=== PATIENT | male | born 1985 | race Hispanic/Latino ===

== ENCOUNTER 2020-03-22 16:56 | Emergency (ER) | payer SELFPAY ==
--- OUTSIDE RECORDS SUMMARY | 2020-03-22 17:00 | XMS REPORT | Summary of Care ---
:1985 Author Organization [facility] - Health Address [address] [place] [address] Care Team Providers Name Role Phone Pcp, Does Not Have A Primary Care Provider Encounter Details Date Type Department Care Team Description 02/02/2020 Orders Only [facility] Doctor Unassigned, No [address] [facility] [place] [address] [address] [place] [address] Allergies Active Allergy Reactions Severity Noted Date Comments Aspirin Hives 10/09/2015 documented as of this encounter (statuses as of 02/02/2020) Medications Medication Sig Dispensed Refills Start Date End Date Status desvenlafaxine succinate Take 50 mg by 0 Active (PRISTIQ) 50 mg 24 hr mouth daily. tablet sulfamethoxazole-trimeth Take 1 Tab by 20 Tab 0 10/09/2015 Active oprim (BACTRIM DS) mouth every 12 800-160 mg per tablet (twelve) hours. phenazopyridine Take 1 Tab by 9 Tab 0 10/09/2015 Active (PYRIDIUM) 200 mg tablet mouth 3 (three) times daily. tamsulosin (FLOMAX) 0.4 Take 1 Cap by 14 Cap 0 10/09/2015 Active mg 24 hr capsule mouth at bedtime. traMADOL (ULTRAM) 50 mg Take 1 Tab by 20 Tab 0 12/16/2015 Active tablet mouth every 6 (six) hours as needed for Pain (scale 4-6). acetaminophen-codeine Take 1 tablet by 10 tablet 0 05/05/2019 Active (TYLENOL-CODEINE #3) mouth every 4 300-30 mg (four) hours as tabletIndications: Flank needed (pain). pain ondansetron (ZOFRAN) 4 Take 1 tablet by 10 tablet 0 05/05/2019 Active mg tabletIndications: mouth every 8 Flank pain (eight) hours as needed (nausea). FLUoxetine (PROZAC) 40 Take 40 mg by 0 Active mg capsule mouth daily. famotidine 20 mg Take 1 tablet by 20 tablet 0 01/17/2020 Active tabletIndications: mouth 2 (two) Vomiting, intractability times daily. of vomiting not specified, presence of nausea not specified, unspecified vomiting type, Marijuana use ondansetron 4 mg Take 1 tablet by 20 tablet 0 01/17/2020 Active disintegrating mouth every 4 tabletIndications: (four) hours as Vomiting, intractability needed for of vomiting not Nausea and specified, presence of Vomiting (N/V). nausea not specified, unspecified vomiting type, Marijuana use documented as of this encounter (statuses as of 02/02/2020) Active Problems No known active problemsdocumented as of this encounter (statuses as of 02/02/2020) Social History Tobacco Use Types Packs/Day Years Used Date Never Assessed Sex Assigned at Date Recorded Not on file Job Start Date Occupation Industry Not on file Not on file Not on file Travel History Travel Start Travel End No recent travel history available. COVID-19 Exposure Response Date Recorded In the last month, have you been in contact with No / Unsure 01/17/2020 10:17 AM CDT someone who was confirmed or suspected to have Coronavirus / COVID-19? documented as of this encounter Last Filed Vital Signs Not on filedocumented in this encounter Plan of Treatment Health Maintenance Due Date Last Done Comments VARICELLA VACCINES (1 of 2 - 1988 2-dose childhood series) DTaP,Tdap,and Td Vaccines (1 - 1998 Tdap) INFLUENZA VACCINE (#1) 2019 PNEUMOCOCCAL 0-64 YEARS COMBINED Aged Out No longer eligible based on SERIES patient's age to complete this topic documented as of this encounter Procedures Procedure Name Priority Date/Time Associated Diagnosis Comme nts NOTICE OF PRIVACY Routine 02/02/2020 7:33 AM CDT PRACTICES CONSENT/REFUSAL FOR Routine 02/02/2020 7:33 AM CDT DIAGNOSIS AND TREATMENT documented in this encounter Results Not on filedocumented in this encounter
--- OUTSIDE RECORDS SUMMARY | 2020-03-22 17:00 | XMS REPORT | Continuity of Care Document ---
:1985 Author Organization [facility] t Address [address] [place] [address] Care Team Providers Name Role Phone Frank GARRIDO E Attending Clinician Lai Attending Clinician Eusebio ARANGO S Attending Clinician Doctor Unassigned, Name Attending Clinician Unavailable Terri Ty DO Attending Clinician Yogesh ARANGO Attending Clinician Avril DO Attending Clinician Kyung DO Attending Clinician Payers Payer Name Policy Type Policy Number Effective Date Expiration Date S ource Problems This patient has no known problems. Allergies, Adverse Reactions, Alerts Allergy Allergy Status Severity Reaction(s) Onset Inactive Treating Comm ents Source Name Type Date Date Clinician NSAIDS DA Active SV [facility] (Non-Chris 6 Clear roidal 00:00: Alicea Anti-Inf 00 [facility] aspirin DA Active SV 2019-0 [facility] 5-13 Clear 00:00: Alicea 00 [facility] No Known DA Active U 2018-1 [facility] Allergie 2-12 Clear s 00:00: Alicea 00 [facility] No Known DA Active U 2018-1 [facility] Allergie 1-15 Clear s 00:00: [place]a 00 [facility] aspirin DA Active U 2018-0 [facility] 4-13 Clear 00:00: [place] 00 [facility] Medications This patient has no known medications. Procedures This patient has no known procedures. Encounters Start End Encounter Admission Attending Care Care Encounter Source Date/Time Date/Time Type Type Clinicians Facility Department ID 2020-03-14 2020-03-14 Patient Kim Marie 1.2.840.114 [id number] 00:00:00 00:00:00 Outreach E Jaeger [id number] [place] 4.2.7.2.686 [id number] 2020-03-12 2020-03-12 Patient Kim Marie 1.2.840.114 [id number] 00:00:00 00:00:00 Outreach E Jaeger 350.1.13.10 [place] 4.2.7.2.686 [id number] 2020-03-12 2020-03-12 Transition Radha Hoytsolomon 1.2.840.114 [id number] 00:00:00 00:00:00 of Care Gaye Lauy 350.1.13.10 [place] 4.2.7.2.686 [id number] 2020-03-07 2020-03-07 Emergency [facility] [id number] 01:22:58 03:40:00 Abel Stearns 350.1.13.10 [place] 4.2.7.2.686 [place] [id number] [id number] 2020-02-27 2020-02-28 Emergency [facility] [id number] 22:09:31 01:36:00 Abel Stearns 350.1.13.10 [place] 4.2.7.2.686 [place] [id number] 2020-02-27 2020-02-27 Orders Doctor ALIX 1.2.840.114 [id number] 00:00:00 00:00:00 Only UnassignedRAKEL 350.1.13.10 [place] [address].2.7.2.686 [id number] [id number] 2020-02-02 2020-02-02 Emergency Karson, [facility] 1.2.840.114 [id number] 07:36:37 09:47:00 Yessicara Terri Stearns 350.1.13.10 [place] 4.2.7.2.686 [place] [id number] 2020-02-02 2020-02-02 Orders Doctor ALIX 1.2.840.114 [id number] 00:00:00 00:00:00 Only UnassignedRAKEL 350.1.13.10 [place] [address] [id number] [id number] 2020-01-17 2020-01-17 [facility] [id number] 10:12:01 11:51:00 Suleman Jinny 350.1.13.10 [place] 4.2.7.2.686 [place] [id number] 084 2019-05-26 2019-05-26 Emergency Tg Mackenzie [facility] 1.2.840.114 [id number] 21:20:14 23:22:00 Health 350.1.13.10 Clear 4.2.7.2.686 [place] [id number] Hospital 014 (CLC) 2019-05-05 2019-05-05 Emergency Kyung [facility] 1.2.840.114 [id number] 10:41:41 12:07:00 Co Health 350.1.13.10 Clear 4.2.7.2.686 [place] [id number] Hospital 014 (CLC) Results Test Description Test Time Test Comments Results Result Comments Source COMPREHENSIVE METABOLIC PANEL 2019-05-24 07:12:00 Test Item Value Reference Range Interpretation Comme nts SODIUM (test code = NA) 142 mEq/L 134-147 N POTASSIUM (test code = K) 3.9 mEq/L 3.4-5.0 N CHLORIDE (test code = CL) 105 mEq/L 100-108 N CARBON DIOXIDE (test code = CO2) 30 mEq/L 21-33 N ANION GAP (test code = GAP) 11 0-20 N GLUCOSE (test code = GLU) 112 mg/dL 70-110 H BLOOD UREA NITROGEN (test code = 14 mg/dL 7-18 N BUN) GLOMERULAR FILTRATION RATE (test 98.4 105-110 L Units of measure = code = GFR) ml/min/1.73 m2 CREATININE (test code = CREAT) 0.9 mg/dL 0.6-1.3 N TOTAL PROTEIN (test code = PROT) 7.6 g/dL 6.4-8.2 N ALBUMIN (test code = ALB) 4.50 g/dL 3.4-5.0 N CALCIUM (test code = CA) 9.5 mg/dL 8.0-10.5 N BILIRUBIN TOTAL (test code = BILT) 0.60 mg/dL 0.0-1.0 N SGOT/AST (test code = AST) 14 IUnit/L 15-37 L SGPT/ALT (test code = ALT) 14 IUnit/L 15-65 L ALKALINE PHOSPHATASE TOTAL (test 92 IUnit/L 20-125 N code = ALKP) [id number] 07:12:00 Test Item Value Reference Range Interpretation Comments LIPASE (test code = LIP) 74 IUnit/L 73-393 N COMPREHENSIVE METABOLIC [id number] 07:07:00 Test Item Value Reference Range Interpretation Comments SODIUM (test code = NA) 142 mEq/L 134-147 N POTASSIUM (test code = K) 3.9 mEq/L 3.4-5.0 N CHLORIDE (test code = CL) 105 mEq/L 100-108 N CARBON DIOXIDE (test code = CO2) 30 mEq/L 21-33 N ANION GAP (test code = GAP) 11 0-20 N GLUCOSE (test code = GLU) 112 mg/dL 70-110 H BLOOD UREA NITROGEN (test code = 14 mg/dL 7-18 N BUN) GLOMERULAR FILTRATION RATE (test 105-110 code = GFR) CREATININE (test code = CREAT) mg/dL 0.6-1.3 TOTAL PROTEIN (test code = PROT) g/dL 6.4-8.2 ALBUMIN (test code = ALB) g/dL 3.4-5.0 CALCIUM (test code = CA) 9.5 mg/dL 8.0-10.5 N BILIRUBIN TOTAL (test code = BILT) mg/dL 0.0-1.0 SGOT/AST (test code = AST) IUnit/L 15-37 SGPT/ALT (test code = ALT) IUnit/L 15-65 ALKALINE PHOSPHATASE TOTAL (test IUnit/L 20-125 code = ALKP) [id number] 07:07:00 Test Item Value Reference Range Interpretation Comments LIPASE (test code = LIP) 74 IUnit/L 73-393 N URINALYSIS [id number] 07:03:00 Test Item Value Reference Range Interpretation Comments UA COLOR (test code = COLU) YELLOW YEL/STRAW UA APPEARANCE (test code = CLEAR CLEAR APPU) UA GLUCOSE DIPSTICK (test code NEGATIVE NEGATIVE = DGLUU) UA BILIRUBIN DIPSTICK (test NEGATIVE NEGATIVE code = BILU) UA KETONE DIPSTICK (test code TRACE NEGATIVE A = KETU) UA SPECIFIC GRAVITY (test code 1.029 1.005-1.030 N = SGU) UA BLOOD DIPSTICK (test code = NEGATIVE NEGATIVE MOE) UA PH DIPSTICK (test code = 6.0 5.0-7.0 N JANNETH) UA PROTEIN DIPSTICK (test code 1+ NEGATIVE A = PROU) UA UROBILINIOGEN DIPSTICK 0.2 mg/dL 0.2-1.0 (test code = URO) UA NITRITE DIPSTICK (test code NEGATIVE NEGATIVE = UMBERTO) UA LEUKOCYTE ESTERASE DIPSTICK NEGATIVE NEGATIVE (test code = LEUU) UA RBC (test code = RBCU) 0-3 RBC/HPF 0-3 UA WBC NO REFLEX (test code = 0-3 WBC/HPF 0-3 WBCUCL) UA BACTERIA (test code = BACU) NONE SEEN /HPF NONE SEEN UA SQUAMOUS CELLS (test code = 0-5 /HPF NONE SEEN SQU) UA MUCUS (test code = MUCU) 4+ /LPF NONE SEEN A COMMENTS: Clean CatchCBC W/AUTO [id number] 06:59:00 Test Item Value Reference Range Interpretation Comments WHITE BLOOD CELL (test code = 13.17 x10 3/uL 4.5-11.0 H WBC) RED BLOOD CELL (test code = 5.18 x10 6/uL 4.00-5.60 N RBC) HEMOGLOBIN (test code = HGB) 15.2 g/dL 12.5-16.9 N HEMATOCRIT (test code = HCT) 46.1 % 37.5-50.7 N MEAN CELL VOLUME (test code = 89.0 fL 81.0-99.0 N MCV) MEAN CELL HGB (test code = 29.3 pg 27.0-33.0 N MCH) MEAN CELL HGB CONCETRATION 33.0 g/dL 33.0-37.0 N (test code = MCHC) RED CELL DISTRIBUTION WIDTH CV 12.4 % 11.5-14.5 N (test code = RDW) RED CELL DISTRIBUTION WIDTH SD 41.1 fL 37.0-54.0 N (test code = RDW-SD) PLATELET COUNT (test code = 370 x10 3/uL 150-400 N PLT) MEAN PLATELET VOLUME (test 8.6 fL 7.0-9.0 N code = MPV) NEUTROPHIL % (test code = NT%) 81.7 % 56.0-77.0 H IMMATURE GRANULOCYTE % (test 0.5 % 0.0-2.0 N code = IG%) LYMPHOCYTE % (test code = LY%) 10.6 % 14.0-32.0 L MONOCYTE % (test code = MO%) 6.5 % 4.8-9.0 N EOSINOPHIL % (test code = EO%) 0.2 % 0.3-3.7 L BASOPHIL % (test code = BA%) 0.5 % 0.0-2.0 N NUCLEATED RBC % (test code = 0.0 % 0-0 N NRBC%) NEUTROPHIL # (test code = NT#) 10.76 x10 3/uL 2.0-7.6 H IMMATURE GRANULOCYTE # (test 0.07 x10 3/uL 0.00-0.03 H code = IG#) LYMPHOCYTE # (test code = LY#) 1.40 x10 3/uL 1.0-3.8 N MONOCYTE # (test code = MO#) 0.85 x10 3/uL 0.1-0.8 H EOSINOPHIL # (test code = EO#) 0.03 x10 3/uL 0.0-0.2 N BASOPHIL # (test code = BA#) 0.06 x10 3/uL 0.0-0.2 N NUCLEATED RBC # (test code = 0.00 x10 3/uL 0.0-0.1 N NRBC#) MANUAL DIFF REQUIRED (test NO code = MDIFF) BASIC METABOLIC [id number] 20:42:00 Test Item Value Reference Range Interpretation Comments SODIUM (test code = NA) 140 mEq/L 134-147 N POTASSIUM (test code = 3.9 mEq/L 3.4-5.0 N K) CHLORIDE (test code = 107 mEq/L 100-108 N CL) CARBON DIOXIDE (test 28 mEq/L 21-33 N code = CO2) ANION GAP (test code = 9 0-20 N GAP) GLUCOSE (test code = 104 mg/dL 70-110 N GLU) BLOOD UREA NITROGEN 8 mg/dL 7-18 N (test code = BUN) GLOMERULAR FILTRATION 98.4 105-110 L Units of measure = RATE (test code = GFR) ml/mi n/1.73 m2 CREATININE (test code = 0.9 mg/dL 0.6-1.3 N CREAT) CALCIUM (test code = 8.9 mg/dL 8.0-10.5 N CA) CBC W/AUTO [id number] 20:27:00 Test Item Value Reference Range Interpretation Comments WHITE BLOOD CELL (test code = 9.61 x10 3/uL 4.5-11.0 N WBC) RED BLOOD CELL (test code = 4.53 x10 6/uL 4.00-5.60 N RBC) HEMOGLOBIN (test code = HGB) 13.3 g/dL 12.5-16.9 N HEMATOCRIT (test code = HCT) 40.8 % 37.5-50.7 N MEAN CELL VOLUME (test code = 90.1 fL 81.0-99.0 N MCV) MEAN CELL HGB (test code = MCH) 29.4 pg 27.0-33.0 N MEAN CELL HGB CONCETRATION 32.6 g/dL 33.0-37.0 L (test code = MCHC) RED CELL DISTRIBUTION WIDTH CV 12.8 % 11.5-14.5 N (test code = RDW) RED CELL DISTRIBUTION WIDTH SD 42.5 fL 37.0-54.0 N (test code = RDW-SD) PLATELET COUNT (test code = 323 x10 3/uL 150-400 N PLT) MEAN PLATELET VOLUME (test code 8.7 fL 7.0-9.0 N = MPV) NEUTROPHIL % (test code = NT%) 55.6 % 56.0-77.0 L IMMATURE GRANULOCYTE % (test 0.4 % 0.0-2.0 N code = IG%) LYMPHOCYTE % (test code = LY%) 31.8 % 14.0-32.0 N MONOCYTE % (test code = MO%) 10.9 % 4.8-9.0 H EOSINOPHIL % (test code = EO%) 0.7 % 0.3-3.7 N BASOPHIL % (test code = BA%) 0.6 % 0.0-2.0 N NUCLEATED RBC % (test code = 0.0 % 0-0 N NRBC%) NEUTROPHIL # (test code = NT#) 5.33 x10 3/uL 2.0-7.6 N IMMATURE GRANULOCYTE # (test 0.04 x10 3/uL 0.00-0.03 H code = IG#) LYMPHOCYTE # (test code = LY#) 3.06 x10 3/uL 1.0-3.8 N MONOCYTE # (test code = MO#) 1.05 x10 3/uL 0.1-0.8 H EOSINOPHIL # (test code = EO#) 0.07 x10 3/uL 0.0-0.2 N BASOPHIL # (test code = BA#) 0.06 x10 3/uL 0.0-0.2 N NUCLEATED RBC # (test code = 0.00 x10 3/uL 0.0-0.1 N NRBC#) MANUAL DIFF REQUIRED (test code NO = MDIFF) - CT ABD PELVIS W/O [id number] 20:22:00 Name: RO BROTHERS JR [facility] : 1985 Age/S: 33 / M [address] [place] [address] Unit #: [id number] Loc: [place] [id number] Phys: Omer Lepe Acct: [id number] Dis Date: Status: REG ER PHONE #: [phone] Exam Date: 03/21/20191999 FAX #: [phone] Reason: R flank pain EXAMS: CPTCODE: [id number] CT ABD PELVIS W/O CONT [id number] PROCEDURE: CT ABDOMEN AND PELVIS WITHOUT CONTRAST (RENAL STONE CT) INDICATION: 33 years Male, right flank pain. COMPARISON: Abdominal CT of 02/03/2019 TECHNIQUE: Helical noncontrast imaging performed diaphragm through the pubic symphysis. Axial, sagittal and coronal reconstructions are available. IV contrast: None. Oral contrast: None. Rectal contrast: None. DOSE: CT imaging performed at this location utilizes radiation dose optimization technique which includes one or more of the followin) Automated exposure control; 2) Adjustment of the mA and/or kV according to patient's size; 3) Use of iterativereconstruction techniques. DLP (mGy- cm): 468 FINDINGS: This examination is limited for the evaluation of solid organs and vascular structures due to lack of intravenous contra st, which is standard for urinary calculus assessment CT. LOWER CHEST: Limited visualization. No abnormalities. No pericardial effusion. SOLID ORGANS: Liver, spleen, and pancreas are within normal limits. Bilateral adrenal glands are normal. Punctate bilateral intrarenal stones. No hydronephrosis or perirenal edema. No intraureteral stones. No gallstones. No biliary ductal dilatation. BOWEL: No bowel dilatation or bowel wall thickening. Sigmoid colon is unremarkable. Perirectal fat planes are within normal limits. Normal appearing appendix identified within right lower quadrant. PERITONEUM: No free intraperitoneal air or fluid. No stranding of the central mesentery. No peritoneal adenopathy by size criteria. RETROPERITONEUM: Abdominal aorta is normal caliber. No retroperitoneal adenopathy by size criteria. PELVIS: No pelvic mass. No pelvic free fluid.Urinary bladder is unremarkable. No pelvic adenopathy by size criteria. MUSCULOSKELETAL: No acute osseous abnormalities or destructive bony PAGE 1 Signed Report (CONTINUED) Name: ZEVRO ALIX SAUCEDA [facility] : 1985 Age/S: 33 / M [address] [place] [address] Blvd Unit #: [id number] Loc: [place] [address] Phys: Omer Lepe DO Acct: [id number] Dis Date: Status: REG ER PHONE #: [phone] Exam Date: 03/21/20191999 FAX#: [phone] Reason: R flank pain EXAMS: CPT CODE: [id number] CT ABD PELVIS W/O [id number] <Continued> lesions. Vertebral body height are maintained. OTHER: None. IMPRESSION: 1. Stable minimal bilateral nonobstructing nephrolithiasis. Otherwise, negative SL: JH-H at 2021 Reported and signed by: Alix Armas M.D. CC: Omer Lepe DO Technologist:Hafsa Mike, RT(R)(CT) CTDI: DLP: Trnscb Date/Time: 03/21/2019 (2021) [id number] Orig Print D/T: S: 03/21/2019 (2024) PAGE 2 Signed Report URINALYSIS [id number] 19:52:00 Test Item Value Reference Range Interpretation Comments UA COLOR (test code = COLU) STRAW YEL/STRAW UA APPEARANCE (test code = CLEAR CLEAR APPU) UA GLUCOSE DIPSTICK (test code NEGATIVE NEGATIVE = DGLUU) UA BILIRUBIN DIPSTICK (test NEGATIVE NEGATIVE code = BILU) UA KETONE DIPSTICK (test code = NEGATIVE NEGATIVE KETU) UA SPECIFIC GRAVITY (test code 1.004 1.005-1.030 L = SGU) UA BLOOD DIPSTICK (test code = 2+ NEGATIVE A MOE) UA PH DIPSTICK (test code = 8.0 5.0-7.0 H JANNETH) UA PROTEIN DIPSTICK (test code NEGATIVE NEGATIVE = PROU) UA UROBILINIOGEN DIPSTICK (test 0.2 mg/dL 0.2-1.0 code = URO) UA NITRITE DIPSTICK (test code NEGATIVE NEGATIVE = UMBERTO) UA LEUKOCYTE ESTERASE DIPSTICK NEGATIVE NEGATIVE (test code = LEUU) UA WBC (test code = WBCU) 0-3 WBC/HPF 0-3 UA RBC (test code = RBCU) 21-50 RBC/HPF 0-3 UA BACTERIA (test code = BACU) TRACE /HPF NONE SEEN UA SQUAMOUS CELLS (test code = 0-5 /HPF NONE SEEN SQU) UA MUCUS (test code = MUCU) TRACE /LPF NONE SEEN URINALYSIS [id number] 09:08:00 Test Item Value Reference Range Interpretation Comments UA COLOR (test code = COLU) YELLOW YEL/STRAW UA APPEARANCE (test code = CLOUDY CLEAR A APPU) UA GLUCOSE DIPSTICK (test code NEGATIVE NEGATIVE = DGLUU) UA BILIRUBIN DIPSTICK (test NEGATIVE NEGATIVE code = BILU) UA KETONE DIPSTICK (test code 1+ NEGATIVE A = KETU) UA SPECIFIC GRAVITY (test code 1.025 1.005-1.030 N = SGU) UA BLOOD DIPSTICK (test code = NEGATIVE NEGATIVE MOE) UA PH DIPSTICK (test code = 7.0 5.0-7.0 N JANNETH) UA PROTEIN DIPSTICK (test code 1+ NEGATIVE A = PROU) UA UROBILINIOGEN DIPSTICK 0.2 mg/dL 0.2-1.0 (test code = URO) UA NITRITE DIPSTICK (test code NEGATIVE NEGATIVE = UMBERTO) UA LEUKOCYTE ESTERASE DIPSTICK NEGATIVE NEGATIVE (test code = LEUU) UA WBC (test code = WBCU) 0-3 WBC/HPF 0-3 UA RBC (test code = RBCU) 0-3 RBC/HPF 0-3 UA BACTERIA (test code = BACU) TRACE /HPF NONE SEEN UA SQUAMOUS CELLS (test code = NONE SEEN /HPF NONE SEEN SQU) UA MUCUS (test code = MUCU) 1+ /LPF NONE SEEN CBC W/AUTO [id number] 09:02:00 Test Item Value Reference Range Interpretation Comments WHITE BLOOD CELL (test code = 7.38 x10 3/uL 4.5-11.0 WBC) RED BLOOD CELL (test code = 5.41 x10 6/uL 4.00-5.60 N RBC) HEMOGLOBIN (test code = HGB) 16.0 g/dL 12.5-16.9 N HEMATOCRIT (test code = HCT) 48.3 % 37.5-50.7 N MEAN CELL VOLUME (test code = 89.3 fL 81.0-99.0 N MCV) MEAN CELL HGB (test code = MCH) 29.6 pg 27.0-33.0 N MEAN CELL HGB CONCETRATION 33.1 g/dL 33.0-37.0 N (test code = MCHC) RED CELL DISTRIBUTION WIDTH CV 13.1 % 11.5-14.5 N (test code = RDW) RED CELL DISTRIBUTION WIDTH SD 42.9 fL 37.0-54.0 N (test code = RDW-SD) PLATELET COUNT (test code = 367 x10 3/uL 150-400 N PLT) MEAN PLATELET VOLUME (test code 8.4 fL 7.0-9.0 N = MPV) NEUTROPHIL % (test code = NT%) 70.2 % 56.0-77.0 N IMMATURE GRANULOCYTE % (test 0.3 % 0.0-2.0 N code = IG%) LYMPHOCYTE % (test code = LY%) 21.0 % 14.0-32.0 N MONOCYTE % (test code = MO%) 7.6 % 4.8-9.0 N EOSINOPHIL % (test code = EO%) 0.1 % 0.3-3.7 L BASOPHIL % (test code = BA%) 0.8 % 0.0-2.0 N NUCLEATED RBC % (test code = 0.0 % 0-0 N NRBC%) NEUTROPHIL # (test code = NT#) 5.18 x10 3/uL 2.0-7.6 N IMMATURE GRANULOCYTE # (test 0.02 x10 3/uL 0.00-0.03 N code = IG#) LYMPHOCYTE # (test code = LY#) 1.55 x10 3/uL 1.0-3.8 N MONOCYTE # (test code = MO#) 0.56 x10 3/uL 0.1-0.8 N EOSINOPHIL # (test code = EO#) 0.01 x10 3/uL 0.0-0.2 N BASOPHIL # (test code = BA#) 0.06 x10 3/uL 0.0-0.2 N NUCLEATED RBC # (test code = 0.00 x10 3/uL 0.0-0.1 N NRBC#) MANUAL DIFF REQUIRED (test code NO = MDIFF) COMPREHENSIVE METABOLIC [id number] 08:41:00 Test Item Value Reference Range Interpretation Comments SODIUM (test code = NA) 140 mEq/L 134-147 N POTASSIUM (test code = 4.4 mEq/L 3.4-5.0 N K) CHLORIDE (test code = 107 mEq/L 100-108 N CL) CARBON DIOXIDE (test 27 mEq/L 21-33 N code = CO2) ANION GAP (test code = 10 0-20 N GAP) GLUCOSE (test code = 99 mg/dL 70-110 N GLU) BLOOD UREA NITROGEN 12 mg/dL 7-18 N (test code = BUN) GLOMERULAR FILTRATION 78.1 105-110 L Units of measure = RATE (test code = GFR) ml/mi n/1.73 m2 CREATININE (test code = 1.1 mg/dL 0.6-1.3 N CREAT) TOTAL PROTEIN (test 7.9 g/dL 6.4-8.2 N code = PROT) ALBUMIN (test code = 4.30 g/dL 3.4-5.0 N ALB) CALCIUM (test code = 8.9 mg/dL 8.0-10.5 N CA) BILIRUBIN TOTAL (test 0.40 mg/dL 0.0-1.0 N code = BILT) SGOT/AST (test code = 15 IUnit/L 15-37 N AST) SGPT/ALT (test code = 18 IUnit/L 15-65 N ALT) ALKALINE PHOSPHATASE 88 IUnit/L 20-125 N TOTAL (test code = ALKP) [id number] 08:41:00 Test Item Value Reference Range Interpretation Comments LIPASE (test code = LIP) 76 IUnit/L 73-393 N COMPREHENSIVE METABOLIC [id number] 08:39:00 Test Item Value Reference Range Interpretation Comments SODIUM (test code = NA) 140 mEq/L 134-147 N POTASSIUM (test code = 4.4 mEq/L 3.4-5.0 N K) CHLORIDE (test code = 107 mEq/L 100-108 N CL) CARBON DIOXIDE (test 27 mEq/L 21-33 N code = CO2) ANION GAP (test code = 10 0-20 N GAP) GLUCOSE (test code = 99 mg/dL 70-110 N GLU) BLOOD UREA NITROGEN 12 mg/dL 7-18 N (test code = BUN) GLOMERULAR FILTRATION 78.1 105-110 L Units of measure = RATE (test code = GFR) ml/mi n/1.73 m2 CREATININE (test code = 1.1 mg/dL 0.6-1.3 N CREAT) TOTAL PROTEIN (test g/dL 6.4-8.2 code = PROT) ALBUMIN (test code = 4.30 g/dL 3.4-5.0 N ALB) CALCIUM (test code = 8.9 mg/dL 8.0-10.5 N CA) BILIRUBIN TOTAL (test mg/dL 0.0-1.0 code = BILT) SGOT/AST (test code = 15 IUnit/L 15-37 N AST) SGPT/ALT (test code = 18 IUnit/L 15-65 N ALT) ALKALINE PHOSPHATASE IUnit/L 20-125 TOTAL (test code = ALKP) [id number] 08:39:00 Test Item Value Reference Range Interpretation Comments LIPASE (test code = LIP) 76 IUnit/L 73-393 N - XR CHEST 1 [id number] 16:27:00 FAX: Racheal Silverio NP [phone] [place]: St: REG Name: RO BROTHERS [facility] : 1985 Age/S: 33/M [address] [place] [address] Unit#: [id number] Loc: [place] [address] Phys: Racheal Silverio NP Acct: [id number] Dis Date: Status: REG ER PHONE #: [phone] Exam Date: 02/03/2019 1617 FAX #: [phone] Reason: Abdominal Pain EXAMS: CPT CODE: [id number] XR CHEST 1 V 53805 SINGLE VIEW RADIOGRAPH CHEST INDICATION: Abdominal Pain. Vomiting for 2 days TECHNIQUE: A single view frontal radiograph of the chestwas obtained. COMPARISONS: Chest x-ray 09/06/2018 FINDINGS: There is no acute osseous fracture or dislocation. There is no subdiaphragmatic freegas. The cardiomediastinal size and contour are normal. There is no pneumothorax, pleural effusion or organized pneumonia. There is a 3 mm calcified left suprahilar gr anuloma suggesting prior granulomatous inflammatory disease. IMPRESSION: 1. No acute cardiopulmonary process. at 0251 Reported and signed by: Sascha Fuentes D.O. CC: Racheal Silverio NP Tech nologist: Rosalia Bruno, RT(R); RT Patrice(R) Trnscrd Date/Time/By: 02/03/2019 (1627) : By: [email or web address] Orig Print D/T: S: 02/03/2019 (9806) PAGE 1 Signed Report- CT ABD PELVIS W/O [id number] 16:04:00 Name: RO BROTHERS JR [facility] [place] : 1985 Age/S: 33 / M [address] [place] [address] Unit #: [id number] Loc: [place] [id number] Phys: Jean ClaudeRacheal NP Acct: [id number] Dis Date: Status: REG ER PHONE #: [phone] Exam Date: 02/03/2019 1537 FAX #: [phone] Reason: L upperabd pain rad to L flank EXAMS: CPTCODE: [id number] CT ABD PELVIS W/O CONT 54241 PROCEDURE: CT ABDOMEN AND PELVIS WITHOUT CONTRAST (RENAL STONE CT) 02/03/2019 INDICATION: Left upper abdominal/flank pain. COMPARISON: Abdomen CT 08/10/2018 ADMINISTERED CONTRAST: None. DLP: 217.2 mGy-cm TECHNIQUE: Noncontrasted helical imaging was performed from the kidneys through the symphysis as a renal stone protocol. Axial and coronal reformations are available. FINDINGS: This examination is limited for the evaluation of solid organs and vascular structures due to lack of intravenous contrast, which isstandard for urinary calculus assessment CT. KIDNEYS/BLADDER: A minimal 2 mm nonobstructing stone is seen in the right renal lower pole with a punctate nonobstructing calculus in the left renal interpolar region. No ureteral calculi, hydronephrosis or hydroureter. Thebladder is partially distended with urine with no filling defects or diverticula. LOWER CHEST: The lung bases are clear. SOLID ORGANS: Accounting for the lack of IV contrast, no gross focal abnormalities are seen in the liver, gallbladder, spleen, pancreas or adrenal glands BOWEL: Limited assessment without oral contrast. No pneumatosis. Normal caliber appendix without thickening or inflammation. PERITONEUM: No free intraperitoneal fluid or air. RETROPERITONEUM: No adenopathy. The aorta is unremarkable. PELVIS: No pelvic adenopathy, mass or free fluid. No inguinal hernia or adenopathy. MUSCULOSKELETAL: The skeleton is intact. IMPRESSION:1. No acute CT explanation for the patient's symptoms. PAGE 1 Signed Report (CONTINUED) Name: RO BROTHERS JR [facility] : 1985 Age/S: 33 / M [address] [place] [address] Unit #: [id number] Loc: JOSE ED[place]ARD[place] [address] Phys: Racheal Silverio NP Acct: [id number] Dis Date: Status: REG ER PHONE #: [phone] Exam Date: 02/03/2019 1537 FAX #: [phone] Reason: L upper abd pain rad to L flank EXAMS: CPT CODE: [id number] CT ABD PELVIS W/O CONT 04198 <Continued> 2. Minimal bilateral nonobstructive nephrolithiasis. ____ CT imaging performed at this location utilizes radiation dose optimization techniques which include one or more of the following: - Automated exposure control -Adjustment of the mA and/or kV according to patient size -Use of iterative reconstruction technique SL: ER-H at 1604 Reported and signed by: Boom Jha M.D. CC: Racheal Silverio NP Technologist:Kimberli Boateng, RT(R)(CT) CTDI: DLP: Trnscb Date/Time: 02/03/2019 (1604) [email or web address] Orig Print D/T: S: 02/03/2019 (1607) PAGE 2 Signed Report URINALYSIS [id number] 15:53:00 Test Item Value Reference Range Interpretation Comments UA COLOR (test code = COLU) COLORLESS YEL/STRAW UA APPEARANCE (test code = CLEAR CLEAR APPU) UA GLUCOSE DIPSTICK (test code NEGATIVE NEGATIVE = DGLUU) UA BILIRUBIN DIPSTICK (test NEGATIVE NEGATIVE code = BILU) UA KETONE DIPSTICK (test code NEGATIVE NEGATIVE = KETU) UA SPECIFIC GRAVITY (test code 1.001 1.005-1.030 L = SGU) UA BLOOD DIPSTICK (test code = NEGATIVE NEGATIVE MOE) UA PH DIPSTICK (test code = 7.0 5.0-7.0 N JANNETH) UA PROTEIN DIPSTICK (test code NEGATIVE NEGATIVE = PROU) UA UROBILINIOGEN DIPSTICK 0.2 mg/dL 0.2-1.0 (test code = URO) UA NITRITE DIPSTICK (test code NEGATIVE NEGATIVE = UMBERTO) UA LEUKOCYTE ESTERASE DIPSTICK NEGATIVE NEGATIVE (test code = LEUU) UA WBC (test code = WBCU) 0-3 WBC/HPF 0-3 UA RBC (test code = RBCU) 0-3 RBC/HPF 0-3 UA BACTERIA (test code = BACU) NONE SEEN /HPF NONE SEEN UA SQUAMOUS CELLS (test code = NONE SEEN /HPF NONE SEEN SQU) COMMENTS: Clean CatchHEPATIC FUNCTION [id number] 15:32:00 Test Item Value Reference Range Interpretation Comments TOTAL PROTEIN (test code = PROT) 8.6 g/dL 6.4-8.2 H ALBUMIN (test code = ALB) 4.70 g/dL 3.4-5.0 N BILIRUBIN TOTAL (test code = 0.40 mg/dL 0.0-1.0 N BILT) BILIRUBIN DIRECT (test code = < 0.10 MG/DL 0.0-0.30 N BILD) BILIRUBIN INDIRECT (test code = 0.30 MG/DL BILIND) SGOT/AST (test code = AST) 18 IUnit/L 15-37 N SGPT/ALT (test code = ALT) 17 IUnit/L 15-65 N ALKALINE PHOSPHATASE TOTAL (test 100 IUnit/L 20-125 N code = ALKP) [id number] 15:32:00 Test Item Value Reference Range Interpretation Comments LIPASE (test code = LIP) 98 IUnit/L 73-393 N CHEMISTRY 8 [id number] 15:25:00 Test Item Value Reference Range Interpretation Comments ISTAT-SODIUM (test code = NAP) MMOL/L 134-147 ISTAT-POTASSIUM (test code = KP) MMOL/L 3.4-5.0 ISTAT-CHLORIDE (test code = CLP) MMOL/L 100-108 ISTAT CARBON DIOXIDE (test code = mmol/L 21-33 N ISTAT-CO2) ISTAT CALCIUM IONIZED (test code = MG/DL 1.12-1.32 ISTAT-AMISH) ISTAT-GLUCOSE (test code = GLUP) MG/DL 70-110 N ISTAT-BUN (test code = BUNP) MG/DL 7-18 N BEDSIDE CREATININE (test code = MG/DL 0.6-1.3 N CREATBED) GLOMERULAR FILTRATION RATE POC 105 ML/MIN (test code = GFRBED) CHEMISTRY 8 [id number] 15:25:00 Test Item Value Reference Range Interpretation Comments ISTAT-SODIUM (test 138 MMOL/L 134-147 N code = NAP) ISTAT-POTASSIUM (test 4.1 MMOL/L 3.4-5.0 N code = KP) ISTAT-CHLORIDE (test 102 MMOL/L 100-108 N Perform ed by code = CLP) certified opera tor at [facility] ISTAT CARBON DIOXIDE 25.0 mmol/L 21-33 N (test code = ISTAT-CO2) ISTAT CALCIUM IONIZED 1.11 MG/DL 1.12-1.32 L (test code = ISTAT-AMISH) ISTAT-GLUCOSE (test 104 MG/DL 70-110 N code = GLUP) ISTAT-BUN (test code = 12 MG/DL 7-18 N BUNP) BEDSIDE CREATININE 0.9 MG/DL 0.6-1.3 N (test code = CREATBED) GLOMERULAR FILTRATION 105 ML/MIN RATE POC (test code = GFRBED) CBC W/AUTO [id number] 15:18:00 Test Item Value Reference Range Interpretation Comments WHITE BLOOD CELL (test code = 13.32 x10 3/uL 4.5-11.0 H WBC) RED BLOOD CELL (test code = 5.58 x10 6/uL 4.00-5.60 N RBC) HEMOGLOBIN (test code = HGB) 16.5 g/dL 12.5-16.9 N HEMATOCRIT (test code = HCT) 49.9 % 37.5-50.7 N MEAN CELL VOLUME (test code = 89.4 fL 81.0-99.0 N MCV) MEAN CELL HGB (test code = 29.6 pg 27.0-33.0 N MCH) MEAN CELL HGB CONCETRATION 33.1 g/dL 33.0-37.0 N (test code = MCHC) RED CELL DISTRIBUTION WIDTH CV 13.0 % 11.5-14.5 N (test code = RDW) RED CELL DISTRIBUTION WIDTH SD 42.5 fL 37.0-54.0 N (test code = RDW-SD) PLATELET COUNT (test code = 419 x10 3/uL 150-400 H PLT) MEAN PLATELET VOLUME (test 8.5 fL 7.0-9.0 N code = MPV) NEUTROPHIL % (test code = NT%) 74.5 % 56.0-77.0 N IMMATURE GRANULOCYTE % (test 0.3 % 0.0-2.0 N code = IG%) LYMPHOCYTE % (test code = LY%) 17.0 % 14.0-32.0 N MONOCYTE % (test code = MO%) 7.7 % 4.8-9.0 N EOSINOPHIL % (test code = EO%) 0.1 % 0.3-3.7 L BASOPHIL % (test code = BA%) 0.4 % 0.0-2.0 N NUCLEATED RBC % (test code = 0.0 % 0-0 N NRBC%) NEUTROPHIL # (test code = NT#) 9.94 x10 3/uL 2.0-7.6 H IMMATURE GRANULOCYTE # (test 0.04 x10 3/uL 0.00-0.03 H code = IG#) LYMPHOCYTE # (test code = LY#) 2.26 x10 3/uL 1.0-3.8 N MONOCYTE # (test code = MO#) 1.02 x10 3/uL 0.1-0.8 H EOSINOPHIL # (test code = EO#) 0.01 x10 3/uL 0.0-0.2 N BASOPHIL # (test code = BA#) 0.05 x10 3/uL 0.0-0.2 N NUCLEATED RBC # (test code = 0.00 x10 3/uL 0.0-0.1 N NRBC#) MANUAL DIFF REQUIRED (test NO code = MDIFF)
--- OUTSIDE RECORDS SUMMARY | 2020-03-22 17:00 | XMS REPORT | Summary of Care ---
:1985 Author Organization [facility] Address [address] [place] [address] Care Team Providers Name Role Phone Pcp, Does Not Have A Primary Care Provider Reason for Visit Reason Comments Vomiting Auth/Cert Status Reason Specialty Diagnoses / Referred By Referred To Procedures Contact Contact Emergency Medicine Diagnoses VOMITING [facility] [address] [place] [address] [place] [address] Fax: Encounter Details Date Type Department Care Team Description 01/17/2020 Emergency [facility]Emergency Suleman Judge MD Vomiting, intractability of vomiting not specified, presence of nausea not specified, unspecified vomiting type (Primary Dx); Department [address] [place] [address] Marijuana use [address] [place] [address] [address] [place] [address] [place] [address] [phone] Allergies Active Allergy Reactions Severity Noted Date Comments Aspirin Hives 10/09/2015 documented as of this encounter (statuses as of 01/17/2020) Medications Medication Sig Dispensed Refills Start Date [...] as of this encounter (statuses as of 01/17/2020) Active Problems No known active problemsdocumented as of this encounter (statuses as of 01/17/2020) Social History Tobacco Use Types Packs/Day Years [...] of this encounter Last Filed Vital Signs Vital Sign Reading Time Taken Comments Blood Pressure 134/88 01/17/2020 10:14 AM CDT Pulse 58 01/17/2020 10:14 AM CDT Temperature 36.3 C (97.4 F) 01/17/2020 10:14 AM CDT Respiratory Rate 14 01/17/2020 10:14 AM CDT Oxygen Saturation 99% 01/17/2020 10:14 AM CDT Inhaled Oxygen Concentration - - Weight 79.4 kg (175 lb) 01/17/2020 10:14 AM CDT Height 175.3 cm (5' 9") 01/17/2020 10:14 AM CDT Body Mass Index 25.84 01/17/2020 10:14 AM CDT documented in this encounter Discharge Instructions InstructionsNeSuleman garcia MD - 01/17/2020 RETURN FOR ANY QUESTIONS OR CONCERNS Today you were seen by Suleman Judge Jr., MD You were seen today for Chief Complaint Patient presents with Vomiting Your ER diagnosis was ICD-10-CM ICD-9-CM 1. Vomiting, intractability of vomiting not specified, presence of nausea not specified, unspecifiedvomiting type R11.10 787.03 NO LIFE-THREATENING FINDINGS ON TODAY'S EXAM. YOUR PRESCRIPTIONS : Check out [employer] for medication discounts Medication List ASK your doctor about these medications acetaminophen-codeine 300-30 mg tablet Commonly known as: TYLENOL-CODEINE #3 Take 1 tablet by mouth every 4 (four) hours as needed (pain). desvenlafaxine succinate 50 mg 24 hr tablet Commonly known as: PRISTIQ ondansetron 4 mg tablet Commonly known as: ZOFRAN Take 1 tablet by mouth every 8 (eight) hours as needed (nausea). phenazopyridine 200 mg tablet Commonly known as: PYRIDIUM Take 1 Tab by mouth 3 (three) times daily. PROzac 40 mg capsule Generic drug: FLUoxetine sulfamethoxazole-trimethoprim 800-160 mg per tablet Commonly known as: BACTRIM DS Take 1 Tab by mouth every 12 (twelve) hours. tamsulosin 0.4 mg 24 hr capsule Commonly known as: FLOMAX Take 1 Cap by mouth at bedtime. traMADol 50 mg tablet Commonly known as: ULTRAM Take 1 Tab by mouth every 6 (six) hours as needed for Pain (scale 4-6). ER precautions and follow up : 1. Return to ER if your symptoms should worsen or fail to improve within 72 hours. 2. The care provided in the emergency room was for acute problems only. 3. You should follow up with your primary care provider within 72 hours. 4. Fill and take all your medications as prescribed. 5. Make sure you are staying adequately hydrated. Busque attencion immediatamente si usted tiene los sitomas sigue, vuelve peor o si hay sitomas nuevas o para cualquiera preoccupacion incluyendo dolor del pecho, falta aire, se siente debile, mas fievre, mas dolor, nausea, vomitando, sangrando que no es normal, confusion, baja or pierdas conciencia. MAY FOLLOW-UP WITH A PROVIDER OF YOUR CHOICE, SUCH : 1. A PHYSICIAN OF YOUR CHOICE 2. [facility], . LOCATIONS IN [facility] 3. [facility], [address] [place] [address]; [phone] OR, IF YOU WISH TO FOLLOW-UP WITHIN THE [facility], MAY TRY THESE OPTIONS (CLINIC APPOINTMENTS AVAILABLE ON [id number] BASIS): 1. SCHEDULE AN APPOINTMENT ONLINE AT WWW[facility] 2. OR CALL THE [facility] AT OR 3. OR CALL YOUR [facility] PHYSICIAN'S OFFICE DIRECTLY IF YOU ARE ALREADY AN ESTABLISHED [facility] PATIENT. [facility] RETURN TO WORK / SCHOOL EXCUSE Adan Jennings Pablo Andujar WAS SEEN IN THE ER AND DISCHARGED 01/17/2020 TODAY, 11:18 AM & May return to Work / School / Incarceration on X with activity as tolerated indicated below. ___The following limitations apply until pt is seen by Physician and cleared to return to normal activity. _X_ Off for two days and return to activity as tolerated at work or school ___ No Sports ___ No work ___ Do not return until fever free for 24 hours. ___ No school SULEMAN JUDGE Jr., MD [facility] EMERGENCY DEPRTMENT [address] [place] [address] [place] [address] ### The patient may have been given Narcotic pain medications during their stay in the ED that may show up on a Drug Screen. The hospital discharge paper work will identify these medications. AttachmentsThe following attachments cannot be sent through Care Everywhere. Vomiting (Adult) (Belgian)Marijuana Abuse (Belgian)documented in this encounter Plan of Treatment Health [...] Name Priority Date/Time Associated Diagnosis Comme nts CBC WITH STAT 01/17/2020 10:25 Vomiting, Results for this DIFFERENTIAL AM CDT intractability of procedure are in vomiting not the results specified, presence of secti on. nausea not specified, unspecified vomiting type ADC / LCC - DRUG STAT 01/17/2020 10:25 Vomiting, Results for this SCREEN TRIAGE AM CDT intractability of procedure are in vomiting not the results specified, presence of secti on. nausea not specified, unspecified vomiting type URINALYSIS STAT 01/17/2020 10:25 Vomiting, Results for this AM CDT intractability of procedure are in vomiting not the results specified, presence of secti on. nausea not specified, unspecified vomiting type CBC WITH Routine 01/17/2020 10:25 Vomiting, Results for this DIFFERENTIAL AM CDT intractability of procedure are in vomiting not the results specified, presence of secti on. nausea not specified, unspecified vomiting type BASIC METABOLIC STAT 01/17/2020 10:25 Vomiting, Results for this PANEL (NA, K, CL, AM CDT intractability of proce dure are in CO2, GLUCOSE, BUN, vomiting not the resul ts CREATININE, CA) specified, presence of se ction. nausea not specified, unspecified vomiting type HEPATIC FUNCTION STAT 01/17/2020 10:25 Vomiting, Results for this PANEL ([id number]) AM CDT intractability of procedure are in (ALB,T.PRO,BILI vomiting not the results T,BU/BC,ALT,AST,ALK specified, presence o f section. PHOS) nausea not specified, unspecified vomiting type LIPASE STAT 01/17/2020 10:25 Vomiting, Results for this AM CDT intractability of procedure are in vomiting not the results specified, presence of secti on. nausea not specified, unspecified vomiting type documented in this encounter Results CBC WITH DIFFERENTIAL (01/17/2020 10:25 AM CDT) Pathologist Sig nature WBC 10.77 (H) 4.20 - 10.70 [facility] 10*3/L [facility] RBC 5.05 4.26 - 5.52 [facility] 10*6/L [facility] HGB 14.8 12.2 - 16.4 [facility] g/dL [facility] HCT 45.1 38.4 - 49.3 % [facility] MCV 89.3 81.7 - 95.6 fL [facility] MCH 29.3 26.1 - 32.7 pg [facility] MCHC 32.8 31.2 - 35.0 [facility] g/dL [facility] RDW-SD 43.6 38.5 - 51.6 fL [facility] RDW-CV 13.3 12.1 - 15.4 % [facility] [address] (H) 150 - 328 [facility] 10*3/L [facility] MPV 8.7 (L) 9.8 - 13.0 fL [facility] NRBC/100 WBC 0.0 0.0 - 10.0 /100 [facility] WBCs [facility] NRBC x10^3 <0.01 10*3/L [facility] GRAN MAT (NEUT) % 77.5 % [facility] IMM GRAN % 0.40 % [facility] LYMPH % 13.3 % [facility] MONO % 7.7 % [facility] EOS % 0.7 % [facility] BASO % 0.4 % [facility] GRAN MAT x10^3(ANC) 8.35 (H) 1.99 - 6.95 [facility] 10*3/uL [facility] IMM GRAN x10^3 0.04 0.00 - 0.06 [facility] 10*3/uL [facility] LYMPH x10^3 1.43 1.09 - 3.23 [facility] 10*3/uL [facility] MONO x10^3 0.83 0.36 - 1.02 [facility] 10*3/uL [facility] EOS x10^3 0.08 0.06 - 0.53 [facility] 10*3/uL [facility] BASO x10^3 0.04 0.01 - 0.09 [facility] 10*3/uL [facility] Specimen Blood - VENOUS Performing Organization Address [facility] Phone Number [facility] CLIA: [id number], [address], [place] [address] ADC / LCC - DRUG SCREEN TRIAGE (01/17/2020 10:25 AM CDT) BENZO U Negative Negative [facility] IHSAN U Negative Negative [facility] AMPHET Negative Negative [facility] THC Presumptive Positive Negative [facility]irm[facility] LAB[facility]ORY Presumptive Positive THC result requires physician order. METHADONE Negative Negative [facility] Meth U Negative Negative [facility] OPIATES Presumptive Positive Negative [facility] Cocaine Metabolite Negative Negative [facility] PROPOXY Negative Negative [facility] Tric U Negative Negative [facility] PCP Negative Negative [facility] OXYCOD Negative Negative [facility] Specimen Urine - URINE, CLEAN CATCH Narrative Performed At Urine Drug Cutoff Ranges [facility] Benzodiazepines: 150 ng/mL Barbiturates: 200 ng/mL Amphetamine: 500 ng/mL Cannabinoids: 50 ng/mL Methadone: 200 ng/mL Methamphetamine: 500 ng/mL Opiates: 100 ng/mL or 2000 ng/mL Cocaine: 150 ng/mL Propoxyphene: 300 ng/mL Tricyclics: 300 ng/mL Oxycodone: 100 ng/mL PCP: 25 ng/mL The results are to be used only for medical (i.e., treatment) purposes. Unconfirmed screening results must not be used for non-medical purposes (e.g., employment testing, legal testing). Performing Organization Address [facility] Phone Number [facility] CLIA: [id number], [address], [place] [address] Lipase Serum (01/17/2020 10:25 AM CDT) Pathologist Sig nature LIPASE 46 0 - 220 U/L [facility] Specimen Blood - VENOUS Performing Organization Address [facility] Phone Number [facility] CLIA: [id number], [address], [place] [address] Hepatic Function Panel (ALB, T.PRO, BILI T, BU/BC, ALT, AST, ALK PHOS) (01/17/2020 10:25 AM CDT) Pathologist [facility] TOTAL BILI 0.4 0.1 - 1.1 mg/dL [facility] BILI UNCON 0.5 0.1 - 1.1 mg/dL [facility] BILI CONJ 0.0 0.0 - 0.3 mg/dL [facility] T PROTEIN 7.4 6.3 - 8.2 g/dL [facility] ALBUMIN 4.6 3.5 - 5.0 g/dL [facility] ALK PHOS 88 34 - 122 U/L [facility] ALTv 11 5 - 50 U/L [facility] AST(SGOT) 23 13 - 40 U/L [facility] Specimen Blood - VENOUS Performing Organization Address City/State/Zipcode Phone Number [facility] CLIA: [id number], [address], [place] [address] Basic Metabolic Panel (NA, K, CL, CO2, GLUCOSE, BUN, CREATININE, CA) (01/17/2020 10:25 AM CDT) [facility] NA 142 135 - 145 [facility] mmol/L [facility] K 4.4 3.5 - 5.0 [facility] mmol/L [facility] CL 107 98 - 108 mmol/L [facility] CO2 TOTAL 32 (H) 23 - 31 mmol/L [facility] AGAP 3 2 - 16 [facility] BUN 13 7 - 23 mg/dL [facility] GLUCOSE 104 70 - 110 mg/dL [facility] CREATININE 0.67 0.60 - 1.25 [facility] mg/dL [facility] CALCIUM 9.6 8.6 - 10.6 [facility] mg/dL [facility] eGFR Calculation 137.5 mL/min/1.73m2 [facility] (Non-) [facility] LABORATOR Y eGFR Calculation 166.6 mL/min/1.73m2 [facility] LABORATORY Specimen Blood - VENOUS Narrative Performed At Association of Glomerular Filtration Rate (GFR) [facility] and Staging of Kidney Disease* + + +- + | GFR (mL/min/1.73 m2) | With Kidney Damage | Without Kidney Damage + + +- + | >90 | Stage one | Normal + + +- + | 60-89 | Stage two | Decreased GFR + + +- + | 30-59 | Stage three | Stage three + + +- + | 15-29 | Stage four | Stage four + + +- + | <15 (or dialysis) | Stage five | Stage five + + +- + *Each stage assumes the associated GFR level has been in effect for at least three months. Stages 1 to 5, with or without kidney disease, indicate chronic kidney disease. Notes: Determination of stages one and two (with eGFR >59mL/min/1.73 m2) requires estimation of kidney damage for at least three months as defined by structural or functional abnormalities of the kidney, manifested by either: Pathological abnormalities or Markers of kidney damage (including abnormalities in the composition of the blood or urine or abnormalities in imaging tests). Performing Organization Address City/[facility] Phone Number [facility] CLIA: [id number], [address], [place] [address] Urinalysis (01/17/2020 10:25 AM CDT) Pathologist Sig nature APPEARANCE Clear Clear [facility] COLOR Yellow Yellow [facility] PH 7.0 4.8 - 8.0 [facility] SP GRAVITY 1.021 1.003 - 1.030 [facility] GLU U QUAL Normal Normal [facility] BLOOD Negative Negative [facility] KETONES Negative Negative [facility] PROTEIN Negative Negative [facility] UROBILIN Normal Normal [facility] BILIRUBIN Negative Negative [facility] NITRITE Negative Negative [facility] LEUK ZHEN Negative Negative [facility] RBC/HPF 1 0 - 3 HPF [facility] WBC/HPF <1 0 - 5 HPF [facility] BACTERIA Negative Negative [facility] MUCOUS Slight (A) Negative LPF [facility] Specimen Urine - URINE, CLEAN CATCH Performing Organization Address City/[facility]/Zipcode Phone Number [facility] CLIA: [id number], [address], [place] [address] documented in this encounter Visit Diagnoses Diagnosis Vomiting, intractability of vomiting not specified, presence of nausea not specified, unspecified vomiting type - Primary Marijuana use Cannabis abuse, unspecified documented in this encounter Administered Medications Medication Order MAR Action Action Date Dose Rate Site NaCl 0.9% (NS) bolus New Bag 01/17/2020 10:27 AM CDT 1,000 mL 99 9 mL/hr infusion 1,000 mL at 999 mL/hr, 1,000 mL, IV Infusion, ONCE, 1 dose, Diana 01/17/20 at 1115, STAT ondansetron (ZOFRAN (PF)) injection 4 mg Given 01/17/2020 10:26 AM CDT 4 mg 4 mg, Slow IV Push, ONCE, 1 dose, Diana 01/17/20 at 1115, MIAN documented in this encounter
--- OUTSIDE RECORDS SUMMARY | 2020-03-22 17:01 | XMS REPORT | Summary of Care ---
:1985 Author Organization [facility] - Health Address [address] [place] [address] Care Team Providers Name Role Phone Pcp, Does Not Have A Primary Care Provider Encounter Details Date Type Department Care Team Description 02/27/2020 Orders Only [facility] Doctor Unassigned, No [address] [facility] [place] [address] [address] [place] [address] Allergies No Known Allergiesdocumented as of this encounter (statuses as of 02/27/2020) Medications Medication Sig Dispensed Refills Start Date [...] as of this encounter (statuses as of 02/27/2020) Active Problems No known active problemsdocumented as of this encounter (statuses as of 02/27/2020) Social History Tobacco Use Types Packs/Day Years Used Date Never Assessed Sex Assigned at Date Recorded Not on file Job Start Date Occupation Industry Not on file Not on file Not on file Travel History Travel Start Travel End No recent travel history available. COVID-19 Exposure Response Date Recorded In the last month, have you been in contact with No / Unsure 02/02/2020 7:34 AM CDT someone who was confirmed or suspected to have Coronavirus / COVID-19? documented as of this encounter Last Filed Vital Signs Not on filedocumented in this encounter Plan of Treatment Health Maintenance Due Date Last Done Comments VARICELLA VACCINES ( of - 1988 2-dose childhood series) DTaP,Tdap,and Td Vaccines ( - 1998 Tdap) INFLUENZA VACCINE (Season Ended) 2020 PNEUMOCOCCAL 0-64 YEARS COMBINED Aged Out No longer eligible based on SERIES patient's age to complete this topic documented as of this encounter Procedures Procedure Name Priority Date/Time Associated Diagnosis Comme nts CONSENT/REFUSAL FOR Routine 02/27/2020 9:56 PM CDT DIAGNOSIS AND TREATMENT documented in this encounter Results Not on filedocumented in this encounter
--- OUTSIDE RECORDS SUMMARY | 2020-03-22 17:01 | XMS REPORT | Summary of Care ---
:1985 Author Organization [facility] Address [address] [place] [id number] Care Team Providers Name Role Phone Pcp, Does Not Have A Primary Care Provider Reason for Referral MRI/CAT Scan (STAT) Status Reason Specialty Diagnoses / Referred By Referred To Procedures Contact Contact New Request Diagnostic Diagnoses Flank pain Yessica Jennings Radiology Procedures CT Abdomen/Pelvis W/O Contrast J, DO [address] [place] [id number] Reason for Visit Reason Comments Flank Pain bilateral Auth/Cert Status Reason Specialty Diagnoses / Referred By Referred To Procedures Contact Contact Emergency Medicine [facility] Em ergency Dept [address] [place] [address] [place] [address] Fax: Encounter Details Date Type Department Care Team Description 02/02/2020 Emergency ADC-Emergency Yessica Jennings, Flank p ain (Primary Department DO Dx) [address] [place], [place] [id number] Allergies No Known Allergiesdocumented as of this [...] Sign Reading Time Taken Comments Blood Pressure 111/96 02/02/2020 9:00 AM CDT Pulse 60 02/02/2020 9:00 AM CDT Temperature 36.1 C (97 F) 02/02/2020 7:39 AM CDT Respiratory Rate 18 02/02/2020 9:00 AM CDT Oxygen Saturation 99% 02/02/2020 9:00 AM CDT Inhaled Oxygen Concentration - - Weight 81.6 kg (180 lb) 02/02/2020 7:39 AM CDT Height - - Body Mass Index 26.58 01/17/2020 10:14 AM CDT documented in this encounter Discharge Instructions Yessica Mcclain DO - 02/02/2020DIAGNOSIS 1. Flank pain NO LIFE-THREATENING FINDINGS ON TODAY'S EXAM. PROCEDURES IN THE ER TODAY: Blood work Urine test CT abdomen/pelvis MEDICATIONS ADMINISTERED IN THE ER TODAY: Toradol Zofran IV fluids YOUR PRESCRIPTIONS AND [id number] MEDICATION RECOMMENDATIONS: None SPECIAL CARE INSTRUCTIONS: None FOLLOW-UP RECOMMENDATIONS: RECOMMEND FOLLOW-UP WITH A PRIMARY CARE PROVIDER OR SPECIALIST IN 2-5 DAYS, ESPECIALLY IF NO IMPROVEMENT IN SYMPTOMS. TO FOLLOW-UP WITHIN THE [facility], TRY THESE OPTIONS (CLINIC APPOINTMENTS AVAILABLE ON [id number] BASIS): 1. SCHEDULE AN APPOINTMENT ONLINE AT WWW[facility] 2. OR CALL THE [facility] AT OR 3. OR CALL YOUR [facility] PHYSICIAN'S OFFICE DIRECTLY IF YOU ARE ALREADY AN ESTABLISHED [facility] PATIENT. OR, YOU MAY FOLLOW-UP WITH A PROVIDER OF YOUR CHOICE, SUCH : 1. A PHYSICIAN OF YOUR CHOICE 2. [facility], . LOCATIONS IN [facility] 3. [facility], [address] [place] [address]; [phone] RETURN TO ER FOR WORSENING OF SYMPTOMS. AttachmentsThe following attachments cannot be sent through Care Everywhere. Flank Pain, Uncertain Cause (Urdu)documented in this encounter Plan of Treatment Health Maintenance Due Date Last Done Comments VARICELLA VACCINES ( of - 1988 2-dose childhood series) DTaP,Tdap,and Td Vaccines ( - 1998 Tdap) INFLUENZA VACCINE (Season Ended) 2020 PNEUMOCOCCAL 0-64 YEARS COMBINED Aged Out No longer eligible based on SERIES patient's age to complete this topic documented as of this encounter Procedures Procedure Name Priority Date/Time Associated Comments Diagnosis URINALYSIS STAT 02/02/2020 8:31 Flank pain Results for this AM CDT procedure are i n the results section. CT ABDOMEN PELVIS WO STAT 02/02/2020 8:25 Flank pain Res ults for this CONTRAST AM CDT procedure are i n the results section. CBC WITH DIFFERENTIAL STAT 02/02/2020 8:03 Flank pain Re sults for this AM CDT procedure are i n the results section. CBC WITH DIFFERENTIAL Routine 02/02/2020 8:03 Flank pain Re sults for this AM CDT procedure are i n the results section. BASIC METABOLIC PANEL STAT 02/02/2020 8:03 Flank pain Re sults for this (NA, K, CL, CO2, AM CDT procedure a re in GLUCOSE, BUN, the results CREATININE, CA) section. documented in this encounter Results Urinalysis (02/02/2020 8:31 AM CDT) Pathologist Sig nature APPEARANCE Clear Clear [facility] COLOR Yellow Yellow [facility] PH 6.0 4.8 - 8.0 [facility] SP GRAVITY 1.019 1.003 - 1.030 [facility] GLU U QUAL Normal Normal [facility] BLOOD 2+ (A) Negative [facility] KETONES Negative Negative [facility] PROTEIN Negative Negative [facility] UROBILIN Normal Normal [facility] BILIRUBIN Negative Negative [facility] NITRITE Negative Negative [facility] LEUK ZHEN Negative Negative [facility] RBC/HPF 38 (H) 0 - 3 HPF [facility] WBC/HPF 1 0 - 5 HPF [facility] BACTERIA Negative Negative [facility] MUCOUS Slight (A) Negative LPF [facility] HYAL CAST 4 (H) <=2 LPF [facility] Specimen Urine - URINE, CLEAN CATCH Performing Organization Address City/State/Zipcode Phone Number [facility] CLIA: [id number], [address] [place], [place] [address] Abdomen/Pelvis W/O Contrast (02/02/2020 8:25 AM CDT) Specimen Impressions Performed At PACS/VR/DOSE Punctate bilateral nonobstructing nephro lithiasis seen again. No hydronephrosis bilaterally. Preliminary Report Dictated by Resident: Tahira Hodge I, Shahbaz Chi MD., have reviewed this study and agree with the above report. Narrative Performed At CT ABDOMEN PELVIS WO CONTRAST PACS/VR/DOSE HISTORY: 34 years-old; Male; Flank pain, recurrent sto ne disease suspected COMPARISON: 05/05/2019 TECHNIQUE AND FINDINGS: Contiguous axial imaging from the level of the lung bases through the pubic symphysis was pe rformed without the intravenous administration of contrast. Coronal and sagittal reconstructions were obtained. Auto mA and/or iterative rec onstruction were used to reduce radiation dose. FINDINGS: LOWER THORAX: The lung bases are clear. No cardiomegaly. LIVER: No focal hepatic lesions. Normal contour. GALLBLADDER AND BILIARY TREE: No intra o r extrahepatic biliary ductal dilation. No gallbladder wall thickening . SPLEEN: A splenule measures 1.3 cm anter omedially. PANCREAS: No ductal dilation or masses. ADRENAL GLANDS: No adrenal mass. KIDNEYS: Bilateral punctate nonobstructi ng nephrolithiasis are noted measuring 1-2 mm. There is no hydronephrosis or mass c ontour in the renal cortices. PERITONEUM AND RETROPERITONEUM: No free air or fluid collection. LYMPH NODES: Multiple nonspecific mildly prominent mes enteric lymph nodes are seen. GI TRACT: No dilation or bowel wall thickening. Append ix is normal (4:115). PELVIS/BLADDER: Bladder is decompressed with no significant wall thickening. The prostate is normal in si ze. VESSELS: Unremarkable. BONES AND SOFT TISSUES: No suspicious ly tic or sclerotic bony lesions. Procedure Note [facility], Radiant Results Inft User - 2019 9:[address] ABDOMEN PELVIS WO CONTRAST HISTORY: 34 years-old; Male; Flank pain, recurrent stone disease suspected COMPARISON: 05/05/2019 TECHNIQUE AND FINDINGS: Contiguous axial imaging from the level of the lung bases through the pubic symphysis was pe rformed without the intravenous administration of contrast. Coronal and sagittal reconstructions were obtained. Auto mA and/or iterative mario nstruction were used to reduce radiation dose. FINDINGS: LOWER THORAX: The lung bases are clear. No cardiomegaly. LIVER: No focal hepatic lesions. Normal contour. GALLBLADDER AND BILIARY TREE: No intra o r extrahepatic biliary ductal dilation. No gallbladder wall thickening . SPLEEN: A splenule measures 1.3 cm anter omedially. PANCREAS: No ductal dilation or masses. ADRENAL GLANDS: No adrenal mass. KIDNEYS: Bilateral punctate nonobstructi ng nephrolithiasis are noted measuring 1-2 mm. There is no hydronephr osis or mass contour in the renal cortices. PERITONEUM AND RETROPERITONEUM: No free air or fluid collection. LYMPH NODES: Multiple nonspecific mildly prominent mesenteric lymph nodes are seen. GI TRACT: No dilation or bowel wall thic kening. Appendix is normal (4:115). PELVIS/BLADDER: Bladder is decompressed with no significant wall thickening. The prostate is normal in si ze. VESSELS: Unremarkable. BONES AND SOFT TISSUES: No suspicious ly tic or sclerotic bony lesions. IMPRESSION Punctate bilateral nonobstructing nephro lithiasis seen again. No hydronephrosis bilaterally. Preliminary Report Dictated by Resident: Tahira Hodge I, Shahbaz Chi MD., have reviewed this study and agree with the above report. Performing Organization Address City/State/Zipcode Phone Number PACS/VR/DOSE CBC WITH DIFFERENTIAL (02/02/2020 8:03 AM CDT) Pathologist Sig nature WBC 7.29 4.20 - 10.70 [facility] 10*3/L [facility] RBC 5.05 4.26 - 5.52 [facility] 10*6/L [facility] HGB 14.8 12.2 - 16.4 g/dL [facility] HCT 46.3 38.4 - 49.3 % [facility] MCV 91.7 81.7 - 95.6 fL [facility] MCH 29.3 26.1 - 32.7 pg [facility] MCHC 32.0 31.2 - 35.0 g/dL [facility] RDW-SD 45.9 38.5 - 51.6 fL [facility] RDW-CV 13.6 12.1 - 15.4 % [facility] PLT 331 (H) 150 - 328 [facility] 10*3/L [facility] MPV 8.7 (L) 9.8 - 13.0 fL [facility] NRBC/100 WBC 0.0 0.0 - 10.0 /100 [facility] WBCs [facility]ITAL [facility] NRBC x10^3 <0.01 10*3/L [facility] GRAN MAT (NEUT) % 60.1 % [facility] IMM GRAN % 0.30 % [facility] LYMPH % 28.9 % [facility] MONO % 9.2 % [facility] EOS % 1.1 % [facility] BASO % 0.4 % [facility] GRAN MAT x10^3(ANC) 4.38 1.99 - 6.95 [facility] 10*3/uL [facility] IMM GRAN x10^3 <0.03 0.00 - 0.06 [facility] 10*3/uL [facility] LYMPH x10^3 2.11 1.09 - 3.23 [facility] 10*3/uL [facility] MONO x10^3 0.67 0.36 - 1.02 [facility] 10*3/uL [facility] EOS x10^3 0.08 0.06 - 0.53 [facility] 10*3/uL [facility] BASO x10^3 0.03 0.01 - 0.09 [facility] 10*3/uL [facility] Specimen Blood - VENOUS Performing Organization Address City/State/Zipcode Phone Number [facility] CLIA: [id number], [address] [place] [address] Basic Metabolic Panel (NA, K, CL, CO2, GLUCOSE, BUN, CREATININE, CA) (02/02/2020 8:03 AM CDT) Pathologist Sig nature NA 143 135 - 145 mmol/L [facility] K 4.3 3.5 - 5.0 mmol/L [facility] CL 106 98 - 108 mmol/L [facility] CO2 TOTAL 27 23 - 31 mmol/L [facility] AGAP 10 2 - 16 [facility] BUN 11 7 - 23 mg/dL [facility] GLUCOSE 103 70 - 110 mg/dL [facility] CREATININE 0.98 0.60 - 1.25 [facility] mg/dL [facility] CALCIUM 10.4 8.6 - 10.6 mg/dL [facility] eGFR Calculation 88.6 mL/min/1.73m2 [facility] (Non-) [facility] eGFR Calculation 107.4 mL/min/1.73m2 [facility] () [facility] Specimen Blood - VENOUS Narrative Performed At Association of Glomerular Filtration Rate (GFR) [facility] and Staging of Kidney Disease* [...] abnormalities in imaging tests). Performing Organization Address City/State/Zipcode Phone Number [facility] CLIA: [id number], [address] [place] [address] [facility] documented in this encounter Visit Diagnoses Diagnosis Flank pain - Primary Abdominal pain, unspecified site documented in this encounter Administered Medications Medication Order MAR Action Action Date Dose Rate Site ketorolac (TORADOL) injection 30 Given 02/02/2020 8:06 AM CDT 3 0 mg mg 30 mg, Slow IV Push, ONCE, 1 dose, 02/02/20 at 0800, MIAN, production team member approving Restricted medication: YESSICA JENNINGS NaCl 0.9% (NS) bolus infusion New Bag 02/02/2020 8:04 AM CDT 1,000 mL 999 mL/hr 1,000 mL at 999 mL/hr, 1,000 mL, IV Infusion, ONCE, 1 dose, 02/02/20 at 0800, MIAN ondansetron (ZOFRAN (PF)) injection 4 mg Given 02/02/2020 8:06 AM CDT 4 mg 4 mg, Slow IV Push, ONCE, 1 dose, 02/02/20 at 0900, MIAN documented in this encounter"
--- OUTSIDE RECORDS SUMMARY | 2020-03-22 17:02 | XMS REPORT | Summary of Care ---
:1985 Author Organization [facility] - Health Address [address] [place] [address] Care Team Providers Name Role Phone Pcp, Does Not Have A Primary Care Provider Reason for Visit Reason Comments Nausea Vomiting Auth/Cert Status Reason Specialty Diagnoses / Referred By Referred To Procedures Contact Contact Emergency Medicine [facility] Em ergency Dept [address] [facility] [place] [address] Fax: Encounter Details Date Type Department Care Team Description 02/27/2020 - Emergency ADC-Emergency Abel Kaplan Nausea and v omiting in adult patient (Primary Dx); 02/28/2020 Department MD [place] Vomiting, intractability of vomiting not specified, presence of nausea not specified, unspecified vomiting type 132 [facility] [address] [place] [address] [id number] [place], [place] [id number] Allergies No Known Allergiesdocumented as of this encounter (statuses as of 02/28/2020) Medications Medication Sig Dispensed Refills Start Date End Date Status sulfamethoxazole-tri Take 1 Tab by 20 Tab 0 10/09/2015 Active methoprim (BACTRIM mouth every DS) 800-160 mg per 12 (twelve) tablet hours. phenazopyridine Take 1 Tab by 9 Tab 0 10/09/2015 Active (PYRIDIUM) 200 mg mouth 3 tablet (three) times daily. tamsulosin (FLOMAX) Take 1 Cap by 14 Cap 0 10/09/2015 Active 0.4 mg 24 hr capsule mouth at bedtime. traMADOL (ULTRAM) 50 Take 1 Tab by 20 Tab 0 12/16/2015 Active mg tablet mouth every 6 (six) hours as needed for Pain (scale 4-6). acetaminophen-codein Take 1 tablet 10 tablet 0 05/05/2019 Active e (TYLENOL-CODEINE by mouth #3) 300-30 mg every 4 tabletIndications: (four) hours Flank pain as needed (pain). ondansetron (ZOFRAN) Take 1 tablet 10 tablet 0 05/05/2019 Active 4 mg by mouth tabletIndications: every 8 Flank pain (eight) hours as needed (nausea). famotidine 20 mg Take 1 tablet 20 tablet 0 01/17/2020 Active tabletIndications: by mouth 2 Vomiting, (two) times intractability of daily. vomiting not specified, presence of nausea not specified, unspecified vomiting type, Marijuana use ondansetron 4 mg Take 1 tablet 20 tablet 0 01/17/2020 Active disintegrating by mouth tabletIndications: every 4 Vomiting, (four) hours intractability of as needed for vomiting not Nausea and specified, presence Vomiting of nausea not (N/V). specified, unspecified vomiting type, Marijuana use ondansetron (ZOFRAN) Take 1 tablet 12 tablet 0 02/28/2020 Active 4 mg by mouth tabletIndications: every 8 Nausea and vomiting (eight) hours in adult patient as needed for Nausea and Vomiting (N/V). desvenlafaxine Take 50 mg by 0 02/28/20 D iscontinued succinate (PRISTIQ) mouth daily. 20 (Therapy 50 mg 24 hr tablet c ompleted) FLUoxetine (PROZAC) Take 40 mg by 0 Discontinued 40 mg capsule mouth daily. 20 ( erapy completed) metoclopramide HCl Take 1 tablet 20 tablet 0 02/28/2020 Discontinued 10 mg by mouth 20 (Alternate tabletIndications: every 6 (six) therapy) Nausea and vomiting hours. in adult patient documented as of this encounter (statuses as of 02/28/2020) Active Problems No known active problemsdocumented as of this encounter (statuses as of 02/28/2020) Social History Tobacco Use Types Packs/Day Years Used Date Never Assessed Sex Assigned at Date Recorded Not on file Job Start Date Occupation Industry Not on file Not on file Not on file Travel History Travel Start Travel End No recent travel history available. COVID-19 Exposure Response Date Recorded In the last month, have you been in contact with No / Unsure 02/27/2020 10:00 PM CDT someone who was confirmed or suspected to have Coronavirus / COVID-19? documented as of this encounter Last Filed Vital Signs Vital Sign Reading Time Taken Comments Blood Pressure 128/75 02/28/2020 1:00 AM CDT Pulse 86 02/28/2020 1:00 AM CDT Temperature 37.1 C (98.7 F) 02/27/2020 10:04 PM CDT Respiratory Rate 14 02/27/2020 10:04 PM CDT Oxygen Saturation 97% 02/28/2020 1:00 AM CDT Inhaled Oxygen Concentration - - Weight 74.8 kg (165 lb) 02/27/2020 10:04 PM CDT Height 175.3 cm (5' 9") 02/27/2020 10:04 PM CDT Body Mass Index 24.37 02/27/2020 10:04 PM CDT documented in this encounter Discharge Instructions Abel Sierra MD - 02/28/2020 DIAGNOSIS Diagnoses that have been ruled out: None Diagnoses that are still under consideration: None Final diagnoses: Vomiting, intractability of vomiting not specified, presence of nausea not specified, unspecified vomiting type Nausea and vomiting in adult patient NO LIFE-THREATENING FINDINGS ON TODAY'S EXAM. PROCEDURES IN THE ER TODAY: Orders Placed This Encounter Procedures URINALYSIS CBC WITH DIFF COMP. METABOLIC PANEL (36744) CBC WITH DIFFERENTIAL LIPASE ADC / LCC - DRUG SCREEN TRIAGE MEDICATIONS ADMINISTERED IN THE ER TODAY AND DISCHARGE MEDICATIONS: Orders Placed This Encounter Medications ondansetron (ZOFRAN (PF)) injection 4 mg ondansetron (ZOFRAN (PF)) injection 4 mg metoclopramide HCl 10 mg tablet FOLLOW-UP RECOMMENDATIONS: RECOMMEND FOLLOW-UP WITH A PRIMARY CARE PROVIDER OR SPECIALIST IN 2-5 DAYS, ESPECIALLY IF NO IMPROVEMENT IN SYMPTOMS. MAY FOLLOW-UP WITH A PROVIDER OF YOUR CHOICE, SUCH : 1. A PHYSICIAN OF YOUR CHOICE 2. [facility], . LOCATIONS IN [facility] 3. [facility], [address] [facility], [place], [place]; [phone] OR, IF YOU WISH TO FOLLOW-UP WITHIN THE [facility], MAY TRY THESE OPTIONS (CLINIC APPOINTMENTS AVAILABLE ON XKRU-AS-NIVN BASIS): 1. SCHEDULE AN APPOINTMENT ONLINE AT [email or web address] 2. OR CALL THE [facility] AT OR 3. OR CALL YOUR [facility] PHYSICIAN'S OFFICE DIRECTLY IF YOU ARE ALREADY AN ESTABLISHED [facility] PATIENT. RETURN TO ER FOR WORSENING OF SYMPTOMS KEEP YOUR APPOINTMENT WITH THE [facility] TO REFILL YOUR PSYCH MEDICATIONS AttachmentsThe following attachments cannot be sent through Care Everywhere. Vomiting (Adult) (Irish)documented in this encounter Plan of Treatment Health Maintenance Due Date Last Done Comments VARICELLA VACCINES ( - 1988 2-dose childhood series) DTaP,Tdap,and Td Vaccines (1 - 1998 Tdap) Depression Screening 1999 INFLUENZA VACCINE (Season Ended) 2020 PNEUMOCOCCAL 0-64 YEARS COMBINED Aged Out No longer eligible based on SERIES patient's age to complete this topic documented as of this encounter Procedures Procedure Name Priority Date/Time Associated Diagnosis Comme nts CBC WITH STAT 02/27/2020 10:18 Vomiting, Results for this DIFFERENTIAL PM CDT intractability of procedure are in vomiting not the results specified, presence section. of nausea not specified, unspecified vomiting type ADC / LCC - DRUG STAT Add-On 02/27/2020 10:18 Vomiting, Results for this SCREEN TRIAGE PM CDT intractability of procedure are in vomiting not the results specified, presence section. of nausea not specified, unspecified vomiting type URINALYSIS STAT 02/27/2020 10:18 Vomiting, Results for this PM CDT intractability of procedure are in vomiting not the results specified, presence section. of nausea not specified, unspecified vomiting type CBC WITH STAT 02/27/2020 10:18 Vomiting, Results for this DIFFERENTIAL PM CDT intractability of procedure are in vomiting not the results specified, presence section. of nausea not specified, unspecified vomiting type COMP. METABOLIC STAT 02/27/2020 10:18 Vomiting, Results for this PANEL ([id number]) PM CDT intractability of procedure are in vomiting not the results specified, presence section. of nausea not specified, unspecified vomiting type LIPASE STAT Add-On 02/27/2020 10:18 Vomiting, Results for this PM CDT intractability of procedure are in vomiting not the results specified, presence section. of nausea not specified, unspecified vomiting type documented in this encounter Results ADC / LCC - DRUG SCREEN TRIAGE (02/27/2020 10:18 PM CDT) BENZO U Presumptive Positive Negative [facility] IHSAN U Negative Negative [facility] AMPHET Negative Negative [facility] THC Presumptive Positive Negative [facility])Comment: HOSPITAL Confirmation of LABORATORY Presumptive Positive THC result requires physician order. METHADONE Negative Negative [facility] Meth U Negative Negative [facility] OPIATES Negative Negative [facility] Cocaine Metabolite Negative Negative [facility] PROPOXY Negative Negative [facility] Tric U Negative Negative [facility] PCP Negative Negative [facility] OXYCOD Negative Negative [facility] Specimen Urine - URINE, CLEAN CATCH Narrative Performed At Urine Drug Cutoff Ranges [facility] Benzodiazepines: 150 ng/mL Barbiturates: 200 [...] employment testing, legal testing). Performing Organization Address City/[facility]/Zipcode Phone Number [facility] CLIA: [id number], [address] [place] [address] LIPASE (02/27/2020 10:18 PM CDT) Pathologist Sig nature LIPASE 70 0 - 220 U/L [facility] Specimen Blood - VENOUS Performing Organization Address [facility] Phone Number [facility] CLIA: [id number], [address] CBC WITH DIFFERENTIAL (02/27/2020 10:18 PM CDT) [facility] WBC 8.02 4.20 - 10.70 [facility] 10*3/L [facility] RBC 4.95 4.26 - 5.52 [facility] 10*6/L [facility] HGB 14.5 12.2 - 16.4 [facility] g/dL [facility] HCT 43.9 38.4 - 49.3 % [facility] MCV 88.7 81.7 - 95.6 fL [facility] MCH 29.3 26.1 - 32.7 pg [facility] MCHC 33.0 31.2 - 35.0 [facility] g/dL [facility] RDW-SD 42.5 38.5 - 51.6 fL [facility] RDW-CV 13.0 12.1 - 15.4 % [facility] PLT 341 (H) 150 - 328 [facility] 10*3/L [facility] MPV 8.8 (L) 9.8 - 13.0 fL [facility] NRBC/100 WBC 0.0 0.0 - 10.0 /100 [facility] WBCs [facility] NRBC x10^3 <0.01 10*3/L [facility] GRAN MAT (NEUT) % 44.6 % [facility] IMM GRAN % 0.20 % [facility] LYMPH % 42.8 % [facility] MONO % 11.8 % [facility] EOS % 0.1 % [facility] BASO % 0.5 % [facility] GRAN MAT x10^3(ANC) 3.57 1.99 - 6.95 [facility] 10*3/uL [facility] IMM GRAN x10^3 <0.03 0.00 - 0.06 [facility] 10*3/uL HOSPITAL LABORATORY LYMPH x10^3 3.43 (H) 1.09 - 3.23 [facility] 10*3/uL HOSPITAL LAB[facility]ORY MONO x10^3 0.95 0.36 - 1.02 [facility] 10*3/uL [facility] EOS x10^3 <0.03 (L) 0.06 - 0.53 [facility] 10*3/uL [facility] BASO x10^3 0.04 0.01 - 0.09 [facility] 10*3/uL [facility] Specimen Blood - VENOUS Performing Organization Address City/State/Zipcode Phone Number [facility] CLIA: [id number], [address] [place], [place] [address] COMP. METABOLIC PANEL ([id number]) (02/27/2020 10:18 PM CDT) [facility] NA 139 135 - 145 [facility] mmol/L [facility] K 3.7 3.5 - 5.0 [facility] mmol/L [facility] CL 104 98 - 108 mmol/L [facility] CO2 TOTAL 26 23 - 31 mmol/L [facility] AGAP 9 2 - 16 [facility] BUN 16 7 - 23 mg/dL [facility] GLUCOSE 113 (H) 70 - 110 mg/dL [facility] CREATININE 0.87 0.60 - 1.25 [facility] mg/dL [facility] TOTAL BILI 0.3 0.1 - 1.1 mg/dL [facility] CALCIUM 9.7 8.6 - 10.6 [facility] mg/dL [facility] T PROTEIN 7.8 6.3 - 8.2 g/dL [facility] ALBUMIN 5.0 3.5 - 5.0 g/dL [facility] ALK PHOS 80 34 - 122 U/L [facility] ALTv 11 5 - 50 U/L [facility] AST(SGOT) 23 13 - 40 U/L [facility] eGFR Calculation 101.7 mL/min/1.73m2 [facility] (Non-[facility] LAB[facility]ATORY Venezuelan) eGFR Calculation 123.3 mL/min/1.73m2 [facility] () [facility] Specimen Blood - VENOUS Narrative Performed At Association of Glomerular Filtration Rate (GFR) [facility] and Staging of Kidney Disease* [...] abnormalities in imaging tests). Performing Organization Address [facility] Phone Number [facility] CLIA: [id number], [address] [place] [address] URINALYSIS (02/27/2020 10:18 PM CDT) APPEARANCE Hazy (A) Clear [facility] COLOR Yellow Yellow [facility] PH 5.0 4.8 - 8.0 [facility] SP GRAVITY 1.036 (H) 1.003 - 1.030 [facility] GLU U QUAL Normal Normal [facility] BLOOD NegativeComment: Negative [facility] INTERFERENCE FROM HOSPITAL LABORATORY ASCORBIC ACID MAY CAUSE FALSE NEGATIVE RESULT KETONES Negative Negative [facility] PROTEIN Negative Negative [facility] UROBILIN 2.0 mg/dL (A) Normal [facility] BILIRUBIN Negative Negative [facility] NITRITE Negative Negative [facility] LEUK ZHEN Negative Negative [facility] RBC/HPF 1 0 - 3 HPF [facility] WBC/HPF 2 0 - 5 HPF [facility] BACTERIA Negative Negative [facility] MUCOUS Marked (A) Negative LPF [facility] CA OXALATE 17 (H) <=1 HPF [facility] Specimen Urine - URINE, CLEAN CATCH Performing Organization Address [facility] Phone Number [facility] CLIA: [id number], [address] [place], [place] [address] [address] documented in this encounter Visit Diagnoses Diagnosis Nausea and vomiting in adult patient - P rimary Nausea with vomiting Vomiting, intractability of vomiting not specified, presence of nausea not specified, unspecified vomiting type documented in this encounter Administered Medications Medication Order MAR Action Action Date Dose Rate Site ondansetron (ZOFRAN (PF)) injection Given 02/27/2020 10:44 PM CD T 4 mg 4 mg 4 mg, Slow IV Push, ONCE, 1 dose, [facility] 02/27/20 at 2345, MIAN ondansetron (ZOFRAN (PF)) injection 4 mg Given 02/28/2020 12:08 AM CDT 4 mg 4 mg, Slow IV Push, ONCE, 1 dose, Diana 02/28/20 at 0100, MIAN documented in this encounter
--- OUTSIDE RECORDS SUMMARY | 2020-03-22 17:03 | XMS REPORT | Summary of Care ---
:1985 Author Organization [facility] - [address] [address] Care Team Providers Name Role Phone Pcp, Does Not Have A Primary Care Provider Reason for Visit Reason Comments Referral/consult [facility] referral Encounter Details Date Type Department Care Team Description 03/14/2020 Patient Outreach [facility] Kim Marie RN Referral/consult [address] (CHP refer ral) [place], [place] [address] Allergies No Known Allergiesdocumented as of this encounter (statuses as of 03/14/2020) Medications Medication Sig Dispensed Refills Start Date End Date Status sulfamethoxazole-trimet Take 1 Tab by 20 Tab 0 10/09/2015 Active hoprim (BACTRIM DS) mouth every 12 800-160 mg per tablet (twelve) hours. phenazopyridine Take 1 Tab by 9 Tab 0 10/09/2015 Active (PYRIDIUM) 200 mg mouth 3 (three) tablet times daily. tamsulosin (FLOMAX) 0.4 Take 1 [...] 4 300-30 mg (four) hours as tabletIndications: needed (pain). Flank pain ondansetron (ZOFRAN) 4 Take 1 tablet by 10 tablet 0 05/05/2019 Active mg tabletIndications: mouth every 8 Flank pain (eight) hours as needed (nausea). famotidine 20 mg Take 1 tablet by 20 tablet 0 01/17/2020 Active tabletIndications: mouth 2 (two) Vomiting, times daily. intractability of vomiting not specified, presence of nausea not specified, unspecified vomiting type, Marijuana use ondansetron 4 mg Take 1 tablet by 20 tablet 0 01/17/2020 Active disintegrating mouth every 4 tabletIndications: (four) hours as Vomiting, needed for Nausea intractability of and Vomiting vomiting not specified, (N/V). presence of nausea not specified, unspecified vomiting type, Marijuana use ondansetron (ZOFRAN) 4 Take 1 tablet by 12 tablet 0 02/28/2020 Active mg tabletIndications: mouth every 8 Nausea and vomiting in (eight) hours as adult patient needed for Nausea and Vomiting (N/V). metoclopramide HCl 10 Take 1 tablet by 20 tablet 0 03/07/2020 Active mg tabletIndications: mouth every 6 Nausea and vomiting, (six) hours. intractability of vomiting not specified, unspecified vomiting type dicyclomine 20 mg Take 1 tablet by 20 tablet 0 03/07/2020 Active tabletIndications: mouth every 6 Nausea and vomiting, (six) hours as intractability of needed for vomiting not specified, Abdominal pain. unspecified vomiting type pantoprazole (PROTONIX) Take 1 tablet by 28 tablet 0 0 Active 40 mg EC mouth daily. tabletIndications: Nausea and vomiting, intractability of vomiting not specified, unspecified vomiting type documented as of this encounter (statuses as of 03/14/2020) Active Problems No known active problemsdocumented as of this encounter (statuses as of 03/14/2020) Social History Tobacco Use Types Packs/Day Years Used Date Never Assessed Sex Assigned at Date Recorded Not on file Job Start Date Occupation Industry Not on file Not on file Not on file Travel History Travel Start Travel End No recent travel history available. COVID-19 Exposure Response Date Recorded In the last month, have you been in contact with No / Unsure 03/07/2020 1:20 AM CDT someone who was confirmed or suspected to have Coronavirus / COVID-19? documented as of this encounter Last Filed Vital Signs Not on filedocumented in this encounter Progress Notes Kim Marie RN - 03/14/2020 12:31 PM CDTCHP Referral: ED follow up: 52% readmit risk/no PCP/no coverage/resides in [facility](might be eligible for [facility]) Pt was seen in ER for N/V. CT negative for stones; patient was has been positive for THC during manyvisits for c/o n/v. 1st attempt: CM left VM on pt's machine, requesting a call back to discuss CHP enrollment. AMARILYS Castillo, RN, [facility] Outpatient Pricing SpecialistAircraft Seat UpholstererCape Fear Valley Hoke Hospital O: [phone] M: [phone] documented in this encounter Plan of Treatment Health Maintenance Due Date Last Done Comments VARICELLA VACCINES (1 of 2 - 1988 2-dose childhood series) DTaP,Tdap,and Td Vaccines (1 - 1998 Tdap) Depression Screening 1999 INFLUENZA VACCINE (Season Ended) 2020 PNEUMOCOCCAL 0-64 YEARS COMBINED Aged Out No longer eligible based on SERIES patient's age to complete this topic documented as of this encounter Results Not on filedocumented in this encounter
--- OUTSIDE RECORDS SUMMARY | 2020-03-22 17:03 | XMS REPORT | Summary of Care ---
:1985 Author Organization [facility] - [facility] Address [address] [place] [address] Care Team Providers Name Role Phone Pcp, Does Not Have A Primary Care Provider Reason for Visit Reason Comments Transition Of Care Encounter Details Date Type Department Care Team Description 03/12/2020 Transition of Care [facility] Eliceo Hoyt [facility]- [address] [place] [phone] Allergies No Known Allergiesdocumented as of this encounter (statuses as of 03/12/2020) Medications Medication Sig Dispensed Refills Start Date [...] as of this encounter (statuses as of 03/12/2020) Active Problems No known active problemsdocumented as of this encounter (statuses as of 03/12/2020) Social History Tobacco Use Types Packs/Day Years [...]
--- OUTSIDE RECORDS SUMMARY | 2020-03-22 17:03 | XMS REPORT | Summary of Care ---
:1985 Author Organization [facility] - [facility] Address [address] [place] [address] Care Team Providers Name Role Phone Pcp, Does Not Have A Primary Care Provider Reason for Referral MRI/CAT Scan (STAT) Status Reason Specialty Diagnoses / Referred By Referred To Procedures Contact Contact New Request Diagnostic Diagnoses Nausea and vomiting, intractability of vomiting not specified, unspecified vomiting type Abel Kaplan Radiology Procedures CT ABDOMEN PELVIS W CONTRAST SMD [address] [place] [address] [id number] [place] [address] Reason for Visit Reason Comments Vomiting Auth/Cert Status Reason Specialty Diagnoses / Referred By Referred To Procedures Contact Contact Emergency Medicine [facility] Dept [address] [place] [address] Fax: Encounter Details Date Type Department Care Team Description 03/07/2020 Emergency [facility]-Emergency Abel Kaplan S, Nausea an d vomiting, Department intractability of [address] [place] [address] vomiting n ot specified, Drive [id number] unspecified vomiting type [address] (Primary Dx) [phone] [id number] [phone] Allergies No Known Allergiesdocumented as of this encounter (statuses as of 03/07/2020) Medications Medication Sig Dispensed Refills Start Date [...] as of this encounter (statuses as of 03/07/2020) Active Problems No known active problemsdocumented as of this encounter (statuses as of 03/07/2020) Social History Tobacco Use Types Packs/Day Years [...] Sign Reading Time Taken Comments Blood Pressure 104/66 03/07/2020 3:00 AM CDT Pulse 65 03/07/2020 3:00 AM CDT Temperature 36.4 C (97.5 F) 03/07/2020 1:26 AM CDT Respiratory Rate 18 03/07/2020 3:00 AM CDT Oxygen Saturation 96% 03/07/2020 3:00 AM CDT Inhaled Oxygen Concentration - - Weight 74.8 kg (165 lb) 03/07/2020 1:26 AM CDT Height 175.3 cm (5' 9") 03/07/2020 1:26 AM CDT Body Mass Index 24.37 03/07/2020 1:26 AM CDT documented in this encounter Discharge Instructions Abel Sierra MD - 03/07/2020 DIAGNOSIS Diagnoses that have been ruled out: None Diagnoses that are still under consideration: None Final diagnoses: Nausea and vomiting, intractability of vomiting not specified, unspecified vomiting type NO LIFE-THREATENING FINDINGS ON TODAY'S EXAM. PROCEDURES IN THE ER TODAY: Orders Placed This Encounter Procedures CT ABDOMEN PELVIS W CONTRAST Complete Metabolic Panel CBC with Differential Lipase, Serum Urinalysis CBC WITH DIFFERENTIAL MEDICATIONS ADMINISTERED IN THE ER TODAY AND DISCHARGE MEDICATIONS: Orders Placed This Encounter Medications maalox:diphenhydrAMINE:lidocaine 2 % viscous 1:1:1 (FIRST-MOUTHWASH BLM) oral suspension 15 mL ondansetron (ZOFRAN (PF)) injection 4 mg metoclopramide HCl (REGLAN) injection 10 mg iohexol (OMNIPAQUE 350 BULK-150 mL) injection 120 mL FOLLOW-UP RECOMMENDATIONS: RECOMMEND FOLLOW-UP WITH YOUR PRIMARY CARE PROVIDER OR WITH DR SIMEON, GASTROENTEROLOGY SPECIALIST IN 2-5 DAYS, ESPECIALLY IF NO IMPROVEMENT IN SYMPTOMS. MAY FOLLOW-UP WITH A PROVIDER OF YOUR CHOICE, SUCH : 1. A PHYSICIAN OF YOUR CHOICE 2. [facility], . LOCATIONS IN [facility] 3. [facility], [address], [place]; [phone] OR, IF YOU WISH TO FOLLOW-UP WITHIN THE [facility], MAY TRY THESE OPTIONS (CLINIC APPOINTMENTS AVAILABLE ON [id number] BASIS): 1. SCHEDULE AN APPOINTMENT ONLINE AT WWW.[facility] 2. OR CALL THE [facility] AT OR 3. OR CALL YOUR [facility] PHYSICIAN'S OFFICE DIRECTLY IF YOU ARE ALREADY AN ESTABLISHED [facility] PATIENT. RETURN TO ER FOR WORSENING OF SYMPTOMS documented in this encounter Plan of Treatment Name Type Priority Associated Diagnoses Date/Ti me CT ABDOMEN PELVIS W IMAGING STAT Nausea and vomiting, 03/07/2020 2:51 AM CONTRAST intractability of vomiting C DT not specified, unspecified vomiting type Health Maintenance Due Date Last Done Comments [...] Name Priority Date/Time Associated Diagnosis Comme nts CT ABDOMEN PELVIS W STAT 03/07/2020 2:51 AM Nausea and vom iting, CONTRAST CDT intractability of vomiting not specified, unspecified vomiting type Procedure Note - [facility], Radia nt Results Inft User - 03/07/2020 3:20 AM CDT EXAM: CT ABDOMEN AND PELVIS WITH CONTRAST HISTORY: Generalized abdomin al pain, leukocytosis COMPARISON: None. TECHNIQUE AND FINDINGS: Cont iguous axial imaging from the level of the lung bases through the pubic symp hysis was performed after the uncomplicated administration of 120 cc of intravenous Omnipaque contrast. Coronal and sagittal reconstructions wer e obtained. Auto mA and/or iterative reconstruction were used to reduce radiation dose. FINDINGS: LOWER THORAX: The lungs base s are clear. No cardiomegaly. LIVER: No focal hepatic lesi ons. Normal contour. GALLBLADDER AND BILIARY TREE : No biliary ductal dilation. No gallbladder wall thickening. SPLEEN: No splenomegaly. 1.5 cm splenule. PANCREAS: No ductal dilation or masses. ADRENAL GLANDS: No adrenal n odules. KIDNEYS: Punctate bilateral nonobstructive nephrolithiasis. Bilateral subcentimeter hypodensities are too small to accurately characterize. No hydronephrosis. PERITONEUM AND RETROPERITONE UM: No free air or fluid. Small fat-containing umbilical hernia. LYMPH NODES: Prominent mesen teric lymph nodes are not enlarged by CT size criteria. GI TRACT: No dilation or wal l thickening. The suspected appendix is unremarkable. No pericecal o r periappendiceal inflammatory changes to suggest acute appendicitis. PELVIS/BLADDER: Prostatic ca lcifications are noted. The bladder is decompressed. VESSELS: Unremarkable. BONES AND SOFT TISSUES: No s uspicious lytic or sclerotic bony lesions. IMPRESSION Bilateral punctate nonobstru ctive nephrolithiasis. Preliminary Report Dictated by Resident: Vernon Rodney URINALYSIS STAT 03/07/2020 1:49 Nausea and vomiting, Res ults for this AM CDT intractability of procedure are in vomiting not the results specified, unspecified secti on. vomiting type CBC WITH STAT 03/07/2020 1:44 Nausea and vomiting, Res ults for this DIFFERENTIAL AM CDT intractability of procedure are in vomiting not the results specified, unspecified secti on. vomiting type CBC WITH Routine 03/07/2020 1:44 Nausea and vomiting, Res ults for this DIFFERENTIAL AM CDT intractability of procedure are in vomiting not the results specified, unspecified secti on. vomiting type COMP. METABOLIC STAT 03/07/2020 1:44 Nausea and vomiting, Results for this PANEL ([id number]) AM CDT intractability of procedure are in vomiting not the results specified, unspecified secti on. vomiting type LIPASE STAT 03/07/2020 1:44 Nausea and vomiting, Res ults for this AM CDT intractability of procedure are in vomiting not the results specified, unspecified secti on. vomiting type CONSENT/REFUSAL FOR Routine 03/07/2020 1:19 DIAGNOSIS AND AM CDT TREATMENT documented in this encounter Results Urinalysis (03/07/2020 1:49 AM CDT) Pathologist Sig nature APPEARANCE Hazy (A) Clear [facility] COLOR Becca (A) Yellow [facility] PH 5.0 4.8 - 8.0 [facility] SP GRAVITY 1.028 1.003 - 1.030 [facility] GLU U QUAL Normal Normal [facility] BLOOD Negative Negative [facility] KETONES Negative Negative [facility] PROTEIN Negative Negative [facility] UROBILIN 2.0 mg/dL (A) Normal [facility] BILIRUBIN Negative Negative [facility] NITRITE Negative Negative [facility] LEUK ZHEN Negative Negative [facility] RBC/HPF 4 (H) 0 - 3 HPF [facility] WBC/HPF 2 0 - 5 HPF [facility] BACTERIA Negative Negative [facility] MUCOUS Marked (A) Negative LPF [facility] SQ EPITH <1 HPF [facility] CA OXALATE 2 (H) <=1 HPF [facility] HYAL CAST 3 (H) <=2 LPF [facility] Specimen Urine - URINE, CLEAN CATCH Performing Organization Address City/State/Zipcode Phone Number [facility] CLIA: [id number], [address] [place], [place] [address] CBC WITH DIFFERENTIAL (03/07/2020 1:44 AM CDT) Pathologist Sig nature WBC 13.73 (H) 4.20 - 10.70 [facility] 10*3/L [facility] RBC 5.02 4.26 - 5.52 [facility] 10*6/L [facility] HGB 15.2 12.2 - 16.4 [facility] g/dL [facility] HCT 44.6 38.4 - 49.3 % [facility] MCV 88.8 81.7 - 95.6 fL [facility] MCH 30.3 26.1 - 32.7 pg [facility] MCHC 34.1 31.2 - 35.0 [facility] g/dL [facility] RDW-SD 42.3 38.5 - 51.6 fL [facility] RDW-CV 13.1 12.1 - 15.4 % [facility] PLT 348 (H) 150 - 328 [facility] 10*3/L [facility] MPV 9.1 (L) 9.8 - 13.0 fL [facility] NRBC/100 WBC 0.0 0.0 - 10.0 /100 [facility] WBCs [facility] NRBC x10^3 <0.01 10*3/L [facility] GRAN MAT (NEUT) % 77.9 % [facility] IMM GRAN % 0.70 % [facility] LYMPH % 15.1 % [facility] MONO % 5.8 % [facility] EOS % 0.1 % [facility] BASO % 0.4 % [facility] GRAN MAT x10^3(ANC) 10.71 (H) 1.99 - 6.95 [facility] 10*3/uL [facility] IMM GRAN x10^3 0.09 (H) 0.00 - 0.06 [facility] 10*3/uL [facility] LYMPH x10^3 2.07 1.09 - 3.23 [facility] 10*3/uL [facility] MONO x10^3 0.79 0.36 - 1.02 [facility] 10*3/uL [facility] EOS x10^3 <0.03 (L) 0.06 - 0.53 [facility] 10*3/uL [facility] BASO x10^3 0.05 0.01 - 0.09 [facility] 10*3/uL [facility] Specimen Blood - VENOUS Performing Organization Address City/State/Zipcode Phone Number [facility] CLIA: [id number], [address], [place] [address] Lipase, Serum (03/07/2020 1:44 AM CDT) Pathologist Sig nature LIPASE 61 0 - 220 U/L [facility] Specimen Blood - VENOUS Performing Organization Address City/State/Zipcode Phone Number [facility] CLIA: [id number], [address] Complete Metabolic Panel (03/07/2020 1:44 AM CDT) Pathologist Sig nature NA 140 135 - 145 [facility] mmol/L [facility] K 3.5 3.5 - 5.0 [facility] mmol/L [facility] CL 103 98 - 108 mmol/L [facility] CO2 TOTAL 26 23 - 31 mmol/L [facility] AGAP 11 2 - 16 [facility] BUN 12 7 - 23 mg/dL [facility] GLUCOSE 131 (H) 70 - 110 mg/dL [facility] CREATININE 0.77 0.60 - 1.25 [facility] mg/dL [facility] TOTAL BILI 0.3 0.1 - 1.1 mg/dL [facility] CALCIUM 9.6 8.6 - 10.6 [facility] mg/dL [facility] T PROTEIN 7.4 6.3 - 8.2 g/dL [facility] ALBUMIN 4.6 3.5 - 5.0 g/dL [facility] ALK PHOS 91 34 - 122 U/L [facility] ALTv 9 5 - 50 U/L [facility] AST(SGOT) 26 13 - 40 U/L [facility] eGFR Calculation 117.1 mL/min/1.73m2 [facility] ([facility] LABORATORY Slovenian) eGFR Calculation 141.9 mL/min/1.73m2 [facility] () [facility] Specimen Blood - VENOUS Narrative Performed At Association of Glomerular Filtration Rate (GFR) [facility] and Staging of Kidney Disease* + [...] tests). Performing Organization Address City/State/Zipcode Phone Number [facility] CLIA: [id number], [address], [place] [address] documented in this encounter Visit Diagnoses Diagnosis Nausea and vomiting, intractability of v omiting not specified, unspecified vomiting type - Primary documented in this encounter Administered Medications Medication Order MAR Action Action Date Dose Rate Site iohexol (OMNIPAQUE 350 BULK-150 Given 03/07/2020 3:00 AM CDT 12 0 mL mL) injection 120 mL 120 mL, Intravenous, ONCE, 1 dose, 03/07/20 at 0300, Routine maalox:diphenhydrAMINE:lidocaine 2 % viscous Given 08/2020 1:49 AM CDT 15 mL 1:1:1 (FIRST-MOUTHWASH BLM) oral suspension 15 mL 15 mL, Oral, ONCE, 1 dose, Tue03/07/20 at 0245, Routine metoclopramide HCl (REGLAN) injection 10 mg Given 03/07/2020 2:20 AM CDT 10 mg 10 mg, Slow IV Push, ONCE, 1 dose, Tue03/07/20 at 0330, MIAN ondansetron (ZOFRAN (PF)) injection 4 mg Given 03/07/2020 1:44 AM CDT 4 mg 4 mg, Slow IV Push, ONCE, 1 dose, Tue03/07/20 at 0245, MIAN documented in this encounter
--- OUTSIDE RECORDS SUMMARY | 2020-03-22 17:03 | XMS REPORT | Summary of Care ---
:1985 Author Organization [facility] - Health Address [address] [place] [address] Care Team Providers Name Role Phone Pcp, Does Not Have A Primary Care Provider Reason for Visit Reason Comments Hospital F/ frequent ED visits, occurren seema of kidney stones. Encounter Details Date Type Department Care Team Description 03/12/2020 Patient Outreach [facility] Kim Marie RN [facility] [address] [place] [address] (frequent ED [place] [facility] visits, occurrences [place], [place] [address] of kidney stones. ) [phone] Allergies No Known Allergiesdocumented as of this [...] encounter Progress Notes Kim Marie RN - 03/12/2020 3:52 PM CDTED follow up: 52% readmit risk/no PCP/no coverage/resides in [facility](might be eligible for [facility]) Pt was seen in ER for N/V. CT negative for stones; patient was has been positive for THC during manyvisits for c/o n/v. CM left a message with his father and asked for a return call. CM will place referral for CHP. AMARILYS Castillo, RN, [facility] Outpatient Ux Design ManagerImporter ExporterOn License Of [facility] O: [phone] M: [phone] documented in this encounter Plan of Treatment [...]
--- NOTE | 2020-03-22 19:32 | ER ---
Nurse's Notes [facility] Name: Adan Shah Jr Age: 34 yrs Sex: Male : 1985 Arrival Date: 03/22/2020 Time: 16:58 Bed External Waiting Private MD: Diagnosis: Presentation: 03/22 17:04 Chief complaint: Patient states: I've been so nauseous and been throwing up. I went to [address] on the for the same thing, they gave me a couple prescription and it helped. But yesterday, I have been throwing up again and I can't keep anything down. Denies abdominal pain, diarrhea. Denies fever. Coronavirus screen: Proceed with normal triage. Patient denies a cough. Patient denies shortness of breath or difficulty breathing. Patient denies measured and/or subjective temperature greater than 100.4F prior to today's visit. Patient denies travel on a cruise ship or to a country the [facility] currently lists as an affected area. Patient denies contact with known and/or suspected case of COVID-19. Ebola Screen: Patient negative for fever greater than or equal to 101.5 degrees Fahrenheit, and additional compatible Ebola Virus Disease symptoms Patient denies exposure to infectious person. Patient denies travel to an Ebola-affected area in the 21 days before illness onset. No symptoms or risks identified at this time. Initial Sepsis Screen: Does the patient meet any 2 criteria? No. Patient's initial sepsis screen is negative. Does the patient have a suspected source of infection? No. Patient's initial sepsis screen is negative. Risk Assessment: Do you want to hurt yourself or someone else? Patient reports no desire to harm self or others. Onset of symptoms was March 22, 2020. 17:04 Method Of Arrival: Ambulatory [facility] 17:04 Acuity: ANAIS 3 ca1 Historical: - Allergies: 17:08 No Known Allergies; ca1 - Home Meds: 17:08 Hydroxyzine Oral [Active]; Prozac Oral [Active]; ca1 - PMHx: 17:08 Bipolar disorder; Kidney stones; Depression; Anxiety; ca1 - PSHx: 17:08 Lithotripsy; ca1 - Immunization history:: Adult Immunizations up to date. - Social history:: Smoking status: Patient denies any tobacco usage or history of. Vital Signs: 17:04 BP 130 / 88; Pulse 76; Resp 15 S; Temp 97.9(TE); Pulse Ox 100% on R/A; Weight 77.11 kg ca1 (R); Height 5 ft. 9 in. (175.26 cm) (R); 17:04 Body Mass Index 25.10 (77.11 kg, 175.26 cm) ca1 ED Course: 16:58 Patient arrived in ED. ag5 17:04 Arm band placed on right wrist. ca1 17:07 Triage completed. ca1 19:22 Gustavo Waggoner PA is PHCP. cp 19:22 Marilia Doan MD is Attending Physician. cp Administered Medications: No medications were administered Outcome: 19:30 Eloped from waiting room, Time discovered patient gone: March 22, 2020 at 19:20 sg 19:30 Condition: stable 19:31 Patient left the ED. sg Signatures: Geoff Santiago RN RN Gustavo Waggoner PA PA cp Acob, Cheryl, RN RN ca1 Leslee Mary ag5 Corrections: (The following items were deleted from the chart) 17:08 17:04 Pulse 76bpm; Resp 15bpm; Spontaneous; Pulse Ox 100% RA; Temp 97.9F Temporal; ca1 77.11 kg Reported; Height 5 ft. 9 in. Reported; BMI: 25.1; ca1
[2020-03-22 19:36] VITALS: BP 130/88; TEMP 97.9; O2SAT 100
== END 2020-03-22 19:31 | disposition left against medical advice (07) ==
LOC: ER 16:56
DX: Z53.21 Procedure and treatment not carried out due to patient leaving prior to being seen by health care provider (principal)
CPT/HCPCS: 99281

== ENCOUNTER 2023-05-23 14:28 | Emergency (ER) | payer SELFPAY ==
--- OUTSIDE RECORDS SUMMARY | 2023-05-23 14:34 | XMS REPORT | Continuity of Care Document ---
:1985 Author Organization [facility] t Address [address] [facility] [facility] [address] [place] [address] Care Team Providers Name Role Phone PCP, PATIENT DOES NOT HAVE A Primary Care Physician UnavailGABRIELA Maxwell Attending Clinician Unavailable Gabriela Saldana NP Attending Clinician Cheyenne Michel Attending Clinician Doctor Unassigned, [place] Attending Clinician Unavailable Kim Marie RN Attending Clinician Gaye Hoyt Attending Clinician Christiana Kaplan MD Attending Clinician CHRISTIANA KAPLAN Attending Clinician Unavailable Yessica Jennings DO Attending Clinician YESSICA JENNINGS Attending Clinician Unavailable Jose Zuñiga MD Attending Clinician JOSE ZUÑIGA Attending Clinician Unavailable Tg Mackenzie DO Attending Clinician Jazmín Tracey DO Attending Clinician CHRISTIANA KAPLAN Admitting Clinician Unavailable YESSICA JENNINGS Admitting Clinician Unavailable Payers Payer Name Policy Type Policy Number Effective Date Expiration Date S srikanth Problems Condition Condition Condition Status Onset Resolution Last Treating Co mments Source Name Details Category Date Date Treatment Clinician Date No known No known Disease Unive rs active active ity of problems problems [facility] Allergies, Adverse Reactions, Alerts Allergy Allergy Status Severity Reaction(s) Onset Inactive Treating Comm ents Source Name Type Date Date Clinician NSAIDS DA Active SV [facility] (Non-Chris 6-26 Clear roidal 00:00: [place] Anti-Inf 00 [facility] aspirin DA Active SV 2018- [facility] 5-13 Clear 00:00: [place] 00 [facility] No Known DA Active U 2017- [facility] Allergie 2-12 Clear s 00:00: [place] 00 [facility] No Known DA Active U 2017-09 [facility] Allergie 1-15 Clear s 00:00: [place] 00 [facility] aspirin DA Active U 2017- [facility] 4-13 Clear 00:00: [place] 00 [facility] ASPIRIN DRUG Active Hives 2015-0 Univers INGREDI 1-14 ity of 00:00: [place] [facility] Aspirin Propensi Active Hives 2015-0 Univers ty to 1-14 ity of adverse 00:00: [place] reaction 00 [facility] [place] NO KNOWN Drug Active Univers ALLERGIE Class ity of S [facility] Social History Social Habit Start Date Stop Date Quantity Comments Source Exposure to Not sure [facility] SARS-CoV-2 (event) [facility] 1985 [facility] [place] [facility] Medical Branch Smoking Status Start Date Stop Date Source Unknown if ever smoked [facility] Medical Branch Medications Ordered Filled Start Stop Current Ordering Indication Dosage Frequency Signature Comments Components Source Medication Medication Date Date Medication? Clinician (SIG) Name Name HYDROcodone 2019- No 1{tbl} 1 tablet, Univers -acetaminop 05-16 Oral, ity of hen (NORCO) 02:45: 01:36 [place]CE[place] 1 [place] 10-325 mg 00 :00 dose, Diana Medic al tablet 1 05/15/20 at [facility] h tablet 2145, Routine NaCl 0.9% 2019- No 1000mL at 500 Uni vers (NS) IV 05-15 mL/hr, ity of infusion 23:15: 01:36 [place]ven[place] 1,000 mL 00 :00 s, ONCE, 1 Medic al dose, [facility] 05/15/20 at 1815, MIAN ketorolac No 30mg 30 mg, Unive rs (TORADOL) 05-15 Slow IV ity of injection 23:15: 22:17 Push, [place] 30 mg 00 :00 ONCE, 1 Medical dose, [facility] 05/15/20 at 1815, Routine
biology faculty member approving Restricted medication : GABRIELA SALDANA acetaminoph 2019- Yes [id number] 1{tbl} Take 1 [place] en-codeine 8-20 tablet by ity of (TYLENOL-CO 00:00: mouth [place] DEINE #3) 00 every 4 Medical 300-30 mg (four) Branch tablet hours as needed for Pain (scale 4-6) or Pain (scale 7-10). Indication s: acute pain ketorolac 2020-0 Yes [id number] 10mg Take 1 [place] 10 mg 8-20 tablet by ity of tablet 00:00: mouth [place] 00 every 6 Medical (six) Branch hours as needed for Pain (scale 1-3). acetaminoph 2020-0 Yes [id number] 1{tbl} Take 1 [place] en-codeine 8-20 tablet by ity of (TYLENOL-CO 00:00: mouth [place] DEINE #3) 00 every 4 Medical 300-30 mg (four) Branch tablet hours as needed for Pain (scale 4-6) or Pain (scale 7-10). Indication s: acute pain ketorolac 2020-0 Yes [id number] 10mg Take 1 [place] 10 mg 8-20 tablet by ity of tablet 00:00: mouth [place] 00 every 6 Medical (six) Branch hours as needed for Pain (scale 1-3). acetaminoph 2020-0 Yes [id number] 1{tbl} Take 1 [place] en-codeine 8-20 tablet by ity of (TYLENOL-CO 00:00: mouth [place] DEINE #3) 00 every 4 Medical 300-30 mg (four) Branch tablet hours as needed for Pain (scale 4-6) or Pain (scale 7-10). Indication s: acute pain ketorolac 2020-0 Yes [id number] 10mg Take 1 Un [place] 10 mg 8-20 tablet by ity of tablet 00:00: mouth [place] 00 every 6 Medical (six) Branch hours as needed for Pain (scale 1-3). metoclopram 2019-0 2020- No 10mg 10 mg, Uni vers lesli HCl 03-07 Slow IV ity of (REGLAN) 08:30: 07:20 Push, [place] injection 00 :00 ONCE, 1 Medical 10 mg dose, Fri Branch 03/07/20 at 0330, MIAN iohexol 2020-0 2020- No 120mL 120 mL, Unive rs (OMNIPAQUE 03-07 Intravenou it y of 350 08:00: 08:00 s, ONCE, 1 [place] BULK-150 00 :00 dose, Fri Medica l mL) 03/07/20 at [place] injection 0300, 120 mL Routine ondansetron 2019-0 2020- No 4mg 4 mg, Slow Univers (ZOFRAN 03-07 IV Push, ity of (PF)) 07:45: 06:44 ONCE, 1 [place] injection 4 00 :00 dose, Fri Med ical mg 03/07/20 at [place] 0245, MIAN maalox:diph 2019-0 2020- No 15mL 15 mL, Uni vers enhydrAMINE 03-07 Oral, ity of :lidocaine 07:45: 06:49 ONCE, 1 [place] 2 % viscous 00 :00 dose, Fri Med ical 1:1:1 03/07/20 at [place] (FIRST-MOUT 0245, HWASH BLM) Routine oral suspension 15 mL metoclopram 2020-0 Yes [id number] 10mg Take 1 Univers lesli HCl 10 6-12 tablet by ity of mg tablet 00:00: mouth [place] 00 every 6 Medical (six) Branch hours. dicyclomine 2020-0 Yes [id number] 20mg Take 1 Univers 20 mg 6-12 tablet by ity of tablet 00:00: mouth [place] 00 every 6 Medical (six) Branch hours as needed for Abdominal pain. pantoprazol 2020-0 Yes [id number] 40mg Take 1 Univers e 6-12 tablet by ity of (PROTONIX) 00:00: mouth [place] 40 mg EC 00 daily. Medical tablet Branch metoclopram 2020-0 Yes [id number] 10mg Take 1 Univers lesli HCl 10 6-12 tablet by ity of mg tablet 00:00: mouth [place] 00 every 6 Medical (six) Branch hours. dicyclomine 2020-0 Yes [id number] 20mg Take 1 Univers 20 mg 6-12 tablet by ity of tablet 00:00: mouth [place] 00 every 6 Medical (six) Branch hours as needed for Abdominal pain. pantoprazol 2020-0 Yes [id number] 40mg Take 1 Univers e 6-12 tablet by ity of (PROTONIX) 00:00: mouth [place] 40 mg EC 00 daily. Medical tablet Branch metoclopram 2020-0 Yes [id number] 10mg Take 1 Univers lesli HCl 10 6-12 tablet by ity of mg tablet 00:00: mouth [place] 00 every 6 Medical (six) Branch hours. dicyclomine 2020-0 Yes [id number] 20mg Take 1 Univers 20 mg 6-12 tablet by ity of tablet 00:00: mouth [place] 00 every 6 Medical (six) Branch hours as needed for Abdominal pain. pantoprazol 2020-0 Yes [id number] 40mg Take 1 Univers e 6-12 tablet by ity of (PROTONIX) 00:00: mouth [place] 40 mg EC 00 daily. Medical tablet Branch metoclopram 2020-0 Yes [id number] 10mg Take 1 Univers lesli HCl 10 6-12 tablet by ity of mg tablet 00:00: mouth [place] 00 every 6 Medical (six) Branch hours. dicyclomine 2020-0 Yes [id number] 20mg Take 1 Univers 20 mg 6-12 tablet by ity of tablet 00:00: mouth [place] 00 every 6 Medical (six) Branch hours as needed for Abdominal pain. pantoprazol 2020-0 Yes [id number] 40mg Take 1 Univers e 6-12 tablet by ity of (PROTONIX) 00:00: mouth [place] 40 mg EC 00 daily. Medical tablet Branch metoclopram 2020-0 Yes [id number] 10mg Take 1 Univers lesli HCl 10 6-12 tablet by ity of mg tablet 00:00: mouth [place] 00 every 6 Medical (six) Branch hours. dicyclomine 2020-0 Yes [id number] 20mg Take 1 Univers 20 mg 6-12 tablet by ity of tablet 00:00: mouth [place] 00 every 6 Medical (six) Branch hours as needed for Abdominal pain. pantoprazol 2020-0 Yes [id number] 40mg Take 1 Univers e 6-12 tablet by ity of (PROTONIX) 00:00: mouth [place] 40 mg EC 00 daily. Medical tablet Branch metoclopram 2020-0 Yes [id number] 10mg Take 1 Univers lesli HCl 10 6-12 tablet by ity of mg tablet 00:00: mouth [place] 00 every 6 Medical (six) Branch hours. dicyclomine 2020-0 Yes [id number] 20mg Take 1 Univers 20 mg 6-12 tablet by ity of tablet 00:00: mouth [place] 00 every 6 Medical (six) Branch hours as needed for Abdominal pain. pantoprazol 2020-0 Yes [id number] 40mg Take 1 Univers e 6-12 tablet by ity of (PROTONIX) 00:00: mouth [place] 40 mg EC 00 daily. Medical tablet Branch metoclopram 2020-0 Yes [id number] 10mg Take 1 Univers lesli HCl 10 6-12 tablet by ity of mg tablet 00:00: mouth [place] 00 every 6 Medical (six) Branch hours. dicyclomine 2020-0 Yes [id number] 20mg Take 1 Univers 20 mg 6-12 tablet by ity of tablet 00:00: mouth [place] 00 every 6 Medical (six) Branch hours as needed for Abdominal pain. pantoprazol 2020-0 Yes [id number] 40mg Take 1 Univers e 6-12 tablet by ity of (PROTONIX) 00:00: mouth [place] 40 mg EC 00 daily. Medical tablet Branch metoclopram 2020-0 Yes [id number] 10mg Take 1 Univers lesli HCl 10 6-12 tablet by ity of mg tablet 00:00: mouth [place] 00 every 6 Medical (six) Branch hours. dicyclomine 2020-0 Yes [id number] 20mg Take 1 Univers 20 mg 6-12 tablet by ity of tablet 00:00: mouth [place] 00 every 6 Medical (six) Branch hours as needed for Abdominal pain. pantoprazol 2020-0 Yes [id number] 40mg Take 1 Univers e 6-12 tablet by ity of (PROTONIX) 00:00: mouth [place] 40 mg EC 00 daily. Medical tablet Branch metoclopram 2020-0 Yes [id number] 10mg Take 1 Univers lesli HCl 10 6-12 tablet by ity of mg tablet 00:00: mouth [place] 00 every 6 Medical (six) Branch hours. dicyclomine 2020-0 Yes [id number] 20mg Take 1 Univers 20 mg 6-12 tablet by ity of tablet 00:00: mouth [place] 00 every 6 Medical (six) Branch hours as needed for Abdominal pain. pantoprazol 2020-0 Yes [id number] 40mg Take 1 Univers e 6-12 tablet by ity of (PROTONIX) 00:00: mouth [place] 40 mg EC 00 daily. Medical tablet Branch ondansetron 2019-0 2020- No 4mg 4 mg, Slow Univers (ZOFRAN 02-27 IV Push, ity of (PF)) 06:00: 05:08 ONCE, 1 [place] injection 4 00 :00 dose, Diana Med ical mg 02/28/20 at Branch 0100, MIAN desvenlafax 2019-0 2020- No 50mg Take 50 mg Univers ine 02-27 by mouth ity of succinate 05:58: 00:00 daily. [place] (PRISTIQ) 26 :00 Medical 50 mg 24 hr Branch tablet FLUoxetine 2019-0 2020- No 40mg Take 40 mg Univers (PROZAC) 40 02-27 by mouth ity of mg capsule 05:58: 00:00 [place]. [place] 26 :00 Medical Branch ondansetron 2020-0 2020- No 4mg 4 mg, Slow Univers (ZOFRAN 02-27 IV Push, ity of (PF)) 04:45: 03:44 ONCE, 1 [place] injection 4 00 :00 dose, Wed Med ical mg 20 at Branch 2345, MIAN ondansetron 2020-0 Yes [id number] 4mg Take 1 Univers (ZOFRAN) 4 6-04 tablet by ity of mg tablet 00:00: mouth [place] 00 every 8 Medical (eight) Branch hours as needed for Nausea and Vomiting (N/V). ondansetron 2020-0 Yes [id number] 4mg Take 1 Univers (ZOFRAN) 4 6-04 tablet by ity of mg tablet 00:00: mouth [place] 00 every 8 Medical (eight) Branch hours as needed for Nausea and Vomiting (N/V). ondansetron 2020-0 Yes [id number] 4mg Take 1 Univers (ZOFRAN) 4 6-04 tablet by ity of mg tablet 00:00: mouth [place] 00 every 8 Medical (eight) Branch hours as needed for Nausea and Vomiting (N/V). ondansetron 2020-0 Yes [id number] 4mg Take 1 Univers (ZOFRAN) 4 6-04 tablet by ity of mg tablet 00:00: mouth [place] 00 every 8 Medical (eight) Branch hours as needed for Nausea and Vomiting (N/V). ondansetron 2020-0 Yes [id number] 4mg Take 1 Univers (ZOFRAN) 4 6-04 tablet by ity of mg tablet 00:00: mouth [place] 00 every 8 Medical (eight) Branch hours as needed for Nausea and Vomiting (N/V). ondansetron 2020-0 Yes [id number] 4mg Take 1 Univers (ZOFRAN) 4 6-04 tablet by ity of mg tablet 00:00: mouth [place] 00 every 8 Medical (eight) Branch hours as needed for Nausea and Vomiting (N/V). ondansetron 2020-0 Yes [id number] 4mg Take 1 Univers (ZOFRAN) 4 6-04 tablet by ity of mg tablet 00:00: mouth [place] 00 every 8 Medical (eight) Branch hours as needed for Nausea and Vomiting (N/V). ondansetron 2020-0 Yes [id number] 4mg Take 1 Univers (ZOFRAN) 4 6-04 tablet by ity of mg tablet 00:00: mouth [place] 00 every 8 Medical (eight) Branch hours as needed for Nausea and Vomiting (N/V). ondansetron 2020-0 Yes [id number] 4mg Take 1 Univers (ZOFRAN) 4 6-04 tablet by ity of mg tablet 00:00: mouth [place] 00 every 8 Medical (eight) Branch hours as needed for Nausea and Vomiting (N/V). ondansetron 2020-0 Yes [id number] 4mg Take 1 Univers (ZOFRAN) 4 6-04 tablet by ity of mg tablet 00:00: mouth [place] 00 every 8 Medical (eight) Branch hours as needed for Nausea and Vomiting (N/V). metoclopram 2019-0 2020- No [id number] 10mg Take 1 Univers lesli HCl 10 6-04 06-04 tablet by ity of mg tablet 00:00: 00:00 mouth [place] 00 :00 every 6 Medical (six) Branch hours. ondansetron 2019-0 2019- No 4mg 4 mg, Slow Univers (ZOFRAN 02-01 IV Push, ity of (PF)) 14:00: 13:06 ONCE, 1 [place] injection 4 00 :00 dose, Sat Med ical mg 02/02/20 at Branch 0900, MIAN ketorolac 2019-0 2019- No 30mg 30 mg, Unive rs (TORADOL) 02-01 Slow IV ity of injection 13:00: 13:06 Push, [place] 30 mg 00 :00 ONCE, 1 Medical dose, Sat [place] 02/02/20 at 0800, MIAN
Fa culty member approving Restricted medication : YESSICA JENNINGS NaCl 0.9% 2019-2019- No 1000mL at 999 Uni vers (NS) bolus 02-01 mL/hr, ity of infusion 13:00: 14:43 1,000 mL, [place] as 1,000 mL 00 :00 IV Medical Infusion, Branch ONCE, 1 dose, 02/02/20 at 0800, MIAN FLUoxetine 2020-0 Yes 40mg Take 40 mg U nivers (PROZAC) 40 4-23 by mouth ity of mg capsule 16:26: daily. [address] FLUoxetine 2020-0 Yes 40mg Take 40 mg U nivers (PROZAC) 40 4-23 by mouth ity of mg capsule 16:26: daily. [address] FLUoxetine 2020-0 Yes 40mg Take 40 mg U nivers (PROZAC) 40 4-23 by mouth ity of mg capsule 16:26: daily. [address] FLUoxetine 2020-0 Yes 40mg Take 40 mg U nivers (PROZAC) 40 4-23 by mouth ity of mg capsule 16:26: daily. [place] 34 Medical Branch ondansetron 2020-0 2020- No 4mg 4 mg, Slow Univers (ZOFRAN 01-16 IV Push, ity of (PF)) 16:15: 15:26 ONCE, 1 [place] injection 4 00 :00 dose, Diana Med ical mg 01/17/20 at Branch 1115, MIAN NaCl 0.9% 2019-0 2020- No 1000mL at 999 Uni vers (NS) bolus 01-16- mL/hr, ity of infusion 16:15: 16:50 1,000 mL, [place] as 1,000 mL 00 :00 IV Medical Infusion, Branch ONCE, 1 dose, [place] 01/17/20 at 1115, STAT famotidine 2020-0 Yes [id number] 20mg Take 1 Univers 20 mg 4-23 tablet by ity of tablet 00:00: mouth 2 [place] (two) Medical times Branch daily. ondansetron 2020-0 Yes [id number] 4mg Take 1 Univers 4 mg 4-23 tablet by ity of disintegrat 00:00: mouth [place] ing tablet 00 every 4 Medica l (four) Branch hours as needed for Nausea and Vomiting (N/V). famotidine 2020-0 Yes [id number] 20mg Take 1 Univers 20 mg 4-23 tablet by ity of tablet 00:00: mouth [place] (two) Medical times Branch daily. ondansetron 2020-0 Yes [id number] 4mg Take 1 Univers 4 mg 4-23 tablet by ity of disintegrat 00:00: mouth [place] ing tablet 00 every 4 Medica l (four) Branch hours as needed for Nausea and Vomiting (N/V). famotidine 2020-0 Yes [id number] 20mg Take 1 Univers 20 mg 4-23 tablet by ity of tablet 00:00: mouth 2 [place] (two) Medical times Branch daily. ondansetron 2020-0 Yes [id number] 4mg Take 1 Univers 4 mg 4-23 tablet by ity of disintegrat 00:00: mouth [place] ing tablet 00 every 4 Medica l (four) Branch hours as needed for Nausea and Vomiting (N/V). famotidine 2020-0 Yes [id number] 20mg Take 1 Univers 20 mg 4-23 tablet by ity of tablet 00:00: mouth 2 [place] 00 (two) Medical times Branch daily. ondansetron 2020-0 Yes [id number] 4mg Take 1 Univers 4 mg 4-23 tablet by ity of disintegrat 00:00: mouth [place] ing tablet 00 every 4 Medica l (four) Branch hours as needed for Nausea and Vomiting (N/V). famotidine 2020-0 Yes [id number] 20mg Take 1 Univers 20 mg 4-23 tablet by ity of tablet 00:00: mouth 2 [place] 00 (two) Medical times Branch daily. ondansetron 2020-0 Yes [id number] 4mg Take 1 Univers 4 mg 4-23 tablet by ity of disintegrat 00:00: mouth [place] ing tablet 00 every 4 Medica l (four) Branch hours as needed for Nausea and Vomiting (N/V). famotidine 2020-0 Yes [id number] 20mg Take 1 Univers 20 mg 4-23 tablet by ity of tablet 00:00: mouth 2 [place] (two) Medical times Branch daily. ondansetron 2020-0 Yes [id number] 4mg Take 1 Univers 4 mg 4-23 tablet by ity of disintegrat 00:00: mouth [place] ing tablet 00 every 4 Medica l (four) Branch hours as needed for Nausea and Vomiting (N/V). famotidine 2020-0 Yes [id number] 20mg Take 1 Univers 20 mg 4-23 tablet by ity of tablet 00:00: mouth 2 (two) Medical times Branch daily. ondansetron 2020-0 Yes [id number] 4mg Take 1 Univers 4 mg 4-23 tablet by ity of disintegrat 00:00: mouth [place] ing tablet 00 every 4 Medica l (four) Branch hours as needed for Nausea and Vomiting (N/V). famotidine 2020-0 Yes [id number] 20mg Take 1 Univers 20 mg 4-23 tablet by ity of tablet 00:00: mouth 2 [place] (two) Medical times Branch daily. ondansetron 2020-0 Yes [id number] 4mg Take 1 Univers 4 mg 4-23 tablet by ity of disintegrat 00:00: mouth [place] ing tablet 00 every 4 Medica l (four) Branch hours as needed for Nausea and Vomiting (N/V). famotidine 2020-0 Yes [id number] 20mg Take 1 Univers 20 mg 4-23 tablet by ity of tablet 00:00: mouth 2 (two) Medical times Branch daily. ondansetron 2020-0 Yes [id number] 4mg Take 1 Univers 4 mg 4-23 tablet by ity of disintegrat 00:00: mouth [place] ing tablet 00 every 4 Medica l (four) Branch hours as needed for Nausea and Vomiting (N/V). famotidine 2020-0 Yes [id number] 20mg Take 1 Univers 20 mg 4-23 tablet by ity of tablet 00:00: mouth 2 [place] (two) Medical times Branch daily. ondansetron 2020-0 Yes [id number] 4mg Take 1 Univers 4 mg 4-23 tablet by ity of disintegrat 00:00: mouth [place] ing tablet 00 every 4 Medica l (four) Branch hours as needed for Nausea and Vomiting (N/V). famotidine 2020-0 Yes [id number] 20mg Take 1 Univers 20 mg 4-23 tablet by ity of tablet 00:00: mouth (two) Medical times Branch daily. ondansetron 2020-0 Yes [id number] 4mg Take 1 Univers 4 mg 4-23 tablet by ity of disintegrat 00:00: mouth [place] ing tablet 00 every 4 Medica l (four) Branch hours as needed for Nausea and Vomiting (N/V). famotidine 2020-0 Yes [id number] 20mg Take 1 Univers 20 mg 4-23 tablet by ity of tablet 00:00: mouth (two) Medical times Branch daily. ondansetron 2020-0 Yes [id number] 4mg Take 1 Univers 4 mg 4-23 tablet by ity of disintegrat 00:00: mouth [place] ing tablet 00 every 4 Medica l (four) Branch hours as needed for Nausea and Vomiting (N/V). famotidine 2020-0 Yes [id number] 20mg Take 1 Univers 20 mg 4-23 tablet by ity of tablet 00:00: mouth 2 (two) Medical times Branch daily. ondansetron 2020-0 Yes [id number] 4mg Take 1 Univers 4 mg 4-23 tablet by ity of disintegrat 00:00: mouth [place] ing tablet 00 every 4 Medica l (four) Branch hours as needed for Nausea and Vomiting (N/V). famotidine 2020-0 Yes [id number] 20mg Take 1 Univers 20 mg 4-23 tablet by ity of tablet 00:00: mouth 2 [place] 00 (two) Medical times Branch daily. ondansetron Yes [id number] 4mg Take 1 Univers 4 mg 4-23 tablet by ity of disintegrat 00:00: mouth [place] ing tablet 00 every 4 Medica l (four) Branch hours as needed for Nausea and Vomiting (N/V). FENTanyl PF 2018- No 50ug 50 mcg, Un lorrie (SUBLIMAZE 05-05 Slow IV ity o f (PF)) 17:00: 16:21 Push, [place] injection 00 :00 ONCE, 1 Medical 50 mcg dose, Sat Branch 05/05/19 at 1200, Routine proMETHazin 2018- No 25mg 25 mg, Uni vers e 05-05 Intramuscu ity of (PHENERGAN) 17:00: 16:23 lar, ONCE, [place] injection 00 :00 1 dose, Medical 25 mg Sat Branch 05/05/19 at 1200, MIAN NaCl 0.9% 2019- No 1000mL at 999 Uni vers (NS) bolus 05-05 mL/hr, ity of infusion 16:00: 17:00 1,000 mL, [place] as 1,000 mL 00 :00 IV Medical Infusion, Branch ONCE, 1 dose, 05/05/19 at 1100, MIAN acetaminoph Yes [id number] 1{tbl} Take 1 Univers en-codeine 8-10 tablet by ity of (TYLENOL-CO 00:00: mouth [place] DEINE #3) 00 every 4 Medical 300-30 mg (four) Branch tablet hours as needed (pain). ondansetron Yes [id number] 4mg Take 1 Univers (ZOFRAN) 4 8-10 tablet by ity of mg tablet 00:00: mouth [place] 00 every 8 Medical (eight) Branch hours as needed (nausea). acetaminoph Yes [id number] 1{tbl} Take 1 Univers en-codeine 8-10 tablet by ity of (TYLENOL-CO 00:00: mouth [place] DEINE #3) 00 every 4 Medical 300-30 mg (four) Branch tablet hours as needed (pain). ondansetron Yes [id number] 4mg Take 1 Univers (ZOFRAN) 4 8-10 tablet by ity of mg tablet 00:00: mouth [place] 00 every 8 Medical (eight) Branch hours as needed (nausea). acetaminoph 2019-0 Yes [id number] 1{tbl} Take 1 Univers en-codeine 8-10 tablet by ity of (TYLENOL-CO 00:00: mouth [place] DEINE #3) 00 every 4 Medical 300-30 mg (four) Branch tablet hours as needed (pain). ondansetron 2019-0 Yes [id number] 4mg Take 1 Univers (ZOFRAN) 4 8-10 tablet by ity of mg tablet 00:00: mouth [place] 00 every 8 Medical (eight) Branch hours as needed (nausea). acetaminoph 2019-0 Yes [id number] 1{tbl} Take 1 Univers en-codeine 8-10 tablet by ity of (TYLENOL-CO 00:00: mouth [place] DEINE #3) 00 every 4 Medical 300-30 mg (four) Branch tablet hours as needed (pain). acetaminoph 0 Yes [id number] 1{tbl} Take 1 Univers en-codeine 8-10 tablet by ity of (TYLENOL-CO 00:00: mouth [place] DEINE #3) 00 every 4 Medical 300-30 mg (four) Branch tablet hours as needed (pain). ondansetron 2019-0 Yes [id number] 4mg Take 1 Univers (ZOFRAN) 4 8-10 tablet by ity of mg tablet 00:00: mouth [place] 00 every 8 Medical (eight) Branch hours as needed (nausea). ondansetron 2019-0 Yes [id number] 4mg Take 1 Univers (ZOFRAN) 4 8-10 tablet by ity of mg tablet 00:00: mouth [place] 00 every 8 Medical (eight) Branch hours as needed (nausea). acetaminoph 2019-0 Yes [id number] 1{tbl} Take 1 Univers en-codeine 8-10 tablet by ity of (TYLENOL-CO 00:00: mouth [place] DEINE #3) 00 every 4 Medical 300-30 mg (four) Branch tablet hours as needed (pain). ondansetron 2019-0 Yes [id number] 4mg Take 1 Univers (ZOFRAN) 4 8-10 tablet by ity of mg tablet 00:00: mouth [place] 00 every 8 Medical (eight) Branch hours as needed (nausea). acetaminoph Yes [id number] 1{tbl} Take 1 Univers en-codeine 8-10 tablet by ity of (TYLENOL-CO 00:00: mouth [place] DEINE #3) 00 every 4 Medical 300-30 mg (four) Branch tablet hours as needed (pain). ondansetron Yes [id number] 4mg Take 1 Univers (ZOFRAN) 4 8-10 tablet by ity of mg tablet 00:00: mouth [place] 00 every 8 Medical (eight) Branch hours as needed (nausea). acetaminoph Yes [id number] 1{tbl} Take 1 Univers en-codeine 8-10 tablet by ity of (TYLENOL-CO 00:00: mouth [place] DEINE #3) 00 every 4 Medical 300-30 mg (four) Branch tablet hours as needed (pain). ondansetron Yes [id number] 4mg Take 1 Univers (ZOFRAN) 4 8-10 tablet by ity of mg tablet 00:00: mouth [place] 00 every 8 Medical (eight) Branch hours as needed (nausea). acetaminoph Yes [id number] 1{tbl} Take 1 Univers en-codeine 8-10 tablet by ity of (TYLENOL-CO 00:00: mouth [place] DEINE #3) 00 every 4 Medical 300-30 mg (four) Branch tablet hours as needed (pain). ondansetron Yes [id number] 4mg Take 1 Univers (ZOFRAN) 4 8-10 tablet by ity of mg tablet 00:00: mouth [place] 00 every 8 Medical (eight) Branch hours as needed (nausea). acetaminoph 20190 Yes [id number] 1{tbl} Take 1 Univers en-codeine 8-10 tablet by ity of (TYLENOL-CO 00:00: mouth [place] DEINE #3) 00 every 4 Medical 300-30 mg (four) Branch tablet hours as needed (pain). ondansetron 2018-0 Yes [id number] 4mg Take 1 Univers (ZOFRAN) 4 8-10 tablet by ity of mg tablet 00:00: mouth [place] 00 every 8 Medical (eight) Branch hours as needed (nausea). acetaminoph 2019-0 Yes [id number] 1{tbl} Take 1 Univers en-codeine 8-10 tablet by ity of (TYLENOL-CO 00:00: mouth [place] DEINE #3) 00 every 4 Medical 300-30 mg (four) Branch tablet hours as needed (pain). ondansetron 2019-0 Yes [id number] 4mg Take 1 Univers (ZOFRAN) 4 8-10 tablet by ity of mg tablet 00:00: mouth [place] 00 every 8 Medical (eight) Branch hours as needed (nausea). acetaminoph 2019-0 Yes [id number] 1{tbl} Take 1 Univers en-codeine 8-10 tablet by ity of (TYLENOL-CO 00:00: mouth [place] DEINE #3) 00 every 4 Medical 300-30 mg (four) Branch tablet hours as needed (pain). ondansetron 2019-0 Yes [id number] 4mg Take 1 [facility] (ZOFRAN) 4 8-10 tablet by ity of mg tablet 00:00: mouth [place] 00 every 8 Medical (eight) Branch hours as needed (nausea). acetaminoph 2019-0 Yes [id number] 1{tbl} Take 1 [facility] en-codeine 8-10 tablet by ity of (TYLENOL-CO 00:00: mouth [place] DEINE #3) 00 every 4 Medical 300-30 mg (four) Branch tablet hours as needed (pain). ondansetron 2019-0 Yes [id number] 4mg Take 1 [facility] (ZOFRAN) 4 8-10 tablet by ity of mg tablet 00:00: mouth [place] 00 every 8 Medical (eight) Branch hours as needed (nausea). acetaminoph 2019-0 Yes [id number] 1{tbl} Take 1 [facility] en-codeine 8-10 tablet by ity of (TYLENOL-CO 00:00: mouth [place] DEINE #3) 00 every 4 Medical 300-30 mg (four) Branch tablet hours as needed (pain). ondansetron 2019-0 Yes [id number] 4mg Take 1 [facility] (ZOFRAN) 4 8-10 tablet by ity of mg tablet 00:00: mouth [place] 00 every 8 Medical (eight) Branch hours as needed (nausea). acetaminoph Yes [id number] 1{tbl} Take 1 [facility] en-codeine 8-10 tablet by ity of (TYLENOL-CO 00:00: mouth [place] DEINE #3) 00 every 4 Medical 300-30 mg (four) Branch tablet hours as needed (pain). ondansetron Yes [id number] 4mg Take 1 [facility] (ZOFRAN) 4 8-10 tablet by ity of mg tablet 00:00: mouth [place] 00 every 8 Medical (eight) Branch hours as needed (nausea). acetaminoph Yes [id number] 1{tbl} Take 1 [facility] en-codeine 8-10 tablet by ity of (TYLENOL-CO 00:00: mouth [place] DEINE #3) 00 every 4 Medical 300-30 mg (four) Branch tablet hours as needed (pain). ondansetron Yes [id number] 4mg Take 1 [facility] (ZOFRAN) 4 8-10 tablet by ity of mg tablet 00:00: mouth [place] 00 every 8 Medical (eight) Branch hours as needed (nausea). traMADOL 2016-0 Yes 50mg Take 1 Tab Uni vers (ULTRAM) 50 3-22 by mouth ity of mg tablet 00:00: every 6 [place] 00 (six) Medical hours as Branch needed for Pain (scale 4-6). traMADOL 2016-0 Yes 50mg Take 1 Tab Uni vers (ULTRAM) 50 3-22 by mouth ity of mg tablet 00:00: every 6 [place] 00 (six) Medical hours as Branch needed for Pain (scale 4-6). traMADOL 2016-0 Yes 50mg Take 1 Tab [facility] vers (ULTRAM) 50 3-22 by mouth ity of mg tablet 00:00: every 6 [place] 00 (six) Medical hours as Branch needed for Pain (scale 4-6). traMADOL 2016-0 Yes 50mg Take 1 Tab [facility] vers (ULTRAM) 50 3-22 by mouth ity of mg tablet 00:00: every 6 [place] 00 (six) Medical hours as Branch needed for Pain (scale 4-6). traMADOL 2016-0 Yes 50mg Take 1 Tab [facility] vers (ULTRAM) 50 3-22 by mouth ity of mg tablet 00:00: every 6 [place] 00 (six) Medical hours as Branch needed for Pain (scale 4-6). traMADOL 2016-0 Yes 50mg Take 1 Tab [facility] vers (ULTRAM) 50 3-22 by mouth ity of mg tablet 00:00: every 6 [place] 00 (six) Medical hours as Branch needed for Pain (scale 4-6). traMADOL 2016-0 Yes 50mg Take 1 Tab [facility] vers (ULTRAM) 50 3-22 by mouth ity of mg tablet 00:00: every 6 [place] 00 (six) Medical hours as Branch needed for Pain (scale 4-6). traMADOL 2016-0 Yes 50mg Take 1 Tab [facility] vers (ULTRAM) 50 3-22 by mouth ity of mg tablet 00:00: every 6 [place] 00 (six) Medical hours as Branch needed for Pain (scale 4-6). traMADOL 2016-0 Yes 50mg Take 1 Tab [facility] vers (ULTRAM) 50 3-22 by mouth ity of mg tablet 00:00: every 6 [place] 00 (six) Medical hours as Branch needed for Pain (scale 4-6). traMADOL 2016-0 Yes 50mg Take 1 Tab [facility] vers (ULTRAM) 50 3-22 by mouth ity of mg tablet 00:00: every 6 [place] 00 (six) Medical hours as Branch needed for Pain (scale 4-6). traMADOL 2016-0 Yes 50mg Take 1 Tab [facility] vers (ULTRAM) 50 3-22 by mouth ity of mg tablet 00:00: every 6 [place] 00 (six) Medical hours as Branch needed for Pain (scale 4-6). traMADOL 2016-0 Yes 50mg Take 1 Tab [facility] vers (ULTRAM) 50 3-22 by mouth ity of mg tablet 00:00: every 6 [place] 00 (six) Medical hours as Branch needed for Pain (scale 4-6). traMADOL 2016-0 Yes 50mg Take 1 Tab [facility] vers (ULTRAM) 50 3-22 by mouth ity of mg tablet 00:00: every 6 [place] 00 (six) Medical hours as Branch needed for Pain (scale 4-6). traMADOL 2016-0 Yes 50mg Take 1 Tab [facility] vers (ULTRAM) 50 3-22 by mouth ity of mg tablet 00:00: every 6 [place] 00 (six) Medical hours as Branch needed for Pain (scale 4-6). traMADOL 2016-0 Yes 50mg Take 1 Tab [facility] vers (ULTRAM) 50 3-22 by mouth ity of mg tablet 00:00: every 6 [place] [address] (six) Medical hours as Branch needed for Pain (scale 4-6). traMADOL 2016-0 Yes 50mg Take 1 Tab [facility] vers (ULTRAM) 50 3-22 by mouth ity of mg tablet 00:00: every 6 [place] [address] (six) Medical hours as Branch needed for Pain (scale 4-6). desvenlafax 2016-0 Yes 50mg Take 50 mg [facility] ine 1-14 by mouth ity of succinate 19:39: daily. [place] (PRISTIQ) 45 Medical 50 mg 24 hr Branch tablet desvenlafax 2016-0 Yes 50mg Take 50 mg [facility] ine 1-14 by mouth ity of succinate 19:39: daily. [place] (PRISTIQ) 45 Medical 50 mg 24 hr Branch tablet desvenlafax 2016-0 Yes 50mg Take 50 mg [facility] ine 1-14 by mouth ity of succinate 19:39: daily. [place] (PRISTIQ) 45 Medical 50 mg 24 hr Branch tablet desvenlafax 2016-0 Yes 50mg Take 50 mg [facility] ine 1-14 by mouth ity of succinate 19:39: daily. [place] (PRISTIQ) 45 Medical 50 mg 24 hr Branch tablet desvenlafax 2016-0 Yes 50mg Take 50 mg [facility] ine 1-14 by mouth ity of succinate 19:39: daily. [place] (PRISTIQ) 45 Medical 50 mg 24 hr Branch tablet desvenlafax 2016-0 Yes 50mg Take 50 mg [facility] ine 1-14 by mouth ity of succinate 19:39: daily. [place] (PRISTIQ) 45 Medical 50 mg 24 hr Branch tablet sulfamethox 2015-0 Yes 1{tbl} Take 1 Tab [facility] azole-trime 1-14 by mouth ity of thoprim 00:00: every 12 [place] (BACTRIM 00 (twelve) Medical DS) 800-160 hours. Branch mg per tablet phenazopyri 2015-0 Yes 200mg Take 1 Tab [facility] dine 1-14 by mouth 3 ity of (PYRIDIUM) 00:00: (three) [place] 200 mg 00 times Medical tablet daily. Branch tamsulosin 2015-0 Yes .4mg Take 1 Cap U nivers (FLOMAX) 1-14 by mouth ity of 0.4 mg 24 00:00: at [place] hr capsule 00 bedtime. Medic al Branch sulfamethox 2016-0 Yes 1{tbl} Take 1 Tab [facility] azole-trime 1-14 by mouth ity of thoprim 00:00: every 12 [place] (BACTRIM 00 ([facility]) Medical DS) 800-160 hours. Branch mg per tablet phenazopyri 2016-0 Yes 200mg Take 1 Tab [facility] dine 1-14 by mouth 3 ity of (PYRIDIUM) 00:00: (three) [place] 200 mg 00 times Medical tablet daily. Branch tamsulosin 2016-0 Yes .4mg Take 1 Cap U nivers (FLOMAX) 1-14 by mouth ity of 0.4 mg 24 00:00: at [place] hr capsule 00 bedtime. Medic al Branch sulfamethox 2016-0 Yes 1{tbl} Take 1 Tab [facility] azole-trime 1-14 by mouth ity of thoprim 00:00: every 12 [place] (BACTRIM 00 ([facility]) Medical DS) 800-160 hours. Branch mg per tablet phenazopyri 2016-0 Yes 200mg Take 1 Tab [facility] dine 1-14 by mouth 3 ity of (PYRIDIUM) 00:00: (three) [place] 200 mg 00 times Medical tablet daily. Branch tamsulosin 2016-0 Yes .4mg Take 1 Cap U nivers (FLOMAX) 1-14 by mouth ity of 0.4 mg 24 00:00: at [place] hr capsule 00 bedtime. Medic al Branch sulfamethox 2016-0 Yes 1{tbl} Take 1 Tab [facility] azole-trime 1-14 by mouth ity of thoprim 00:00: every 12 [place] (BACTRIM 00 ([facility]) Medical DS) 800-160 hours. Branch mg per tablet phenazopyri 2016-0 Yes 200mg Take 1 Tab [facility] dine 1-14 by mouth 3 ity of (PYRIDIUM) 00:00: (three) [place] 200 mg 00 times Medical tablet daily. Branch tamsulosin 2016-0 Yes .4mg Take 1 Cap U nivers (FLOMAX) 1-14 by mouth ity of 0.4 mg 24 00:00: at [place] hr capsule 00 bedtime. Medic al Branch sulfamethox 2016-0 Yes 1{tbl} Take 1 Tab [facility] azole-trime 1-14 by mouth ity of thoprim 00:00: every 12 [place] (BACTRIM ([facility]) Medical DS) 800-160 hours. Branch mg per tablet phenazopyri 2016-0 Yes 200mg Take 1 Tab [facility] dine 1-14 by mouth 3 ity of (PYRIDIUM) 00:00: (three) [place] 200 mg 00 times Medical tablet daily. Branch tamsulosin 2016-0 Yes .4mg Take 1 Cap U nivers (FLOMAX) 1-14 by mouth ity of 0.4 mg 24 00:00: at [place] hr capsule 00 bedtime. Medic al Branch sulfamethox 2016-0 Yes 1{tbl} Take 1 Tab [facility] azole-trime 1-14 by mouth ity of thoprim 00:00: every 12 [place] (BACTRIM ([facility]) Medical DS) 800-160 hours. Branch mg per tablet phenazopyri 2016-0 Yes 200mg Take 1 Tab [facility] dine 1-14 by mouth 3 ity of (PYRIDIUM) 00:00: (three) [place] 200 mg 00 times Medical tablet daily. Branch tamsulosin 2016-0 Yes .4mg Take 1 Cap U nivers (FLOMAX) 1-14 by mouth ity of 0.4 mg 24 00:00: at [place] hr capsule 00 bedtime. Medic al Branch sulfamethox 2016-0 Yes 1{tbl} Take 1 Tab [facility] azole-trime 1-14 by mouth ity of thoprim 00:00: every 12 [place] (BACTRIM ([facility]) Medical DS) 800-160 hours. Branch mg per tablet phenazopyri 2016-0 Yes 200mg Take 1 Tab [facility] dine 1-14 by mouth 3 ity of (PYRIDIUM) 00:00: (three) [place] 200 mg 00 times Medical tablet daily. Branch tamsulosin 2016-0 Yes .4mg Take 1 Cap U nivers (FLOMAX) 1-14 by mouth ity of 0.4 mg 24 00:00: at [place] hr capsule 00 bedtime. Medic al Branch sulfamethox 2016-0 Yes 1{tbl} Take 1 Tab [facility] azole-trime 1-14 by mouth ity of thoprim 00:00: every 12 [place] (BACTRIM ([facility]) Medical DS) 800-160 hours. Branch mg per tablet phenazopyri 2016-0 Yes 200mg Take 1 Tab [facility] dine 1-14 by mouth 3 ity of (PYRIDIUM) 00:00: (three) [place] 200 mg 00 times Medical tablet daily. Branch tamsulosin 2016-0 Yes .4mg Take 1 Cap U nivers (FLOMAX) 1-14 by mouth ity of 0.4 mg 24 00:00: at [place] hr capsule 00 bedtime. Medic al Branch sulfamethox 2016-0 Yes 1{tbl} Take 1 Tab [facility] azole-trime 1-14 by mouth ity of thoprim 00:00: every 12 [place] (BACTRIM 00 ([facility]) Medical DS) 800-160 hours. Branch mg per tablet phenazopyri 2016-0 Yes 200mg Take 1 Tab [facility] dine 1-14 by mouth 3 ity of (PYRIDIUM) 00:00: (three) [place] 200 mg 00 times Medical tablet daily. Branch tamsulosin 2016-0 Yes .4mg Take 1 Cap U nivers (FLOMAX) 1-14 by mouth ity of 0.4 mg 24 00:00: at [place] hr capsule 00 bedtime. Medic al Branch sulfamethox 2016-0 Yes 1{tbl} Take 1 Tab [facility] azole-trime 1-14 by mouth ity of thoprim 00:00: every 12 [place] (BACTRI ([facility]) Medical DS) 800-160 hours. Branch mg per tablet phenazopyri 2016-0 Yes 200mg Take 1 Tab [facility] dine 1-14 by mouth 3 ity of (PYRIDIUM) 00:00: (three) [place] 200 mg 00 times Medical tablet daily. Branch tamsulosin 2016-0 Yes .4mg Take 1 Cap U nivers (FLOMAX) 1-14 by mouth ity of 0.4 mg 24 00:00: at [place] hr capsule 00 bedtime. Medic al Branch sulfamethox 2016-0 Yes 1{tbl} Take 1 Tab [facility] azole-trime 1-14 by mouth ity of thoprim 00:00: every 12 [place] (BACTRIM 00 ([facility]) Medical DS) 800-160 hours. Branch mg per tablet phenazopyri 2016-0 Yes 200mg Take 1 Tab [facility] dine 1-14 by mouth 3 ity of (PYRIDIUM) 00:00: (three) [place] 200 mg 00 times Medical tablet daily. Branch tamsulosin 2016-0 Yes .4mg Take 1 Cap U nivers (FLOMAX) 1-14 by mouth ity of 0.4 mg 24 00:00: at [place] hr capsule 00 bedtime. Medic al Branch sulfamethox 2016-0 Yes 1{tbl} Take 1 Tab [facility] azole-trime 1-14 by mouth ity of thoprim 00:00: every 12 [place] (BACTRIM 00 ([facility]) Medical DS) 800-160 hours. Branch mg per tablet phenazopyri 2016-0 Yes 200mg Take 1 Tab [facility] dine 1-14 by mouth 3 ity of (PYRIDIUM) 00:00: (three) [place] 200 mg 00 times Medical tablet daily. Branch tamsulosin 2016-0 Yes .4mg Take 1 Cap U nivers (FLOMAX) 1-14 by mouth ity of 0.4 mg 24 00:00: at [place] hr capsule 00 bedtime. Medic al Branch sulfamethox 2016-0 Yes 1{tbl} Take 1 Tab [facility] azole-trime 1-14 by mouth ity of thoprim 00:00: every 12 [place] (BACTRIM 00 ([facility]) Medical DS) 800-160 hours. Branch mg per tablet phenazopyri 2016-0 Yes 200mg Take 1 Tab [facility] dine 1-14 by mouth 3 ity of (PYRIDIUM) 00:00: (three) [place] 200 mg 00 times Medical tablet daily. Branch tamsulosin 2016-0 Yes .4mg Take 1 Cap U nivers (FLOMAX) 1-14 by mouth ity of 0.4 mg 24 00:00: at [place] hr capsule 00 bedtime. Medic al Branch sulfamethox 2016-0 Yes 1{tbl} Take 1 Tab [facility] azole-trime 1-14 by mouth ity of thoprim 00:00: every 12 [place] (BACTRIM 00 (twelve) Medical DS) 800-160 hours. Branch mg per tablet phenazopyri 2016-0 Yes 200mg Take 1 Tab [facility] dine 1-14 by mouth 3 ity of (PYRIDIUM) 00:00: (three) [place] 200 mg 00 times Medical tablet daily. Branch tamsulosin 2016-0 Yes .4mg Take 1 Cap U nivers (FLOMAX) 1-14 by mouth ity of 0.4 mg 24 00:00: at [place] hr capsule 00 bedtime. Medic al Branch sulfamethox 2016-0 Yes 1{tbl} Take 1 Tab [facility] azole-trime 1-14 by mouth ity of thoprim 00:00: every 12 [place] (BACTRIM 00 (twelve) Medical DS) 800-160 hours. Branch mg per tablet phenazopyri 2016-0 Yes 200mg Take 1 Tab [facility] dine 1-14 by mouth 3 ity of (PYRIDIUM) 00:00: (three) [place] 200 mg 00 times Medical tablet daily. Branch tamsulosin 2016-0 Yes .4mg Take 1 Cap U nivers (FLOMAX) 1-14 by mouth ity of 0.4 mg 24 00:00: at [place] hr capsule 00 bedtime. Medic al Branch sulfamethox 2016-0 Yes 1{tbl} Take 1 Tab [facility] azole-trime 1-14 by mouth ity of thoprim 00:00: every 12 [place] (BACTRIM 00 (twelve) Medical DS) 800-160 hours. Branch mg per tablet phenazopyri 2016-0 Yes 200mg Take 1 Tab [facility] dine 1-14 by mouth 3 ity of (PYRIDIUM) 00:00: (three) [place] 200 mg 00 times Medical tablet daily. Branch tamsulosin 2016-0 Yes .4mg Take 1 Cap U nivers (FLOMAX) 1-14 by mouth ity of 0.4 mg 24 00:00: at [place] hr capsule 00 bedtime. [facility] Vital Signs Vital Name Observation Time Observation Value Comments Source Systolic blood 2021-08-06 17:07:00 132 mm[Hg] Univer sity of pressure [facility] Diastolic blood 2021-08-06 17:07:00 89 [facility] 2021-08-06 17:07:00 89 /min [facility] Body temperature 2021-08-06 17:07:00 36.5 Carla [facility] 2021-08-06 17:07:00 18 /min [facility] Body height 2021-08-06 17:07:00 175.3 cm [facility] Body weight 2021-08-06 17:07:00 68.04 kg [facility] [place] [facility] BMI 2021-08-06 17:07:00 22.15 kg/m2 [facility] [place] [facility] Oxygen saturation in 2021-08-06 17:07:00 99 /min [facility] of Arterial blood by [facility] Pulse oximetry Branch Systolic blood 2020-12-31 04:25:00 145 mm[Hg] Univer sity of pressure [place] [facility] Diastolic blood 2020-12-31 04:25:00 75 mm[Hg] Unive rsity of pressure [place] [facility] Heart rate 2020-12-31 04:25:00 130 /min [facility] [place] [facility] Body temperature 2020-12-31 04:25:00 36.67 Carla [facility] ersity of [place] [facility] Respiratory rate 2020-12-31 04:25:00 20 /min [facility] ersity [facility] [place] [facility] Body weight 2020-12-31 04:25:00 65.772 kg [facility] [place] [facility] BMI 2020-12-31 04:25:00 21.41 kg/m2 [facility] [place] [facility] Oxygen saturation in 2020-12-31 04:25:00 100 /min [facility] of Arterial blood by [facility] Pulse oximetry Branch Systolic blood 2020-05-16 01:00:00 111 mm[Hg] Univer sity of pressure [place] [facility] Diastolic blood 2020-05-16 01:00:00 66 mm[Hg] Unive rsity of pressure [place] [facility] Heart rate 2020-05-16 01:00:00 70 /min [facility] [place] [facility] Body temperature 2020-05-16 01:00:00 36.89 Carla [facility] [place] [facility] Respiratory rate 2020-05-16 01:00:00 16 /min [facility] ersity [facility] [place] [facility] Oxygen saturation in 2020-05-16 01:00:00 97 /min [facility] of Arterial blood by [facility] Pulse oximetry Branch Body weight 2020-05-15 20:51:00 68.04 kg [facility] [place] [facility] BMI 2020-05-15 20:51:00 22.15 kg/m2 [facility] [place] [facility] Systolic blood 2020-03-07 08:00:00 104 mm[Hg] Univer sity of pressure [place] [facility] Diastolic blood 2020-03-07 08:00:00 66 mm[Hg] Unive rsity of pressure [place] [facility] Heart rate 2020-03-07 08:00:00 65 /min [facility] [place] [facility] Respiratory rate 2020-03-07 08:00:00 18 /min [facility] ersity [facility] [place] [facility] Oxygen saturation in 2020-03-07 08:00:00 96 /min [facility] Arterial blood by [place] [employer] rena Pulse oximetry Branch Body temperature 2020-03-07 06:26:00 36.39 Carla [facility] [place] [facility] Body height 2020-03-07 06:26:00 175.3 cm [facility] [place] [facility] Body weight 2020-03-07 06:26:00 74.844 kg [facility] [place] [facility] BMI 2020-03-07 06:26:00 24.37 kg/m2 [facility] [place] [facility] Systolic blood 2020-03-07 08:00:00 104 mm[Hg] Univer sity of pressure [place] [facility] Diastolic blood 2020-03-07 08:00:00 66 mm[Hg] Unive rsity of pressure [place] [facility] Heart rate 2020-03-07 08:00:00 65 /min [facility] [place] [facility] Respiratory rate 2020-03-07 08:00:00 18 /min [facility] ersity [facility] [place] [facility] Oxygen saturation in 2020-03-07 08:00:00 96 /min [facility] of Arterial blood by [facility] Pulse oximetry Branch Body temperature 2020-03-07 06:26:00 36.39 Carla [facility] [place] [facility] Body height 2020-03-07 06:26:00 175.3 cm [facility] [place] [facility] Body weight 2020-03-07 06:26:00 74.844 kg [facility] [place] [facility] BMI 2020-03-07 06:26:00 24.37 kg/m2 [facility] [place] [facility] Systolic blood 2020-02-28 06:00:00 128 mm[Hg] Univer sity of pressure [place] [facility] Diastolic blood 2020-02-28 06:00:00 75 mm[Hg] Unive rsity of pressure [place] [facility] Heart rate 2020-02-28 06:00:00 86 /min [facility] [place] [facility] Oxygen saturation in 2020-02-28 06:00:00 97 /min [facility] of Arterial blood by [place] [employer] rena Pulse oximetry Branch Body temperature 2020-02-28 03:04:00 37.06 Carla Univ ersity of [place] [facility] Respiratory rate 2020-02-28 03:04:00 14 /min Univ ersity of [place] [facility] Body height 2020-02-28 03:04:00 175.3 cm [facility] [place] [facility] Body weight 2020-02-28 03:04:00 74.844 kg [facility] [place] [facility] BMI 2020-02-28 03:04:00 24.37 kg/m2 [facility] [place] [facility] Systolic blood 2020-02-28 06:00:00 128 mm[Hg] Univer sity of pressure [place] [facility] Branch Diastolic blood 2020-02-28 06:00:00 75 mm[Hg] Unive rsity of pressure [place] [facility] Heart rate 2020-02-28 06:00:00 86 /min [facility] [place] [facility] Oxygen saturation in 2020-02-28 06:00:00 97 /min [facility] of Arterial blood by [place] [employer] rena Pulse oximetry Branch Body temperature 2020-02-28 03:04:00 37.06 Carla Univ ersity of [place] [facility] Respiratory rate 2020-02-28 03:04:00 14 /min Univ ersity of [place] [facility] Branch Body height 2020-02-28 03:04:00 175.3 cm [facility] [place] [facility] Body weight 2020-02-28 03:04:00 74.844 kg [facility] [place] [facility] BMI 2020-02-28 03:04:00 24.37 kg/m2 [facility] [place] [facility] Systolic blood 2020-02-02 14:00:00 111 mm[Hg] Univer sity of pressure [place] [facility] Diastolic blood 2020-02-02 14:00:00 96 mm[Hg] Unive rsity of pressure [place] [facility] Heart rate 2020-02-02 14:00:00 60 /min Universi ty of [place] [facility] Respiratory rate 2020-02-02 14:00:00 18 /min Univ ersity of [place] [facility] Branch Oxygen saturation in 2020-02-02 14:00:00 99 /min [facility] of Arterial blood by [place] [employer] rena Pulse oximetry Branch Body temperature 2020-02-02 12:39:00 36.11 Carla [facility] ersity of [place] [facility] Body weight 2020-02-02 12:39:00 81.647 kg [facility] [place] [facility] BMI 2020-02-02 12:39:00 26.58 kg/m2 [facility] [place] [facility] Systolic blood 2020-02-02 14:00:00 111 mm[Hg] Univer sity of pressure [place] [facility] Diastolic blood 2020-02-02 14:00:00 96 mm[Hg] Unive rsity of pressure [place] [facility] Heart rate 2020-02-02 14:00:00 60 /min [facility] [place] [facility] Respiratory rate 2020-02-02 14:00:00 18 /min Univ ersity [facility] [place] [facility] Oxygen saturation in 2020-02-02 14:00:00 99 /min [facility] Arterial blood by [place] [employer] rena Pulse oximetry Branch Body temperature 2020-02-02 12:39:00 36.11 Carla [facility] [place] [facility] Body weight 2020-02-02 12:39:00 81.647 kg [facility] [place] [facility] BMI 2020-02-02 12:39:00 26.58 kg/m2 [facility] [place] [facility] Systolic blood 2020-01-17 15:14:00 134 mm[Hg] Univer sity of pressure [place] [facility] Diastolic blood 2020-01-17 15:14:00 88 mm[Hg] Unive rsity of pressure [place] [facility] Heart rate 2020-01-17 15:14:00 58 /min [facility] [place] [facility] Body temperature 2020-01-17 15:14:00 36.33 Carla [facility] [place] [facility] Respiratory rate 2020-01-17 15:14:00 14 /min [facility] [place] [facility] Body height 2020-01-17 15:14:00 175.3 cm [facility] [place] [facility] Body weight 2020-01-17 15:14:00 79.379 kg [facility] [place] [facility] BMI 2020-01-17 15:14:00 25.84 kg/m2 [facility] [place] [facility] Oxygen saturation in 2020-01-17 15:14:00 99 /min [facility] Arterial blood by [place] [employer] rena Pulse oximetry Branch Systolic blood 2020-01-17 15:14:00 134 mm[Hg] Univer sity of pressure [place] [facility] Diastolic blood 2020-01-17 15:14:00 88 mm[Hg] Unive rsity of pressure [place] [facility] Heart rate 2020-01-17 15:14:00 58 /min [facility] [place] [facility] Body temperature 2020-01-17 15:14:00 36.33 Carla [facility] [place] [facility] Respiratory rate 2020-01-17 15:14:00 14 /min [facility] [place] [facility] Body height 2020-01-17 15:14:00 175.3 cm [facility] [place] [facility] Body weight 2020-01-17 15:14:00 79.379 kg [facility] [place] [facility] BMI 2020-01-17 15:14:00 25.84 kg/m2 [facility] [place] [facility] Oxygen saturation in 2020-01-17 15:14:00 99 /min [facility] Arterial blood by [place] [employer] rena Pulse oximetry Branch Systolic blood 2019-05-27 03:33:00 130 mm[Hg] Univer sity of pressure [place] [facility] Diastolic blood 2019-05-27 03:33:00 76 mm[Hg] Unive rsity of pressure [place] [facility] Heart rate 2019-05-27 03:33:00 75 /min [facility] [place] [facility] Respiratory rate 2019-05-27 03:33:00 18 /min Univ ersity [facility] [place] [facility] Oxygen saturation in 2019-05-27 03:33:00 96 /min [facility] Arterial blood by [place] [employer] Pulse oximetry Branch Body temperature 2019-05-27 02:22:00 37.17 Carla [facility] [place] [facility] Body height 2019-05-27 02:22:00 175.3 cm [facility] [place] [facility] Body weight 2019-05-27 02:22:00 72.576 kg [facility] [place] [facility] BMI 2019-05-27 02:22:00 23.63 kg/m2 [facility] [place] [facility] Systolic blood 2019-05-27 03:33:00 130 mm[Hg] Univer sity of pressure [place] [facility] Diastolic blood 2019-05-27 03:33:00 76 mm[Hg] Unive rsity of pressure [place] [facility] Heart rate 2019-05-27 03:33:00 75 /min [facility] [place] [facility] Respiratory rate 2019-05-27 03:33:00 18 /min Univ ersity [facility] [place] [facility] Oxygen saturation in 2019-05-27 03:33:00 96 /min [facility] Arterial blood by [place] [employer] rena Pulse oximetry Branch Body temperature 2019-05-27 02:22:00 37.17 Carla [facility] [place] [facility] Body height 2019-05-27 02:22:00 175.3 cm [facility] [place] [facility] Body weight 2019-05-27 02:22:00 72.576 kg [facility] [place] [facility] BMI 2019-05-27 02:22:00 23.63 kg/m2 [facility] [place] [facility] Systolic blood 2019-05-05 16:40:00 118 mm[Hg] Univer sity of pressure [place] [facility] Diastolic blood 2019-05-05 16:40:00 76 mm[Hg] Unive rsity of pressure [place] [facility] Heart rate 2019-05-05 16:40:00 72 /min [facility] [place] [facility] Respiratory rate 2019-05-05 16:40:00 18 /min [facility] ersity of [place] Medical Branch Oxygen saturation in 2019-05-05 16:40:00 100 /min [facility] Arterial blood by [employer] rena Pulse oximetry Branch Body temperature 2019-05-05 15:42:00 36.39 Carla [facility] [place] [facility] Body height 2019-05-05 15:42:00 175.3 cm [facility] [place] [facility] Body weight 2019-05-05 15:42:00 63.504 kg [facility] [place] [facility] BMI 2019-05-05 15:42:00 20.67 kg/m2 [facility] [place] [facility] Systolic blood 2019-05-05 16:40:00 118 mm[Hg] [facility] [place] [facility] Diastolic blood 2019-05-05 16:40:00 76 mm[Hg] [facility] [place] [facility] Heart rate 2019-05-05 16:40:00 72 /min [facility] [place] [facility] Respiratory rate 2019-05-05 16:40:00 18 /min [facility] [place] [facility] Oxygen saturation in 2019-05-05 16:40:00 100 /min [facility] blood by [place] [facility] Pulse oximetry Branch Body temperature 2019-05-05 15:42:00 36.39 Carla [facility] [place] [facility] Body height 2019-05-05 15:42:00 175.3 cm [facility] [place] [facility] Body weight 2019-05-05 15:42:00 63.504 kg [facility] [place] [facility] BMI 2019-05-05 15:42:00 20.67 kg/m2 [facility] Procedures Procedure Date / Time Performing Clinician Source Performed NOTICE OF PRIVACY 2021-08-06 17:02:05 Doctor Unassigned, No [facility] [place] PR[facility] Name Medical Branch CONSENT/REFUSAL FOR 2021-08-06 17:01:38 Doctor Unassigned, No [facility] [place] [facility] Name Medical Branch CONSENT/REFUSAL FOR 2020-12-31 04:13:29 Doctor Unassigned, No [facility] [place] [facility] Name Medical Branch CT ABDOMEN PELVIS WO 2020-05-15 23:01:[address] [facility] CONTRAST Medical [place] BASIC METABOLIC PANEL 2020-05-15 22:19:00 Gabriela Saldana [facility] (NA, K, CL, CO2, Medical Branch GLUCOSE, BUN, CREATININE, CA) CBC WITH DIFF 2020-05-15 22:19:00 Gabriela Saldana [facility] URINALYSIS 2020-05-15 21:37:00 Yogesh Jose [facility] NOTICE OF PRIVACY 2020-05-15 20:46:53 Doctor Un[facility]igned, No [facility] CONSENT/REFUSAL FOR 2020-05-15 20:45:47 Doctor Unassigned, No [facility] [place] [facility]REAT[facility] Name Medical Branch CT ABDOMEN PELVIS W 2020-03-07 07:51:13 Christiana Kaplan [facility] CONTRAST [facility] URINALYSIS 2020-03-07 06:49:00 Christiana Kaplan [facility] LIPASE 2020-03-07 06:44:00 Christiana Kaplan [facility] COMP. METABOLIC PANEL 2020-03-07 06:44:00 Christiana Kaplan [facility] ([id number]) Medical Branch CBC WITH DIFFERENTIAL 2020-03-07 06:44:00 Christiana Kaplan [facility] CONSENT/REFUSAL FOR 2020-03-07 06:19:58 Doctor Unassigned, No [facility] [place] [facility] Name Medical Branch LIPASE 2020-02-28 03:18:00 Christiana Kaplan [facility] COMP. METABOLIC PANEL 2020-02-28 03:18:00 Christiana Kaplan [facility] ([id number]) Medical Branch CBC WITH DIFFERENTIAL 2020-02-28 03:18:00 Christiana Kaplan [facility] URINALYSIS 2020-02-28 03:18:00 Christiana Kaplan [facility] ADC / C - DRUG SCREEN 2020-02-28 03:18:00 Christiana Kaplan [facility] CONSENT/REFUSAL FOR 2020-02-28 02:56:54 Doctor Unassigned, No [facility] 2020-02-02 13:31:00 Yessica Jennings [facility] CT ABDOMEN PELVIS WO 2020-02-02 13:25:09 Yessica Jennings [facility]AST [facility] BASIC METABOLIC PANEL 2020-02-02 13:03:00 Yessica Jennings [facility] (NA, K, CL, CO2, Medical Branch GLUCOSE, BUN, CREATININE, CA) CBC WITH DIFFERENTIAL 2020-02-02 13:03:00 Yessica Jennings [facility] NOTICE OF PRIVACY 2020-02-02 12:33:53 Doctor Unassigned, No [facility] PRACTICES Name [facility] CONSENT/REFUSAL FOR 2020-02-02 12:33:41 Doctor Unassigned, No [facility] [place] [facility]REAT[facility] Name Medical Branch LIPASE 2020-01-17 15:25:00 Jose Zuñiga [facility] HEPATIC FUNCTION PANEL 2020-01-17 15:25:00 Jose Zuñiga [facility] ([id number]) (ALB,T.PRO,BILI Medical Branch T,BU/BC,ALT,AST,ALK PHOS) BASIC METABOLIC PANEL 2020-01-17 15:25:00 Jose Zuñiga [facility] (NA, K, CL, CO2, Medical Branch GLUCOSE, BUN, CREATININE, CA) CBC WITH DIFFERENTIAL 2020-01-17 15:25:00 Jose Zuñiga [facility] URINALYSIS 2020-01-17 15:25:00 [facility] - DRUG SCREEN 2020-01-17 15:25:00 Jose Zuñiga [facility] TRIAGE [facility] XR CHEST 1 VW 2019-05-27 02:58:31 Avril [facility] TROPONIN I 2019-05-27 02:49:00 [facility] 2019-05-27 02:49[id number] (ALB,T.PRO,BILI Medical Branch T,BU/BC,ALT,AST,ALK PHOS) BASIC METABOLIC PANEL 2019-05-27 02:49:00 [facility] (NA, K, CL, CO2, Medical Branch GLUCOSE, BUN, CREATININE, CA) ETHANOL 2019-05-27 02:49:00 [facility] CBC WITH DIFFERENTIAL 2019-05-27 02:49:00 [facility] 2019-05-27 02:35:08 Avril [facility] XR CHEST 1 VW 2019-05-05 16:22:[address] [facility] [address] ABDOMEN PELVIS WO 2019-05-05 16:21:56 Kyung Fldidi [facility] CONTRAST [facility] LIPASE 2019-05-05 15:59:00 [facility] HEPATIC FUNCTION PANEL 2019-05-05 15:59:00 Jazmín Tracey [facility] ([id number]) (ALB,T.PRO,BILI Medical [place] T,BU/BC,ALT,AST,ALK PHOS) BASIC METABOLIC PANEL 2019-05-05 15:59:00 Kyung [facility] (NA, K, CL, CO2, Medical Branch GLUCOSE, BUN, CREATININE, CA) CBC WITH DIFFERENTIAL 2019-05-05 15:59:00 [facility] 2019-05-05 15:59:00 [facility] Encounters Start End Encounter Admission Attending Care Care Encounter Source Date/Time Date/Time Type Type Clinicians Facility Department ID 2021-08-06 2021-08-06 Emergency X [facility], [facility] ERT [id number] Univers 11:08:00 12:14:00 GABRIELA ity of [facility] 2021-08-06 2021-08-06 [facility] [id number] Univers 11:08:00 12:14:00 Gabriela Bains JOSSUE [id number] ity of [place] 4.2.7.2.686 [facility] [id number] [address] 2020-12-30 2020-12-30 Emergency Cheyenne Patel [facility] 1.2.840.114 [id number] Univers 23:28:00 23:56:00 Jacquelyn Stearns [id number] i ty of [place] 4.2.7.2.686 [facility] [id number] [address] 2020-12-30 2020-12-30 Emergency X [facility] ERT [id number] Univers 23:14:00 23:14:00 ity of [facility] 2020-05-15 2020-05-15 Emergency [facility], [facility] [id number] Univers 15:55:00 20:51:00 Gabriela Bains Joss[place] [id number] ity of [place] 4.2.7.2.686 [facility] [id number] [address] 2020-05-15 2020-05-15 Emergency X [facility] ERT [id number] Univers 15:55:00 15:55:00 ity of [facility] 2020-05-15 2020-05-15 Orders Doctor ALIX 1.2.840.114 [id number] Univers 00:00:00 00:00:00 Only Unassigned, RAKEL [id number] ity of [place] [facility] 4.2.7.2.686 [facility] [id number] [address] 2020-05-09 2020-05-09 Patient Kim Marie 1.2.840.114 [id number] Univers 00:00:00 00:00:00 Outreach E Jaeger [id number] i [id number] [address] 2020-03-14 2020-03-14 Patient Kim Marie 1.2.840.114 [id number] [facility] 00:00:00 00:00:00 Outreach E Ja[place] [id number] [place] [id number] [address] 2020-03-14 2020-03-14 Patient Kim Marie 1.2.840.114 [id number] 00:00:00 00:00:00 Outreach E Jaeger [id number] [place] 4.2.7.2.686 [id number] [facility] 2020-03-12 2020-03-12 Patient Kim Marie 1.2.840.114 [id number] [facility] 00:00:00 00:00:00 Outreach E Jaeger [id number] [place] [id number] [address] 2020-03-12 2020-03-12 Transition Jah Hoyt 1.2.840.114 [id number] [facility] 00:00:00 00:00:00 of Care Gaye Jaeger 350.1.13.10 [place] [id number] [address] 2020-03-12 2020-03-12 Patient Kim Marie 1.2.840.114 [id number] 00:00:00 00:00:00 Outreach E Jaeger 350.1.13.10 [place] 4.2.7.2.686 [id number] [facility] 2020-03-12 2020-03-12 Transition Lai Jah 1.2.840.114 [id number] 00:00:00 00:00:00 of Care Gaye Jaeger 350.1.13.10 [place] 4.2.7.2.686 [id number] [facility] 2020-03-07 2020-03-07 Emergency [facility] [id number] [facility] 01:22:58 03:40:00 Christiana Stearns 350.1.13.10 ity of [place] 4.2.7.2.686 [facility] [id number] [address] 2020-03-07 2020-03-07 Emergency X [facility] ERT [id number] Univers 01:22:58 03:40:00 CHRISTIANA ity of [facility] 2020-03-07 2020-03-07 Emergency [facility] [id number] 01:22:58 03:40:00 Christiana Stearns 350.1.13.10 [place] 4.2.7.2.686 [place] [id number] [facility] 2020-02-27 2020-02-28 Emergency [facility] [id number] [facility] 22:09:31 01:36:00 Christiana Stearns 350.1.13.10 ity of [place] 4.2.7.2.686 [facility] [id number] [address] 2020-02-27 2020-02-28 Emergency [facility] [id number] 22:09:31 01:36:00 Christiana Stearns 350.1.13.10 [place] 4.2.7.2.686 [place] [id number] 08 2020-02-27 2020-02-27 Emergency X [facility] ERT [id number] Univers 21:57:00 21:57:00 ity of [facility] 2020-02-27 2020-02-27 Orders Doctor THOMSON 1.2.840.114 [id number] Univers 00:00:00 00:00:00 Only Unassigned, RAKEL 350.1.13.10 ity of [place] [facility] 4.2.7.2.686 Mohan [id number] [address] 2020-02-27 2020-02-27 Orders Doctor THOMSON 1.2.840.114 [id number] 00:00:00 00:00:00 Only Unassigned, RAKEL 350.1.13.10 [place] [facility] 4.2.7.2.686 [id number] 2020-02-02 2020-02-02 Emergency [facility] 1.2.840.114 [id number] Univers 07:36:37 09:47:00 Yessica Stearns 350.1.13.10 ity of [place] 4.2.7.[address] [place] [id number] 2020-02-02 2020-02-02 [facility] [id number] Univers 07:36:37 09:47:[address] [facility] 2020-02-02 2020-02-02 Emergency [facility] 1.2.840.114 [id number] 07:36:37 09:47:00 Yessica Stearns 350.1.13.10 [place] [address] [place] [address] [id number] [facility] 2020-02-02 2020-02-02 Orders Doctor THOMSON 1.2.840.114 [id number] Univers 00:00:00 00:00:00 Only Unassigned, RAKEL 350.1.13.10 ity of [place] [facility] 4.2.7.[address] [place] [id number] 2020-02-02 2020-02-02 Orders Doctor THOMSON 1.2.840.114 [id number] 00:00:00 00:00:00 Only Unassigned, RAKEL 350.1.13.10 [place] [facility] 4.2.7.2.[id number] [facility] 2020-01-17 2020-01-17 Emergency [facility] [id number] 10:12:01 11:51:00 Jose Stearns 350.1.13.10 [place] [address] [place] [address] [id number] [facility] 2020-01-17 2020-01-17 Emergency [facility] [id number] Univers 10:12:01 11:51:00 Jose Stearns 350.1.13.10 i ty of [place] 4.2.7.2.[address] [place] [id number] 2020-01-17 2020-01-17 Emergency [facility] [id number] Univers 10:12:01 10:12:[address] [facility] 2019-05-26 2019-05-26 Emergency Tg Mackenzie [facility] 1.2.840.114 [id number] 21:20:14 23:22:00 Health 350.1.13.10 [place] 4.2.7.2.686 [place] [id number] [place] [address] ([facility]) 2019-05-26 2019-05-26 Emergency Tg Mackenzie [facility] 1.2.840.114 [id number] [facility] 21:20:14 23:22:00 Health 350.1.13.10 it [place] [id number] [place] [address] Branch ([facility]) 2019-05-05 2019-05-05 Emergency [facility], [facility] 1.2.840.114 [id number] 10:41:41 12:07:00 [facility] 350.1.13.10 [place] 4.2.7.2.686 [place] [id number] [place] [address] ([facility]) 2019-05-05 2019-05-05 Emergency [facility], [facility] 1.2.840.114 [id number] [facility] 10:41:41 12:07:00 [facility] 350.1.13.10 it y [place] [id number] [address] ([facility]) Results Test Test Test Results Result Source Description Time Comments Comments CT ABDOMEN 2020-04 Nonobstructive right Uni versity of PELVIS WO -21 nephrolithiasis and 3 mm [place] [facility] CONTRAST 01:27:4 layering stone within Bra nch 2 thedependent portion of the urinary bladder. No hydronephrosis bilaterally. Preliminary Report Dictated by Resident: Vernon Rodney I, Shahbaz Chi MD., have reviewed this study and agree with the abovereport.EXAM: CT ABDOMEN AND PELVIS WITHOUT CONTRAST HISTORY: Urinary tract stone suspected COMPARISON: 03/07/2020, 02/02/2020. TECHNIQUE AND FINDINGS: Contiguous axial imaging from the level of the lungbases through the pubic symphysis was performed without the intravenousadministration of contrast. Coronal and sagittal reconstructions wereobtained. ?Auto mA and/or iterative reconstruction were used to reduceradiation dose. FINDINGS: The lung bases are clear. No cardiomegaly. The liver is normal in size and attenuation. Normal hepatic contour. Nofocal hepatic lesions identified within the limits of a noncontrast study.Focal fatty infiltration is seen along the falciform ligament. Gallbladderis contracted. No radiopaque gallstones. No biliary ductal dilatation. 1.5 cm splenule. The spleen is otherwise unremarkable. The pancreas andadrenals are unremarkable. The left kidney is unremarkable. A nonobstructing right renal stonemeasures 4 mm. The ureters are unremarkable. No hydronephrosis. A layeringbladder stone measures 4 mm (2:125). No free air or free fluid. Prominent mesenteric and retroperitoneal lymphnodes are not enlarged by CT size criteria. Tiny fat-containing umbilicalhernia. The vascular structures are unremarkable within the limits of anoncontrast study. No abnormal bowel wall thickening or dilatation. No evidence ofobstruction. Small colonic stool burden. No suspicious lytic or sclerotic bony lesions. [facility], Radiant Results Inft User - 05/15/2020 8:28 PM CDTEXAM: CT ABDOMEN AND PELVIS WITHOUT CONTRASTHISTORY: Urinary tract stone suspectedCOMPARISON: 03/07/2020, 02/02/2020.TECHNIQUE AND FINDINGS: Contiguous axial imaging from the level of the lungbases through the pubic symphysis was performed without the intravenousadministration of contrast. Coronal and sagittal reconstructions wereobtained. Auto mA and/or iterative reconstruction were used to reduceradiation dose.FINDINGS:The lung bases are clear. No cardiomegaly.The liver is normal in size and attenuation. Normal hepatic contour. Nofocal hepatic lesions identified within the limits of a noncontrast study.Focal fatty infiltration is seen along the falciform ligament. Gallbladderis contracted. No radiopaque gallstones. No biliary ductal dilatation.1.5 cm splenule. The spleen is otherwise unremarkable. The pancreas andadrenals are unremarkable.The left kidney is unremarkable. A nonobstructing right renal stonemeasures 4 mm. The ureters are unremarkable. No hydronephrosis. A layeringbladder stone measures 4 mm (2:125).No free air or free fluid. Prominent mesenteric and retroperitoneal lymphnodes are not enlarged by CT size criteria. Tiny fat-containing umbilicalhernia. The vascular structures are unremarkable within the limits of anoncontrast study.No abnormal bowel wall thickening or dilatation. No evidence ofobstruction. Small colonic stool burden.No suspicious lytic or sclerotic bony lesions. IMPRESSIONNonobstructive right nephrolithiasis and 3 mm layering stone within thedependent portion of the urinary bladder. No hydronephrosis bilaterally.Preliminary Report Dictated by Resident: Shahbaz Chapman MD., have reviewed this study and agree with the abovereport. Basic Metabolic Panel (NA, K, CL, CO2, GLUCOSE, BUN, 2020-04 22:44:00 CREATININE, CA) Test Item Value Reference Range Interpretation Comme nts NA (test code = 1970217017) 137 mmol/L 135-145 K (test code = 8870816106) 4.1 mmol/L 3.5-5 CL (test code = 9838849459) 104 mmol/L 98-108 CO2 TOTAL (test code = 28 mmol/L 23-31 2749625619) AGAP (test code = 9750931192) 2-16 BUN (test code = 6842278386) 11 mg/dL 7-23 GLUCOSE (test code = 4768705414) 95 mg/dL 70-110 CREATININE (test code = 0.84 mg/dL 0.6-1.25 9979705973) CALCIUM (test code = 8885707636) 9.0 mg/dL 8.6-10.6 eGFR Calculation (Non- mL/min/1.73m2 Chinese) (test code = 8880163032) eGFR Calculation ( mL/min/1.73m2 Chinese) (test code = 7229915091) MARGOT (test code = MARGOT) Association of Glomerular Filtration Rate (GFR) and Staging of Kidney Disease* + +--------- + ----+| GFR (mL/min/1.73 m2) ?| With Kidney Damage ?| ?Without Kidney Damage+ +--- + +| ?>90 ?| ?Stage one ?| ? Normal ?+ +-------- + -----+| ?60-89 ?| ?Stage two ?| ? Decreased GFR ? + +--------- + ----+| ?30-59 ?| ?Stage three ?| ? Stage three ? + +--------- + ----+| ?15-29 ?| ?Stage four ? | ? Stage four ?+ +-------- + -----+| ?<15 (or dialysis) ? ?| ?Stage five ? | ? Stage five ?+ +-------- + -----+ *Each stage assumes the associated GFR level has been in effect for at least three months. ?Stages 1 to 5, with or without kidney disease, indicate chronic kidney disease. Notes: Determination of stages one and two (with eGFR >59mL/min/1.73 m2) requires estimation of kidney damage for at least three months as defined by structural or functional abnormalities of the kidney, manifested by either:Pathological abnormalities or Markers of kidney damage (including abnormalities in the composition of the blood or urine or abnormalities in imaging tests). [facility] with [id number] 22:38:00 Test Item Value Reference Range Interpretation Comments WBC (test code = See_Comment [Automated 5690-2) message] The sy stem which generated this result transmitted reference range : 4.20 - 10.70 10*3/?L. The reference range was not used to interpret this result as normal/abnormal . RBC (test code = See_Comment [Automated 409-8) message] The sy stem which generated this result transmitted reference range : 4.26 - 5.52 10*6/?L. The reference range was not used to interpret this result as normal/abnormal . HGB (test code = 14.1 g/dL 12.2-16.4 718-7) HCT (test code = 42.2 % 38.4-49.3 4544-3) MCV (test code = 87.6 fL 81.7-95.6 787-2) MCH (test code = 29.3 pg 26.1-32.7 785-6) MCHC (test code = 33.4 g/dL 31.2-35 786-4) RDW-SD (test code = 39.5 fL 38.5-51.6 43222-0) RDW-CV (test code = 12.3 % 12.1-15.4 788-0) PLT (test code = See_Comment H [Automated 997-3) message] The sy stem which generated this result transmitted reference range : 150 - 328 10*3/ ?L. The reference r lucy was not used to interpret this result as normal/abnormal . MPV (test code = 8.9 fL 9.8-13 L 44472-0) NRBC/100 WBC (test See_Comment [Automat ed code = 3387225294) message] The system which generated this result transmitted reference range : 0.0 - 10.0 /100 WBCs. The refer ence range was not u sed to interpret th is result as normal/abnormal . NRBC x10^3 (test code <0.01 See_Comment [Auto mated = 5577351165) message] The s ystem which generated this result transmitted reference range : 10*3/?L. The reference range was not used to interpret this result as normal/abnormal . GRAN MAT (NEUT) % 66.7 % (test code = 770-8) IMM GRAN % (test code 0.40 % = 5671468050) LYMPH % (test code = 23.9 % 736-9) MONO % (test code = 7.6 % 5905-5) EOS % (test code = 0.8 % 713-8) BASO % (test code = 0.6 % 706-2) GRAN MAT x10^3(ANC) 5.65 10*3/uL 1.99-6.95 (test code = 8604421583) IMM GRAN x10^3 (test 0.03 10*3/uL 0-0.06 code = 1614711213) LYMPH x10^3 (test code 2.02 10*3/uL 1.09-3.23 = 731-0) MONO x10^3 (test code 0.64 10*3/uL 0.36-1.02 = 742-7) EOS x10^3 (test code = 0.07 10*3/uL 0.06-0.53 711-2) BASO x10^3 (test code 0.05 10*3/uL 0.01-0.09 = 704-7) Lab Interpretation Abnormal (test code = 96966-6) [facility] Test Item Value Reference Range Interpretation Comments APPEARANCE (test code = Cloudy Clear A 2054369024) COLOR (test code = Dark Yellow Yellow A 4916304294) PH (test code = 4.8-8.0 3156042236) SP GRAVITY (test code = 1.003-1.030 H 2204213583) GLU U QUAL (test code = Normal Normal 9690409017) BLOOD (test code = 3+ Negative A 4435271878) KETONES (test code = Negative Negative 5951669297) PROTEIN (test code = 100 mg/dL Negative A 2887-8) UROBILIN (test code = 4.0 mg/dL Normal A 7910228932) BILIRUBIN (test code = 2 mg/dL Negative A 3150651238) NITRITE (test code = Negative Negative 3063969482) LEUK ZHEN (test code = Negative Negative 2248386386) RBC/HPF (test code = See_Comment H [Autom ated 9722888657) message] The sy stem which generated this result transmitted reference range : 0 - 3 HPF. The reference range was not used to interpret this result as normal/abnormal . WBC/HPF (test code = See_Comment [Autom ated 5350500715) message] The sy stem which generated this result transmitted reference range : 0 - 5 HPF. The reference range was not used to interpret this result as normal/abnormal . BACTERIA (test code = Negative Negative 3373971194) MUCOUS (test code = Marked Negative LPF A 5942450677) SQ EPITH (test code = HPF 6822847895) CA OXALATE (test code = See_Comment H [Au tomated 9384768680) message] The sy stem which generated this result transmitted reference range : <=1 HPF. The reference range was not used to interpret this result as normal/abnormal . HYAL CAST (test code = See_Comment H [Aut omated 8631452518) message] The sy stem which generated this result transmitted reference range : <=2 LPF. The reference range was not used to interpret this result as normal/abnormal . Ictotest (test code = Negative 8223221407) Lab Interpretation Abnormal (test code = 48186-2) [facility] [id number] 07:26:00 Test Item Value Reference Range Interpretation Comments NA (test code = 140 mmol/L 135-145 6837941961) K (test code = 3.5 mmol/L 3.5-5 4428833552) CL (test code = 103 mmol/L 98-108 1456109613) CO2 TOTAL (test code = 26 mmol/L 23-31 3148900596) AGAP (test code = 2-16 9235427859) BUN (test code = 12 mg/dL 7-23 0686618617) GLUCOSE (test code = 131 mg/dL 70-110 H 4255869012) CREATININE (test code = 0.77 mg/dL 0.6-1.25 3016098715) TOTAL BILI (test code = 0.3 mg/dL 0.1-1.4 4513351272) CALCIUM (test code = 9.6 mg/dL 8.6-10.6 1772042177) T PROTEIN (test code = 7.4 g/dL 6.3-8.2 2943351108) ALBUMIN (test code = 4.6 g/dL 3.5-5 5158532211) ALK PHOS (test code = 91 U/L 34-122 0800692296) ALTv (test code = 9 U/L 5-50 1742-6) AST(SGOT) (test code = 26 U/L 13-40 8690623172) eGFR Calculation mL/min/1.73m2 (Non-) (test code = 1669839388) eGFR Calculation mL/min/1.73m2 () (test code = 4098177273) MARGOT (test code = MARGOT) Association of Glomerular Filtration Rate (GFR) and Staging of Kidney Disease* + --+ --+ ------+| GFR (mL/min/1.73 m2) ?| With Kidney Damage ?| ?Without Kidney Damage+ --------+ --------+ +| ?>90 ?| ?Stage one ?| ? Normal ?+ ---+ ---+ -------+| ?60-89 ?| ?Stage two ?| ? Decreased GFR ? + --+ --+ ------+| ?30-59 ?| ?Stage three ?| ? Stage three ? + --+ --+ ------+| ?15-29 ?| ?Stage four ? | ? Stage four ?+ ---+ ---+ -------+| ?<15 (or dialysis) ? ?| ?Stage five ? | ? Stage five ?+ ---+ ---+ -------+ *Each stage assumes the associated GFR level has been in effect for at least three months. ?Stages 1 to 5, with or without kidney disease, indicate chronic kidney disease. Notes: Determination of stages one and two (with eGFR >59mL/min/1.73 m2) requires estimation of kidney damage for at least three months as defined by structural or functional abnormalities of the kidney, manifested by either:Pathological abnormalities or Markers of kidney damage (including abnormalities in the composition of the blood or urine or abnormalities in imaging tests). Lab Interpretation Abnormal (test code = 62402-6) [facility] Test Item Value Reference Range Interpretation Comments APPEARANCE (test code = Hazy Clear A 5557526629) COLOR (test code = Becca Yellow A 9901104409) PH (test code = 4.8-8.0 8046005691) SP GRAVITY (test code = 1.003-1.030 2970954426) GLU U QUAL (test code = Normal Normal 7618812118) BLOOD (test code = Negative Negative 2754939688) KETONES (test code = Negative Negative 1678233844) PROTEIN (test code = Negative Negative 2887-8) UROBILIN (test code = 2.0 mg/dL Normal A 4970689007) BILIRUBIN (test code = Negative Negative 7040652383) NITRITE (test code = Negative Negative 4092859743) LEUK ZHEN (test code = Negative Negative 8189910032) RBC/HPF (test code = See_Comment H [Autom ated message] 1336271071) The system [employer] generated this result transmit cory reference range : 0 - 3 HPF. The refe rence range was not u sed to interpret th is result as normal/abnormal . WBC/HPF (test code = See_Comment [Autom ated message] 2798260783) The system [employer] generated this result transmit cory reference range : 0 - 5 HPF. The refe rence range was not u sed to interpret th is result as normal/abnormal . BACTERIA (test code = Negative Negative 7578318741) MUCOUS (test code = Marked Negative LPF A 2365207905) SQ EPITH (test code = <1 HPF 4060775534) CA OXALATE (test code = See_Comment H [Au tomated message] 7023776055) The system [employer] generated this result transmit cory reference range : <=1 HPF. The refere nce range was not u sed to interpret th is result as normal/abnormal . HYAL CAST (test code = See_Comment H [Aut omated message] 5755012093) The system [employer] generated this result transmit cory reference range : <=2 LPF. The refere nce range was not u sed to interpret th is result as normal/abnormal . Lab Interpretation (test Abnormal code = 14631-3) [facility], [id number] 07:18:00 Test Item Value Reference Range Interpretation Comments LIPASE (test code = 2258887562) 61 U/L 0-220 Lab Interpretation (test code = Normal 35946-0) [facility] WITH [id number] 07:02:00 Test Item Value Reference Range Interpretation Comments WBC (test code = See_Comment H [Automated 5490-2) message] The system which generated this result transmit cory reference range : 4.20 - 10.70 10*3/?L. The reference range was not used to interpret this result as normal/abnormal . RBC (test code = See_Comment [Automated 789-8) message] The system which generated this result transmit cory reference range : 4.26 - 5.52 10*6/?L. The reference range was not used to interpret this result as normal/abnormal . HGB (test code = 15.2 g/dL 12.2-16.4 718-7) HCT (test code = 44.6 % 38.4-49.3 4544-3) MCV (test code = 88.8 fL 81.7-95.6 787-2) MCH (test code = 30.3 pg 26.1-32.7 785-6) MCHC (test code = 34.1 g/dL 31.2-35 786-4) RDW-SD (test code = 42.3 fL 38.5-51.6 94298-0) RDW-CV (test code = 13.1 % 12.1-15.4 788-0) PLT (test code = See_Comment H [Automated 777-3) message] The system which generated this result transmit cory reference range : 150 - 328 10*3/ ?L. The reference range was not u sed to interpret th is result as normal/abnormal . MPV (test code = 9.1 fL 9.8-13 L 49810-3) NRBC/100 WBC (test See_Comment [Automat ed code = 5799532231) message] The system which generated this result transmit cory reference range : 0.0 - 10.0 /100 WBCs. The reference range was not used to interpret this result as normal/abnormal . NRBC x10^3 (test code <0.01 See_Comment [Auto mated = 7035779619) message] The system which generated this result transmit cory reference range : 10*3/?L. The reference range was not used to interpret this result as normal/abnormal . GRAN MAT (NEUT) % 77.9 % (test code = 770-8) IMM GRAN % (test code 0.70 % = 4563486516) LYMPH % (test code = 15.1 % 736-9) MONO % (test code = 5.8 % 5905-5) EOS % (test code = 0.1 % 713-8) BASO % (test code = 0.4 % 706-2) GRAN MAT x10^3(ANC) 10.71 10*3/uL 1.99-6.95 H (test code = 4926445695) IMM GRAN x10^3 (test 0.09 10*3/uL 0-0.06 H code = 3915677611) LYMPH x10^3 (test code 2.07 10*3/uL 1.09-3.23 = 731-0) MONO x10^3 (test code 0.79 10*3/uL 0.36-1.02 = 742-7) EOS x10^3 (test code = <0.03 0.06-0.53 L 711-2) BASO x10^3 (test code 0.05 10*3/uL 0.01-0.09 = 704-7) Lab Interpretation Abnormal (test code = 96020-2) General acute hospital / [facility] - DRUG SCREEN [id number] 04:32:00 Test Item Value Reference Range Interpretation Comments BENZO U (test code = Presumptive Negative A 9599342981) Positive IHSAN U (test code = Negative Negative 9689448099) AMPHET (test code = Negative Negative 7860917907) THC (test code = Presumptive Negative A Confirmatio n of 6503324267) Positive Presumptive Positive THC result requires physician order . METHADONE (test code Negative Negative = 6056749953) Meth U (test code = Negative Negative 0612010176) OPIATES (test code = Negative Negative 1260381398) Cocaine Metabolite Negative Negative (test code = 3620789132) PROPOXY (test code = Negative Negative 8700742690) Tric U (test code = Negative Negative 1932408902) PCP (test code = Negative Negative 5084691829) OXYCOD (test code = Negative Negative 0768675348) MARGOT (test code = Urine Drug Cutoff MARGOT) Ranges Benzodiazepines: ? ? 150 ng/mLBarbiturates : ?200 ng/mLAmphetamine: ? 500 ng/mLCannabinoids : ?50 ?ng/mLMethadone: ? 200 ng/mLMethamphetam ine: ? ? 500 ng/mL Opiates: ? 100 ng/mL or 2000 ng/mLCocaine: ? 150 ng/mLPropoxyphene : ?300 ng/mLTricyclics: ?300 ng/mLOxycodone: ? 100 ng/mLPCP: ? 25 ?ng/mL The results are to be used only for medical (i.e., treatment) purposes. Unconfirmed screening results must not be used for non-medical purposes (e.g., employment testing, legal testing). Lab Interpretation Abnormal (test code = 53005-1) [facility] PAN[facility] (37698)2020-02-28 03:52:00 Test Item Value Reference Range Interpretation Comments NA (test code = 139 mmol/L 135-145 9303327627) K (test code = 3.7 mmol/L 3.5-5 6931813078) CL (test code = 104 mmol/L 98-108 0725553907) CO2 TOTAL (test code = 26 mmol/L 23-31 0260355284) AGAP (test code = 2-16 9501837070) BUN (test code = 16 mg/dL 7-23 5141907669) GLUCOSE (test code = 113 mg/dL 70-110 H 1737504170) CREATININE (test code = 0.87 mg/dL 0.6-1.25 7677163584) TOTAL BILI (test code = 0.3 mg/dL 0.1-1.9 4525383285) CALCIUM (test code = 9.7 mg/dL 8.6-10.6 5822099356) T PROTEIN (test code = 7.8 g/dL 6.3-8.2 2171536175) ALBUMIN (test code = 5.0 g/dL 3.5-5 9438889529) ALK PHOS (test code = 80 U/L 34-122 3956595300) ALTv (test code = 11 U/L 5-50 2-6) AST(SGOT) (test code = 23 U/L 13-40 7090636269) eGFR Calculation mL/min/1.73m2 (Non-) (test code = 4440773297) eGFR Calculation mL/min/1.73m2 () (test code = 2862591183) MARGOT (test code = MARGOT) Association of Glomerular Filtration Rate (GFR) and Staging of Kidney Disease* + --+ --+ ------+| GFR (mL/min/1.73 m2) ?| With Kidney Damage ?| ?Without Kidney Damage+ --------+ --------+ +| ?>90 ?| ?Stage one ?| ? Normal ?+ ---+ ---+ -------+| ?60-89 ?| ?Stage two ?| ? Decreased GFR ? + --+ --+ ------+| ?30-59 ?| ?Stage three ?| ? Stage three ? + --+ --+ ------+| ?15-29 ?| ?Stage four ? | ? Stage four ?+ ---+ ---+ -------+| ?<15 (or dialysis) ? ?| ?Stage five ? | ? Stage five ?+ ---+ ---+ -------+ *Each stage assumes the associated GFR level has been in effect for at least three months. ?Stages 1 to 5, with or without kidney disease, indicate chronic kidney disease. Notes: Determination of stages one and two (with eGFR >59mL/min/1.73 m2) requires estimation of kidney damage for at least three months as defined by structural or functional abnormalities of the kidney, manifested by either:Pathological abnormalities or Markers of kidney damage (including abnormalities in the composition of the blood or urine or abnormalities in imaging tests). Lab Interpretation Abnormal (test code = 03953-2) [facility] 03:52:00 Test Item Value Reference Range Interpretation Comments LIPASE (test code = 5879027120) 70 U/L 0-220 Lab Interpretation (test code = Normal 21722-1) [facility]2020-[facility]-04 03:45:00 Test Item Value Reference Range Interpretation Comments APPEARANCE (test code = Hazy Clear A 1764778518) COLOR (test code = Yellow Yellow 6835242317) PH (test code = 4.8-8.0 4158112455) SP GRAVITY (test code = 1.003-1.030 H 2855732942) GLU U QUAL (test code = Normal Normal 5124577957) BLOOD (test code = Negative Negative INTERFERE NCE FROM 8008968864) ASCORBIC ACID M AY CAUSE FALSE NEG ATIVE RESULT KETONES (test code = Negative Negative 4462404329) PROTEIN (test code = Negative Negative 2887-8) UROBILIN (test code = 2.0 mg/dL Normal A 2911277918) BILIRUBIN (test code = Negative Negative 8057334022) NITRITE (test code = Negative Negative 2530555810) LEUK ZHEN (test code = Negative Negative 3900305273) RBC/HPF (test code = See_Comment [Autom ated message] 2710279937) The system [employer] generated this result transmitted ref erence range: 0 - 3 HP F. The reference range was not used to int erpret this result as normal/abnormal . WBC/HPF (test code = See_Comment [Autom ated message] 6971575597) The system [employer] generated this result transmitted ref erence range: 0 - 5 HP F. The reference range was not used to int erpret this result as normal/abnormal . BACTERIA (test code = Negative Negative 3712238367) MUCOUS (test code = Marked Negative LPF A 0568598122) CA OXALATE (test code = See_Comment H [Au tomated message] 3793809825) The system whic h generated this result transmitted ref erence range: <=1 HPF. The reference range was not used to int erpret this result as normal/abnormal . Lab Interpretation Abnormal (test code = 69187-7) [facility] WITH [id number] 03:32:00 Test Item Value Reference Range Interpretation Comments WBC (test code = See_Comment [Automated 6690-2) message] The sy stem which generated this result transmitted reference range : 4.20 - 10.70 10*3/?L. The reference range was not used to interpret this result as normal/abnormal . RBC (test code = See_Comment [Automated 789-8) message] The sy stem which generated this result transmitted reference range : 4.26 - 5.52 10*6/?L. The reference range was not used to interpret this result as normal/abnormal . HGB (test code = 14.5 g/dL 12.2-16.4 718-7) HCT (test code = 43.9 % 38.4-49.3 4544-3) MCV (test code = 88.7 fL 81.7-95.6 787-2) MCH (test code = 29.3 pg 26.1-32.7 785-6) MCHC (test code = 33.0 g/dL 31.2-35 786-4) RDW-SD (test code = 42.5 fL 38.5-51.6 19418-4) RDW-CV (test code = 13.0 % 12.1-15.4 788-0) PLT (test code = See_Comment H [Automated 777-3) message] The sy stem which generated this result transmitted reference range : 150 - 328 10*3/ ?L. The reference r lucy was not used to interpret this result as normal/abnormal . MPV (test code = 8.8 fL 9.8-13 L 71853-7) NRBC/100 WBC (test See_Comment [Automat ed code = 7392069250) message] The system which generated this result transmitted reference range : 0.0 - 10.0 /100 WBCs. The refer ence range was not u sed to interpret th is result as normal/abnormal . NRBC x10^3 (test code <0.01 See_Comment [Auto mated = 9238608666) message] The s ystem which generated this result transmitted reference range : 10*3/?L. The reference range was not used to interpret this result as normal/abnormal . GRAN MAT (NEUT) % 44.6 % (test code = 770-8) IMM GRAN % (test code 0.20 % = 9540340738) LYMPH % (test code = 42.8 % 736-9) MONO % (test code = 11.8 % 5905-5) EOS % (test code = 0.1 % 713-8) BASO % (test code = 0.5 % 706-2) GRAN MAT x10^3(ANC) 3.57 10*3/uL 1.99-6.95 (test code = 5827979441) IMM GRAN x10^3 (test <0.03 0-0.06 code = 6466505225) LYMPH x10^3 (test code 3.43 10*3/uL 1.09-3.23 H = 731-0) MONO x10^3 (test code 0.95 10*3/uL 0.36-1.02 = 742-7) EOS x10^3 (test code = <0.03 0.06-0.53 L 711-2) BASO x10^3 (test code 0.04 10*3/uL 0.01-0.09 = 704-7) Lab Interpretation Abnormal (test code = 86583-9) [facility] W/O Lycgfscm1257-62-66 14:15:29 Punctate bilateral nonobstructing nephrolithiasis seen again. Nohydronephrosis bilaterally. Preliminary Report Dictated by Resident: Tahira Hodge I, Shahbaz Chi MD., have reviewed this study and agree with the abovereport.CT ABDOMEN PELVIS WO CONTRAST HISTORY: 34 years-old; Male; Flank pain, recurrent stone disease suspected COMPARISON: 05/05/2019 TECHNIQUE AND FINDINGS: Contiguous axial imaging from the level of the lungbases through the pubic symphysis was performed without the intravenousadministration of contrast. Coronal and sagittal reconstructions wereobtained. ?Auto mA and/or iterative re construction were used to reduceradiation dose. FINDINGS: LOWER THORAX: The lung bases are clear. Nocardiomegaly. LIVER: No focal hepatic lesions. Normal contour. GALLBLADDER AND BILIARY TREE: No intra or extrahepatic biliary ductaldilation. No gallbladder wall thickening. SPLEEN: A splenule measures1.3 cm anteromedially. PANCREAS: No ductal dilation or masses. ADRENAL GLANDS: No adrenal mass. KIDNEYS: Bilateral punctate nonobstructing nephrolithiasis are notedmeasuring 1-2 mm. There is no hydronephrosis or mass contour in the renalcortices. PERITONEUM AND RETROPERITONEUM: No free air or fluid collection. LYMPH NODES: Multiple nonspecific mildly prominent mesenteric lymph nodesare seen. GI TRACT: No dilation or bowel wall thickening. Appendix is normal (4:115). PELVIS/BLADDER: Bladder is decompressed with no significant wallthickening. The prostate is normal in size. VESSELS: Unremarkable. BONES AND SOFT TISSUES: No suspicious lytic or sclerotic bony lesions. [facility], Radiant Results Inft User -02/02/2020 9:16 AM CDTCT ABDOMEN PELVIS WO CONTRASTHISTORY: 34 years-old; Male; Flank pain, recurrent stone disease suspected COMPARISON: 05/05/2019TECHNIQUE AND FINDINGS: Contiguous axial imaging from the level of the lungbases through the pubic symphysis was performed without the intravenousadministration of contrast. Coronal and sagittal reconstructions wereobtained. Auto mA and/or iterative reconstruction were used to reduceradiation dose.FINDINGS:LOWER THORAX: The lung bases are clear. No cardiom egaly.LIVER: No focal hepatic lesions. Normal contour.GALLBLADDER AND BILIARY TREE: No intra or extrahepatic biliary ductaldilation. No gallbladder wall thickening.SPLEEN: A splenule measures 1.3 cm anteromedially.PANCREAS: No ductal dilation or masses.ADRENAL GLANDS: No adrenal mass.KIDNEYS: Bilateral punctate nonobstructing nephrolithiasis are notedmeasuring 1-2 mm. There is no hydronephrosis or mass contour in the renalcortices.PERITONEUM AND RETROPERITONEUM: No free air or fluid collection.LYMPHNODES: Multiple nonspecific mildly prominent mesenteric lymph nodesare seen.GI TRACT: No dilation orbowel wall thickening. Appendix is normal (4:115).PELVIS/BLADDER: Bladder is decompressed with no significant wallthickening. The prostate is normal in size.VESSELS: Unremarkable.BONES AND SOFT TISSUES: No suspicious lytic or sclerotic bony lesions.IMPRESSIONPunctate bilateral nonobstructing nephrolith iasis seen again. Nohydronephrosis bilaterally.Preliminary Report Dictated by Resident: Tahira Bains, Shahbaz Chi MD., have reviewed this study and agree with the abovereport.[facility] 13:59:00 Test Item Value Reference Range Interpretation Comments APPEARANCE (test code = Clear Clear 4727571205) COLOR (test code = Yellow Yellow 3523650568) PH (test code = 4.8-8.0 9892692219) SP GRAVITY (test code = 1.003-1.030 1808883710) GLU U QUAL (test code = Normal Normal 5798121077) BLOOD (test code = 2+ Negative A 1919148660) KETONES (test code = Negative Negative 0861381306) PROTEIN (test code = Negative Negative 2887-8) UROBILIN (test code = Normal Normal 7962140605) BILIRUBIN (test code = Negative Negative 4472079482) NITRITE (test code = Negative Negative 8281192604) LEUK ZHEN (test code = Negative Negative 5275244115) RBC/HPF (test code = See_Comment H [Autom ated message] 0685877359) The system [employer] generated this result transmitted ref erence range: 0 - 3 HP F. The reference range was not used to int erpret this result as normal/abnormal . WBC/HPF (test code = See_Comment [Autom ated message] 1863196114) The system [employer] generated this result transmitted ref erence range: 0 - 5 HP F. The reference range was not used to int erpret this result as normal/abnormal . BACTERIA (test code = Negative Negative 5018682926) MUCOUS (test code = Slight Negative LPF A 7459012941) HYAL CAST (test code = See_Comment H [Aut omated message] 5936698398) The system [employer] generated this result transmitted ref erence range: <=2 LPF. The reference range was not used to int erpret this result as normal/abnormal . Lab Interpretation (test Abnormal code = 53571-3) [facility] Metabolic Panel (NA, K, CL, CO2, GLUCOSE, BUN, CREATININE, CA)2020-02-02 13:33:00 Test Item Value Reference Range Interpretation Comments NA (test code = 143 mmol/L 135-145 4866655662) K (test code = 4.3 mmol/L 3.5-5 6900376864) CL (test code = 106 mmol/L 98-108 1114289640) CO2 TOTAL (test code = 27 mmol/L 23-31 3959207056) AGAP (test code = 2-16 9404580022) BUN (test code = 11 mg/dL 7-23 7213727296) GLUCOSE (test code = 103 mg/dL 70-110 6184236561) CREATININE (test code 0.98 mg/dL 0.6-1.25 = 2815732118) CALCIUM (test code = 10.4 mg/dL 8.6-10.6 9448935501) eGFR Calculation mL/min/1.73m2 (Non-) (test code = 9082528370) eGFR Calculation mL/min/1.73m2 () (test code = 9520699817) MARGOT (test code = MARGOT) Association of Glomerular Filtration Rate (GFR) and Staging of Kidney Disease* + -+ + ---+| GFR (mL/min/1.73 m2) ?| With Kidney Damage ?| ?Without Kidney Damage+ -------+ ------+ ---------+| ?>90 ?| ?Stage one ?| ? Normal ?+ --+ -+ ----+| ?60-89 ?| ?Stage two ?| ? Decreased GFR ? + -+ + ---+| ?30-59 ?| ?Stage three ?| ? Stage three ? + -+ + ---+| ?15-29 ?| ?Stage four ? | ? Stage four ?+ --+ -+ ----+| ?<15 (or dialysis) ? ?| ?Stage five ? | ? Stage five ?+ --+ -+ ----+ *Each stage assumes the associated GFR level has been in effect for at least three months. ?Stages 1 to 5, with or without kidney disease, indicate chronic kidney disease. Notes: Determination of stages one and two (with eGFR >59mL/min/1.73 m2) requires estimation of kidney damage for at least three months as defined by structural or functional abnormalities of the kidney, manifested by either:Pathological abnormalities or Markers of kidney damage (including abnormalities in the composition of the blood or urine or abnormalities in imaging tests). [facility] WITH [id number] 13:14:00 Test Item Value Reference Range Interpretation Comments WBC (test code = See_Comment [Automated 6690-2) message] The sy stem which generated this result transmitted reference range : 4.20 - 10.70 10*3/?L. The reference range was not used to interpret this result as normal/abnormal . RBC (test code = See_Comment [Automated 789-8) message] The sy stem which generated this result transmitted reference range : 4.26 - 5.52 10*6/?L. The reference range was not used to interpret this result as normal/abnormal . HGB (test code = 14.8 g/dL 12.2-16.4 718-7) HCT (test code = 46.3 % 38.4-49.3 4544-3) MCV (test code = 91.7 fL 81.7-95.6 787-2) MCH (test code = 29.3 pg 26.1-32.7 785-6) MCHC (test code = 32.0 g/dL 31.2-35 786-4) RDW-SD (test code = 45.9 fL 38.5-51.6 14027-6) RDW-CV (test code = 13.6 % 12.1-15.4 788-0) PLT (test code = See_Comment H [Automated 777-3) message] The sy stem which generated this result transmitted reference range : 150 - 328 10*3/ ?L. The reference r lucy was not used to interpret this result as normal/abnormal . MPV (test code = 8.7 fL 9.8-13 L 63196-2) NRBC/100 WBC (test See_Comment [Automat ed code = 1010143073) message] The system which generated this result transmitted reference range : 0.0 - 10.0 /100 WBCs. The refer ence range was not u sed to interpret th is result as normal/abnormal . NRBC x10^3 (test code <0.01 See_Comment [Auto mated = 6361638247) message] The s ystem which generated this result transmitted reference range : 10*3/?L. The reference range was not used to interpret this result as normal/abnormal . GRAN MAT (NEUT) % 60.1 % (test code = 770-8) IMM GRAN % (test code 0.30 % = 7111018037) LYMPH % (test code = 28.9 % 736-9) MONO % (test code = 9.2 % 5905-5) EOS % (test code = 1.1 % 713-8) BASO % (test code = 0.4 % 706-2) GRAN MAT x10^3(ANC) 4.38 10*3/uL 1.99-6.95 (test code = 6455445384) IMM GRAN x10^3 (test <0.03 0-0.06 code = 3460888494) LYMPH x10^3 (test code 2.11 10*3/uL 1.09-3.23 = 731-0) MONO x10^3 (test code 0.67 10*3/uL 0.36-1.02 = 742-7) EOS x10^3 (test code = 0.08 10*3/uL 0.06-0.53 711-2) BASO x10^3 (test code 0.03 10*3/uL 0.01-0.09 = 704-7) Lab Interpretation Abnormal (test code = 57321-7) General acute hospital / [facility] - DRUG SCREEN [id number] 16:13:00 Test Item Value Reference Range Interpretation Comments BENZO U (test code = Negative Negative 7507516619) IHSAN U (test code = Negative Negative 4333078609) AMPHET (test code = Negative Negative 7205822007) THC (test code = Presumptive Negative A Confirmatio n of 2578318868) Positive Presumptive Positive THC result requires physician order . METHADONE (test code Negative Negative = 4585075729) Meth U (test code = Negative Negative 8379415478) OPIATES (test code = Presumptive Negative A 0645013622) Positive Cocaine Metabolite Negative Negative (test code = 0872111369) PROPOXY (test code = Negative Negative 0746317019) Tric U (test code = Negative Negative 2238333874) PCP (test code = Negative Negative 0153719952) OXYCOD (test code = Negative Negative 1699597686) MARGOT (test code = Urine Drug Cutoff MARGOT) Ranges Benzodiazepines: ? ? 150 ng/mLBarbiturates : ?200 ng/mLAmphetamine: ? 500 ng/mLCannabinoids : ?50 ?ng/mLMethadone: ? 200 ng/mLMethamphetam ine: ? ? 500 ng/mL Opiates: ? 100 ng/mL or 2000 ng/mLCocaine: ? 150 ng/mLPropoxyphene : ?300 ng/mLTricyclics: ?300 ng/mLOxycodone: ? 100 ng/mLPCP: ? 25 ?ng/mL The results are to be used only for medical (i.e., treatment) purposes. Unconfirmed screening results must not be used for non-medical purposes (e.g., employment testing, legal testing). Lab Interpretation Abnormal (test code = 60993-7) [facility] 16:12:00 Test Item Value Reference Range Interpretation Comments APPEARANCE (test code = Clear Clear 5124179578) COLOR (test code = Yellow Yellow 2302597849) PH (test code = 4.8-8.0 3624936078) SP GRAVITY (test code = 1.003-1.030 6616886545) GLU U QUAL (test code = Normal Normal 6972675941) BLOOD (test code = Negative Negative 5341271785) KETONES (test code = Negative Negative 5602189235) PROTEIN (test code = Negative Negative 2887-8) UROBILIN (test code = Normal Normal 4251505551) BILIRUBIN (test code = Negative Negative 2684743433) NITRITE (test code = Negative Negative 7614925879) LEUK ZHEN (test code = Negative Negative 7647004382) RBC/HPF (test code = See_Comment [Autom ated message] 6965305188) The system [employer] generated this result transmitted ref erence range: 0 - 3 HP F. The reference range was not used to int erpret this result as normal/abnormal . WBC/HPF (test code = <1 See_Comment [Autom ated message] 5885269057) The system [employer] generated this result transmitted ref erence range: 0 - 5 HP F. The reference range was not used to int erpret this result as normal/abnormal . BACTERIA (test code = Negative Negative 2033493224) MUCOUS (test code = Slight Negative LPF A 5541998250) Lab Interpretation (test Abnormal code = 52737-5) [facility] Metabolic Panel (NA, K, CL, CO2, GLUCOSE, BUN, CREATININE, CA)2020-01-17 16:02:00 Test Item Value Reference Range Interpretation Comments NA (test code = 142 mmol/L 135-145 9652643485) K (test code = 4.4 mmol/L 3.5-5 0101945801) CL (test code = 107 mmol/L 98-108 8289781983) CO2 TOTAL (test code = 32 mmol/L 23-31 H 6604639028) AGAP (test code = 2-16 7869825777) BUN (test code = 13 mg/dL 7-23 1364728193) GLUCOSE (test code = 104 mg/dL 70-110 0584710186) CREATININE (test code = 0.67 mg/dL 0.6-1.25 3948920999) CALCIUM (test code = 9.6 mg/dL 8.6-10.6 4881408645) eGFR Calculation mL/min/1.73m2 (Non-) (test code = 0757222926) eGFR Calculation mL/min/1.73m2 () (test code = 1163222899) MARGOT (test code = MARGOT) Association of Glomerular Filtration Rate (GFR) and Staging of Kidney Disease* + --+ --+ ------+| GFR (mL/min/1.73 m2) ?| With Kidney Damage ?| ?Without Kidney Damage+ --------+ --------+ +| ?>90 ?| ?Stage one ?| ? Normal ?+ ---+ ---+ -------+| ?60-89 ?| ?Stage two ?| ? Decreased GFR ? + --+ --+ ------+| ?30-59 ?| ?Stage three ?| ? Stage three ? + --+ --+ ------+| ?15-29 ?| ?Stage four ? | ? Stage four ?+ ---+ ---+ -------+| ?<15 (or dialysis) ? ?| ?Stage five ? | ? Stage five ?+ ---+ ---+ -------+ *Each stage assumes the associated GFR level has been in effect for at least three months. ?Stages 1 to 5, with or without kidney disease, indicate chronic kidney disease. Notes: Determination of stages one and two (with eGFR >59mL/min/1.73 m2) requires estimation of kidney damage for at least three months as defined by structural or functional abnormalities of the kidney, manifested by either:Pathological abnormalities or Markers of kidney damage (including abnormalities in the composition of the blood or urine or abnormalities in imaging tests). Lab Interpretation Abnormal (test code = 48810-1) [facility] (ALB, T.PRO, BILI T, BU/BC, ALT, AST, ALK PHOS)2020-01-17 16:02:00 Test Item Value Reference Range Interpretation Comments TOTAL BILI (test code = 1749700153) 0.4 mg/dL 0.1-1.1 BILI UNCON (test code = 7194747482) 0.5 mg/dL 0.1-1.1 BILI CONJ (test code = 3928055399) 0.0 mg/dL 0-0.3 T PROTEIN (test code = 6697081336) 7.4 g/dL 6.3-8.2 ALBUMIN (test code = 4742986186) 4.6 g/dL 3.5-5 ALK PHOS (test code = 9278678701) 88 U/L 34-122 ALTv (test code = 1742-6) 11 U/L 5-50 AST(SGOT) (test code = 0622623176) 23 U/L 13-40 Lab Interpretation (test code = Normal 70939-3) [facility] [id number] 16:02:00 Test Item Value Reference Range Interpretation Comments LIPASE (test code = 7137302380) 46 U/L 0-220 Lab Interpretation (test code = Normal 66003-6) [facility] WITH [id number] 15:50:00 Test Item Value Reference Range Interpretation Comments WBC (test code = See_Comment H [Automated 8990-2) message] The sy stem which generated this result transmitted reference range : 4.20 - 10.70 10*3/?L. The reference range was not used to interpret this result as normal/abnormal . RBC (test code = See_Comment [Automated 789-8) message] The sy stem which generated this result transmitted reference range : 4.26 - 5.52 10*6/?L. The reference range was not used to interpret this result as normal/abnormal . HGB (test code = 14.8 g/dL 12.2-16.4 718-7) HCT (test code = 45.1 % 38.4-49.3 4544-3) MCV (test code = 89.3 fL 81.7-95.6 787-2) MCH (test code = 29.3 pg 26.1-32.7 785-6) MCHC (test code = 32.8 g/dL 31.2-35 786-4) RDW-SD (test code = 43.6 fL 38.5-51.6 84568-1) RDW-CV (test code = 13.3 % 12.1-15.4 788-0) PLT (test code = See_Comment H [Automated 777-3) message] The sy stem which generated this result transmitted reference range : 150 - 328 10*3/ ?L. The reference r lucy was not used to interpret this result as normal/abnormal . MPV (test code = 8.7 fL 9.8-13 L 19978-4) NRBC/100 WBC (test See_Comment [Automat ed code = 6614761593) message] The system which generated this result transmitted reference range : 0.0 - 10.0 /100 WBCs. The refer ence range was not u sed to interpret th is result as normal/abnormal . NRBC x10^3 (test code <0.01 See_Comment [Auto mated = 4074240876) message] The s ystem which generated this result transmitted reference range : 10*3/?L. The reference range was not used to interpret this result as normal/abnormal . GRAN MAT (NEUT) % 77.5 % (test code = 770-8) IMM GRAN % (test code 0.40 % = 6528274371) LYMPH % (test code = 13.3 % 736-9) MONO % (test code = 7.7 % 5905-5) EOS % (test code = 0.7 % 713-8) BASO % (test code = 0.4 % 706-2) GRAN MAT x10^3(ANC) 8.35 10*3/uL 1.99-6.95 H (test code = 9673556535) IMM GRAN x10^3 (test 0.04 10*3/uL 0-0.06 code = 4875459250) LYMPH x10^3 (test code 1.43 10*3/uL 1.09-3.23 = 731-0) MONO x10^3 (test code 0.83 10*3/uL 0.36-1.02 = 742-7) EOS x10^3 (test code = 0.08 10*3/uL 0.06-0.53 711-2) BASO x10^3 (test code 0.04 10*3/uL 0.01-0.09 = 704-7) Lab Interpretation Abnormal (test code = 01106-6) [facility] [id number] 03:33:00 Test Item Value Reference Range Interpretation Comments TROPONIN I (test 0.001 ng/mL See_Comment [Automated code = 6648862557) message] The system which generated this result transmitted reference range : <=0.034. The reference range was not used to interpret this result as normal/abnormal . MARGOT (test code = Equal or Less than MARGOT) 0.034 ng/ml---Normal?Not e: Cardiac troponin begins to rise 3-4 hours after the onset of ischemia. Repeat in 4-6 hours if the sample was drawn within 3-4 hours of the onset of the symptom and found normal. Between 0.035 and 0.120 ng/mL--- Borderline. Questionable myocardial injury or necrosis?Note: Serial measurement may be necessary to confirm or exclude the diagnosis of myocardial injury or necrosis; Clinical correlation (symptoms, EKGs, imaging studies, and others) required; Repeat in 4-6 hours if clinically indicated.? Equal or Higher than 0.121 ng/mL---Abnormal. Myocardial Injury or Necrosis Likely? Biotin has been reported to cause a negative bias, interpret results relative to patient's use of biotin.? ? Lab Interpretation Normal (test code = 95270-8) [facility] [id number] 03:25:00 Test Item Value Reference Range Interpretation Comments ALCOHOL (test code = <10 mg/dL 5355472700) MARGOT (test code = Toxic Greater than or MARGOT) equal to 80 mg/dL.NOTE: Whole blood values are approximately 10% to 15% lower than serum and plasma. [facility] Metabolic Panel (NA, K, CL, CO2, GLUCOSE, BUN, CREATININE, CA)2019-05-27 03:22:00 Test Item Value Reference Range Interpretation Comments NA (test code = 138 mmol/L 135-145 1661530782) K (test code = 4.1 mmol/L 3.5-5 4841322913) CL (test code = 101 mmol/L 98-108 7993634064) CO2 TOTAL (test code = 30 mmol/L 23-31 7457565838) AGAP (test code = 2-16 6622759157) BUN (test code = 17 mg/dL 7-23 5115045670) GLUCOSE (test code = 94 mg/dL 70-110 3512601649) CREATININE (test code 0.74 mg/dL 0.6-1.25 = 9431117355) CALCIUM (test code = 9.1 mg/dL 8.6-10.6 3102908966) eGFR Calculation mL/min/1.73m2 (Non-) (test code = 0536071530) eGFR Calculation mL/min/1.73m2 () (test code = 5753768001) MARGOT (test code = MARGOT) Association of Glomerular Filtration Rate (GFR) and Staging of Kidney Disease*+ ---------+ --------+ +| GFR (mL/min/1.73 m2)?| With Kidney Damage?|?Without Kidney Damage+ -------+ ------+ ---------+|?>90?|?Stage one?|? Normal?+ --------+ -------+ +|?60-89?|?St age two?|? Decreased GFR? + -+ + ---+|?30-59?|?Stage three?|? Stage three? + -+ + ---+|?15-29?|?Stage four? |? Stage four?+ ------+ -----+ --------+|?<15 (or dialysis)?|?Stage five? |? Stage five?+ ------+ -----+ --------+*Each stage assumes the associated GFR level has been in effect for at least three months.?Stages 1 to 5, with or without kidney disease, indicate chronic kidney disease.Notes: Determination of stages one and two (with eGFR >59mL/min/1.73 m2) requires estimation of kidney damage for at least three months as defined by structural or functional abnormalities of the kidney, manifested by either:Pathological abnormalities or Markers of kidney damage (including abnormalities in the composition of the blood or urine or abnormalities in imaging tests). [facility] (ALB, T.PRO, BILI T, BU/BC, ALT, AST, ALK PHOS)2019-05-27 03:22:00 Test Item Value Reference Range Interpretation Comments TOTAL BILI (test code = 5132865753) 0.2 mg/dL 0.1-1.1 BILI UNCON (test code = 7910406920) 0.1 mg/dL 0.1-1.1 BILI CONJ (test code = 8343945637) 0.0 mg/dL 0-0.3 T PROTEIN (test code = 0227327978) 6.2 g/dL 6.3-8.2 L ALBUMIN (test code = 4812498668) 3.8 g/dL 3.5-5 ALK PHOS (test code = 0615994088) 65 U/L 34-122 ALT(SGPT) (test code = 2361519019) 19 U/L 9-51 AST(SGOT) (test code = 3653826925) 19 U/L 13-40 Lab Interpretation (test code = Abnormal 66395-8) [facility] 1 [id number] 03:14:39 No acute intrathoracic abnormality. * * * * * * * * ORIGINAL REPORT * * * * * * * *PROCEDURE: XR CHEST 1 VW CLINICAL INDICATION: syncope COMPARISON: None FINDINGS: The lungs are clear. No pleural effusion or pneumothorax is seen. The heartis normal in size. No acute bony abnormality. [facility], Radiant Results Inft User - 05/26/2019 10:16 PM CDT* * * * * * * * ORIGINAL REPORT * * * * * * * *PROCEDURE: XRCHEST 1 VWCLINICAL INDICATION: syncope COMPARISON: NoneFINDINGS:The lungs are clear. No pleural effusion or pneumothorax is seen. The heartis normal in size.No acute bony abnormality.IMPRESSIONNo acute intrathoracic abnormality.[facility] WITH [id number] 03:03:00 Test Item Value Reference Range Interpretation Comments WBC (test code = See_Comment H [Automated 6690-2) message] The system which generated this result transmit cory reference range : 4.20 - 10.70 10*3/?L. The reference range was not used to interpret this result as normal/abnormal . RBC (test code = See_Comment L [Automated 789-8) message] The system which generated this result transmit cory reference range : 4.26 - 5.52 10*6/?L. The reference range was not used to interpret this result as normal/abnormal . HGB (test code = 12.6 g/dL 12.2-16.4 718-7) HCT (test code = 37.0 % 38.4-49.3 L 4544-3) MCV (test code = 89.4 fL 81.7-95.6 787-2) MCH (test code = 30.4 pg 26.1-32.7 785-6) MCHC (test code = 34.1 g/dL 31.2-35 786-4) RDW-SD (test code = 41.0 fL 38.5-51.6 65534-6) RDW-CV (test code = 12.5 % 12.1-15.4 788-0) PLT (test code = See_Comment [Automated 777-3) message] The system which generated this result transmit cory reference range : 150 - 328 10*3/ ?L. The reference range was not u sed to interpret th is result as normal/abnormal . MPV (test code = 8.6 fL 9.8-13 L 70418-5) NRBC/100 WBC (test See_Comment [Automat ed code = 2595759707) message] The system which generated this result transmit cory reference range : 0.0 - 10.0 /100 WBCs. The reference range was not used to interpret this result as normal/abnormal . NRBC x10^3 (test code <0.01 See_Comment [Auto mated = 1523479751) message] The system which generated this result transmit cory reference range : 10*3/?L. The reference range was not used to interpret this result as normal/abnormal . GRAN MAT (NEUT) % 74.8 % (test code = 770-8) IMM GRAN % (test code 0.50 % = 1032256585) LYMPH % (test code = 15.1 % 736-9) MONO % (test code = 8.8 % 5905-5) EOS % (test code = 0.5 % 713-8) BASO % (test code = 0.3 % 706-2) GRAN MAT x10^3(ANC) 12.81 10*3/uL 1.99-6.95 H (test code = 7756546809) IMM GRAN x10^3 (test 0.08 10*3/uL 0-0.06 H code = 7547366019) LYMPH x10^3 (test code 2.59 10*3/uL 1.09-3.23 = 731-0) MONO x10^3 (test code 1.50 10*3/uL 0.36-1.02 H = 742-7) EOS x10^3 (test code = 0.09 10*3/uL 0.06-0.53 711-2) BASO x10^3 (test code 0.05 10*3/uL 0.01-0.09 = 704-7) Lab Interpretation Abnormal (test code = 54586-6) [facility] [id number] 07:12:00 Test Item Value Reference Range Interpretation Comments SODIUM (test code = NA) 142 mEq/L 134-147 N POTASSIUM (test code = 3.9 mEq/L 3.4-5.0 N K) CHLORIDE (test code = 105 mEq/L 100-108 N CL) CARBON DIOXIDE (test 30 mEq/L 21-33 N code = CO2) ANION GAP (test code = 11 0-20 N GAP) GLUCOSE (test code = 112 mg/dL 70-110 H GLU) BLOOD UREA NITROGEN 14 mg/dL 7-18 N (test code = BUN) GLOMERULAR FILTRATION 98.4 105-110 L Units of measure = RATE (test code = GFR) ml/mi n/1.73 m2 CREATININE (test code = 0.9 mg/dL 0.6-1.3 N CREAT) TOTAL PROTEIN (test 7.6 g/dL 6.4-8.2 N code = PROT) ALBUMIN (test code = 4.50 g/dL 3.4-5.0 N ALB) CALCIUM (test code = 9.5 mg/dL 8.0-10.5 N CA) BILIRUBIN TOTAL (test 0.60 mg/dL 0.0-1.0 N code = BILT) SGOT/AST (test code = 14 IUnit/L 15-37 L AST) SGPT/ALT (test code = 14 IUnit/L 15-65 L ALT) ALKALINE PHOSPHATASE 92 IUnit/L 20-125 N TOTAL (test code = ALKP) [id number] 07:12:00 Test Item Value Reference Range Interpretation Comments LIPASE (test code = LIP) 74 IUnit/L 73-393 N COMPREHENSIVE METABOLIC [id number] 07:07:00 Test Item Value Reference Range Interpretation [...] TOTAL (test IUnit/L 20-125 code = ALKP) [id number] 07:07:00 Test Item Value Reference Range Interpretation Comments LIPASE (test code = LIP) 74 IUnit/L 73-393 N URINALYSIS [id number] 07:03:00 Test Item Value Reference Range Interpretation [...] NONE SEEN A COMMENTS: Clean CatchCBC W/AUTO [id number] 06:59:00 Test Item Value Reference Range Interpretation [...] DIFF REQUIRED (test NO code = MDIFF) Chest 1 [id number] 16:41:21 No acute cardiopulmonary abnormality. * * * * * * * * ORIGINAL REPORT * * * * * * * *XR CHEST 1 VW HISTORY: abd pain COMPARISON: None FINDINGS: The lungs are clear. No pneumothorax or pleural effusionis identified. Theheart is normal in size. No acute osseous abnormality is seen. [facility], Radiant Results Inft User - 05/05/2019 11:43 AM CDT* * * * * * * * ORIGINAL REPORT * * * * * * * *XR CHEST 1 VWHISTORY: abd pain COMPARISON: NoneFINDINGS: The lungs are clear. No pneumothorax or pleural effusion is i dentified. Theheart is normal in size. No acute osseous abnormality is seen.IMPRESSIONNo acute cardiopulmonary abnormality.[facility]dom[facility]Pelvis W/O [id number] 16:40:36 A nonobstructing stone in each kidney measures 2 mm. No hydronephrosis. * * * * * * * * ORIGINAL REPORT * * * * * * * *EXAM: CT ABDOMEN AND PELVIS WITHOUT CONTRAST HISTORY: Flank pain, stone disease suspected COMPARISON: None. DOSE: 451 mGy-cm TECHNIQUE AND FINDINGS: Contiguous axial imaging from thelevel of the lungbases through the pubic symphysis was performed without the intravenousadministration of contrast. Coronal and sagittal reconstructions wereobtained. FINDINGS: LOWER THORAX: The lungs bases are clear. No cardiomegaly. LIVER: No focal hepatic lesions.?Normal liver contour. GALLBLADDER AND BILIARY TREE: No biliary ductal dilation.?No gallbladderwall thickening. SPLEEN: No splenomegaly.PANCREAS: No ductal dilation or masses. ADRENAL GLANDS: No adrenal nodules. KIDNEYS: No hydronephrosis or masses. A nonobstructing stone in the lowerpole of the right kidney measures 2 mm. A 2 mm nonobstructing stone ispresent in the interpolar region of the left kidney. No ureteral stones. PERITONEUMAND RETROPERITONEUM: No free air or fluid. LYMPH NODES: No lymphadenopathy. GI TRACT: No dilation orwall thickening. Normal appendix. PELVIS/BLADDER: Unremarkable. VESSELS: Unremarkable. BONES AND SOFT TISSUES: No suspicious lytic or sclerotic bony lesions. [facility], Radiant Results Inft User - 05/05/2019 11:42 AM CDT* * * * * * * * ORIGINAL REPORT * * * * * * * *EXAM: CT ABDOMEN AND PELVIS WITHOUT CONTRASTHISTORY: Flank pain, stone disease suspectedCOMPARISON: None.DOSE: 451 mGy-cmTECHNIQUE AND FINDINGS: Contiguous axial imaging from the level of the lungbases through the pubic symphysis was performed without the intravenousadministration of contrast. Coronal and sagittal reconstructions wereobtained.FINDINGS:LOWER THORAX: The lungs bases are clear. No cardiomegaly.LIVER: No focal hepatic lesions. Normal liver contour.GALLBLADDER AND BILIARY TREE: No biliary ductal dilation. No gallbladderwall thickening.SPLEEN: No splenomegaly.PANCREAS: No ductal dilation or masses.ADRENAL GLANDS: No adrenal nodules.KIDNEYS: No hydronephrosis or masses. A nonobstructing stone in the lowerpole of the right kidney measures 2 mm. A 2 mm nonobstructing stone ispresent in the interpolar region of the left kidney. No ureteral stones.PERITONEUM AND RETROPERITONEUM: No free air or fluid.LYMPH NODES: No lymphadenopathy.GI TRACT: No dilation or wall thickening. Normal appendix.PELVIS/BLADDER: Unremarkable.VESSELS: Unremarkable.BONES AND SOFT TISSUES: No suspicious lytic or sclerotic bony lesions.IMPRESSIONA nonobstructing stone in each kidney measures 2 mm. No hydronephrosis.[facility]burgUrinalysis2019-08-10 16:29:00 Test Item Value Reference Range Interpretation Comments APPEARANCE (test code = Clear Clear 5036620792) COLOR (test code = Colorless Yellow A 5084605210) PH (test code = 4.8-8.0 7750194005) SP GRAVITY (test code = 1.003-1.030 6696988659) GLU U QUAL (test code = Normal Normal 0949359143) BLOOD (test code = Negative Negative 7911736260) KETONES (test code = Negative Negative 1502874593) PROTEIN (test code = Negative Negative 2887-8) UROBILIN (test code = Normal Normal 2675438465) BILIRUBIN (test code = Negative Negative 8052280345) NITRITE (test code = Negative Negative 8339239766) LEUK ZHEN (test code = Negative Negative 8716207575) RBC/HPF (test code = <1 See_Comment [Autom ated message] 4657945844) The system [employer] generated this result transmit cory reference range : 0 - 3 HPF. The refe rence range was not u sed to interpret th is result as normal/abnormal . WBC/HPF (test code = <1 See_Comment [Autom ated message] 6465789879) The system [employer] generated this result transmit cory reference range : 0 - 5 HPF. The refe rence range was not u sed to interpret th is result as normal/abnormal . BACTERIA (test code = Negative Negative 6464482872) SQ EPITH (test code = <1 See_Comment [Auto mated message] 8259492103) The system [employer] generated this result transmit cory reference range : <=2 HPF. The refere nce range was not u sed to interpret th is result as normal/abnormal . Lab Interpretation (test Abnormal code = 26157-0) [facility] (NA, K, CL, CO2, GLUCOSE, BUN, CREATININE, CA)2019-05-05 16:23:00 Test Item Value Reference Range Interpretation Comments NA (test code = 139 mmol/L 135-145 0690566586) K (test code = 4.6 mmol/L 3.5-5 8274556798) CL (test code = 100 mmol/L 98-108 1489167421) CO2 TOTAL (test code = 31 mmol/L 23-31 4790601944) AGAP (test code = 2-16 6648788222) BUN (test code = 15 mg/dL 7-23 0458581701) GLUCOSE (test code = 84 mg/dL 70-110 3300356264) CREATININE (test code 0.78 mg/dL 0.6-1.25 = 3151883281) CALCIUM (test code = 9.6 mg/dL 8.6-10.6 9369294607) eGFR Calculation mL/min/1.73m2 (Non-) (test code = 6324191750) eGFR Calculation mL/min/1.73m2 () (test code = 8939067796) MARGOT (test code = MARGOT) Association of Glomerular Filtration Rate (GFR) and Staging of Kidney Disease*+ ---------+ --------+ +| GFR (mL/min/1.73 m2)?| With Kidney Damage?|?Without Kidney Damage+ -------+ ------+ ---------+|?>90?|?Stage one?|? Normal?+ --------+ -------+ +|?60-89?|?St age two?|? Decreased GFR? + -+ + ---+|?30-59?|?Stage three?|? Stage three? + -+ + ---+|?15-29?|?Stage four? |? Stage four?+ ------+ -----+ --------+|?<15 (or dialysis)?|?Stage five? |? Stage five?+ ------+ -----+ --------+*Each stage assumes the associated GFR level has been in effect for at least three months.?Stages 1 to 5, with or without kidney disease, indicate chronic kidney disease.Notes: Determination of stages one and two (with eGFR >59mL/min/1.73 m2) requires estimation of kidney damage for at least three months as defined by structural or functional abnormalities of the kidney, manifested by either:Pathological abnormalities or Markers of kidney damage (including abnormalities in the composition of the blood or urine or abnormalities in imaging tests). [facility] (ALB, T.PRO, BILI T, BU/BC, ALT, AST, ALK PHOS)2019-05-05 16:23:00 Test Item Value Reference Range Interpretation Comments TOTAL BILI (test code = 2737461785) 0.3 mg/dL 0.1-1.1 BILI UNCON (test code = 9384295358) 0.3 mg/dL 0.1-1.1 BILI CONJ (test code = 9172082118) 0.0 mg/dL 0-0.3 T PROTEIN (test code = 2240069081) 7.0 g/dL 6.3-8.2 ALBUMIN (test code = 3474833981) 4.2 g/dL 3.5-5 ALK PHOS (test code = 4271764426) 74 U/L 34-122 ALT(SGPT) (test code = 5226072263) 22 U/L 9-51 AST(SGOT) (test code = 8042025535) 20 U/L 13-40 Lab Interpretation (test code = Normal 39785-1) [facility]burg[facility] [id number] 16:23:00 Test Item Value Reference Range Interpretation Comments LIPASE (test code = 6658617529) 40 U/L 0-220 Lab Interpretation (test code = Normal 13967-6) [facility] WITH [id number] 16:15:00 Test Item Value Reference Range Interpretation Comments WBC (test code = See_Comment [Automated 6769-2) message] The sy stem which generated this result transmitted reference range : 4.20 - 10.70 10*3/?L. The reference range was not used to interpret this result as normal/abnormal . RBC (test code = See_Comment [Automated 835-1) message] The sy stem which generated this result transmitted reference range : 4.26 - 5.52 10*6/?L. The reference range was not used to interpret this result as normal/abnormal . HGB (test code = 14.7 g/dL 12.2-16.4 718-7) HCT (test code = 45.5 % 38.4-49.3 4544-3) MCV (test code = 90.6 fL 81.7-95.6 787-2) MCH (test code = 29.3 pg 26.1-32.7 785-6) MCHC (test code = 32.3 g/dL 31.2-35 786-4) RDW-SD (test code = 42.5 fL 38.5-51.6 78498-6) RDW-CV (test code = 12.9 % 12.1-15.4 788-0) PLT (test code = See_Comment [Automated 777-3) message] The sy stem which generated this result transmitted reference range : 150 - 328 10*3/ ?L. The reference r lucy was not used to interpret this result as normal/abnormal . MPV (test code = 8.4 fL 9.8-13 L 58040-5) NRBC/100 WBC (test See_Comment [Automat ed code = 7437482829) message] The system which generated this result transmitted reference range : 0.0 - 10.0 /100 WBCs. The refer ence range was not u sed to interpret th is result as normal/abnormal . NRBC x10^3 (test code <0.01 See_Comment [Auto mated = 8980930501) message] The s ystem which generated this result transmitted reference range : 10*3/?L. The reference range was not used to interpret this result as normal/abnormal . GRAN MAT (NEUT) % 54.3 % (test code = 770-8) IMM GRAN % (test code 0.30 % = 2310737882) LYMPH % (test code = 33.8 % 736-9) MONO % (test code = 9.9 % 5905-5) EOS % (test code = 1.2 % 713-8) BASO % (test code = 0.5 % 706-2) GRAN MAT x10^3(ANC) 4.01 10*3/uL 1.99-6.95 (test code = 3814362595) IMM GRAN x10^3 (test <0.03 0-0.06 code = 0664363930) LYMPH x10^3 (test code 2.50 10*3/uL 1.09-3.23 = 731-0) MONO x10^3 (test code 0.73 10*3/uL 0.36-1.02 = 742-7) EOS x10^3 (test code = 0.09 10*3/uL 0.06-0.53 711-2) BASO x10^3 (test code 0.04 10*3/uL 0.01-0.09 = 704-7) Lab Interpretation Abnormal (test code = 55487-0) [facility] METABOLIC [id number] 20:42:00 Test Item Value Reference Range Interpretation [...] 8.9 mg/dL 8.0-10.5 N CA) CBC W/AUTO [id number] 20:27:00 Test Item Value Reference Range Interpretation [...] = MDIFF) - CT ABD PELVIS W/O [id number] 20:22:00 Name: RO BROTHERS JR [facility] : 1985 Age/S: 33 / M [address] [place] [address] Unit #: [id number] Loc: [place] [address] Phys: Omer Lepe DO Acct: [id number] Dis Date: Status: REG ER PHONE #: [phone] Exam Date: 03/21/20191999 FAX #: [phone] Reason: R flank pain EXAMS: CPT CODE: [id number] CT ABD PELVIS W/O CONT 96466 PROCEDURE: CT ABDOMEN AND PELVIS WITHOUT CONTRAST [...] according to patient's size; 3) Use of iterative reconstruction techniques. DLP (mGy-cm): 468 FINDINGS: This examination is limited for the evaluation of solid organs and vascular structures due to lack of intravenous contrast, which is standard for urinary calculus assessment CT. LOWER CHEST: Limited visualization. No abnormalities. No pericardial effusion. SOLID ORGANS: Liver, spleen, and pancreas are within normal limits. Bilateral adrenal glands are normal. Punctate bilateral intrarenal stones. No hydronephrosis or perirenal edema. No intraureteral stones. No gallstones. No biliary ductaldilatation. BOWEL: No bowel dilatation or bowel wall thickening. Sigmoid colon is unremarkable. Perirectal fat planes are within normal limits. Normal appearing appendix identified within right lower quadrant. PERITONEUM: No free intraperitoneal air or fluid. No stranding of the central mesentery. No p eritoneal adenopathy by size criteria. RETROPERITONEUM: Abdominal aorta is normal caliber. No retroperitoneal adenopathy by size criteria. PELVIS: No pelvic mass. No pelvic free fluid. Urinary bladder is unremarkable. No pelvic adenopathy by size criteria. MUSCULOSKELETAL: No acute osseous abnormalities or destructive bony PAGE 1 Signed Report (CONTINUED) Name: RO BROTHERS [facility] : 1985 Age/S: 33 / M [address] [place] [address] Unit #: [id number] Loc: [place] [address] Phys:Omer Lepe Acct: [id number] Dis Date: Status: REG ER PHONE #: [phone] Exam Date: 03/21/20191999 FAX #: [phone] Reason: R flank pain EXAMS: CPT CODE: [id number] CT ABD PELVIS W/O CONT 31709 (Continued) lesions. Vertebral body height are maintained. OTHER: None. IMPRESSION: 1. Stable minimal bilateral nonobstructing nephrolithiasis. Otherwise, negative SL: K[place] at 2021 Reported and signed by: Alix Armas M.D. CC: Omer Lepe DO Technologist:RT Libby(R)(CT) CTDI: DLP: Trnscb Date/Time: 03/21/2019 (2021) [email or web address] OrigPrint D/T: S: 03/21/2019 (2024) PAGE 2 Signed Report URINALYSIS [id number] 19:52:00 Test Item Value Reference Range Interpretation [...] = MUCU) TRACE /LPF NONE SEEN URINALYSIS [id number] 09:08:00 Test Item Value Reference Range Interpretation [...] MUCU) 1+ /LPF NONE SEEN CBC W/AUTO [id number] 09:02:00 Test Item Value Reference Range Interpretation [...] (test code NO = MDIFF) COMPREHENSIVE METABOLIC [id number] 08:41:00 Test Item Value Reference Range Interpretation [...] 20-125 N TOTAL (test code = ALKP) [id number] 08:41:00 Test Item Value Reference Range Interpretation Comments LIPASE (test code = LIP) 76 IUnit/L 73-393 N [id number] 08:39:00 Test Item Value Reference Range Interpretation Comments LIPASE (test code = LIP) 76 IUnit/L 73-393 N COMPREHENSIVE METABOLIC [id number] 08:39:00 Test Item Value Reference Range Interpretation [...] IUnit/L 20-125 TOTAL (test code = ALKP) - XR CHEST 1 [id number] 16:27:00 FAX: Racheal Silverio NP [phone] [place]: St: REG Name: RO BROTHERS [facility] : 1985 Age/S: 33/M [address] [place] [address] Unit #: [id number] Loc: [place] [address] Phys: Racheal Silverio NP Acct: [id number] Dis Date: Status: REG ER PHONE #: [phone] Exam Date: 02/03/2019 1617 FAX #: [phone] Reason: Abdominal Pain EXAMS: CPT CODE: [id number] XR CHEST 1 V 53312 SINGLE VIEW RADIOGRAPH CHEST INDICATION: Abdominal Pain. Vomiting for 2 days TECHNIQUE: A single view frontal radiograph of the chest was obtained. COMPARISONS: Chest x- ray 09/06/2018 FINDINGS: There is no acute osseous fracture or dislocation. There is no subdiaphragmatic free gas. The cardiomediastinal size and contourare normal. There is no pneumothorax, pleural effusion or organized pneumonia. There is a 3 mm calcified left suprahilar granuloma suggesting prior granulomatous inflammatory disease. IMPRESSION: 1. No acute cardiopulmonary process. at 5563 Reported and signed by: Sascha Fuentes D.O. CC: Racheal Silverio NP Technologist: Rosalia Bruno, RT(R); Fouzia Mike, RT(R) Trnscrd Date/Time/By: 02/03/2019 (4931) : By: [email or web address] Orig Print D/T: S: 02/03/2019 (0675) PAGE 1 Signed Report- CT ABD PELVIS W/O [id number] 16:04:00 Name: RO BROTHERS [facility] : 1985 Age/S: 33 / M [address] [place] [address] it #: [id number] Loc: [place], [place] [address] Phys: Racheal Silverio NP Acct: [id number] Dis Date: Status: REG ER PHONE #: [phone] Exam Date: 02/03/2019 1537 FAX #: [phone] Reason: L upper abd pain rad to L flank EXAMS: CPT CODE: [id number] CT ABD PELVIS W/O CONT 04878 PROCEDURE: CT ABDOMEN AND PELVIS WITHOUT CONTRAST [...] due to lack of intravenous contrast, which is standard for urinary calculus assessment CT. KIDNEYS/BLADDER: A minimal 2 mm nonobstructing stone is seen in the right renal lower pole with a punctate nonobstructing calculus in the left renal interpolar region. No ureteral calculi, hydronephrosis or hydroureter. The bladder is partially distended with urine with no [...] or adenopathy. MUSCULOSKELETAL: The skeleton is intact. IMPRESSION: 1. No acute CT explanation for the patient's symptoms. PAGE 1 Signed Report (CONTINUED) Name: RO BROTHERS JR [facility] : 1985 Age/S: 33 / M [address] [place] [address] Blvd Unit #: [id number] Loc: [place] [address] Phys: Racheal Silverio NP Acct: [id number] Dis Date: Status: REG ER PHONE #: [phone] Exam Date: 02/03/2019 1537 FAX #: [phone] Reason: L upper abd pain rad to L flank EXAMS: CPT CODE: [id number] CT ABD PELVIS W/O CONT 37044 (Continued) 2. Minimal bilateral nonobstructive nephrolithiasis. ____ CT imaging performed at this location utilizes radiation dose optimization techniques which include one or more of the following: -Automated exposure control -Adjustment of the mA and/or kV according to patient size -Use of iterative reconstruction technique SL: ER-H at 1604 Reported and signed by: Bomo Jha M.D. CC: Racheal Godinez Technologist:Kimberli Boateng RT(R)(CT) CTDI: DLP: Trnscb Date/Time: 02/03/2019 (1604) [email or web address] Orig Print D/T: S: 02/03/2019 (0099) PAGE 2 Signed ReportURINALYSIS [id number] 15:53:00 Test Item Value Reference Range Interpretation [...] NONE SEEN SQU) COMMENTS: Clean CatchHEPATIC FUNCTION [id number] 15:32:00 Test Item Value Reference Range Interpretation [...] 100 IUnit/L 20-125 N code = ALKP) [id number] 15:32:00 Test Item Value Reference Range Interpretation Comments LIPASE (test code = LIP) 98 IUnit/L 73-393 N CHEMISTRY 8 [id number] 15:25:00 Test Item Value Reference Range Interpretation [...] ML/MIN (test code = GFRBED) CHEMISTRY 8 [id number] 15:25:00 Test Item Value Reference Range Interpretation Comments ISTAT-SODIUM (test 138 MMOL/L 134-147 N code = NAP) ISTAT-POTASSIUM (test 4.1 MMOL/L 3.4-5.0 N code = KP) ISTAT-CHLORIDE (test 102 MMOL/L 100-108 N Perform ed by code = CLP) certified opera tor at [facility] ISTAT CARBON DIOXIDE 25.0 mmol/L 21-33 N (test code = ISTAT-CO2) ISTAT CALCIUM IONIZED 1.11 MG/DL 1.12-1.32 L (test code = ISTAT-AMISH) ISTAT-GLUCOSE (test 104 MG/DL 70-110 N code = GLUP) ISTAT-BUN (test code = 12 MG/DL 7-18 N BUNP) BEDSIDE CREATININE 0.9 MG/DL 0.6-1.3 N (test code = CREATBED) GLOMERULAR FILTRATION 105 ML/MIN RATE POC (test code = GFRBED) CBC W/AUTO [id number] 15:18:00 Test Item Value Reference Range Interpretation [...] DIFF REQUIRED (test NO code = MDIFF) Notes Date/Time Note Provider Source 2019-05-24 06:10:00-00:00 [facility] ([facility]) EMERGENCY PROVIDER REPORT REPORT#:[id number] REPORT STATUS: Signed DATE:05/24/19 TIME: 06 PATIENT: RO BROTHERS JR UNIT #: [id number] ROOM/BED: AGE: 33 SEX: M PCP PHYS: No Primary or Family Ph ysician SERVICE AUTHOR: Franklyn Del Valle DO * ALL edits or amendments must be made on the [employer] Scientific document * HPI-Abd Pain M Under 40 General Confirmed Patient Yes Initial Greet Date/Time 05/24/19 0605 Presentation Chief Complaint Vomiting Hx Obtained From Patient Onset Occurred Today (0200) Free Text HPI Notes Free Text HPI Notes 33 y/o M w/ pmhx of kidney s tones presents to the ED w/ c/o vomiting that began today @0200. Pt reports left sided abd pain that began yesterday and has had x5 episodes of vomiting. Per pt , he was seen 2 weeks ago @[facility] and was told he had stones in BL kidneys. Pt reports abd "burning" a nd admits to nausea and diaphoresis. +smoker Portions of this section were scribed by Karlene Cortes on 05/24/19 at 0748 Risk-Abd Pain M Under 40 )( Torsion Risk factors reviewed Portions of this section were scribed by Karlene Cortes on 05/24/19 at 0610 Review of Systems ROS Statements All systems rev neg except as marked. Focused Review of Systems GI Reports: Abdominal pain, Nausea, Vomiting. Additional Review of Systems Skin Reports: Diaphoresis. Portions of this section were scribed by Karlene Cortes on 05/24/19 at 0610 Past Medical History - Adult Stated Complaint VOMITTING AND SWEATING Allergies Coded Allergies: aspirin (Severe, HIVES 02/05/19) Home Medications Reported Medications FLUoxetine (PROzac) 20 MG PO DAILY hydrOXYzine HCL (ATARAX) 50 MG PO QID PRN PRN AN XIETY [TORADOL] [TYLENOL] ONDANSETRON (ZOFRAN) 4 MG PO Q6H PRN PRN NAUSEA Past Medical History: Reports: Depression/mood disorder (Bipolar), Kid rhea disease/stones, Seizure disorder (epilepsy). Past Surgical History: Reports: Tonsillectomy. Drug Use Marijuana Smoking status for patients 13 years old or olde r: Never Smoker Additional Social History at bedside Portions of this section were scribed by Karlene Cortes on 05/24/19 at 0610 Physical Exam Vital Signs Vital Signs First Documented: Result Date Time Pulse Ox 98 05/24 0554 B/P 138/84 05/24 0554 B/P Mean 102 05/24 0554 O2 Delivery Room air 05/24 0554 Temp 36.6 05/24 0554 Pulse 62 05/24 0554 Resp 16 05/24 0554 Last Documented: Result Date Time Pulse Ox 99 05/24 0739 B/P 167/82 05/24 0739 B/P Mean 110 05/24 0739 O2 Delivery Room air 05/24 0739 Temp 36.7 05/24 0739 Pulse 58 05/24 0739 Resp 19 05/24 0739 Review of Vital Signs Reviewed Focused PE General/Const General/Const Awake, Alert, No acute distress, Well developed, Cooperative MS Head Head Atraumatic, Normocephalic Eyes Eyes EOMI, Conjunctiva NL Ears/Nose/Throat Ears/Nose/Throat Airway patent, Mucous membrane s moist Resp/Chest Respiratory/Chest Breath sounds NL, No respirat ory distress, No rhonchi, No wheezing, No retractions Cardiovascular Cardiovascular Heart rate NL, Regular rhythm, H eart sounds NL Abdomen/GI Abdomen/GI Soft, Non-tender, No guarding, No re bound, No distention MS Back Back Full range of motion Text/Dict Notes Mild CVA tenderness Skin Skin Warm, Dry, Intact Neurologic Neurologic Oriented X3, Speech NL Additional PE MS Neck Neck Supple MS Lower Extrem Lower Ext/Pelvis/MS No swelling, Non-tender Portions of this section were scribed by Karlene Cortes on 05/24/19 at 0610 Interpretation Diagnostics Lab Results Interpretation Results Laboratory Tests 05/24/19 0625: [Embedded Image Not Available] Laboratory Tests: 05/2425 0620 Chemistry Sodium (134 - 147 mEq/L) 142 Potassium (3.4 - 5.0 mEq/L) 3.9 Chloride (100 - 108 mEq/L) 105 Carbon Dioxide (21 - 33 mEq/L) 30 Anion Gap (0 - 20) 11 BUN (7 - 18 mg/dL) 14 Creatinine (0.6 - 1.3 mg/dL) 0.9 Glomerular Filtr Rate (105 - 110) 98.4 L Glucose (70 - 110 mg/dL) 112 H Calcium (8.0 - 10.5 mg/dL) 9.5 Total Bilirubin (0.0 - 1.0 mg/dL) 0.60 AST (15 - 37 IUnit/L) 14 L ALT (15 - 65 IUnit/L) 14 L Total Alk Phosphatase (20 - 125 IUnit/L) 92 Total Protein (6.4 - 8.2 g/dL) 7.6 Albumin (3.4 - 5.0 g/dL) 4.50 Lipase (73 - 393 IUnit/L) 74 Hematology WBC (4.5 - 11.0 x10 3/uL) 13.17 H RBC (4.00 - 5.60 x10 6/uL) 5.18 Hgb (12.5 - 16.9 g/dL) 15.2 Hct (37.5 - 50.7 %) 46.1 MCV (81.0 - 99.0 fL) 89.0 MCH (27.0 - 33.0 pg) 29.3 MCHC (33.0 - 37.0 g/dL) 33.0 RDW (11.5 - 14.5 %) 12.4 Plt Count (150 - 400 x10 3/uL) 370 MPV (7.0 - 9.0 fL) 8.6 Neut % (Auto) (56.0 - 77.0 %) 81.7 H Lymph % (Auto) (14.0 - 32.0 %) 10.6 L Jasper % (Auto) (4.8 - 9.0 %) 6.5 Eos % (Auto) (0.3 - 3.7 %) 0.2 L Baso % (Auto) (0.0 - 2.0 %) 0.5 Neut # (Auto) (2.0 - 7.6 x10 3/uL) 10.76 H Lymph # (Auto) (1.0 - 3.8 x10 3/uL) 1.40 Jasper # (Auto) (0.1 - 0.8 x10 3/uL) 0.85 H Eos # (Auto) (0.0 - 0.2 x10 3/uL) 0.03 Baso # (Auto) (0.0 - 0.2 x10 3/uL) 0.06 Abs Immat Gran (auto) (0.00 - 0.03 x10 3/uL) 0. 07 H Add Manual Diff NO Immature Gran % (0.0 - 2.0 %) 0.5 Nucleated RBC % (0 - 0 %) 0.0 Nucleated RBCs # (Man) (0.0 - 0.1 x10 3/uL) 0.0 0 Urines Urine Color (YEL/STRAW) YELLOW Urine Appearance (CLEAR) CLEAR Urine pH (5.0 - 7.0) 6.0 Ur Specific [place] (1.005 - 1.030) 1.029 Urine Protein (NEGATIVE) 1+ H Urine Glucose (UA) (NEGATIVE) NEGATIVE Urine Ketones (NEGATIVE) TRACE H Urine Blood (NEGATIVE) NEGATIVE Urine Nitrite (NEGATIVE) NEGATIVE Urine Bilirubin (NEGATIVE) NEGATIVE Urine Urobilinogen (0.2 - 1.0 mg/dL) 0.2 Ur Leukocyte Esterase (NEGATIVE) NEGATIVE Urine RBC (0 - 3 RBC/HPF) 0-3 Urine WBC (0 - 3 WBC/HPF) 0-3 Ur Squamous Epith Cells (NONE SEEN /HPF) 0-5 Urine Bacteria (NONE SEEN /HPF) NONE SEEN Urine Mucus (NONE SEEN /LPF) 4+ H Lab Statement Laboratory studies reviewed and considered in e medical decision-making. Point of Care Testing Pulse Oximetry Pulse Ox % 98 On: Room air Interpretation Interpreted by me Time 0554 ECG #1 Interpretation Date 05/24/19 Time 0648 Interpreted by ED physician NL ECG Interpretation Normal sinus rhythm (w/ si nus arrhythmia), No STEMI Rate 69 Portions of this section were scribed by Karlene Cortes on 05/24/19 at 0748 Re-Evaluation MDM )( Re-Evaluation/Progress #1 Text/Dict Note Reports nausea improved, no flank pain Likely gastroenteritis , aft er discussion he does admit to having diarrhea last night as well will discharge home with charlette, PCP follow up Time of Re-Eval 726 )( Re-Eval Status Improved ED Course Medication(s) Ordered Medication(s) Ordered: Electrolytic, Caloric, And Harry Sig/Linda Start time Last Medication Dose Route Stop Time Status Admin Sodium Chloride 0 ASDIR PRN 05/24 0615 DCD IV 05/25 0508 Sodium Chloride 1,000 ML X1ED STA 05/24 0608 DC 05/24 IV 05/24 0707 0627 Gastrointestinal Drugs Sig/Linda Start time Last Medication Dose Route Stop Time Status Admin Metoclopramide HCl 10 MG ONCE PRN 05/24 0615 D CD 05/24 IV 06/23 0614 0627 Portions of this section were scribed by Karlene Cortes on 05/24/19 at 0610 Patient Discharge Departure Vital Signs/Condition Vital Signs First Documented: Result Date Time Pulse Ox 98 05/24 0554 B/P 138/84 05/24 0554 B/P Mean 102 05/24 0554 O2 Delivery Room air 05/24 0554 Temp 36.6 05/24 0554 Pulse 62 05/24 0554 Resp 16 05/24 0554 Last Documented: Result Date Time Pulse Ox 99 05/24 0739 B/P 167/82 05/24 0739 B/P Mean 110 05/24 0739 O2 Delivery Room air 05/24 0739 Temp 36.7 05/24 0739 Pulse 58 05/24 0739 Resp 19 05/24 0739 All vital signs available at the time of this en try have been reviewed. Condition Stable Clinical Impression Clinical Impression Primary Impression: Gastroenteritis Disposition Decision Discharge )( Discharged to Home Yes )( Time 726 )( Date 05/24/19 Discharge/Care Plan Counseled Regarding Diagnosis, Lab resul ts, Need for follow-up, When to return to ED Supervising Physician Note Scribe Statement Karlene Cortes, 05/24/19 06, scribing for and in the presence of Dr. Del Valle. Signed By: Karlene Cortes, 05/24/19610 Provider Scribed Statement I personally performed the s ervices described in this documentation and reviewed the documentation that was dictated to the scrib e(s) in my presence, and it accurately records my words and actions. Denver Del Valle, 05/24/19 Portions of this section were scribed by Karlene Cortes on 05/24/19 at 0748 Electronically Signed by Franklyn Del Valle DO on at 0757 RPT #:[id number] END OF REPORT 2019-03-21 19:14:00-00:00 [facility] ([facility]) EMERGENCY PROVIDER REPORT REPORT#:[id number] REPORT STATUS: Signed DATE:03/21/19 TIME: 1913 PATIENT: RO BROTHERS JR UNIT #: [id number] ROOM/BED: AGE: 33 SEX: M PCP PHYS: No Primary or Family Ph ysician SERVICE AUTHOR: Omer Lepe DO * ALL edits or amendments must be made on the [employer]/computer document * Omer Lepe 03/21/191913: HPI- Male General Confirmed Patient Yes Initial Greet Date/Time 03/21/191906 PCP none Presentation Chief Complaint Flank pain L Hx Obtained From Patient Onset Occurred Yesterday Symptom Duration Since onset Associated with Reports: Nausea. Associated Other unable to urinate, incontinence Free Text HPI Notes Free Text HPI Notes 33yo M w/ PMH of Kd stones and lithotripsy that presents to the ED w/ c/o L flank pain onset yesterday. Pt notes assoc sxs of nausea, unable to urinate, and incontinence of bladder. He notes that he was in [place] yesterday and CT showed cluster of kd stones. He reports that he takes prozac daily. Portions of this section were scribed by Ginna Peguero on 03/21/19 at 1914 Review of Systems ROS Statements All systems rev neg except as marked. Focused Review of Systems GI Reports: Nausea. Male Reports: Flank pain, Incontinence. Free Text ROS Notes Free Text ROS Notes unable to urinate Portions of this section were scribed by Ginna Peguero on 03/21/19 at 1914 Past Medical History - Adult Stated Complaint R FLANK PAIN, RADIATING TO GROI N. NAUSEA.HX STONE Allergies Coded Allergies: aspirin (Severe, HIVES 02/05/19) Past Medical History: Reports: Depression/mood disorder (Bipolar), Kid rhea disease/stones, Seizure disorder (epilepsy). Additional Medical History denies Past Surgical History: Reports: Tonsillectomy. Additional Surgical History denies Drug Use Marijuana Additional Social History at bedside Portions of this section were scribed by Ginna Peguero on 03/21/19 at 1914 Physical Exam Vital Signs Vital Signs Review of Vital Signs Reviewed Focused PE General/Const General/Const Awake, Alert, No acute di stress, Well appearing, Well developed , Well hydrated, Well nourished, Cooperative, No t toxic appearing Abdomen/GI Abdomen/GI Soft, Non-tender, No guarding, No re bound, BS normoactive, No distention Skin Skin Color NL, No rash, Warm, Dry, Intact Genitourinary General Exam deferred Additional PE MS Head Head Atraumatic Eyes Eyes PERRL, EOMI Ears/Nose/Throat Ears/Nose/Throat Airway patent MS Neck Neck Supple, No meningismus Resp/Chest Respiratory/Chest Breath sounds NL, Breath soun ds = bilat, No respiratory distress, No rales, No rhonchi, No wheezing, No retractions Cardiovascular Cardiovascular Heart rate NL, Regular rhythm, H eart sounds NL, No gallop, No murmurs, No rubs MS Back Back No CVA tenderness Neurologic Neurologic Oriented X3, Speech NL, No m otor deficits, No sensory deficits, CN II - XII intact, Cerebellar NL, Memory NL Psychiatric Psychiatric Affect NL, Mood NL Portions of this section were scribed by Ginna Peguero on 03/21/19 at 1914 Interpretation Diagnostics Lab Results Interpretation Results Re-Evaluation MDM ED Course Medication(s) Ordered Portions of this section were scribed by Ginna Peguero on 03/21/19 at 1914 Patient Discharge Departure Vital Signs/Condition Vital Signs Supervising Physician Note Scribe Statement Lorie Peguero, 03/21/191915, scribing for and in the presence of Dr. Lepe. Signed By: Lorie Peguero, 03/21/191915 Provider Scribed Statement The PA/PARTS LISTER's history was reviewed. The patient wa s interviewed and examined by me. I agree with the assessment and care plan, and confirm the diagnosis(es) above. Exception of: Nothing [x] Portions of this note were t ranscribed by a Scribe. I, personally performed the history, physical exam and medical decis ion making; and confirmed the accuracy of the information in the transcribed note. I personally performed the s ervices described in this documentation and reviewed the documentation that was dictated to the scrib e(s) in my presence, and it accurately records my words and actions. Joann Lepe, 03/22/19 Portions of this section were scribed by Ginna Peguero on 03/21/19 at 1914 Portions of this section were scribed by Se cecilia Cherry on 03/21/19 at 2132 Racheal Silverio 03/21/192115: Past Medical History - Adult Home Medications Reported Medications FLUoxetine (PROzac) 20 MG PO DAILY hydrOXYzine HCL (ATARAX) 50 MG PO QID PRN PRN AN XIETY [TORADOL] [TYLENOL] ONDANSETRON (ZOFRAN) 4 MG PO Q6H PRN PRN NAUSEA Discontinued Reported Medications clonazePAM (KlonoPIN) 0.5 MG PO TID traMADol (ULTRAM) 50 MG PO Q6H ONDANSETRON (ZOFRAN) 4 MG PO Q8H DIVALPROEX DR (DEPAKOTE DR) 500 MG PO BID Portions of this section were scribed by Se cecilia Cherry on 03/21/19 at 2115 Physical Exam Vital Signs Vital Signs First Documented: Result Date Time Pulse Ox 100 03/21 1922 B/P 133/81 03/21 1922 B/P Mean 98 03/21 1922 O2 Delivery Room air 03/21 1922 Temp 36.7 03/21 1922 Pulse 77 03/21 1922 Resp 17 03/21 1922 Last Documented: Result Date Time Pulse Ox 99 03/21 2133 B/P 124/57 03/21 2133 B/P Mean 79 03/21 2133 Pulse 65 03/21 2133 Resp 16 03/21 2133 O2 Delivery Room air 03/21 1922 Temp 36.7 03/21 1922 Portions of this section were scribed by Se cecilia Cherry on 03/21/19 at 2132 Interpretation Diagnostics Lab Results Interpretation Results Laboratory Tests 03/21/19 2015: [Embedded Image Not Available] Laboratory Tests: 03/21 Chemistry Sodium (134 - 147 mEq/L) 140 Potassium (3.4 - 5.0 mEq/L) 3.9 Chloride (100 - 108 mEq/L) 107 Carbon Dioxide (21 - 33 mEq/L) 28 Anion Gap (0 - 20) 9 BUN (7 - 18 mg/dL) 8 Creatinine (0.6 - 1.3 mg/dL) 0.9 Glomerular Filtr Rate (105 - 110) 98.4 L Glucose (70 - 110 mg/dL) 104 Calcium (8.0 - 10.5 mg/dL) 8.9 Hematology WBC (4.5 - 11.0 x10 3/uL) 9.61 RBC (4.00 - 5.60 x10 6/uL) 4.53 Hgb (12.5 - 16.9 g/dL) 13.3 Hct (37.5 - 50.7 %) 40.8 MCV (81.0 - 99.0 fL) 90.1 MCH (27.0 - 33.0 pg) 29.4 MCHC (33.0 - 37.0 g/dL) 32.6 L RDW (11.5 - 14.5 %) 12.8 Plt Count (150 - 400 x10 3/uL) 323 MPV (7.0 - 9.0 fL) 8.7 Neut % (Auto) (56.0 - 77.0 %) 55.6 L Lymph % (Auto) (14.0 - 32.0 %) 31.8 Jasper % (Auto) (4.8 - 9.0 %) 10.9 H Eos % (Auto) (0.3 - 3.7 %) 0.7 Baso % (Auto) (0.0 - 2.0 %) 0.6 Neut # (Auto) (2.0 - 7.6 x10 3/uL) 5.33 Lymph # (Auto) (1.0 - 3.8 x10 3/uL) 3.06 Jasper # (Auto) (0.1 - 0.8 x10 3/uL) 1.05 H Eos # (Auto) (0.0 - 0.2 x10 3/uL) 0.07 Baso # (Auto) (0.0 - 0.2 x10 3/uL) 0.06 Abs Immat Gran (auto) (0.00 - 0.03 x10 3/uL) 0. 04 H Add Manual Diff NO Immature Gran % (0.0 - 2.0 %) 0.4 Nucleated RBC % (0 - 0 %) 0.0 Nucleated RBCs # (Man) (0.0 - 0.1 x10 3/uL) 0.0 0 Urines Urine Color (YEL/STRAW) STRAW Urine Appearance (CLEAR) CLEAR Urine pH (5.0 - 7.0) 8.0 H Ur Specific [place] (1.005 - 1.030) 1.004 L Urine Protein (NEGATIVE) NEGATIVE Urine Glucose (UA) (NEGATIVE) NEGATIVE Urine Ketones (NEGATIVE) NEGATIVE Urine Blood (NEGATIVE) 2+ H Urine Nitrite (NEGATIVE) NEGATIVE Urine Bilirubin (NEGATIVE) NEGATIVE Urine Urobilinogen (0.2 - 1.0 mg/dL) 0.2 Ur Leukocyte Esterase (NEGATIVE) NEGATIVE Urine RBC (0 - 3 RBC/HPF) 21-50 Urine WBC (0 - 3 WBC/HPF) 0-3 Ur Squamous Epith Cells (NONE SEEN /HPF) 0-5 Urine Bacteria (NONE SEEN /HPF) TRACE Urine Mucus (NONE SEEN /LPF) TRACE Recent Impressions: CAT SCAN - CT ABD PELVIS W/O CONT 03/21 2000 Report Impression - Status: SIGNED Entered: 03/21/20192024 IMPRESSION: 1. Stable minimal bilateral nonobstructing nephr olithiasis. Otherwise, negative SL: JH-H Impression By: Maite - Alix Armas M.D. Lab Imaging Statement Laboratory radiographic studies reviewed and con sidered in the medical decision-making. Point of Care Testing Pulse Oximetry Pulse Ox % 100 On: Room air Interpretation Interpreted by me, Pulse oximetr y normal Time [address] Abdomen/Pelvis Text/Dict Note IMPRESSION: 1. Stable minimal bilateral nonobstructing nephr olithiasis. Otherwise, negative Interpretation/Wet Read by Interpret - Radiolog ist Reviewed by ED PARTS LISTER Portions of this section were scribed by Se cecilia Cherry on 03/21/19 at 2132 Re-Evaluation MDM Free Text MDM Notes Free Text MDM Notes Took pver pt care from Dr. Lepe pending CT and re-eval. Labs are unremarkable. Pt is familiar to me as I have seen him for millie lar sx in the past. CT is negative for acute findings noting minimal BL no nobstructing nephrolithiasis. Discussed results with pt and advised he needs to follow-up with urology. Pt's dad at bedside and is reques ting more pain medication for the pt. Pt reports he usually gets Hydrocodone or dilaudid- I advised he will be getting neither. Reviewed [place] ENTERTAINMENT MANAGER aware and there is only one cont rolled med in the past year- added tramadol to his pain meds and stressed marquis t he establish care with a urologist- referral provided. Pt reports that he just got a job and will hopfully be able to get insurance soon. Re-Evaluation/Progress Re-Evaluation/Progress Text/Dict Note He reports his pain is unchanged. Will order PO pain meds prior to to D/C. Discussed results/diagnosis with pt, plan to D/C home and have f/u with urology, Dr. Murray. Provided reason s to return to the ED. Pt agrees with plan. Reviewed pt's [place] ENTERTAINMENT MANAGER aware and he only had a Rx for 1 controlled substance in the past year. Time of Re-Eval 2113 ED Course Medication(s) Ordered Medication(s) Ordered: Central Nervous System Agents Sig/Linda Start time Last Medication Dose Route Stop Time Status Admin Hydrocodone Bitart/ 1 TAB X1ED STA 03/21 2128 D C 03/21 Acetaminophen PO 03/21 Ketorolac 30 MG X1ED STA 03/21 1907 DC 03/21 Tromethamine IV 03/21 Portions of this section were scribed by Se cecilia Cherry on 03/21/19 at 2131 Patient Discharge Departure Vital Signs/Condition Vital Signs First Documented: Result Date Time Pulse Ox 100 03/21 1922 B/P 133/81 03/21 1922 B/P Mean 98 03/21 1922 O2 Delivery Room air 03/21 1922 Temp 36.7 03/21 1922 Pulse 77 03/21 1922 Resp 17 03/21 1922 Last Documented: Result Date Time Pulse Ox 99 03/21 2133 B/P 124/57 03/21 2133 B/P Mean 79 03/21 2133 Pulse 65 03/21 2133 Resp 16 03/21 2133 O2 Delivery Room air 03/21 1922 Temp 36.7 03/21 1922 All vital signs available at the time of this en try have been reviewed. Condition Stable Clinical Impression Clinical Impression Primary Impression: Flank pain Disposition Decision Discharge )( Discharged to Home Yes )( Time 2116 )( Date 03/21/19 Discharge/Care Plan Counseled Regarding Diagnosi s, Lab results, Imaging studies, Need for follow-up, When to return to ED Prescriptions toradol, zofran, tramadol Supervising Physician Note Scribe Statement True Cherry, 03/21/192116, s cribing for and in the presence of Racheal Silverio PARTS LISTER. Signed By: True Cherry, 03/21/192116 Provider Scribed Statement I personally performed the s ervices described in this documentation and reviewed the documentation that was dictated to the scrib e(s) in my presence, and it accurately records my words and actions. Alfonso Silverio, 03/21/19 Portions of this section were scribed by Se cecilia Cherry on 03/21/19 at 2132 Electronically Signed by Racheal Silverio PARTS LISTER on 02/25 03/14 at 2309 Electronically Signed by Omer Lepe DO on 03/22 at 0853 RPT #:[id number] END OF REPORT 2019-02-11 21:26:00-00:00 [facility] PROVID[facility] REPORT REPORT#:[id number] REPORT STATUS: Signed DATE:02/11/19 TIME: 2125 PATIENT: RO BROTHERS UNIT #: [id number] ROOM/BED: AGE: 33 SEX: M PCP PHYS: No Primary or Family Ph ysician SERVICE AUTHOR: Ro Roldan MD * ALL edits or amendments must be made on the [employer] Scientific document * HPI-Abd Pain M Under 40 General Confirmed Patient Yes Initial Greet Date/Time 02/11/192108 PCP No PCP Presentation Chief Complaint Abdominal pain (LLQ) Hx Obtained From Patient, Family () Sudden in Onset? No Onset Occurred One week ago Symptom Duration Since onset Progression since Onset Unchanged Location LLQ, Flank left Quality Painful Radiation Flank L. Migration/Movement None Associated with Reports: Vomiting. Free Text HPI Notes Free Text HPI Notes 33 yo M w/ PMHx of bipolar disorder, epi lepsy, and anxiety c/o LLQ abd pain w/ radiation to L flank onset 1 week ago. Pt states he visited ED approx 1 week ago w/ dx of kidney stones and prescribed zofran and toradol. He states the prescriptions did not resolve sxs, but that hydr ocodone resolved the sxs. Records from previous ED vis its show negative CT scans and nml blood work. He c/ o abd pain, L flank pain, and vomiting. No other assoc sxs. Pt admits to occasional smoking and marijuana use. Portions of this section were scribed by Terri Michelle on 02/11/19 at 2150 Risk-Abd Pain M Under 40 )( Torsion Risk factors reviewed Portions of this section were scribed by Terri Michelle on 02/11/19 at 2125 Review of Systems ROS Statements All systems rev neg except as marked. Focused Review of Systems GI Reports: Abdominal pain (LLQ), Vomiting. Male Reports: Flank pain (L). Portions of this section were scribed by Terri Michelle on 02/11/19 at 2125 Past Medical History - Adult Stated Complaint LT SIDE PAIN/KIDNEY STONES/STAR CORY A WK Allergies Coded Allergies: aspirin (Severe, HIVES 02/05/19) Home Medications Reported Medications clonazePAM (KlonoPIN) 0.5 MG PO TID traMADol (ULTRAM) 50 MG PO Q6H ONDANSETRON (ZOFRAN) 4 MG PO Q8H DIVALPROEX DR (DEPAKOTE DR) 500 MG PO BID Past Medical History: Reports: Depression/mood disorder (Bipolar), Sei zure disorder (epilepsy). Additional Medical History denies Past Surgical History: Reports: Tonsillectomy. Additional Surgical History denies Drug Use Marijuana Additional Social History at bedside Portions of this section were scribed by Terri Michelle on 02/11/19 at 2125 Physical Exam Vital Signs Vital Signs First Documented: Result Date Time Pulse Ox 93 02/12 2120 B/P 117/74 02/12 2120 B/P Mean 88 02/12 2120 O2 Delivery Room air 02/12 2120 Temp 36.7 02/12 2120 Pulse 91 02/12 2120 Resp 16 02/12 2120 Last Documented: Result Date Time Pulse Ox 93 02/12 2120 B/P 117/74 02/12 2120 B/P Mean 88 02/12 2120 O2 Delivery Room air 02/12 2120 Temp 36.7 02/12 2120 Pulse 91 02/12 2120 Resp 16 02/12 2120 Review of Vital Signs Reviewed Focused PE General/Const General/Const Alert, No acute distress, Cooper[place] tive MS Head Head Atraumatic, Normocephalic Eyes Eyes EOMI Ears/Nose/Throat Ears/Nose/Throat Mucous membranes moist, Pharyn x NL Resp/Chest Respiratory/Chest Breath sounds = bilat, No res piratory distress Text/Dict Notes Nml respiratory rate Cardiovascular Cardiovascular Heart rate NL, Regular rhythm, H eart sounds NL, Peripheral circulation NL Abdomen/GI Abdomen/GI Soft, Non-tender, No guarding, No re bound, BS normoactive, No distention MS Back Back No CVA tenderness Skin Skin Color NL, Warm, Dry, Intact Neurologic Neurologic Oriented X3, Speech NL, CN II - XII intact Additional PE MS Neck Neck Atraumatic, Supple MS Lower Extrem Lower Ext/Pelvis/MS Full range of motion, Neuro logic intact Psychiatric Psychiatric Affect NL, Not suicidal, Not homici alison, No hallucinations Abnormal Mood/Affect Anxious. Portions of this section were scribed by Terri Michelle on 02/11/19 at 215 Interpretation Diagnostics Point of Care Testing Pulse Oximetry Pulse Ox % 93 On: Room air Interpretation Interpreted by me, Pulse oximetr y normal Time 2119 Portions of this section were scribed by Terri Michelle on 02/11/19 at 2133 Re-Evaluation MDM Free Text MDM Notes Free Text MDM Notes Discussed diagnosis and pres criptions w/ pt. Counseled pt to refrain from taking hydrocodone for sxs. Plan to D/C home and f/u w/ PCP. Provided reasons to return to the ED. Pt agrees w/ plan. )( Re-Evaluation/Progress #1 )( Re-Eval Status Resolved ED Course Medication(s) Ordered Medication(s) Ordered: Central Nervous System Agents Sig/Linda Start time Last Medication Dose Route Stop Time Status Admin Ibuprofen 600 MG X1ED STA 02/11 2133 DC 02/11 PO 02/11 Lorazepam 1 MG X1ED STA 02/11 2133 DC 02/11 PO 02/11 Gastrointestinal Drugs Sig/Linda Start time Last Medication Dose Route Stop Time Status Admin Metoclopramide HCl 10 MG X1ED STA 02/11 2133 DC 02/11 PO 02/11 Portions of this section were scribed by Terri Michelle on 02/11/19 at 2150 Patient Discharge Departure Vital Signs/Condition Vital Signs First Documented: Result Date Time Pulse Ox 93 02/12 2120 B/P 117/74 02/12 2120 B/P Mean 88 02/12 2120 O2 Delivery Room air 02/12 2120 Temp 36.7 02/12 2120 Pulse 91 02/12 2120 Resp 16 02/12 2120 Last Documented: Result Date Time Pulse Ox 93 02/12 2120 B/P 117/74 02/12 2120 B/P Mean 88 02/12 2120 O2 Delivery Room air 02/12 2120 Temp 36.7 02/12 2120 Pulse 91 02/12 2120 Resp 02/11 All vital signs available at the time of this en try have been reviewed. Condition Stable Clinical Impression Clinical Impression Primary Impression: Back pain Secondary Impressions: Vomiting Disposition Decision Discharge )( Discharged to Home Yes )( Time 2125 )( Date 02/11/19 Discharge/Care Plan Counseled Regarding Diagnosi s, Prescriptions, Need for follow-up, When to return to ED Prescriptions Phenskylar, regkiko, and juan Supervising Physician Note Scribe Statement Rufus Michelle, 02/11/192125, scribing for and in the presence of [Ro Roldan MD]. Signed By: Rufus Michelle, 02/11/192125 Provider Scribed Statement I personally performed the s ervices described in this documentation and reviewed the documentation that was dictated to the scrib e(s) in my presence, and it accurately records my words and actions. Ro Gusman, 02/13/19 Portions of this section were scribed by Terri Michelle on 02/11/19 at 2126 at 0035 [facility] #:[id number] END OF REPORT 2019-02-05 08:10:00-00:00 [facility] ([facility]) EMERGENCY PROVIDER REPORT REPORT#:[id number] REPORT STATUS: Signed DATE:02/05/19 TIME: 809 PATIENT: RO BROTHERS JR UNIT #: [id number] ROOM/BED: AGE: 33 SEX: M PCP PHYS: No Primary or Family Ph ysician SERVICE AUTHOR: Katie Samayoa * ALL edits or amendments must be made on the [employer]/computer document * HPI-Nausea/Vomit/Diarrhea General Confirmed Patient Yes Date/Time Seen by Provider 02/05/19 0802 PCP None Presentation Chief Complaint Vomiting, Abd pain, constant Hx Obtained From Patient Onset Occurred Days ago (2) Symptom Duration Constant Progression since Onset Constant Context of Onset No sick contacts Vomiting Vomiting clear Location Diffuse Quality Painful Radiation No: Does not radiate. Severity: Onset Mild Severity: Current Mild Associated Other Pt denies other symptoms Exacerbated by Nothing Relieved by Nothing Free Text HPI Notes Free Text HPI Notes 33 y/o M presents to ED w/ v omiting onset occurring 2 days ago. Pt reports assoc sxs of diffuse abd soreness and states he is kishore ble to tolerate liquids. He admits he was evaluated in the ED 2 days ago and was d/c home w/ Bentyl and Zofran. He denies sxs of fever or diarrhea. He d enies f/u w/ GI due to no insurance. Portions of this section iker myles scribed by David Manjarrez on 02/05/19 at 0917 Review of Systems ROS Statements All systems rev neg except as marked. Focused Review of Systems Constitutional Denies: Chills, Fever. GI Reports: Abdominal pain, Vomiting. Denies: Diarr hea. Portions of this section iker myles scribed by David Manjarrez on 02/05/19 at 0810 Past Medical History - Adult Stated Complaint VOMITING W/ ABD PAIN Allergies Coded Allergies: aspirin (Severe, HIVES 02/05/19) Home Medications Reported Medications clonazePAM (KlonoPIN) 0.5 MG PO TID traMADol (ULTRAM) 50 MG PO Q6H ONDANSETRON (ZOFRAN) 4 MG PO Q8H DIVALPROEX DR (DEPAKOTE DR) 500 MG PO BID Review of Nursing Notes Rev avail, and agree Past Medical History: Reports: Depression/mood disorder (Bipolar), Sei zure disorder (epilepsy). Additional Medical History denies Past Surgical History: Reports: Tonsillectomy. Additional Surgical History denies Drug Use Marijuana Smoking status for patients 13 years old or olde r: Never Smoker Portions of this section iker myles scribed by David Manjarrez on 02/05/19 at 0810 Physical Exam Vital Signs Vital Signs First Documented: Result Date Time Pulse Ox 99 02/06 804 B/P 148/88 02/06 804 B/P Mean 108 02/05 08 O2 Delivery Room air 02/06 804 Temp 36.7 02/05 08 Pulse 78 02/05 0804 Resp 17 02/05 0804 Last Documented: Result Date Time Pulse Ox 98 02/05 941 B/P 145/94 02/05 941 B/P Mean 111 02/05 941 O2 Delivery Room air 02/05 941 Temp 37.1 02/05 941 Pulse 72 02/05 941 Resp 17 02/05 0941 Review of Vital Signs Reviewed Focused PE General/Const General/Const Awake, Alert, No acute distress, Cooperative Eyes Eyes PERRL, EOMI Ears/Nose/Throat Ears/Nose/Throat Airway patent, Mucous membrane s moist, Pharynx NL Resp/Chest Respiratory/Chest Breath sounds NL, Breath soun ds = bilat, No respiratory distress, No rales, No rhonchi, No wheezing, No retractions Cardiovascular Cardiovascular Heart rate NL, Regular rhythm, H eart sounds NL Abdomen/GI Abdomen/GI Soft, No guarding, No rebound, BS no rmoactive, No distention Text/Dict Notes Abdomen soft, non-distended with normal bowel so unds; pt reports abdominal soreness, no point or locali zed tenderness on palpation. no rebound no guarding Tenderness/Guarding/Rebound Tender diffuse. Bowel Sounds/Distention Bowel sounds hyperactive. MS Back Back Inspection NL, No CVA tenderness Skin Skin Color NL, No rash, Warm, Dry, Intact Neurologic Neurologic Oriented X3, Speech NL, No m otor deficits, No sensory deficits, CN II - XII intact Additional PE MS Head Head Atraumatic, Normocephalic Portions of this section iker myles scribed by David Manjarrez on 02/05/19 at 0917 Interpretation Diagnostics Lab Results Interpretation Results Laboratory Tests 02/05/19 0800: [Embedded Image Not Available] Laboratory Tests: 02/05 02/05 0834 0800 Chemistry Sodium (134 - 147 mEq/L) 140 Potassium (3.4 - 5.0 mEq/L) 4.4 Chloride (100 - 108 mEq/L) 107 Carbon Dioxide (21 - 33 mEq/L) 27 Anion Gap (0 - 20) 10 BUN (7 - 18 mg/dL) 12 Creatinine (0.6 - 1.3 mg/dL) 1.1 Glomerular Filtr Rate (105 - 110) 78.1 L Glucose (70 - 110 mg/dL) 99 Calcium (8.0 - 10.5 mg/dL) 8.9 Total Bilirubin (0.0 - 1.0 mg/dL) 0.40 AST (15 - 37 IUnit/L) 15 ALT (15 - 65 IUnit/L) 18 Total Alk Phosphatase (20 - 125 IUnit/L) 88 Total Protein (6.4 - 8.2 g/dL) 7.9 Albumin (3.4 - 5.0 g/dL) 4.30 Lipase (73 - 393 IUnit/L) 76 Hematology WBC (4.5 - 11.0 x10 3/uL) 7.38 RBC (4.00 - 5.60 x10 6/uL) 5.41 Hgb (12.5 - 16.9 g/dL) 16.0 Hct (37.5 - 50.7 %) 48.3 MCV (81.0 - 99.0 fL) 89.3 MCH (27.0 - 33.0 pg) 29.6 MCHC (33.0 - 37.0 g/dL) 33.1 RDW (11.5 - 14.5 %) 13.1 Plt Count (150 - 400 x10 3/uL) 367 MPV (7.0 - 9.0 fL) 8.4 Neut % (Auto) (56.0 - 77.0 %) 70.2 Lymph % (Auto) (14.0 - 32.0 %) 21.0 Jasper % (Auto) (4.8 - 9.0 %) 7.6 Eos % (Auto) (0.3 - 3.7 %) 0.1 L Baso % (Auto) (0.0 - 2.0 %) 0.8 Neut # (Auto) (2.0 - 7.6 x10 3/uL) 5.18 Lymph # (Auto) (1.0 - 3.8 x10 3/uL) 1.55 Jasper # (Auto) (0.1 - 0.8 x10 3/uL) 0.56 Eos # (Auto) (0.0 - 0.2 x10 3/uL) 0.01 Baso # (Auto) (0.0 - 0.2 x10 3/uL) 0.06 Abs Immat Gran (auto) (0.00 - 0.03 x10 3/uL) 0. 02 Add Manual Diff NO Immature Gran % (0.0 - 2.0 %) 0.3 Nucleated RBC % (0 - 0 %) 0.0 Nucleated RBCs # (Man) (0.0 - 0.1 x10 3/uL) 0.0 0 Urines Urine Color (YEL/STRAW) YELLOW Urine Appearance (CLEAR) CLOUDY H Urine pH (5.0 - 7.0) 7.0 Ur Specific [place] (1.005 - 1.030) 1.025 Urine Protein (NEGATIVE) 1+ H Urine Glucose (UA) (NEGATIVE) NEGATIVE Urine Ketones (NEGATIVE) 1+ H Urine Blood (NEGATIVE) NEGATIVE Urine Nitrite (NEGATIVE) NEGATIVE Urine Bilirubin (NEGATIVE) NEGATIVE Urine Urobilinogen (0.2 - 1.0 mg/dL) 0.2 Ur Leukocyte Esterase (NEGATIVE) NEGATIVE Urine RBC (0 - 3 RBC/HPF) 0-3 Urine WBC (0 - 3 WBC/HPF) 0-3 Ur Squamous Epith Cells (NONE SEEN /HPF) NONE S EEN Urine Bacteria (NONE SEEN /HPF) TRACE Urine Mucus (NONE SEEN /LPF) 1+ Lab Statement Laboratory studies reviewed and considered in mather hospital medical decision-making. Point of Care Testing Pulse Oximetry Pulse Ox % 99 On: Room air Interpretation Interpreted by me, Pulse oximetr y normal Time 0804 Portions of this section wer e scribed by David Manjarrez on 02/05/19 at 0917 Re-Evaluation MDM Free Text MDM Notes Free Text MDM Notes Discussed lab results-counselled to follow up two [facility] for further evaluation- given information for [facility] clinic, as pt reports has no resources will discharge-improved, tolerating po fluids Re-Evaluation/Progress #1 Text/Dict Note Pt is resting comfortably in NAD. Discussed resu lts and plan to d/c home. Time of Re-Eval 917 Re-Eval Status Improved ED Course Medication(s) Ordered Medication(s) Ordered: Electrolytic, Caloric, And Harry Sig/Linda Start time Last Medication Dose Route Stop Time Status Admin Sodium Chloride 1,000 ML X1ED STA 02/05 0811 DC / IV 02/05 0910 0821 Gastrointestinal Drugs Sig/Linda Start time Last Medication Dose Route Stop Time Status Admin Famotidine 20 MG X1ED STA 02/05 0811 DC 05/ IV 02/05 0812 0820 Ondansetron HCl 4 MG X1ED STA 02/05 0811 DC 05/ IV 02/05 0812 0820 Portions of this section wer e scribed by David Manjarrez on 02/05/19 at 0917 Patient Discharge Departure Vital Signs/Condition Vital Signs First Documented: Result Date Time Pulse Ox 99 02/05 0804 B/P 148/88 02/05 0804 B/P Mean 108 02/05 0804 O2 Delivery Room air 02/05 0804 Temp 36.7 02/05 0804 Pulse 78 / 0804 Resp 17 02/05 0804 Last Documented: Result Date Time Pulse Ox 98 02/05 0941 B/P 145/94 / 0941 B/P Mean 111 02/05 0941 O2 Delivery Room air 02/05 0941 Temp 37.1 02/05 0941 Pulse 72 / 0941 Resp 17 02/05 0941 All vital signs available at the time of this en try have been reviewed. Condition Stable Clinical Impression Clinical Impression Primary Impression: Vomiting Disposition Decision Discharge )( Discharged to Home Yes )( Time 0917 )( Date 02/05/19 Discharge/Care Plan Counseled Regarding Diagnosis, Lab resul ts, Prescriptions, Need for follow-up, When to return to ED Prescriptions Zofran Quality Measures Smoking Cessation Screened, non user Supervising Physician Note Scribe Statement David Manjarrez, 02/05/19811, scrib ing for and in the presence of [Katie Samayoa NP]. Signed By: David Manjarrez, 02/05/19811 Provider Scribed Statement I personally performed the s ervices described in this documentation and reviewed the documentation that was dictated to the scrib e(s) in my presence, and it accurately records my words and actions. Collin Samayoa, 02/05/19 Portions of this section iker myles scribed by David Manjarrez on 02/05/19 at 0917 Electronically Signed by Katie Samayoa on 0 02/05/19 at 0950 RPT #:[id number] END OF REPORT 2019-02-05 08:10:00-00:00 [facility] ([facility]) EMERGENCY PROVIDER REPORT REPORT#:[id number] REPORT STATUS: Signed DATE:02/05/19 TIME: 809 PATIENT: RO BROTHERS JR UNIT #: [id number] ROOM/BED: AGE: 33 SEX: M PCP PHYS: No Primary or Family Ph ysician SERVICE AUTHOR: Katie Samayoa * ALL edits or amendments must be made on the [employer]/computer document * Katie Samayoa. 02/05/19 0810: HPI-Nausea/Vomit/Diarrhea General Confirmed Patient Yes PCP None Presentation Chief Complaint Vomiting, Abd pain, constant Hx Obtained From Patient Onset Occurred Days ago (2) Symptom Duration Constant Progression since Onset Constant Context of Onset No sick contacts Vomiting Vomiting clear Location Diffuse Quality Painful Radiation No: Does not radiate. Severity: Onset Mild Severity: Current Mild Associated Other Pt denies other symptoms Exacerbated by Nothing Relieved by Nothing Free Text HPI Notes Free Text HPI Notes 33 y/o M presents to ED w/ v omiting onset occurring 2 days ago. Pt reports assoc sxs of diffuse abd soreness and states he is kishore ble to tolerate liquids. He admits he was evaluated in the ED 2 days ago and was d/c home w/ Bentyl and Zofran. He denies sxs of fever or diarrhea. He d enies f/u w/ GI due to no insurance. Portions of this section iker myles scribed by David Manjarrez on 02/05/19 at 0917 Review of Systems ROS Statements All systems rev neg except as marked. Focused Review of Systems Constitutional Denies: Chills, Fever. GI Reports: Abdominal pain, Vomiting. Denies: Diarr hea. Portions of this section wer e scribed by David Manjarrez on 02/05/19 at 0810 Past Medical History - Adult Stated Complaint VOMITING W/ ABD PAIN Allergies Coded Allergies: aspirin (Severe, HIVES 02/05/19) Home Medications Reported Medications clonazePAM (KlonoPIN) 0.5 MG PO TID traMADol (ULTRAM) 50 MG PO Q6H ONDANSETRON (ZOFRAN) 4 MG PO Q8H DIVALPROEX DR (DEPAKOTE DR) 500 MG PO BID Review of Nursing Notes Rev avail, and agree Past Medical History: Reports: Depression/mood disorder (Bipolar), Sei zure disorder (epilepsy). Additional Medical History denies Past Surgical History: Reports: Tonsillectomy. Additional Surgical History denies Drug Use Marijuana Smoking status for patients 13 years old or olde r: Never Smoker Portions of this section wer e scribed by David Manjarrez on 02/05/19 at 0810 Physical Exam Vital Signs Vital Signs First Documented: Result Date Time Pulse Ox 99 02/05 0804 B/P 148/88 02/05 0804 B/P Mean 108 02/05 0804 O2 Delivery Room air 02/05 0804 Temp 36.7 02/05 0804 Pulse 78 02/05 0804 Resp 17 02/05 0804 Last Documented: Result Date Time Pulse Ox 98 02/05 0941 B/P 145/94 02/05 0941 B/P Mean 111 02/05 0941 O2 Delivery Room air 02/05 941 Temp 37.1 02/05 0941 Pulse 72 02/05 0941 Resp 17 02/05 0941 Review of Vital Signs Reviewed Focused PE General/Const General/Const Awake, Alert, No acute distress, Cooperative Eyes Eyes PERRL, EOMI Ears/Nose/Throat Ears/Nose/Throat Airway patent, Mucous membrane s moist, Pharynx NL Resp/Chest Respiratory/Chest Breath sounds NL, Breath soun ds = bilat, No respiratory distress, No rales, No rhonchi, No wheezing, No retractions Cardiovascular Cardiovascular Heart rate NL, Regular rhythm, H eart sounds NL Abdomen/GI Abdomen/GI Soft, No guarding, No rebound, BS no rmoactive, No distention Text/Dict Notes Abdomen soft, non-distended with normal bowel so unds; pt reports abdominal soreness, no point or locali zed tenderness on palpation. no rebound no guarding Tenderness/Guarding/Rebound Tender diffuse. Bowel Sounds/Distention Bowel sounds hyperactive. MS Back Back Inspection NL, No CVA tenderness Skin Skin Color NL, No rash, Warm, Dry, Intact Neurologic Neurologic Oriented X3, Speech NL, No m otor deficits, No sensory deficits, CN II - XII intact Additional PE MS Head Head Atraumatic, Normocephalic Portions of this section wer e scribed by David Manjarrez on 02/05/19 at 0917 Interpretation Diagnostics Lab Results Interpretation Results Laboratory Tests 02/05/19 0800: [Embedded Image Not Available] Laboratory Tests: 02/05 02/05 0834 0800 Chemistry Sodium (134 - 147 mEq/L) 140 Potassium (3.4 - 5.0 mEq/L) 4.4 Chloride (100 - 108 mEq/L) 107 Carbon Dioxide (21 - 33 mEq/L) 27 Anion Gap (0 - 20) 10 BUN (7 - 18 mg/dL) 12 Creatinine (0.6 - 1.3 mg/dL) 1.1 Glomerular Filtr Rate (105 - 110) 78.1 L Glucose (70 - 110 mg/dL) 99 Calcium (8.0 - 10.5 mg/dL) 8.9 Total Bilirubin (0.0 - 1.0 mg/dL) 0.40 AST (15 - 37 IUnit/L) 15 ALT (15 - 65 IUnit/L) 18 Total Alk Phosphatase (20 - 125 IUnit/L) 88 Total Protein (6.4 - 8.2 g/dL) 7.9 Albumin (3.4 - 5.0 g/dL) 4.30 Lipase (73 - 393 IUnit/L) 76 Hematology WBC (4.5 - 11.0 x10 3/uL) 7.38 RBC (4.00 - 5.60 x10 6/uL) 5.41 Hgb (12.5 - 16.9 g/dL) 16.0 Hct (37.5 - 50.7 %) 48.3 MCV (81.0 - 99.0 fL) 89.3 MCH (27.0 - 33.0 pg) 29.6 MCHC (33.0 - 37.0 g/dL) 33.1 RDW (11.5 - 14.5 %) 13.1 Plt Count (150 - 400 x10 3/uL) 367 MPV (7.0 - 9.0 fL) 8.4 Neut % (Auto) (56.0 - 77.0 %) 70.2 Lymph % (Auto) (14.0 - 32.0 %) 21.0 Jasper % (Auto) (4.8 - 9.0 %) 7.6 Eos % (Auto) (0.3 - 3.7 %) 0.1 L Baso % (Auto) (0.0 - 2.0 %) 0.8 Neut # (Auto) (2.0 - 7.6 x10 3/uL) 5.18 Lymph # (Auto) (1.0 - 3.8 x10 3/uL) 1.55 Jasper # (Auto) (0.1 - 0.8 x10 3/uL) 0.56 Eos # (Auto) (0.0 - 0.2 x10 3/uL) 0.01 Baso # (Auto) (0.0 - 0.2 x10 3/uL) 0.06 Abs Immat Gran (auto) (0.00 - 0.03 x10 3/uL) 0. 02 Add Manual Diff NO Immature Gran % (0.0 - 2.0 %) 0.3 Nucleated RBC % (0 - 0 %) 0.0 Nucleated RBCs # (Man) (0.0 - 0.1 x10 3/uL) 0.0 0 Urines Urine Color (YEL/STRAW) YELLOW Urine Appearance (CLEAR) CLOUDY H Urine pH (5.0 - 7.0) 7.0 Ur Specific [place] (1.005 - 1.030) 1.025 Urine Protein (NEGATIVE) 1+ H Urine Glucose (UA) (NEGATIVE) NEGATIVE Urine Ketones (NEGATIVE) 1+ H Urine Blood (NEGATIVE) NEGATIVE Urine Nitrite (NEGATIVE) NEGATIVE Urine Bilirubin (NEGATIVE) NEGATIVE Urine Urobilinogen (0.2 - 1.0 mg/dL) 0.2 Ur Leukocyte Esterase (NEGATIVE) NEGATIVE Urine RBC (0 - 3 RBC/HPF) 0-3 Urine WBC (0 - 3 WBC/HPF) 0-3 Ur Squamous Epith Cells (NONE SEEN /HPF) NONE S EEN Urine Bacteria (NONE SEEN /HPF) TRACE Urine Mucus (NONE SEEN /LPF) 1+ Lab Statement Laboratory studies reviewed and considered in th e medical decision-making. Point of Care Testing Pulse Oximetry Pulse Ox % 99 On: Room air Interpretation Interpreted by me, Pulse oximetr y normal Time 0804 Portions of this section iker myles scribed by David Manjarrez on 02/05/19 at 0917 Re-Evaluation MDM Free Text MDM Notes Free Text MDM Notes Discussed lab results-counselled to follow up wi GI for further evaluation- given information for [facility], as pt reports has no resources will discharge-improved, tolerating po fluids Re-Evaluation/Progress #1 Text/Dict Note Pt is resting comfortably in NAD. Discussed resu lts and plan to d/c home. Time of Re-Eval 0918 Re-Eval Status Improved ED Course Medication(s) Ordered Medication(s) Ordered: Electrolytic, Caloric, And Harry Sig/Linda Start time Last Medication Dose Route Stop Time Status Admin Sodium Chloride 1,000 ML X1ED STA 02/05 0811 DC 02/05 IV 02/05 0910 0821 Gastrointestinal Drugs Sig/Linda Start time Last Medication Dose Route Stop Time Status Admin Famotidine 20 MG X1ED STA 02/05 0811 DC 05/ IV 02/05 0812 0820 Ondansetron HCl 4 MG X1ED STA 02/05 0811 DC 05/ IV 02/05 0812 0820 Portions of this section iker myles scribed by David Manjarrez on 02/05/19 at 0917 Patient Discharge Departure Vital Signs/Condition Vital Signs First Documented: Result Date Time Pulse Ox 99 02/05 0804 B/P 148/88 02/05 0804 B/P Mean 108 02/05 0804 O2 Delivery Room air 02/05 0804 Temp 36.7 02/05 0804 Pulse 78 02/05 0804 Resp 17 02/05 0804 Last Documented: Result Date Time Pulse Ox 98 02/05 941 B/P 145/94 02/05 941 B/P Mean 111 02/05 941 O2 Delivery Room air 02/05 941 Temp 37.1 02/05 941 Pulse 72 02/05 941 Resp 17 02/05 941 All vital signs available at the time of this en try have been reviewed. Condition Stable Clinical Impression Clinical Impression Primary Impression: Vomiting Disposition Decision Discharge )( Discharged to Home Yes )( Time )( Date 02/05/19 Discharge/Care Plan Counseled Regarding Diagnosis, Lab resul ts, Prescriptions, Need for follow-up, When to return to ED Prescriptions Lee Annfrzafar Quality Measures Smoking Cessation Screened, non user Supervising Physician Note Scribe Statement David Manjarrez, 02/05/19 0812, scrib ing for and in the presence of [Katie Samayoa NP]. Signed By: David Manjarrez, 02/05/19 0812 Provider Scribed Statement I personally performed the s ervices described in this documentation and reviewed the documentation that was dictated to the scrib e(s) in my presence, and it accurately records my words and actions. Collin Samayoa, 02/05/19 Portions of this section wer e scribed by David Manjarrez on 02/05/19 at 0917 Masoud Valladares 02/06/19 0958: HPI-Nausea/Vomit/Diarrhea General Date/Time Seen by Provider 02/05/19 0802 Physical Exam Vital Signs Vital Signs Interpretation Diagnostics Lab Results Interpretation Results Patient Discharge Departure Vital Signs/Condition Vital Signs Supervising Physician Note MidLv Saw Pt Alone I have reviewed the PA/PARTS LISTER's note and plan of car e. I was available for consultation as needed at al l times during the patient's visit in the emergency department. I agree with the clinical impression , plan and disposition. Electronically Signed by Katie Samayoa on 0 02/05/19 at 0950 Electronically Signed by Masoud Valladares MD on at 0959 RPT #:[id number] END OF REPORT 2019-02-03 15:10:00-00:00 [facility] EMERGENCY PROVIDER REPORT REPORT#:[id number] REPORT STATUS: Signed DATE:02/03/19 TIME: 1509 PATIENT: RO BROTHERS JR UNIT #: [id number] ROOM/BED: AGE: 33 SEX: M PCP PHYS: No Primary or Family Ph ysician SERVICE AUTHOR: Racheal Silverio NP * ALL edits or amendments must be made on the [employer]/computer document * HPI-Nausea/Vomit/Diarrhea General Confirmed Patient Yes Date/Time Seen by Provider 02/03/19 [address] [facility] Presentation Chief Complaint Vomiting Hx Obtained From Patient Onset Occurred Yesterday Symptom Duration Since onset Vomiting Vomiting > 10 episodes Diarrhea Diarrhea 1-3 episodes Associated with Reports: Abdominal pain, Shaking chills. Free Text HPI Notes Free Text HPI Notes 33 y/o M with PMHx anxiety, depression and kidney stones presents to the with c/ o vomiting onset yesterday. Pt reports he vomite d x10-15 yesterday and has already had 6-7 episodes today with x1 episode o f diarrhea today. Pt endorses chills and hot sweats but has not measured his t emperature. He also reports intermitet LUQ abd pain radiating to L flank. Pt denies any sick contacts or recent travel. Review of Systems ROS Statements All systems rev neg except as marked. Focused Review of Systems Constitutional Reports: Chills. GI Reports: Abdominal pain, Diarrhea, Nausea, Vomit ing. Past Medical History - Adult Stated Complaint VOMITTING FOR 2 DAYS Allergies Coded Allergies: No Known Allergies (09/06/18) Home Medications Reported Medications clonazePAM (KlonoPIN) 0.5 MG PO TID traMADol (ULTRAM) 50 MG PO Q6H ONDANSETRON (ZOFRAN) 4 MG PO Q8H DIVALPROEX DR (DEPAKOTE DR) 500 MG PO BID Past Medical History: Reports: Depression/mood disorder (Bipolar), Sei zure disorder (epilepsy). Additional Medical History denies Past Surgical History: Reports: Tonsillectomy. Additional Surgical History denies Drug Use Marijuana Smoking status for patients 13 years old or olde r: Current every day smoker Physical Exam Vital Signs Vital Signs First Documented: Result Date Time Pulse Ox 100 02/03 1453 B/P 157/92 02/03 1453 B/P Mean 113 02/03 1453 O2 Delivery Room air 02/03 1453 Temp 36.8 02/03 1453 Pulse 69 02/03 1453 Resp 18 02/03 1453 Last Documented: Result Date Time Pulse Ox 99 02/03 1714 B/P 132/85 02/03 1714 B/P Mean 100 02/03 1714 O2 Delivery Room air 02/03 1714 Pulse 65 02/03 1714 Resp 16 02/03 1714 Temp 36.8 02/03 1453 Review of Vital Signs Reviewed Focused PE General/Const General/Const Awake, Alert, No acute di stress, Well appearing, Well developed , Well nourished, Cooperative, Not toxic appeari ng Eyes Eyes EOMI, Conjunctiva NL Ears/Nose/Throat Ears/Nose/Throat Airway patent, Mucous membrane s moist Resp/Chest Respiratory/Chest Breath sounds NL, Breath soun ds = bilat, No respiratory distress, No wheezing Cardiovascular Cardiovascular Heart rate NL, Regular rhythm, H eart sounds NL, No murmurs Abdomen/GI Abdomen/GI Soft, No guarding, No rebound, No di stention Text/Dict Notes Mild LUQ abd tenderness; Hyperactive BS MS Back Back Inspection NL, No CVA tenderness Skin Skin Warm, Dry, Intact Neurologic Neurologic Oriented X3, Speech NL Additional PE MS Head Head Atraumatic, Normocephalic MS Lower Extrem Lower Ext/Pelvis/MS Inspection NL, No edema Psychiatric Psychiatric Affect NL, Mood NL Interpretation Diagnostics Lab Results Interpretation Results Laboratory Tests 02/03/19 1522: [Embedded Image Not Available] 02/03/19 1505: [Embedded Image Not Available] Laboratory Tests: 02/03 02/03 02/03 1522 1520 1505 Chemistry POC Sodium (134 - 147 MMOL/L) 138 POC Potassium (3.4 - 5.0 MMOL/L) 4.1 POC Chloride (100 - 108 MMOL/L) 102 Carbon Dioxide (21 - 33 mmol/L) 25.0 POC BUN (7 - 18 MG/DL) 12 POC Creatinine (0.6 - 1.3 MG/DL) 0.9 Estimated GFR (MDRD) (ML/MIN) 105 POC Glucose (70 - 110 MG/DL) 104 POC Ioniz Calcium Shwetha (1.12 - 1.32 MG/DL) 1.11 L Total Bilirubin (0.0 - 1.0 mg/dL) 0.40 Direct Bilirubin (0.0 - 0.30 MG/DL) < 0.10 Indirect Bilirubin (MG/DL) 0.30 AST (15 - 37 IUnit/L) 18 ALT (15 - 65 IUnit/L) 17 Total Alk Phosphatase (20 - 125 IUnit/L) 100 Total Protein (6.4 - 8.2 g/dL) 8.6 H Albumin (3.4 - 5.0 g/dL) 4.70 Lipase (73 - 393 IUnit/L) 98 Hematology WBC (4.5 - 11.0 x10 3/uL) 13.32 H RBC (4.00 - 5.60 x10 6/uL) 5.58 Hgb (12.5 - 16.9 g/dL) 16.5 Hct (37.5 - 50.7 %) 49.9 MCV (81.0 - 99.0 fL) 89.4 MCH (27.0 - 33.0 pg) 29.6 MCHC (33.0 - 37.0 g/dL) 33.1 RDW (11.5 - 14.5 %) 13.0 Plt Count (150 - 400 x10 3/uL) 419 H MPV (7.0 - 9.0 fL) 8.5 Neut % (Auto) (56.0 - 77.0 %) 74.5 Lymph % (Auto) (14.0 - 32.0 %) 17.0 [place]asper % (Auto) (4.8 - 9.0 %) 7.7 Eos % (Auto) (0.3 - 3.7 %) 0.1 L Baso % (Auto) (0.0 - 2.0 %) 0.4 Neut # (Auto) (2.0 - 7.6 x10 3/uL) 9.94 H Lymph # (Auto) (1.0 - 3.8 x10 3/uL) 2.26 [place]asper # (Auto) (0.1 - 0.8 x10 3/uL) 1.02 H Eos # (Auto) (0.0 - 0.2 x10 3/uL) 0.01 Baso # (Auto) (0.0 - 0.2 x10 3/uL) 0.05 Abs Immat Gran (auto) (0.00 - 0.03 x10 3/uL) 0. 04 H Add Manual Diff NO Immature Gran % (0.0 - 2.0 %) 0.3 Nucleated RBC % (0 - 0 %) 0.0 Nucleated RBCs # (Man) (0.0 - 0.1 x10 3/uL) 0.0 0 Urines Urine Color (YEL/STRAW) COLORLESS Urine Appearance (CLEAR) CLEAR Urine pH (5.0 - 7.0) 7.0 Ur Specific [place] (1.005 - 1.030) 1.001 L Urine Protein (NEGATIVE) NEGATIVE Urine Glucose (UA) (NEGATIVE) NEGATIVE Urine Ketones (NEGATIVE) NEGATIVE Urine Blood (NEGATIVE) NEGATIVE Urine Nitrite (NEGATIVE) NEGATIVE Urine Bilirubin (NEGATIVE) NEGATIVE Urine Urobilinogen (0.2 - 1.0 mg/dL) 0.2 Ur Leukocyte Esterase (NEGATIVE) NEGATIVE Urine RBC (0 - 3 RBC/HPF) 0-3 Urine WBC (0 - 3 WBC/HPF) 0-3 Ur Squamous Epith Cells (NONE SEEN /HPF) NONE S EEN Urine Bacteria (NONE SEEN /HPF) NONE SEEN Recent Impressions: CAT SCAN - CT ABD PELVIS W/O CONT 02/03 1537 Report Impression - Status: SIGNED Entered: 02/03/2019 1607 IMPRESSION: 1. No acute CT explanation for the patient's sym ptoms. 2. Minimal bilateral nonobstructive nephrolithia sis. ____ CT imaging performed at this location utilizes r adiation dose optimization techniques which include one or mor e of the following: -Automated exposure control -Adjustment of the mA and/or kV according to pat ient size -Use of iterative reconstruction technique SL: ER-H Impression By: [email or web address] - Boom owen M.D. RADIOLOGY - XR CHEST 1 V 02/03 1617 Report Impression - Status: SIGNED Entered: 02/03/2019 1630 IMPRESSION: 1. No acute cardiopulmonary process. Impression By: [email or web address] - Sascha Fuentes D.O. Lab Imaging Statement Laboratory radiographic studies reviewed and con sidered in the medical decision-making. Point of Care Testing Pulse Oximetry Pulse Ox % 100 On: Room air Interpretation Interpreted by me, Pulse oximetr y normal Time 1453 Re-Evaluation MDM Free Text MDM Notes Free Text MDM Notes Labs show mild leukocytosis to 13.3 which is con sistent with pt vomiting all morning. CT and CXR are unremarkable. Discussed results with pt and advised likely viral GI bug. Advised adequate fluids wit h slow progression of diet as well as follow-up with PCP for re-eval. Return p recautions also provided. Pt understands and agrees with plan. Re-Evaluation/Progress #1 Text/Dict Note Pt states his nausea is greatly improved after nausea meds and he feels better after fluids. Pt has had no episodes of vomiting or diarrhea while in ED. Time of Re-Eval 1701 Re-Eval Status Improved ED Course Medication(s) Ordered Medication(s) Ordered: Central Nervous System Agents Sig/Linda Start time Last Medication Dose Route Stop Time Status Admin Ketorolac 30 MG X1ED STA 02/03 1500 DC 02/03 Tromethamine IV 02/03 1501 1523 Electrolytic, Caloric, And Harry Sig/Linda Start time Last Medication Dose Route Stop Time Status Admin Sodium Chloride 1,000 ML X1ED STA 02/03 1500 DC 02/03 IV 02/03 1559 1522 Sodium Chloride 0 ASDIR PRN 02/03 1500 AC IV 02/04 1400 Gastrointestinal Drugs Sig/Linda Start time Last Medication Dose Route Stop Time Status Admin Famotidine 20 MG X1ED STA 02/03 1500 DC 02/03 IV 02/03 1501 1523 Ondansetron HCl 4 MG ONCE PRN 02/03 1500 AC IV 03/05 1459 1523 Patient Discharge Departure Vital Signs/Condition Vital Signs First Documented: Result Date Time Pulse Ox 100 02/03 1453 B/P 157/92 02/03 1453 B/P Mean 113 02/03 1453 O2 Delivery Room air 02/03 1453 Temp 36.8 02/03 1453 Pulse 69 02/03 1453 Resp 18 02/03 1453 Last Documented: Result Date Time Pulse Ox 99 02/03 1714 B/P 132/85 02/03 1714 B/P Mean 100 02/03 1714 O2 Delivery Room air 02/03 1714 Pulse 65 02/03 1714 Resp 16 02/03 1714 Temp 36.8 02/03 1453 All vital signs available at the time of this en try have been reviewed. Condition Improved, Stable Clinical Impression Clinical Impression Primary Impression: Nausea vomiting and diarrhea Secondary Impressions: Gastroenteritis Disposition Decision Discharge )( Discharged to Home Yes )( Time 1701 )( Date 02/03/19 Discharge/Care Plan Counseled Regarding Diagnosi s, Lab results, Imaging studies, Prescriptions, Need for follow-up, When to return to ED Prescriptions Leticia Mckeon Electronically Signed by Racheal Silverio PARTS LISTER on 01/24 10/14 at 1716 RPT #:[id number] END OF REPORT 2019-02-03 15:10:00-00:00 [facility] EMERGENCY PROVIDER REPORT REPORT#:[id number] REPORT STATUS: Signed DATE:02/03/19 TIME: 1509 PATIENT: RO BROTHERS JR UNIT #: [id number] ROOM/BED: AGE: 33 SEX: M PCP PHYS: No Primary or Family Ph ysician SERVICE AUTHOR: Racheal Silverio NP * ALL edits or amendments must be made on the [employer]/computer document * Racheal Silverio 02/03/19 1510: HPI-Nausea/Vomit/Diarrhea General Confirmed Patient Yes PCP [facility] Presentation Chief Complaint Vomiting Hx Obtained From Patient Onset Occurred Yesterday Symptom Duration Since onset Vomiting Vomiting > 10 episodes Diarrhea Diarrhea 1-3 episodes Associated with Reports: Abdominal pain, Shaking chills. Free Text HPI Notes Free Text HPI Notes 33 y/o M with PMHx anxiety, depression and kidney stones presents to the with c/ o vomiting onset yesterday. Pt reports he vomite d x10-15 yesterday and has already had 6-7 episodes today with x1 episode o f diarrhea today. Pt endorses chills and hot sweats but has not measured his t emperature. He also reports intermitet LUQ abd pain radiating to L flank. Pt denies any sick contacts or recent travel. Review of Systems ROS Statements All systems rev neg except as marked. Focused Review of Systems Constitutional Reports: Chills. GI Reports: Abdominal pain, Diarrhea, Nausea, Vomit ing. Past Medical History - Adult Stated Complaint VOMITTING FOR 2 DAYS Allergies Coded Allergies: No Known Allergies (09/06/18) Home Medications Reported Medications clonazePAM (KlonoPIN) 0.5 MG PO TID traMADol (ULTRAM) 50 MG PO Q6H ONDANSETRON (ZOFRAN) 4 MG PO Q8H DIVALPROEX DR (DEPAKOTE DR) 500 MG PO BID Past Medical History: Reports: Depression/mood disorder (Bipolar), Sei zure disorder (epilepsy). Additional Medical History denies Past Surgical History: Reports: Tonsillectomy. Additional Surgical History denies Drug Use Marijuana Smoking status for patients 13 years old or olde r: Current every day smoker Physical Exam Vital Signs Vital Signs First Documented: Result Date Time Pulse Ox 100 02/03 1453 B/P 157/92 02/03 1453 B/P Mean 113 02/03 1453 O2 Delivery Room air 02/03 1453 Temp 36.8 02/03 1453 Pulse 69 02/03 1453 Resp 18 02/03 1453 Last Documented: Result Date Time Pulse Ox 99 02/03 1714 B/P 132/85 02/03 1714 B/P Mean 100 02/03 1714 O2 Delivery Room air 02/03 1714 Pulse 65 02/03 1714 Resp 16 02/03 171 Temp 36.8 02/03 1453 Review of Vital Signs Reviewed Focused PE General/Const General/Const Awake, Alert, No acute di stress, Well appearing, Well developed , Well nourished, Cooperative, Not toxic appeari ng Eyes Eyes EOMI, Conjunctiva NL Ears/Nose/Throat Ears/Nose/Throat Airway patent, Mucous membrane s moist Resp/Chest Respiratory/Chest Breath sounds NL, Breath soun ds = bilat, No respiratory distress, No wheezing Cardiovascular Cardiovascular Heart rate NL, Regular rhythm, H eart sounds NL, No murmurs Abdomen/GI Abdomen/GI Soft, No guarding, No rebound, No di stention Text/Dict Notes Mild LUQ abd tenderness; Hyperactive BS MS Back Back Inspection NL, No CVA tenderness Skin Skin Warm, Dry, Intact Neurologic Neurologic Oriented X3, Speech NL Additional PE MS Head Head Atraumatic, Normocephalic MS Lower Extrem Lower Ext/Pelvis/MS Inspection NL, No edema Psychiatric Psychiatric Affect NL, Mood NL Interpretation Diagnostics Lab Results Interpretation Results Laboratory Tests 02/03/19 1522: [Embedded Image Not Available] 02/03/19 1505: [Embedded Image Not Available] Laboratory Tests: 02/03 02/03 02/03 1522 1520 1505 Chemistry POC Sodium (134 - 147 MMOL/L) 138 POC Potassium (3.4 - 5.0 MMOL/L) 4.1 POC Chloride (100 - 108 MMOL/L) 102 Carbon Dioxide (21 - 33 mmol/L) 25.0 POC BUN (7 - 18 MG/DL) 12 POC Creatinine (0.6 - 1.3 MG/DL) 0.9 Estimated GFR (MDRD) (ML/MIN) 105 POC Glucose (70 - 110 MG/DL) 104 POC Ioniz Calcium Shwetha (1.12 - 1.32 MG/DL) 1.11 L Total Bilirubin (0.0 - 1.0 mg/dL) 0.40 Direct Bilirubin (0.0 - 0.30 MG/DL) < 0.10 Indirect Bilirubin (MG/DL) 0.30 AST (15 - 37 IUnit/L) 18 ALT (15 - 65 IUnit/L) 17 Total Alk Phosphatase (20 - 125 IUnit/L) 100 Total Protein (6.4 - 8.2 g/dL) 8.6 H Albumin (3.4 - 5.0 g/dL) 4.70 Lipase (73 - 393 IUnit/L) 98 Hematology WBC (4.5 - 11.0 x10 3/uL) 13.32 H RBC (4.00 - 5.60 x10 6/uL) 5.58 Hgb (12.5 - 16.9 g/dL) 16.5 Hct (37.5 - 50.7 %) 49.9 MCV (81.0 - 99.0 fL) 89.4 MCH (27.0 - 33.0 pg) 29.6 MCHC (33.0 - 37.0 g/dL) 33.1 RDW (11.5 - 14.5 %) 13.0 Plt Count (150 - 400 x10 3/uL) 419 H MPV (7.0 - 9.0 fL) 8.5 Neut % (Auto) (56.0 - 77.0 %) 74.5 Lymph % (Auto) (14.0 - 32.0 %) 17.0 Jasper % (Auto) (4.8 - 9.0 %) 7.7 Eos % (Auto) (0.3 - 3.7 %) 0.1 L Baso % (Auto) (0.0 - 2.0 %) 0.4 Neut # (Auto) (2.0 - 7.6 x10 3/uL) 9.94 H Lymph # (Auto) (1.0 - 3.8 x10 3/uL) 2.26 Jasper # (Auto) (0.1 - 0.8 x10 3/uL) 1.02 H Eos # (Auto) (0.0 - 0.2 x10 3/uL) 0.01 Baso # (Auto) (0.0 - 0.2 x10 3/uL) 0.05 Abs Immat Gran (auto) (0.00 - 0.03 x10 3/uL) 0. 04 H Add Manual Diff NO Immature Gran % (0.0 - 2.0 %) 0.3 Nucleated RBC % (0 - 0 %) 0.0 Nucleated RBCs # (Man) (0.0 - 0.1 x10 3/uL) 0.0 0 Urines Urine Color (YEL/STRAW) COLORLESS Urine Appearance (CLEAR) CLEAR Urine pH (5.0 - 7.0) 7.0 Ur Specific [place] (1.005 - 1.030) 1.001 L Urine Protein (NEGATIVE) NEGATIVE Urine Glucose (UA) (NEGATIVE) NEGATIVE Urine Ketones (NEGATIVE) NEGATIVE Urine Blood (NEGATIVE) NEGATIVE Urine Nitrite (NEGATIVE) NEGATIVE Urine Bilirubin (NEGATIVE) NEGATIVE Urine Urobilinogen (0.2 - 1.0 mg/dL) 0.2 Ur Leukocyte Esterase (NEGATIVE) NEGATIVE Urine RBC (0 - 3 RBC/HPF) 0-3 Urine WBC (0 - 3 WBC/HPF) 0-3 Ur Squamous Epith Cells (NONE SEEN /HPF) NONE S EEN Urine Bacteria (NONE SEEN /HPF) NONE SEEN Recent Impressions: CAT SCAN - CT ABD PELVIS W/O CONT 02/03 1537 Report Impression - Status: SIGNED Entered: 02/03/2019 2637 IMPRESSION: 1. No acute CT explanation for the patient's sym ptoms. 2. Minimal bilateral nonobstructive nephrolithia sis. ____ CT imaging performed at this location utilizes r adiation dose optimization techniques which include one or mor e of the following: -Automated exposure control -Adjustment of the mA and/or kV according to pat ient size -Use of iterative reconstruction technique SL: ER-H Impression By: [email or web address] - Boom owen M.D. RADIOLOGY - XR CHEST 1 V 02/03 1617 Report Impression - Status: SIGNED Entered: 02/03/2019 1630 IMPRESSION: 1. No acute cardiopulmonary process. Impression By: [email or web address] - Sascha Fuentes D.O. Lab Imaging Statement Laboratory radiographic studies reviewed and con sidered in the medical decision-making. Point of Care Testing Pulse Oximetry Pulse Ox % 100 On: Room air Interpretation Interpreted by me, Pulse oximetr y normal Time 1453 Re-Evaluation MDM Free Text MDM Notes Free Text MDM Notes Labs show mild leukocytosis to 13.3 which is con sistent with pt vomiting all morning. CT and CXR are unremarkable. Discussed results with pt and advised likely viral GI bug. Advised adequate fluids wit h slow progression of diet as well as follow-up with PCP for re-eval. Return p recautions also provided. Pt understands and agrees with plan. Re-Evaluation/Progress #1 Text/Dict Note Pt states his nausea is greatly improved after nausea meds and he feels better after fluids. Pt has had no episodes of vomiting or diarrhea while in ED. Time of Re-Eval 1701 Re-Eval Status Improved ED Course Medication(s) Ordered Medication(s) Ordered: Central Nervous System Agents Sig/Linda Start time Last Medication Dose Route Stop Time Status Admin Ketorolac 30 MG X1ED STA 02/03 1500 DC 05 Tromethamine IV 02/03 1501 1523 Electrolytic, Caloric, And Harry Sig/Linda Start time Last Medication Dose Route Stop Time Status Admin Sodium Chloride 1,000 ML X1ED STA 02/03 1500 DC 05/11 IV 05 1559 1522 Sodium Chloride 0 ASDIR PRN 02/03 1500 DCD IV 02/04 1400 Gastrointestinal Drugs Sig/Linda Start time Last Medication Dose Route Stop Time Status Admin Famotidine 20 MG X1ED STA 05 1500 DC 05/11 IV 05/ 1501 1523 Ondansetron HCl 4 MG ONCE PRN 02/03 1500 DCD 05 / IV 03/05 1459 1523 Patient Discharge Departure Vital Signs/Condition Vital Signs First Documented: Result Date Time Pulse Ox 100 02/03 1453 B/P 157/92 02/03 1453 B/P Mean 113 02/03 1453 O2 Delivery Room air 02/03 1453 Temp 36.8 02/03 1453 Pulse 69 02/03 1453 Resp 18 02/03 1453 Last Documented: Result Date Time Pulse Ox 99 02/03 1714 B/P 132/85 02/03 1714 B/P Mean 100 02/03 1714 O2 Delivery Room air 02/03 1714 Pulse 65 02/03 1714 Resp 16 02/03 1714 Temp 36.8 02/03 1453 All vital signs available at the time of this en try have been reviewed. Condition Improved, Stable Clinical Impression Clinical Impression Primary Impression: Nausea vomiting and diarrhea Secondary Impressions: Gastroenteritis Disposition Decision Discharge )( Discharged to Home Yes )( Time 1701 )( Date 02/03/19 Discharge/Care Plan Counseled Regarding Diagnosi s, Lab results, Imaging studies, Prescriptions, Need for follow-up, When to return to ED Prescriptions Leticia Mckeon Edmund 02/04/19 1052: HPI-Nausea/Vomit/Diarrhea General Date/Time Seen by Provider 02/03/19 1448 Physical Exam Vital Signs Vital Signs Interpretation Diagnostics Lab Results Interpretation Results Re-Evaluation MDM ED Course Medication(s) Ordered Patient Discharge Departure Vital Signs/Condition Vital Signs Supervising Physician Note MidLv Saw Pt Alone I have reviewed the PA/PARTS LISTER's note and plan of libia myles. I was available for consultation as needed at al l times during the patient's visit in the emergency department. I agree with the clinical impression , plan and disposition. Electronically Signed by Racheal Silverio NP on 01/24 10/14 at 1716 Electronically Signed by Denton Menendez MD on at 1053 RPT #:[id number] END OF REPORT
[2023-05-23] MEDS ORDERED: NA CHLORIDE 0.9% 1,000 ML ONE (14:57)
[2023-05-23] MEDS ORDERED: CEFAZOLIN SODIUM 1 GM/VIAL ONE (14:57)
[2023-05-23] MEDS ORDERED: TDAP (DIPHTH,PERTUSS(ACELL),TET VAC) 0.5 ML VIAL IMVAC ONE (14:57)
[2023-05-23] MEDS ORDERED: MORPHINE 4 MG/ML SYR ONE ×2 (15:00→16:51)
[2023-05-23 15:12] LABS: Absolute Lymphocytes (CBC) 2.6 K/uL (0.7-4.9); Hematocrit 39.6 % (39.6-49.0); Lymphocytes % 33.7 % (15.3-44.8); MCV 89.7 fL (80-100); MPV 6.7 fL (7.6-11.3); Platelets 333 thou/uL (152-406); RBC Red Blood Cell Count 4.42 M/uL (4.33-5.43)
[2023-05-23] MEDS ORDERED: LIDOCAINE 2% INJ, 20 mL 20 ML ONE (15:13)
[2023-05-23] MEDS ORDERED: BUPIVACAINE 0.5% PF 10 ML VIAL ONE (15:13)
--- NOTE | 2023-05-23 15:19 | RAD REPORT ---
EXAM DESCRIPTION: RAD - Finger-Thumb Right - 05/23/2023 3:03 pm CLINICAL HISTORY: amputated fifth finger COMPARISON: No comparisons FINDINGS: There is a large soft tissue laceration at the level of the fifth finger PIP joint. Small bony fragment is noted. Bones appears exposed.
[2023-05-23 15:20] LABS: Potassium 3.8 mEq/L (3.5-5.1)
[2023-05-23 15:44] LABS: Protime INR 1.05
--- NOTE | 2023-05-23 16:28 | ER ---
Nurse's Notes [facility] Name: Adan Shah Jr Age: 37 yrs Sex: Male : 1985 Arrival Date: 05/23/2023 Time: 14:28 Bed 23 Private MD: Diagnosis: Displaced fracture of proximal phalanx of right little finger, initial encounter for open fracture Presentation: 05/23 14:56 Chief complaint: Patient states: partial amputation of right pinky finger , was cutting iw down trees. Ebola Screen: Patient negative for fever greater than or equal to 101.5 degrees Fahrenheit, and additional compatible Ebola Virus Disease symptoms Patient denies exposure to infectious person. Patient denies travel to an Ebola-affected area in the 21 days before illness onset. Complicating Factors: There are no complicating factors for this patient. Initial Sepsis Screen: Does the patient meet any 2 criteria? No. Patient's initial sepsis screen is negative. Does the patient have a suspected source of infection? No. Patient's initial sepsis screen is negative. Risk Assessment: Do you want to hurt yourself or someone else? Patient reports no desire to harm self or others. Onset of symptoms was May 23, 2023. 14:56 Acuity: ANAIS 3 iw 14:56 Method Of Arrival: Ambulatory iw 14:57 Coronavirus screen: At this time, the client does not indicate any symptoms associated iw with coronavirus-19. Historical: - Allergies: 15:05 Aspirin; iw - PMHx: 15:05 Anxiety; Bipolar disorder; Depression; Kidney stones; iw - Immunization history:: Adult Immunizations unknown. - Social history:: Smoking status: unknown. Screenin:30 [facility] ED Fall Risk Assessment (Adult) History of falling in the last 3 months, cm10 including since admission No falls in past 3 months (0 pts) Confusion or Disorientation No (0 pts) Intoxicated or Sedated No (0 pts) Impaired Gait No (0 pts) Mobility Assist Device Used No (0 pt) Altered Elimination No (0 pt) Score/Fall Risk Level 0 - 2 = Low Risk Oriented to surroundings, Maintained a safe environment, Educated pt \T\ family on fall prevention, incl call for assistance when getting out of bed. Abuse screen: Denies threats or abuse. Nutritional screening: No deficits noted. Tuberculosis screening: No symptoms or risk factors identified. Assessment: 15:00 Pain: Complains of pain in right hand. Neuro: Good Agitation-Sedation Scale (RASS): cm10 0 - Alert and Calm Level of Consciousness is awake, alert, obeys commands, Oriented to person, place, time, situation, Appropriate for age. Respiratory: Airway is patent Respiratory effort is even, unlabored, Respiratory pattern is regular, symmetrical. Derm: Skin is pink, warm \T\ dry. Musculoskeletal: Range of motion: intact in all extremities, Bony deformity noted of RIGHT LITTLE FINGER. Injury Description: Laceration sustained to RIGHT LITTLE FINGER is jagged, 0.5 to 2.5 cm long, bleeding moderately. 15:00 General: Appears uncomfortable, Behavior is cooperative, anxious. Cardiovascular: cm10 Patient's skin is warm and dry. 16:38 Reassessment: Report given to transferring nurse RADHIKA Adan. mb9 Vital Signs: 15:05 BP 137 / 85; Pulse 79; Resp 16; Temp 98.1; Pulse Ox 98% on R/A; Pain 10/10; iw 16:12 BP 119 / 95; Pulse 78; Resp 16; Pulse Ox 99% on R/A; mb9 15:05 Pain Scale: Adult iw ED Course: 14:29 Patient arrived in ED. mg5 14:30 Arm band placed on. cm10 14:30 Placed in gown. Bed in low position. Call light in reach. Side rails up X 1. Client cm10 placed on continuous cardiac and pulse oximetry monitoring. NIBP monitoring applied. 14:34 Gustavo Waggoner PA is PHCP. cp 14:34 Juan Last MD is Attending Physician. cp 14:44 Rachna Ty, RADHIKA is Primary Nurse. iw 14:57 Triage completed. iw 15:00 Inserted saline lock: 18 gauge in left antecubital area, using aseptic technique. Blood iw collected. 15:04 Finger-Thumb Right In Process Unspecified. EDMS 16:00 Provided Education on: transfer. iw 16:31 No provider procedures requiring assistance completed. Patient transferred, IV remains cm10 in place. 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 mb9 Exp: 10/13/2023. Lot #: [id number]. } Route: IM; Site: right deltoid; 16:20 Follow up: Response: No adverse reaction iw 16:43 Drug: morphine IVP or IV 4 mg Route: IVP; Infused Over: 4 mins; Site: left antecubital; mb9 17:00 Follow up: Response: No adverse reaction iw Medication: 16:32 VIS not applicable for this client. cm10 Outcome: 16:27 ER care complete, transfer ordered by . autumn 16:43 Transferred to [facility], Transfer form completed. X-rays sent w/ patient. mb9 16:43 Condition: stable 16:43 Instructed on the need for transfer. 17:24 Patient left the ED. cm10 Signatures: Dispatcher [employer] EDRachna Patel RN RN iw Gustavo Waggoner PA PA cp Breneman, Mary Beth, RN RN mb9 Megan Rodriguez RN RN cm10 Elif Alamo mg5 Corrections: (The following items were deleted from the chart) 15:08 15:05 BP 137 / 85; Pulse 79bpm; Resp 16bpm; Pulse Ox 98% RA; Pain 10/10, Adult; iw iw
--- NOTE | 2023-05-23 16:28 | EDPHYS ---
Physician Documentation [facility] Name: Adan Shah Jr Age: 37 yrs Sex: Male : 1985 Arrival Date: 05/23/2023 Time: 14:28 Bed 23 Private MD: ED Physician Juan Last HPI: 05/23 15:00 This 37 yrs old Male presents to ER via Ambulatory with complaints of cp Laceration To Hand - Finger, Dizziness. 15:00 The patient has a laceration occurred outdoors, and using hand saw to cut down trees. cp The laceration(s) is(are) located on the right fifth finger. Onset: The symptoms/episode began/occurred just prior to arrival. Associated signs and symptoms: Pertinent positives: numbness distal to injury. Historical: - Allergies: 15:05 Aspirin; iw - PMHx: 15:05 Anxiety; Bipolar disorder; Depression; Kidney stones; iw - Immunization history:: Adult Immunizations unknown. - Social history:: Smoking status: unknown. ROS: 15:05 Constitutional: Negative for body aches, chills, fever, poor PO intake. cp 15:05 Cardiovascular: Negative for chest pain, palpitations. 15:05 Respiratory: Negative for cough, shortness of breath, wheezing. 15:05 Abdomen/GI: Negative for abdominal pain, nausea, vomiting, and diarrhea. 15:05 MS/extremity: Positive for decreased range of motion, laceration, pain, paresthesias, of the right fifth finger. 15:05 Neuro: Negative for altered mental status. 15:05 All other systems are negative. Exam: 15:10 Head/Face: Normocephalic, atraumatic. cp 15:10 Constitutional: The patient appears alert, awake, non-toxic, well developed, well nourished, in obvious pain, uncomfortable. 15:10 Eyes: Periorbital structures: appear normal, Conjunctiva: normal, no exudate, no cp injection, Lids and lashes: appear normal, bilaterally. 15:10 ENT: External ear(s): are unremarkable, Nose: is normal, Mouth: Lips: moist, Oral mucosa: pink and intact, moist, Posterior pharynx: is normal, airway is patent, no erythema, no exudate. 15:10 Neck: ROM/movement: is normal, is supple, without pain, no range of motions limitations. 15:10 Chest/axilla: Inspection: normal, Palpation: is normal, no crepitus, no tenderness. 15:10 Cardiovascular: Rate: normal, Rhythm: regular, Pulses: Pulses are 2+ in right radial artery. 15:10 Respiratory: the patient does not display signs of respiratory distress, Respirations: normal, no use of accessory muscles, no retractions, labored breathing, is not present, Breath sounds: are clear throughout, no decreased breath sounds, no stridor, no wheezing. 15:10 Abdomen/GI: Inspection: abdomen appears normal, Palpation: abdomen is soft and non-tender, in all quadrants. 15:10 Back: pain, is absent, ROM is normal. 15:10 Musculoskeletal/extremity: Extremities: noted in the right hand: Examination of the right fifth finger shows partial amputation at the proximal interphalangeal joint, both flexor and extensor tendons appear lacerated, cap refill remains less than 2 seconds, patient does have sensation to to touch distally. There is moderate bleeding from the laceration. 15:10 Neuro: Orientation: to person, place \T\ time. Mentation: is normal, Motor: moves all fours, strength is normal. Vital Signs: 15:05 BP 137 / 85; Pulse 79; Resp 16; Temp 98.1; Pulse Ox 98% on R/A; Pain 10/10; iw 16:12 BP 119 / 95; Pulse 78; Resp 16; Pulse Ox 99% on R/A; mb9 15:05 Pain Scale: Adult iw MDM: 14:34 Patient medically screened. cp 15:13 ED course: left msg on voicemail of DR Lou for consult. cp 16:00 Data reviewed: vital signs, nurses notes, lab test result(s), radiologic studies, plain cp films, I have discussed the patient's presentation/case with the attending Emergency Department Physician; and as a result, I will administer antibiotics Ancef. 16:00 Differential diagnosis: superficial laceration, tendon injury, vascular injury, cp amputation. I considered the following discharge prescriptions or medication management in the emergency department Medications were administered in the Emergency Department. See MAR. Counseling: I had a detailed discussion with the patient and/or guardian regarding the historical points, exam findings, and any diagnostic results supporting the discharge/admit diagnosis, lab results, radiology results, the need to transfer to another facility, for higher level of care. 05/23 14:40 Order name: Basic Metabolic Panel; Complete Time: 15:50 cp 05/23 14:40 Order name: CBC with Diff; Complete Time: 15:50 cp 05/23 14:40 Order name: Type And Screen cp 05/23 14:40 Order name: PT-INR; Complete Time: 15:50 cp 05/23 15:04 Order name: Finger-Thumb Right; Complete Time: 15:50 EDMS 05/23 15:51 Interpretation: Report reviewed. cp 05/23 14:40 Order name: Labs collected and sent; Complete Time: 15:05 cp 05/23 15:08 Order name: Labs - recollect needed: recollect blue top,fill to top; Complete Time: bd 16:11 Administered Medications: 15:04 Drug: morphine IVP or IV 4 mg Route: IVP; Infused Over: 4 mins; Site: left antecubital; iw 15:30 Follow up: Response: No adverse reaction iw 16:00 Drug: NS 0.9% IV 1000 ml Route: IV; Rate: 1 bolus; Site: left antecubital; mb9 17:00 Follow up: IV Status: Completed infusion iw 16:10 Drug: ceFAZolin IVPB 1 grams Route: IVPB; Site: left antecubital; mb9 16:15 Follow up: IV Status: Completed infusion iw 16:11 Drug: Tetanus-Diphtheria Toxoid IM Adult 0.5 ml {[employer] Lead: [employer] ([employer] mb9 Exp: 10/13/2023. Lot #: [id number]. } Route: IM; Site: right deltoid; 16:20 Follow up: Response: No adverse reaction iw 16:43 Drug: morphine IVP or IV 4 mg Route: IVP; Infused Over: 4 mins; Site: left antecubital; mb9 17:00 Follow up: Response: No adverse reaction iw Disposition: 18:25 Co-signature as Attending Physician, Juan Last MD I reviewed the patient's care rn provided by the Advanced Practice Provider and agree with the diagnosis and treatment plan. Disposition Summary: 05/23/23 16:27 Transfer Ordered Transfer Location: [facility] cp Reason: Higher level of care cp Condition: Stable cp Problem: new cp Symptoms: have improved cp Accepting Physician: DR Ash Chopra(05/23/23 17:24) cm10 Diagnosis - Displaced fracture of proximal phalanx of right little finger, initial encounter cp for open fracture Forms: - Medication Reconciliation Form cp - SBAR form cp Signatures: Dispatcher [employer] EDMS Aurelia Miramontes Irene RN RN Juan Núñez MD MD rn Page, Corey, PA PA cp Breneman, Mary Beth, RN RN mb9 Megan Rodriguez RN RN cm10 Corrections: (The following items were deleted from the chart) 15:04 14:40 Hand Right 3 View+RAD.RAD.BRZ ordered. EDMS EDMS 17:24 16:27 DR Ash Chopra cp cm10
[2023-05-23 17:47] VITALS: BP 137/85; TEMP 98.1; O2SAT 98
== END 2023-05-23 17:24 | disposition short-term general hospital (02) ==
LOC: ER 14:28
DX: S62.616B Displaced fracture of proximal phalanx of right little finger, initial encounter for open fracture (principal); Z23 Encounter for immunization; Z88.6 Allergy status to analgesic agent
CPT/HCPCS: 36415; 80048; 85025; 85610; 86850; 86900; 86901; 90471; 96361; 96374; 96375; 99285; J0690; J7030

== ENCOUNTER 2023-06-14 11:12 | Emergency (ER) | payer SELFPAY ==
--- OUTSIDE RECORDS SUMMARY | 2023-06-14 11:20 | XMS REPORT | Continuity of Care Document ---
:1985 Author Organization [facility] t Address [address] [place] [address] Care Team Providers Name Role Phone PCP, PATIENT DOES NOT HAVE A Primary Care Physician UnavailGABRIELA Maxwell Attending Clinician Unavailable Gabriela Saldana NP Attending Clinician Cheyenne Michel Attending Clinician Doctor Unassigned, [place] Attending Clinician Unavailable Kim Marie RN Attending [...] rs active active ity of problems problems [facility] Allergies, Adverse Reactions, Alerts Allergy Allergy Status Severity Reaction(s) Onset Inactive Treating Comm ents Source Name Type Date Date Clinician NSAIDS DA Active SV [facility] (Non-Chris 6-26 Clear roidal 00:00: [place] Anti-Inf 00 [facility] [place] [facility] aspirin DA Active SV 2018- [facility] 5-13 Clear 00:00: [place] 00 [facility] No Known DA Active U 2017- [facility] Allergie 2-12 Clear s 00:00: [place] 00 [facility] No Known DA Active U 2017-09 [facility] Allergie 1-15 Clear s 00:00: [place] 00 [facility] aspirin DA Active U 2017- [facility] 4-13 Clear 00:00: [place] 00 [facility] ASPIRIN DRUG Active Hives 2015-0 Univers INGREDI 1-14 ity of 00:00: [place] 00 [facility] Aspirin Propensi Active Hives 2015-0 Univers ty to 1-14 ity of adverse 00:00: [place] reaction 00 [facility] [place] NO KNOWN Drug Active Univers ALLERGIE Class ity of S [facility] Social History Social Habit Start Date Stop Date Quantity Comments Source Exposure to Not sure [facility] SARS-CoV-2 (event) [facility] 1985 [facility] [place] [facility] [place] [facility]:00:[facility] Medical Branch Smoking Status Start Date Stop Date Source Unknown if ever smoked [facility] Medical Branch Medications Ordered Filled Start Stop Current Ordering Indication Dosage Frequency Signature Comments Components Source Medication Medication Date Date Medication? Clinician (SIG) Name Name HYDROcodone 2019- No 1{tbl} 1 tablet, Univers -acetaminop 05-16 Oral, ity of hen (NORCO) 02:45: 01:36 [place] 1 [place] 10-325 mg 00 :00 dose, Diana Medic al tablet 1 05/15/20 at [facility] h tablet 2145, Routine NaCl 0.9% 2019- No 1000mL at 500 Uni vers (NS) IV 05-15 mL/hr, ity of infusion 23:15: 01:36 [place] 1,000 mL 00 :00 s, ONCE, 1 Medic al dose, [facility] 05/15/20 at 1815, MIAN ketorolac No 30mg 30 mg, Unive rs (TORADOL) 05-15 Slow IV ity of injection 23:15: 22:17 Push, [place] 30 mg 00 :00 ONCE, 1 Medical dose, [facility] 05/15/20 at 1815, Routine
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 Indication s: acute pain ketorolac 2020-0 Yes [id number] 10mg Take 1 Un [place] 10 mg [...] Indication s: acute pain ketorolac 2020-0 Yes [id number] 10mg Take 1 [place] 10 mg [...] Indication s: acute pain ketorolac 2020-0 Yes [id number] 10mg Take 1 [place] 10 mg [...] dose, Fri Medica l mL) 03/07/20 at [place] injection 0300, 120 mL Routine ondansetron 2019-0 2020- No 4mg 4 mg, Slow Univers (ZOFRAN 03-07 IV Push, ity of (PF)) 07:45: 06:44 ONCE, 1 [place] injection 4 00 :00 dose, Fri Med ical mg 03/07/20 at [place] 0245, MIAN maalox:diph 2019-0 2020- No 15mL 15 mL, Uni vers enhydrAMINE 03-07 Oral, ity of :lidocaine 07:45: 06:49 ONCE, 1 [place] as 2 % viscous 00 :00 dose, Fri Med ical 1:1:1 03/07/20 at [place] (FIRST-MOUT 0245, HWASH BLM) Routine oral suspension 15 mL metoclopram 2020-0 Yes [id number] 10mg Take 1 Univers lesli HCl 10 6-12 tablet by ity of mg tablet 00:00: mouth [place] 00 every 6 Medical (six) Branch hours. dicyclomine 2020-0 Yes [id number] 20mg Take 1 Univers 20 mg 6-12 tablet by ity of tablet 00:00: mouth [place] 00 every 6 Medical (six) Branch hours as needed for Abdominal pain. pantoprazol 2020-0 Yes [id number] 40mg Take 1 Univers e 6-12 tablet by ity of (PROTONIX) 00:00: mouth [place] 40 mg EC 00 daily. Medical tablet Branch metoclopram 2020-0 Yes [id number] 10mg Take 1 Univers lesli HCl 10 6-12 tablet by ity of mg tablet 00:00: mouth [place] 00 every 6 Medical (six) Branch hours. dicyclomine 2020-0 Yes [id number] 20mg Take 1 Univers 20 mg 6-12 tablet by ity of tablet 00:00: mouth [place] 00 every 6 Medical (six) Branch hours as needed for Abdominal pain. pantoprazol 2020-0 Yes [id number] 40mg Take 1 Univers e 6-12 tablet by ity of (PROTONIX) 00:00: mouth [place] 40 mg EC 00 daily. Medical tablet Branch metoclopram 2020-0 Yes [id number] 10mg Take 1 Univers lesli HCl 10 6-12 tablet by ity of mg tablet 00:00: mouth [place] 00 every 6 Medical (six) Branch hours. dicyclomine 2020-0 Yes [id number] 20mg Take 1 Univers 20 mg 6-12 tablet by ity of tablet 00:00: mouth [place] 00 every 6 Medical (six) Branch hours as needed for Abdominal pain. pantoprazol 2020-0 Yes [id number] 40mg Take 1 Univers e 6-12 tablet by ity of (PROTONIX) 00:00: mouth [place] 40 mg EC 00 daily. Medical tablet Branch metoclopram 2020-0 Yes [id number] 10mg Take 1 Univers lesli HCl 10 6-12 tablet by ity of mg tablet 00:00: mouth [place] 00 every 6 Medical (six) Branch hours. dicyclomine 2020-0 Yes [id number] 20mg Take 1 Univers 20 mg 6-12 tablet by ity of tablet 00:00: mouth [place] 00 every 6 Medical (six) Branch hours as needed for Abdominal pain. pantoprazol 2020-0 Yes [id number] 40mg Take 1 Univers e 6-12 tablet by ity of (PROTONIX) 00:00: mouth [place] 40 mg EC 00 daily. Medical tablet Branch metoclopram 2020-0 Yes [id number] 10mg Take 1 Univers lesli HCl 10 6-12 tablet by ity of mg tablet 00:00: mouth [place] 00 every 6 Medical (six) Branch hours. dicyclomine 2020-0 Yes [id number] 20mg Take 1 Univers 20 mg 6-12 tablet by ity of tablet 00:00: mouth [place] 00 every 6 Medical (six) Branch hours as needed for Abdominal pain. pantoprazol 2020-0 Yes [id number] 40mg Take 1 Univers e 6-12 tablet by ity of (PROTONIX) 00:00: mouth [place] 40 mg EC 00 daily. Medical tablet Branch metoclopram 2020-0 Yes [id number] 10mg Take 1 Univers lesli HCl 10 6-12 tablet by ity of mg tablet 00:00: mouth [place] 00 every 6 Medical (six) Branch hours. dicyclomine 2020-0 Yes [id number] 20mg Take 1 Univers 20 mg 6-12 tablet by ity of tablet 00:00: mouth [place] 00 every 6 Medical (six) Branch hours as needed for Abdominal pain. pantoprazol 2020-0 Yes [id number] 40mg Take 1 Univers e 6-12 tablet by ity of (PROTONIX) 00:00: mouth [place] 40 mg EC 00 daily. Medical tablet Branch metoclopram 2020-0 Yes [id number] 10mg Take 1 Univers lesli HCl 10 6-12 tablet by ity of mg tablet 00:00: mouth [place] 00 every 6 Medical (six) Branch hours. dicyclomine 2020-0 Yes [id number] 20mg Take 1 Univers 20 mg 6-12 tablet by ity of tablet 00:00: mouth [place] 00 every 6 Medical (six) Branch hours as needed for Abdominal pain. pantoprazol 2020-0 Yes [id number] 40mg Take 1 Univers e 6-12 tablet by ity of (PROTONIX) 00:00: mouth [place] 40 mg EC 00 daily. Medical tablet Branch metoclopram 2020-0 Yes [id number] 10mg Take 1 Univers lesli HCl 10 6-12 tablet by ity of mg tablet 00:00: mouth [place] 00 every 6 Medical (six) Branch hours. dicyclomine 2020-0 Yes [id number] 20mg Take 1 Univers 20 mg 6-12 tablet by ity of tablet 00:00: mouth [place] 00 every 6 Medical (six) Branch hours as needed for Abdominal pain. pantoprazol 2020-0 Yes [id number] 40mg Take 1 Univers e 6-12 tablet by ity of (PROTONIX) 00:00: mouth [place] 40 mg EC 00 daily. Medical tablet Branch metoclopram 2020-0 Yes [id number] 10mg Take 1 Univers lesli HCl 10 6-12 tablet by ity of mg tablet 00:00: mouth [place] 00 every 6 Medical (six) Branch hours. dicyclomine 2020-0 Yes [id number] 20mg Take 1 Univers 20 mg 6-12 tablet by ity of tablet 00:00: mouth [place] 00 every 6 Medical (six) Branch hours as needed for Abdominal pain. pantoprazol 2020-0 Yes [id number] 40mg Take 1 Univers e 6-12 tablet [...] at Branch 2345, MIAN ondansetron 2020-0 Yes [id number] 4mg Take 1 Univers (ZOFRAN) 4 6-04 tablet by ity of mg tablet 00:00: mouth [place] 00 every 8 Medical (eight) Branch hours as needed for Nausea and Vomiting (N/V). ondansetron 2020-0 Yes [id number] 4mg Take 1 Univers (ZOFRAN) 4 6-04 tablet by ity of mg tablet 00:00: mouth [place] 00 every 8 Medical (eight) Branch hours as needed for Nausea and Vomiting (N/V). ondansetron 2020-0 Yes [id number] 4mg Take 1 Univers (ZOFRAN) 4 6-04 tablet by ity of mg tablet 00:00: mouth [place] 00 every 8 Medical (eight) Branch hours as needed for Nausea and Vomiting (N/V). ondansetron 2020-0 Yes [id number] 4mg Take 1 Univers (ZOFRAN) 4 6-04 tablet by ity of mg tablet 00:00: mouth [place] 00 every 8 Medical (eight) Branch hours as needed for Nausea and Vomiting (N/V). ondansetron 2020-0 Yes [id number] 4mg Take 1 Univers (ZOFRAN) 4 6-04 tablet by ity of mg tablet 00:00: mouth [place] 00 every 8 Medical (eight) Branch hours as needed for Nausea and Vomiting (N/V). ondansetron 2020-0 Yes [id number] 4mg Take 1 Univers (ZOFRAN) 4 6-04 tablet by ity of mg tablet 00:00: mouth [place] 00 every 8 Medical (eight) Branch hours as needed for Nausea and Vomiting (N/V). ondansetron 2020-0 Yes [id number] 4mg Take 1 Univers (ZOFRAN) 4 6-04 tablet by ity of mg tablet 00:00: mouth [place] 00 every 8 Medical (eight) Branch hours as needed for Nausea and Vomiting (N/V). ondansetron 2020-0 Yes [id number] 4mg Take 1 Univers (ZOFRAN) 4 6-04 tablet by ity of mg tablet 00:00: mouth [place] 00 every 8 Medical (eight) Branch hours as needed for Nausea and Vomiting (N/V). ondansetron 2020-0 Yes [id number] 4mg Take 1 Univers (ZOFRAN) 4 6-04 tablet by ity of mg tablet 00:00: mouth [place] 00 every 8 Medical (eight) Branch hours as needed for Nausea and Vomiting (N/V). ondansetron 2020-0 Yes [id number] 4mg Take 1 Univers (ZOFRAN) 4 6-04 tablet by ity of mg tablet 00:00: mouth [place] 00 every 8 Medical (eight) Branch hours as needed for Nausea and Vomiting (N/V). metoclopram 2019-0 2020- No [id number] 10mg Take 1 Univers lesli HCl 10 6-04 06-04 tablet by ity of mg tablet 00:00: 00:00 mouth [place] 00 :00 every 6 Medical (six) Branch hours. ondansetron 2019-0 2019- No 4mg 4 mg, Slow Univers (ZOFRAN 02-01 IV Push, ity of (PF)) 14:00: 13:06 ONCE, 1 [place] injection 4 00 :00 dose, Sat Med ical mg 02/02/20 at Branch 0900, MIAN ketorolac 2019-0 2019- No 30mg 30 mg, Unive rs (TORADOL) 02-01 Slow IV ity of injection 13:00: 13:06 Push, [place] 30 mg 00 :00 ONCE, 1 Medical dose, Sat [place] 02/02/20 at 0800, MIAN
Fa culty member [...] mouth ity of mg capsule 16:26: daily. [address] FLUoxetine 2020-0 Yes 40mg Take 40 mg U nivers (PROZAC) 40 4-23 by mouth ity of mg capsule 16:26: daily. [address] FLUoxetine 2020-0 Yes 40mg Take 40 mg U nivers (PROZAC) 40 4-23 by mouth ity of mg capsule 16:26: daily. [address] FLUoxetine 2020-0 Yes 40mg Take 40 [...] 01/17/20 at 1115, STAT famotidine 2020-0 Yes [id number] 20mg Take 1 Univers 20 mg 4-23 tablet by ity of tablet 00:00: mouth 2 [place] (two) Medical times Branch daily. ondansetron 2020-0 Yes [id number] 4mg Take 1 Univers 4 mg 4-23 tablet by ity of disintegrat 00:00: mouth [place] ing tablet 00 every 4 Medica l (four) Branch hours as needed for Nausea and Vomiting (N/V). famotidine 2020-0 Yes [id number] 20mg Take 1 Univers 20 mg 4-23 tablet by ity of tablet 00:00: mouth [place] (two) Medical times Branch daily. ondansetron 2020-0 Yes [id number] 4mg Take 1 Univers 4 mg 4-23 tablet by ity of disintegrat 00:00: mouth [place] ing tablet 00 every 4 Medica l (four) Branch hours as needed for Nausea and Vomiting (N/V). famotidine 2020-0 Yes [id number] 20mg Take 1 Univers 20 mg 4-23 tablet by ity of tablet 00:00: mouth 2 [place] (two) Medical times Branch daily. ondansetron 2020-0 Yes [id number] 4mg Take 1 Univers 4 mg 4-23 tablet by ity of disintegrat 00:00: mouth [place] ing tablet 00 every 4 Medica l (four) Branch hours as needed for Nausea and Vomiting (N/V). famotidine 2020-0 Yes [id number] 20mg Take 1 Univers 20 mg 4-23 tablet by ity of tablet 00:00: mouth 2 [place] 00 (two) Medical times Branch daily. ondansetron 2020-0 Yes [id number] 4mg Take 1 Univers 4 mg 4-23 tablet by ity of disintegrat 00:00: mouth [place] ing tablet 00 every 4 Medica l (four) Branch hours as needed for Nausea and Vomiting (N/V). famotidine 2020-0 Yes [id number] 20mg Take 1 Univers 20 mg 4-23 tablet by ity of tablet 00:00: mouth 2 [place] 00 (two) Medical times Branch daily. ondansetron 2020-0 Yes [id number] 4mg Take 1 Univers 4 mg 4-23 tablet by ity of disintegrat 00:00: mouth [place] ing tablet 00 every 4 Medica l (four) Branch hours as needed for Nausea and Vomiting (N/V). famotidine 2020-0 Yes [id number] 20mg Take 1 Univers 20 mg 4-23 tablet by ity of tablet 00:00: mouth 2 [place] (two) Medical times Branch daily. ondansetron 2020-0 Yes [id number] 4mg Take 1 Univers 4 mg 4-23 tablet by ity of disintegrat 00:00: mouth [place] ing tablet 00 every 4 Medica l (four) Branch hours as needed for Nausea and Vomiting (N/V). famotidine 2020-0 Yes [id number] 20mg Take 1 Univers 20 mg 4-23 tablet by ity of tablet 00:00: mouth 2 (two) Medical times Branch daily. ondansetron 2020-0 Yes [id number] 4mg Take 1 Univers 4 mg 4-23 tablet by ity of disintegrat 00:00: mouth [place] ing tablet 00 every 4 Medica l (four) Branch hours as needed for Nausea and Vomiting (N/V). famotidine 2020-0 Yes [id number] 20mg Take 1 Univers 20 mg 4-23 tablet by ity of tablet 00:00: mouth 2 [place] (two) Medical times Branch daily. ondansetron 2020-0 Yes [id number] 4mg Take 1 Univers 4 mg 4-23 tablet by ity of disintegrat 00:00: mouth [place] ing tablet 00 every 4 Medica l (four) Branch hours as needed for Nausea and Vomiting (N/V). famotidine 2020-0 Yes [id number] 20mg Take 1 Univers 20 mg 4-23 tablet by ity of tablet 00:00: mouth 2 (two) Medical times Branch daily. ondansetron 2020-0 Yes [id number] 4mg Take 1 Univers 4 mg 4-23 tablet by ity of disintegrat 00:00: mouth [place] ing tablet 00 every 4 Medica l (four) Branch hours as needed for Nausea and Vomiting (N/V). famotidine 2020-0 Yes [id number] 20mg Take 1 Univers 20 mg 4-23 tablet by ity of tablet 00:00: mouth 2 [place] (two) Medical times Branch daily. ondansetron 2020-0 Yes [id number] 4mg Take 1 Univers 4 mg 4-23 tablet by ity of disintegrat 00:00: mouth [place] ing tablet 00 every 4 Medica l (four) Branch hours as needed for Nausea and Vomiting (N/V). famotidine 2020-0 Yes [id number] 20mg Take 1 Univers 20 mg 4-23 tablet by ity of tablet 00:00: mouth (two) Medical times Branch daily. ondansetron 2020-0 Yes [id number] 4mg Take 1 Univers 4 mg 4-23 tablet by ity of disintegrat 00:00: mouth [place] ing tablet 00 every 4 Medica l (four) Branch hours as needed for Nausea and Vomiting (N/V). famotidine 2020-0 Yes [id number] 20mg Take 1 Univers 20 mg 4-23 tablet by ity of tablet 00:00: mouth (two) Medical times Branch daily. ondansetron 2020-0 Yes [id number] 4mg Take 1 Univers 4 mg 4-23 tablet by ity of disintegrat 00:00: mouth [place] ing tablet 00 every 4 Medica l (four) Branch hours as needed for Nausea and Vomiting (N/V). famotidine 2020-0 Yes [id number] 20mg Take 1 Univers 20 mg 4-23 tablet by ity of tablet 00:00: mouth 2 (two) Medical times Branch daily. ondansetron 2020-0 Yes [id number] 4mg Take 1 Univers 4 mg 4-23 tablet by ity of disintegrat 00:00: mouth [place] ing tablet 00 every 4 Medica l (four) Branch hours as needed for Nausea and Vomiting (N/V). famotidine 2020-0 Yes [id number] 20mg Take 1 Univers 20 mg 4-23 tablet by ity of tablet 00:00: mouth 2 [place] 00 (two) Medical times Branch daily. ondansetron Yes [id number] 4mg Take 1 Univers 4 mg 4-23 [...] dose, 05/05/19 at 1100, MIAN acetaminoph Yes [id number] 1{tbl} Take 1 Univers en-codeine 8-10 tablet by ity of (TYLENOL-CO 00:00: mouth [place] DEINE #3) 00 every 4 Medical 300-30 mg (four) Branch tablet hours as needed (pain). ondansetron Yes [id number] 4mg Take 1 Univers (ZOFRAN) 4 8-10 tablet by ity of mg tablet 00:00: mouth [place] 00 every 8 Medical (eight) Branch hours as needed (nausea). acetaminoph Yes [id number] 1{tbl} Take 1 Univers en-codeine 8-10 tablet by ity of (TYLENOL-CO 00:00: mouth [place] DEINE #3) 00 every 4 Medical 300-30 mg (four) Branch tablet hours as needed (pain). ondansetron Yes [id number] 4mg Take 1 Univers (ZOFRAN) 4 8-10 tablet by ity of mg tablet 00:00: mouth [place] 00 every 8 Medical (eight) Branch hours as needed (nausea). acetaminoph 2019-0 Yes [id number] 1{tbl} Take 1 Univers en-codeine 8-10 tablet by ity of (TYLENOL-CO 00:00: mouth [place] DEINE #3) 00 every 4 Medical 300-30 mg (four) Branch tablet hours as needed (pain). ondansetron 2019-0 Yes [id number] 4mg Take 1 Univers (ZOFRAN) 4 8-10 tablet by ity of mg tablet 00:00: mouth [place] 00 every 8 Medical (eight) Branch hours as needed (nausea). acetaminoph 2019-0 Yes [id number] 1{tbl} Take 1 Univers en-codeine 8-10 tablet by ity of (TYLENOL-CO 00:00: mouth [place] DEINE #3) 00 every 4 Medical 300-30 mg (four) Branch tablet hours as needed (pain). acetaminoph 0 Yes [id number] 1{tbl} Take 1 Univers en-codeine 8-10 tablet by ity of (TYLENOL-CO 00:00: mouth [place] DEINE #3) 00 every 4 Medical 300-30 mg (four) Branch tablet hours as needed (pain). ondansetron 2019-0 Yes [id number] 4mg Take 1 Univers (ZOFRAN) 4 8-10 tablet by ity of mg tablet 00:00: mouth [place] 00 every 8 Medical (eight) Branch hours as needed (nausea). ondansetron 2019-0 Yes [id number] 4mg Take 1 Univers (ZOFRAN) 4 8-10 tablet by ity of mg tablet 00:00: mouth [place] 00 every 8 Medical (eight) Branch hours as needed (nausea). acetaminoph 2019-0 Yes [id number] 1{tbl} Take 1 Univers en-codeine 8-10 tablet by ity of (TYLENOL-CO 00:00: mouth [place] DEINE #3) 00 every 4 Medical 300-30 mg (four) Branch tablet hours as needed (pain). ondansetron 2019-0 Yes [id number] 4mg Take 1 Univers (ZOFRAN) 4 8-10 tablet by ity of mg tablet 00:00: mouth [place] 00 every 8 Medical (eight) Branch hours as needed (nausea). acetaminoph Yes [id number] 1{tbl} Take 1 Univers en-codeine 8-10 tablet by ity of (TYLENOL-CO 00:00: mouth [place] DEINE #3) 00 every 4 Medical 300-30 mg (four) Branch tablet hours as needed (pain). ondansetron Yes [id number] 4mg Take 1 Univers (ZOFRAN) 4 8-10 tablet by ity of mg tablet 00:00: mouth [place] 00 every 8 Medical (eight) Branch hours as needed (nausea). acetaminoph Yes [id number] 1{tbl} Take 1 Univers en-codeine 8-10 tablet by ity of (TYLENOL-CO 00:00: mouth [place] DEINE #3) 00 every 4 Medical 300-30 mg (four) Branch tablet hours as needed (pain). ondansetron Yes [id number] 4mg Take 1 Univers (ZOFRAN) 4 8-10 tablet by ity of mg tablet 00:00: mouth [place] 00 every 8 Medical (eight) Branch hours as needed (nausea). acetaminoph Yes [id number] 1{tbl} Take 1 Univers en-codeine 8-10 tablet by ity of (TYLENOL-CO 00:00: mouth [place] DEINE #3) 00 every 4 Medical 300-30 mg (four) Branch tablet hours as needed (pain). ondansetron Yes [id number] 4mg Take 1 Univers (ZOFRAN) 4 8-10 tablet by ity of mg tablet 00:00: mouth [place] 00 every 8 Medical (eight) Branch hours as needed (nausea). acetaminoph 20190 Yes [id number] 1{tbl} Take 1 Univers en-codeine 8-10 tablet by ity of (TYLENOL-CO 00:00: mouth [place] DEINE #3) 00 every 4 Medical 300-30 mg (four) Branch tablet hours as needed (pain). ondansetron 2018-0 Yes [id number] 4mg Take 1 Univers (ZOFRAN) 4 8-10 tablet by ity of mg tablet 00:00: mouth [place] 00 every 8 Medical (eight) Branch hours as needed (nausea). acetaminoph 2019-0 Yes [id number] 1{tbl} Take 1 Univers en-codeine 8-10 tablet by ity of (TYLENOL-CO 00:00: mouth [place] DEINE #3) 00 every 4 Medical 300-30 mg (four) Branch tablet hours as needed (pain). ondansetron 2019-0 Yes [id number] 4mg Take 1 Univers (ZOFRAN) 4 8-10 tablet by ity of mg tablet 00:00: mouth [place] 00 every 8 Medical (eight) Branch hours as needed (nausea). acetaminoph 2019-0 Yes [id number] 1{tbl} Take 1 Univers en-codeine 8-10 tablet by ity of (TYLENOL-CO 00:00: mouth [place] DEINE #3) 00 every 4 Medical 300-30 mg (four) Branch tablet hours as needed (pain). ondansetron 2019-0 Yes [id number] 4mg Take 1 Univers (ZOFRAN) 4 8-10 tablet by ity of mg tablet 00:00: mouth [place] 00 every 8 Medical (eight) Branch hours as needed (nausea). acetaminoph 2019-0 Yes [id number] 1{tbl} Take 1 Univers en-codeine 8-10 tablet by ity of (TYLENOL-CO 00:00: mouth [place] DEINE #3) 00 every 4 Medical 300-30 mg (four) Branch tablet hours as needed (pain). ondansetron 2019-0 Yes [id number] 4mg Take 1 Univers (ZOFRAN) 4 8-10 tablet by ity of mg tablet 00:00: mouth [place] 00 every 8 Medical (eight) Branch hours as needed (nausea). acetaminoph 2019-0 Yes [id number] 1{tbl} Take 1 Univers en-codeine 8-10 tablet by ity of (TYLENOL-CO 00:00: mouth [place] DEINE #3) 00 every 4 Medical 300-30 mg (four) Branch tablet hours as needed (pain). ondansetron 2019-0 Yes [id number] 4mg Take 1 Univers (ZOFRAN) 4 8-10 tablet by ity of mg tablet 00:00: mouth [place] 00 every 8 Medical (eight) Branch hours as needed (nausea). acetaminoph Yes [id number] 1{tbl} Take 1 Univers en-codeine 8-10 tablet by ity of (TYLENOL-CO 00:00: mouth [place] DEINE #3) 00 every 4 Medical 300-30 mg (four) Branch tablet hours as needed (pain). ondansetron Yes [id number] 4mg Take 1 Univers (ZOFRAN) 4 8-10 tablet by ity of mg tablet 00:00: mouth [place] 00 every 8 Medical (eight) Branch hours as needed (nausea). acetaminoph Yes [id number] 1{tbl} Take 1 Univers en-codeine 8-10 tablet by ity of (TYLENOL-CO 00:00: mouth [place] DEINE #3) 00 every 4 Medical 300-30 mg (four) Branch tablet hours as needed (pain). ondansetron Yes [id number] 4mg Take 1 Univers (ZOFRAN) 4 8-10 [...] ity of mg tablet 00:00: every 6 [place] [address] (six) Medical hours as Branch needed for Pain (scale 4-6). traMADOL 2016-0 Yes 50mg Take 1 Tab Uni vers (ULTRAM) 50 3-22 by mouth ity of mg tablet 00:00: every 6 [place] [address] (six) Medical hours as Branch needed for Pain (scale 4-6). desvenlafax 2016-0 Yes 50mg Take 50 mg Univers ine 1-14 by mouth ity of succinate 19:39: daily. [place] (PRISTIQ) 45 Medical 50 mg 24 hr Branch tablet desvenlafax 2016-0 Yes 50mg Take 50 mg Univers ine 1-14 by mouth ity of succinate 19:39: daily. [place] (PRISTIQ) 45 Medical 50 mg 24 hr Branch tablet desvenlafax 2016-0 Yes 50mg Take 50 mg Univers ine 1-14 by mouth ity of succinate 19:39: daily. [place] (PRISTIQ) 45 Medical 50 mg 24 hr Branch tablet desvenlafax 2016-0 Yes 50mg Take 50 mg Univers ine 1-14 by mouth ity of succinate 19:39: daily. [place] (PRISTIQ) 45 Medical 50 mg 24 hr Branch tablet desvenlafax 2016-0 Yes 50mg Take 50 mg Univers ine 1-14 by mouth ity of succinate 19:39: daily. [place] (PRISTIQ) 45 Medical 50 mg 24 hr Branch tablet desvenlafax 2016-0 Yes 50mg Take 50 mg Univers ine 1-14 by mouth ity of succinate 19:39: daily. [place] (PRISTIQ) 45 Medical 50 mg 24 hr [...] mouth ity of thoprim 00:00: every 12 [place] (BACTRIM 00 ([facility]) Medical DS) 800-160 hours. Branch mg per [...] mouth ity of thoprim 00:00: every 12 [place] (BACTRIM 00 ([facility]) Medical DS) 800-160 hours. Branch mg per tablet phenazopyri 2016-0 Yes 200mg Take 1 Tab Univers dine 1-14 by mouth 3 ity of (PYRIDIUM) 00:00: (three) [place] 200 mg 00 times Medical tablet daily. Branch tamsulosin 2016-0 Yes .4mg Take 1 Cap U nivers (FLOMAX) 1-14 by mouth ity of 0.4 mg 24 00:00: at [place] hr capsule 00 bedtime. Medic al Branch sulfamethox 2016-0 Yes 1{tbl} Take 1 Tab Univers azole-trime 1-14 by mouth ity of thoprim 00:00: every 12 [place] (BACTRIM 00 ([facility]) Medical DS) 800-160 hours. Branch mg per tablet phenazopyri 2016-0 Yes 200mg Take 1 Tab Univers dine 1-14 by mouth 3 ity of (PYRIDIUM) 00:00: (three) [place] 200 mg 00 times Medical tablet daily. Branch tamsulosin 2016-0 Yes .4mg Take 1 Cap U nivers (FLOMAX) 1-14 by mouth ity of 0.4 mg 24 00:00: at [place] hr capsule 00 bedtime. Medic al Branch sulfamethox 2016-0 Yes 1{tbl} Take 1 Tab Univers azole-trime 1-14 by mouth ity of thoprim 00:00: every 12 [place] (BACTRIM ([facility]) Medical DS) 800-160 hours. Branch mg per [...] mouth ity of thoprim 00:00: every 12 [place] (BACTRIM ([facility]) Medical DS) 800-160 hours. Branch mg per [...] mouth ity of thoprim 00:00: every 12 [place] (BACTRIM ([facility]) Medical DS) 800-160 hours. Branch mg per [...] mouth ity of thoprim 00:00: every 12 [place] ([facility]CTRIM ([facility]) Medical DS) 800-160 hours. Branch mg per [...] mouth ity of thoprim 00:00: every 12 [place] (BACTRIM 00 ([facility]) Medical DS) 800-160 hours. Branch mg per [...] mouth ity of thoprim 00:00: every 12 [place] (BACTRI ([facility]) Medical DS) 800-160 hours. Branch mg per [...] mouth ity of thoprim 00:00: every 12 [place] (BACTRIM 00 ([facility]) Medical DS) 800-160 hours. Branch mg per [...] mouth ity of thoprim 00:00: every 12 [place] (BACTRIM 00 ([facility]) Medical DS) 800-160 hours. Branch mg per [...] mouth ity of thoprim 00:00: every 12 [place] (BACTRIM 00 ([facility]) Medical DS) 800-160 hours. Branch mg per tablet phenazopyri 2016-0 Yes 200mg Take 1 Tab Univers dine 1-14 by mouth 3 ity of (PYRIDIUM) [place]:00[place] 200 mg 00 times Medical tablet daily. Branch tamsulosin 2016-0 Yes .4mg Take 1 Cap U nivers (FLOMAX) 1-14 by mouth ity of 0.4 mg 24 00:00: at [place] hr capsule 00 bedtime. Medic al Branch sulfamethox 2016-0 Yes 1{tbl} Take 1 Tab Univers azole-trime 1-14 by mouth ity of thoprim 00:00: every 12 [place] (BACTRIM 00 (twelve) Medical DS) 800-160 hours. [...] mouth ity of thoprim 00:00: every 12 [place] (BACTRIM 00 (twelve) Medical DS) 800-160 hours. [...] mouth ity of thoprim 00:00: every 12 [place] (BACTRIM 00 (twelve) Medical DS) 800-160 hours. [...] 00:00: at [place] hr capsule 00 bedtime. [facility] Vital Signs Vital Name Observation Time Observation Value Comments Source Systolic blood 2021-08-06 17:07:00 132 mm[Hg] Univer sity of pressure [facility] Diastolic blood 2021-08-06 17:07:00 89 [facility]Hg[facility] 2021-08-06 17:07:00 89 /min [facility] Body temperature 2021-08-06 17:07:00 36.5 Carla [facility] rate 2021-08-06 17:07:00 18 /min [facility] Body height 2021-08-06 17:07:00 175.3 cm [facility] Body weight 2021-08-06 17:07:00 68.04 kg [facility] [place] [facility] BMI 2021-08-06 17:07:00 22.15 kg/m2 [facility] [place] [facility] Oxygen saturation in 2021-08-06 17:07:00 99 /min University of Arterial blood by [facility] Pulse oximetry Branch Systolic blood 2020-12-31 04:25:00 145 mm[Hg] Univer sity of pressure [place] [facility] Diastolic blood 2020-12-31 04:25:00 75 mm[Hg] Unive rsity of pressure [place] [facility] Heart rate 2020-12-31 04:25:00 130 /min [facility] [place] [facility] Body temperature 2020-12-31 04:25:00 36.67 Carla [facility] ers[facility] [place] [facility] Respiratory rate 2020-12-31 04:25:00 20 /min [facility] [place] [facility] Body weight 2020-12-31 04:25:00 65.772 kg [facility] [place] [facility] BMI 2020-12-31 04:25:00 21.41 kg/m2 [facility] [place] [facility] Oxygen saturation in 2020-12-31 04:25:00 100 /min University of Arterial blood by [facility] Pulse oximetry Branch Systolic blood 2020-05-16 01:00:00 111 mm[Hg] Univer sity of pressure [place] [facility] Diastolic blood 2020-05-16 01:00:00 66 mm[Hg] Unive rsity of pressure [place] [facility] Heart rate 2020-05-16 01:00:00 70 /min [facility] [place] [facility] Body temperature 2020-05-16 01:00:00 36.89 Carla [facility] [place] [facility] Respiratory rate 2020-05-16 01:00:00 16 /min [facility] [place] [facility] Oxygen saturation in 2020-05-16 01:00:00 97 /min University of Arterial blood by [facility] Pulse oximetry Branch Body weight 2020-05-15 20:51:00 68.04 kg [facility] [place] [facility] BMI 2020-05-15 20:51:00 22.15 kg/m2 [facility] [place] [facility] Systolic blood 2020-03-07 08:00:00 104 mm[Hg] Univer sity of pressure [place] [facility] Diastolic blood 2020-03-07 08:00:00 66 mm[Hg] Unive rsity of pressure [place] [facility] Heart rate 2020-03-07 08:00:00 65 /min [facility] [place] [facility] Respiratory rate 2020-03-07 08:00:00 18 /min Univ [facility] [place] [facility] Oxygen saturation in 2020-03-07 08:00:00 96 /min University of Arterial blood by [place] [facility] Pulse oximetry Branch Body temperature 2020-03-07 06:26:00 36.39 Carla Univ [facility] [place] [facility] Body height 2020-03-07 06:26:00 175.3 cm [facility] [place] [facility] Body weight 2020-03-07 06:26:00 74.844 kg [facility] [place] [facility] BMI 2020-03-07 06:26:00 24.37 kg/m2 [facility] [place] [facility] Systolic blood 2020-03-07 08:00:00 104 mm[Hg] Univer sity of pressure [place] [facility] Diastolic blood 2020-03-07 08:00:00 66 mm[Hg] Unive rsity of pressure [place] [facility] Heart rate 2020-03-07 08:00:00 65 /min [facility] [place] [facility] Respiratory rate 2020-03-07 08:00:00 18 /min Univ ers[facility] [place] [facility] Oxygen saturation in 2020-03-07 08:00:00 96 /min University of Arterial blood by [facility] Pulse oximetry Branch Body temperature 2020-03-07 06:26:00 36.39 Carla Univ [facility] [place] [facility] Body height 2020-03-07 06:26:00 175.3 cm [facility] [place] [facility] Body weight 2020-03-07 06:26:00 74.844 kg [facility] [place] [facility] BMI 2020-03-07 06:26:00 24.37 kg/m2 [facility] [place] [facility] Systolic blood 2020-02-28 06:00:00 128 mm[Hg] Univer sity of pressure [place] [facility] Diastolic blood 2020-02-28 06:00:00 75 mm[Hg] Unive rsity of pressure [place] [facility] Heart rate 2020-02-28 06:00:00 86 /min [facility] [place] [facility] Oxygen saturation in 2020-02-28 06:00:00 97 /min University of Arterial blood by [place] [facility] Pulse oximetry Branch Body temperature 2020-02-28 03:04:00 37.06 Carla Univ ersity of [facility] Respiratory rate 2020-02-28 03:04:00 14 /min Univ ersity of [facility] Body height 2020-02-28 03:04:00 175.3 cm [facility] [place] [facility] Body weight 2020-02-28 03:04:00 74.844 kg Universi ty of [facility] BMI 2020-02-28 03:04:00 24.37 kg/m2 Universi ty of [facility] Systolic blood 2020-02-28 06:00:00 128 mm[Hg] Univer sity of pressure [facility] Diastolic blood 2020-02-28 06:00:00 75 mm[Hg] Unive rsity of pressure [facility] Heart rate 2020-02-28 06:00:00 86 /min Universi ty of [facility] Oxygen saturation in 2020-02-28 06:00:00 97 /min University of [place]terial blood by [place] [facility] Pulse oximetry Branch Body temperature 2020-02-28 03:04:00 37.06 Carla Univ ersity of [facility] Respiratory rate 2020-02-28 03:04:00 14 /min Univ ersity of [facility] Body height 2020-02-28 03:04:00 175.3 cm [facility] [place] [facility] Body weight 2020-02-28 03:04:00 74.844 kg Universi ty of [facility] BMI 2020-02-28 03:04:00 24.37 kg/m2 Universi ty of [facility] Systolic blood 2020-02-02 14:00:00 111 mm[Hg] Univer sity of pressure [facility] Diastolic blood 2020-02-02 14:00:00 96 mm[Hg] Unive rsity of pressure [facility] Heart rate 2020-02-02 14:00:00 60 /min Universi ty of [facility] Respiratory rate 2020-02-02 14:00:00 18 /min Univ ersity of [facility] Branch Oxygen saturation in 2020-02-02 14:00:00 99 /min University of Arterial blood by [place] [facility] Pulse oximetry Branch Body temperature 2020-02-02 12:39:00 36.11 Carla Univ ersity of [facility] Branch Body weight 2020-02-02 12:39:00 81.647 kg [facility] [place] [facility] BMI 2020-02-02 12:39:00 26.58 kg/m2 [facility] [place] [facility] Systolic blood 2020-02-02 14:00:00 111 mm[Hg] Univer sity of pressure [place] [facility] Diastolic blood 2020-02-02 14:00:00 96 mm[Hg] Unive rsity of pressure [place] [facility] Heart rate 2020-02-02 14:00:00 60 /min [facility] [place] [facility] Respiratory rate 2020-02-02 14:00:00 18 /min Univ [facility] [place] [facility] Oxygen saturation in 2020-02-02 14:00:00 99 /min [facility] of Arterial blood by [place] [facility] Pulse oximetry Branch Body temperature 2020-02-02 12:39:00 36.11 Carla [facility] [place] [facility] Body weight 2020-02-02 12:39:00 81.647 kg [facility] [place] [facility] BMI 2020-02-02 12:39:00 26.58 kg/m2 [facility] [place] [facility] Systolic blood 2020-01-17 15:14:00 134 mm[Hg] Univer sity of pressure [place] [facility] Diastolic blood 2020-01-17 15:14:00 88 mm[Hg] Unive rsity of pressure [place] [facility] Heart rate 2020-01-17 15:14:00 58 /min [facility] [place] [facility] Body temperature 2020-01-17 15:14:00 36.33 Carla [facility] [place] [facility] Respiratory rate 2020-01-17 15:14:00 14 /min Univ [facility] [place] [facility] Body height 2020-01-17 15:14:00 175.3 cm [facility] [place] [facility] Body weight 2020-01-17 15:14:00 79.379 kg [facility] [place] [facility] BMI 2020-01-17 15:14:00 25.84 kg/m2 [facility] [place] [facility] Oxygen saturation in 2020-01-17 15:14:00 99 /min [facility] of Arterial blood by [place] [facility] Pulse oximetry Branch Systolic blood 2020-01-17 15:14:00 134 mm[Hg] Univer sity of pressure [place] [facility] Diastolic blood 2020-01-17 15:14:00 88 mm[Hg] Unive rsity of pressure [place] [facility] Heart rate 2020-01-17 15:14:00 58 /min [facility] [place] [facility] Body temperature 2020-01-17 15:14:00 36.33 Carla [facility] [place] [facility] Respiratory rate 2020-01-17 15:14:00 14 /min [facility] [place] [facility] Body height 2020-01-17 15:14:00 175.3 cm [facility] [place] [facility] Body weight 2020-01-17 15:14:00 79.379 kg [facility] [place] [facility] BMI 2020-01-17 15:14:00 25.84 kg/m2 [facility] [place] [facility] Oxygen saturation in 2020-01-17 15:14:00 99 /min University of Arterial blood by [place] [facility] Pulse oximetry Branch Systolic blood 2019-05-27 03:33:00 130 mm[Hg] Univer sity of pressure [place] [facility] Diastolic blood 2019-05-27 03:33:00 76 mm[Hg] Unive rsity of pressure [place] [facility] Heart rate 2019-05-27 03:33:00 75 /min [facility] [place] [facility] Respiratory rate 2019-05-27 03:33:00 18 /min Univ [facility] [place] [facility] Oxygen saturation in 2019-05-27 03:33:00 96 /min University of Arterial blood by [place] [facility] [employer] [facility] Pulse oximetry Branch Body temperature 2019-05-27 02:22:00 37.17 Carla [facility] [place] [facility] Body height 2019-05-27 02:22:00 175.3 cm [facility] [place] [facility] Body weight 2019-05-27 02:22:00 72.576 kg [facility] [place] [facility] BMI 2019-05-27 02:22:00 23.63 kg/m2 [facility] [place] [facility] Systolic blood 2019-05-27 03:33:00 130 mm[Hg] Univer sity of pressure [place] [facility] Diastolic blood 2019-05-27 03:33:00 76 mm[Hg] Unive rsity of pressure [place] [facility] Heart rate 2019-05-27 03:33:00 75 /min [facility] [place] [facility] Respiratory rate 2019-05-27 03:33:00 18 /min Univ [facility] [place] [facility] Oxygen saturation in 2019-05-27 03:33:00 96 /min [facility] Arterial blood by [place] [facility] Pulse oximetry Branch Body temperature 2019-05-27 02:22:00 37.17 Carla [facility] [place] [facility] Body height 2019-05-27 02:22:00 175.3 cm [facility] [place] [facility] Body weight 2019-05-27 02:22:00 72.576 kg [facility] [place] [facility] BMI 2019-05-27 02:22:00 23.63 kg/m2 [facility] [place] [facility] Systolic blood 2019-05-05 16:40:00 118 mm[Hg] Univer sity of pressure [place] [facility] Diastolic blood 2019-05-05 16:40:00 76 mm[Hg] Unive rsity of pressure [place] [facility] Heart rate 2019-05-05 16:40:00 72 /min [facility] [place] [facility] Respiratory rate 2019-05-05 16:40:00 18 /min Univ [facility] [place] [facility] Oxygen saturation in 2019-05-05 16:40:00 100 /min University of Arterial blood by [place] [facility] Pulse oximetry Branch Body temperature 2019-05-05 15:42:00 36.39 Carla [facility] [place] [facility] Body height 2019-05-05 15:42:00 175.3 cm [facility] [place] [facility] Body weight 2019-05-05 15:42:00 63.504 kg [facility] [place] [facility] BMI 2019-05-05 15:42:00 20.67 kg/m2 [facility] [place] [facility] Systolic blood 2019-05-05 16:40:00 118 mm[Hg] Univer sity of pressure [place] [facility] Diastolic blood 2019-05-05 16:40:00 76 mm[Hg] Unive rsity of pressure [place] [facility] Heart rate 2019-05-05 16:40:00 72 /min [facility] [place] [facility] Respiratory rate 2019-05-05 16:40:00 18 /min Univ [facility] [place] [facility] Oxygen saturation in 2019-05-05 16:40:00 100 /min University of Arterial blood by [place] Medi rena Pulse oximetry Branch Body temperature 2019-05-05 15:42:00 36.39 Carla [facility] [place] [facility] Body height 2019-05-05 15:42:00 175.3 cm [facility] [place] [facility] Body weight 2019-05-05 15:42:00 63.504 kg [facility] [place] [facility] BMI 2019-05-05 15:42:00 20.67 kg/m2 [facility] Procedures Procedure Date / Time Performing Clinician Source Performed NOTICE OF PRIVACY 2021-08-06 17:02:05 Doctor Unassigned, No Univ [facility] [place] PRACTICES Name Medical Branch CONSENT/REFUSAL FOR 2021-08-06 17:01:38 Doctor Unassigned, No [facility] [place] DIAGNOSIS AND TREATMENT Name Medical Branch CONSENT/REFUSAL FOR 2020-12-31 04:13:29 Doctor Unassigned, No [facility] [place] DIAGNOSIS AND TREATMENT Name Medical Branch CT ABDOMEN PELVIS WO 2020-05-15 23:01:[address] [facility] CONTRAST Medical [place] BASIC METABOLIC PANEL 2020-05-15 22:19:00 Gabriela Saldana [facility] (NA, K, CL, CO2, Medical Branch GLUCOSE, BUN, CREATININE, CA) CBC WITH DIFF 2020-05-15 22:19:00 Gabriela Saldana [facility] URINALYSIS 2020-05-15 21:37:00 Yogesh Jose [facility] NOTICE OF PRIVACY 2020-05-15 20:46:53 [facility]igned, No [facility] CONSENT/REFUSAL FOR 2020-05-15 20:45:47 Doctor Unassigned, No [facility] [place] DIAGNOSIS AND TREATMENT Name Medical Branch CT ABDOMEN PELVIS W 2020-03-07 07:51:13 Christiana Kaplan [facility] CONTRAST [facility] Branch URINALYSIS 2020-03-07 06:49:00 Christiana Kaplan [facility] LIPASE 2020-03-07 06:44:00 Christiana Kaplan [facility] COMP. METABOLIC PANEL 2020-03-07 06:44:00 Christiana Kaplan [facility] ([id number]) Medical Branch CBC WITH DIFFERENTIAL 2020-03-07 06:44:00 Christiana Kaplan [facility] CONSENT/REFUSAL FOR 2020-03-07 06:19:58 Doctor Unassigned, No [facility] [place] DIAGNOSIS AND TREATMENT Name Medical Branch LIPASE 2020-02-28 03:18:00 Christiana Kaplan [facility] COMP. METABOLIC PANEL 2020-02-28 03:18:00 Christiana Kaplan [facility] ([id number]) Medical Branch CBC WITH DIFFERENTIAL 2020-02-28 03:18:00 Christiana Kaplan [facility] URINALYSIS 2020-02-28 03:18:00 Christiana Kaplan [facility] ADC / C - DRUG SCREEN 2020-02-28 03:18:00 Christiana Kaplan [facility] CONSENT/REFUSAL FOR 2020-02-28 02:56:54 Doctor [facility]igned, No [facility] Name [facility] URINALYSIS 2020-02-02 13:31:00 Yessica Jennings [facility] CT ABDOMEN PELVIS WO 2020-02-02 13:25:09 Yessica Jennings [facility] CONTRAST [facility] BASIC METABOLIC PANEL 2020-02-02 13:03:00 Yessica Jennings [facility] (NA, K, CL, CO2, Medical Branch GLUCOSE, BUN, CREATININE, CA) CBC WITH DIFFERENTIAL 2020-02-02 13:03:00 Yessica Jennings [facility] NOTICE OF PRIVACY 2020-02-02 12:33:53 Doctor Unassigned, No [facility] PRACTICES Name [facility] Branch CONSENT/REFUSAL FOR 2020-02-02 12:33:41 Doctor Unassigned, No [facility] [place] DIAGNOSIS AND TREATMENT Name Medical Branch LIPASE 2020-01-17 15:25:00 Jose Zuñiga [facility] HEPATIC FUNCTION PANEL 2020-01-17 15:25:00 Jose Zuñiga [facility] ([id number]) (ALB,T.PRO,BILI Medical Branch T,BU/BC,ALT,AST,ALK PHOS) BASIC METABOLIC PANEL 2020-01-17 15:25:00 Jose Zuñiga [facility] (NA, K, CL, CO2, Medical Branch GLUCOSE, BUN, CREATININE, CA) CBC WITH DIFFERENTIAL 2020-01-17 15:25:00 Jose Zuñiga [facility] URINALYSIS 2020-01-17 15:25:00 [facility] - [facility] SCREEN 2020-01-17 15:25:00 Jose Zuñiga [facility] TRIAGE [facility] XR CHEST 1 VW 2019-05-27 02:58:31 Avril [facility] TROPONIN I 2019-05-27 02:49[facility] 2019-05-27 02:49:00 [facility] ([id number] (ALB,T.PRO,BILI Medical Branch T,BU/BC,ALT,AST,ALK PHOS) BASIC METABOLIC PANEL 2019-05-27 02:49:00 [facility] (NA, K, CL, CO2, Medical Branch GLUCOSE, BUN, CREATININE, CA) ETHANOL 2019-05-27 02:49:[facility] CBC WITH DIFFERENTIAL 2019-05-27 02:49:00 [facility] 2019-05-27 02:35:08 Avril [facility] XR CHEST 1 VW 2019-05-05 16:22:10 Kyung [facility] CT ABDOMEN PELVIS WO 2019-05-05 16:21:56 Kyung Fldidi [facility] CONTRAST [facility] Branch LIPASE 2019-05-05 15:59:00 Kyung [facility] HEPATIC FUNCTION PANEL 2019-05-05 15:59:00 Jazmín Tracey [facility] ([id number]) (ALB,T.PRO,BILI Medical [place] T,BU/BC,ALT,AST,ALK PHOS) BASIC METABOLIC PANEL 2019-05-05 15:59:00 Kyung [facility] (NA, K, CL, CO2, Medical Branch GLUCOSE, BUN, CREATININE, CA) CBC WITH DIFFERENTIAL 2019-05-05 15:59:00 [facility] 2019-05-05 15:59:00 Tracey [facility] Encounters Start End Encounter Admission Attending Care Care Encounter Source Date/Time Date/Time Type Type Clinicians Facility Department ID 2021-08-06 2021-08-06 Emergency X [facility], [facility] ERT [id number] Univers 11:08:00 12:14:00 GABRIELA ity of [facility] 2021-08-06 2021-08-06 [facility] [id number] Univers 11:08:00 12:14:00 Gabrilea Bains JOSS[place] [id number] ity of [place] [id number] [facility] [id number] [address] 2020-12-30 2020-12-30 Emergency Cheyenne Patel [facility] [id number] Univers 23:28:00 23:56:00 Jacquelyn Stearns [id number] i ty of [place] [id number] [facility] [id number] [address] 2020-12-30 2020-12-30 Emergency X [facility] ERT [id number] Univers 23:14:00 23:14:00 ity of [facility] 2020-05-15 2020-05-15 Emergency [facility], [facility] [id number] Univers 15:55:00 20:51:00 Gabriela Bains Jossue [id number] ity of [place] [id number] [facility] [id number] [address] 2020-05-15 2020-05-15 Emergency X [facility] ERT [id number] Univers 15:55:00 15:55:00 ity of [facility] 2020-05-15 2020-05-15 Orders Doctor ALIX [id number] Univers 00:00:00 00:00:00 Only Unassigned, RAKEL [id number] ity of [place] [facility] [id number] [facility] [id number] [address] 2020-05-09 2020-05-09 Patient Kim Marie [id number] Univers 00:00:00 00:00:00 Outreach E Jaeger [id number] i ty [id number] [id number] [address] 2020-03-14 2020-03-14 Patient Kim Marie [id number] [facility] 00:00:00 00:00:00 Outreach E Jaeger [id number] i ty [place] [id number] [id number] [address] 2020-03-14 2020-03-14 Patient Kim Marie [id number] 00:00:00 00:00:00 Outreach E Jaeger [id number] [place] [id number] [id number] [facility] 2020-03-12 2020-03-12 Patient Kim Marie 1.2.840.114 [id number] [facility] 00:00:00 00:00:00 Outreach E Jaeger [id number] i [place] [id number] [id number] [address] 2020-03-12 2020-03-12 Transition Jah Hoyt [id number] [facility] 00:00:00 00:00:00 of Care Gaye Jaeger [id number] [place]y [place] [id number] [id number] [address] 2020-03-12 2020-03-12 Patient Kim Marie 1.2.840.114 [id number] 00:00:00 00:00:00 Outreach E Jaeger [id number] [place] [id number] [id number] [facility] 2020-03-12 2020-03-12 Transition Lai Jah [id number] 00:00:00 00:00:00 of Care Gaye Jaeger [id number] [place] [id number] [id number] [facility] 2020-03-07 2020-03-07 Emergency [facility] [id number] [facility] 01:22:58 03:40:00 Christiana Stearns [id number] ity of [place] [id number] [facility] [id number] [address] 2020-03-07 2020-03-07 Emergency X [facility] ERT [id number] Univers 01:22:58 03:40:00 CHRISTIANA ity of [facility] 2020-03-07 2020-03-07 Emergency [facility] [id number] 01:22:58 03:40:00 Christiana Stearns [id number] [place] [id number] [place] [id number] [facility] 2020-02-27 2020-02-28 Emergency [facility] [id number] [facility] 22:09:31 01:36:00 Christiana Stearns [id number] ity of [place] [id number] [facility] [id number] [address] 2020-02-27 2020-02-28 Emergency [facility] [id number] 22:09:31 01:36:00 Christiana Stearns [id number] [place] [id number] [place] [id number] 2020-02-27 2020-02-27 Emergency X [facility] ERT [id number] Univers 21:57:00 21:57:00 ity of [facility] 2020-02-27 2020-02-27 Orders Doctor THOMSON 1.2.840.114 [id number] Univers 00:00:00 00:00:00 Only Unassigned, RAKEL [id number] ity of [place] [facility] [id number] [place]an [id number] [address] 2020-02-27 2020-02-27 Orders Doctor THOMSON 1.2.840.114 [id number] 00:00:00 00:00:00 Only Unassigned, RAKEL [id number] [place] [facility] [id number] [id number] 2020-02-02 2020-02-02 Emergency [facility] 1.2.840.114 [id number] Univers 07:36:37 09:47:00 Yessica Stearns [id number] ity of [place] 4.2.7.[address] [place] [id number] 2020-02-02 2020-02-02 [facility] [id number] Univers 07:36:37 09:47:00 YESSICA mercedes [facility] 2020-02-02 2020-02-02 Emergency [facility] 1.2.840.114 [id number] 07:36:37 09:47:00 Yessica Stearns [id number] [place] [address] [place] [address] [id number] [facility] 2020-02-02 2020-02-02 Orders Doctor THOMSON 1.2.840.114 [id number] Univers 00:00:00 00:00:00 Only Unassigned, RAKEL [id number] ity of [place] [facility] 4.2.7.[address] [place] [id number] 2020-02-02 2020-02-02 Orders Doctor THOMSNO [id number] 00:00:00 00:00:00 Only Unassigned, RAEKL [id number] [place] [facility] 4.2.7.2.68 [id number] [facility] 2020-01-17 2020-01-17 Emergency [facility] [id number] 10:12:01 11:51:00 Jose Stearns [id number] [place] [address] [place] [address] [id number] [facility] 2020-01-17 2020-01-17 Emergency [facility] [id number] Univers 10:12:01 11:51:00 Jose Stearsn [id number] i ty of [place] [place] [address] [place] [phone] 2020-01-17 2020-01-17 [facility] [id number] [facility] 10:12:01 10:12:01 JOSE mercedes [facility] 2019-05-26 2019-05-26 Emergency Tg Mackenzie [facility] 1.2.840.114 [id number] 21:20:14 23:22:00 Health 350.1.13.10 [place] 4.2.7.2.686 [place] [phone] [place] [address] ([employer]) 2019-05-26 2019-05-26 Emergency Tg Mackenzie [facility] 1.2.840.114 [id number] [facility] 21:20:14 23:22:00 Health 350.1.13.10 [place] [phone] [place] [address] [place] ([employer]) 2019-05-05 2019-05-[address] [facility] 1.2.840.114 [id number] 10:41:41 12:07:00 [facility] 350.1.13.10 [place] 4.2.7.2.686 [place] [phone] [place] [address] ([employer]) 2019-05-05 2019-05-[address] [facility], [facility] 1.2.840.114 [id number] [facility] 10:41:41 12:07:00 [facility] 350.1.13.10 [place] [phone] [address] ([employer]) Results Test Test Test Results Result Source [...] Interpretation Comme nts NA (test code = 3937989117) 137 mmol/L 135-145 K (test code = 8185203584) 4.1 mmol/L 3.5-5 CL (test code = 5881984477) 104 mmol/L 98-108 CO2 TOTAL (test code = 28 mmol/L 23-31 7037605257) AGAP (test code = 3395507588) 2-16 BUN (test code = 1676018444) 11 mg/dL 7-23 GLUCOSE (test code = 5853265692) 95 mg/dL 70-110 CREATININE (test code = 0.84 mg/dL 0.6-1.25 9461730616) CALCIUM (test code = 1415904222) 9.0 mg/dL 8.6-10.6 eGFR Calculation (Non- mL/min/1.73m2 Malian) (test code = 9309139197) eGFR Calculation ( mL/min/1.73m2 Malian) (test code = 5301136314) MARGOT (test code = MARGOT) Association of [...] or urine or abnormalities in imaging tests). [facility] with [id number] 22:38:00 Test Item Value Reference Range Interpretation Comments WBC (test code = See_Comment [Automated 5790-2) message] The sy stem which generated this result transmitted reference range : 4.20 - 10.70 10*3/?L. The reference range was not used to interpret this result as normal/abnormal . RBC (test code = See_Comment [Automated 639-8) message] The sy stem which generated this [...] RDW-SD (test code = 39.5 fL 38.5-51.6 45963-8) RDW-CV (test code = 12.3 % 12.1-15.4 788-0) PLT (test code = See_Comment H [Automated 967-3) message] The sy stem which generated this result transmitted reference range : 150 - 328 10*3/ ?L. The reference r lucy was not used to interpret this result as normal/abnormal . MPV (test code = 8.9 fL 9.8-13 L 07691-0) NRBC/100 WBC (test See_Comment [Automat ed code = 7079326660) message] The system which generated this result transmitted reference range : 0.0 - 10.0 /100 WBCs. The refer ence range was not u sed to interpret th is result as normal/abnormal . NRBC x10^3 (test code <0.01 See_Comment [Auto mated = 1553933335) message] The s ystem which generated this result transmitted reference range : 10*3/?L. The reference range was not used to interpret this result as normal/abnormal . GRAN MAT (NEUT) % 66.7 % (test code = 770-8) IMM GRAN % (test code 0.40 % = 1623763365) LYMPH % (test code = 23.9 % 736-9) MONO % (test code = 7.6 % 5905-5) EOS % (test code = 0.8 % 713-8) BASO % (test code = 0.6 % 706-2) GRAN MAT x10^3(ANC) 5.65 10*3/uL 1.99-6.95 (test code = 2910132385) IMM GRAN x10^3 (test 0.03 10*3/uL 0-0.06 code = 2635223095) LYMPH x10^3 (test code 2.02 10*3/uL 1.09-3.23 = 731-0) MONO x10^3 (test code 0.64 10*3/uL 0.36-1.02 = 742-7) EOS x10^3 (test code = 0.07 10*3/uL 0.06-0.53 711-2) BASO x10^3 (test code 0.05 10*3/uL 0.01-0.09 = 704-7) Lab Interpretation Abnormal (test code = 99606-0) [facility] 22:35[facility]00 Test Item Value Reference Range Interpretation Comments APPEARANCE (test code = Cloudy Clear A 8672993873) COLOR (test code = Dark Yellow Yellow A 1520763345) PH (test code = 4.8-8.0 9723926047) SP GRAVITY (test code = 1.003-1.030 H 3743296290) GLU U QUAL (test code = Normal Normal 0661287694) BLOOD (test code = 3+ Negative A 5895541626) KETONES (test code = Negative Negative 2271665089) PROTEIN (test code = 100 mg/dL Negative A 2887-8) UROBILIN (test code = 4.0 mg/dL Normal A 3780839444) BILIRUBIN (test code = 2 mg/dL Negative A 3228562711) NITRITE (test code = Negative Negative 6806276918) LEUK ZHEN (test code = Negative Negative 4321401332) RBC/HPF (test code = See_Comment H [Autom ated 5059856650) message] The sy stem which generated this result transmitted reference range : 0 - 3 HPF. The reference range was not used to interpret this result as normal/abnormal . WBC/HPF (test code = See_Comment [Autom ated 9290401712) message] The sy stem which generated this result transmitted reference range : 0 - 5 HPF. The reference range was not used to interpret this result as normal/abnormal . BACTERIA (test code = Negative Negative 1291952679) MUCOUS (test code = Marked Negative LPF A 4459978493) SQ EPITH (test code = HPF 7416617638) CA OXALATE (test code = See_Comment H [Au tomated 5808723596) message] The sy stem which generated this result transmitted reference range : <=1 HPF. The reference range was not used to interpret this result as normal/abnormal . HYAL CAST (test code = See_Comment H [Aut omated 1181691684) message] The sy stem which generated this result transmitted reference range : <=2 LPF. The reference range was not used to interpret this result as normal/abnormal . Ictotest (test code = Negative 7770394958) Lab Interpretation Abnormal (test code = 84487-7) [facility] [id number] 07:26:00 Test Item Value Reference Range Interpretation Comments NA (test code = 140 mmol/L 135-145 9852494756) K (test code = 3.5 mmol/L 3.5-5 5930755248) CL (test code = 103 mmol/L 98-108 8735363830) CO2 TOTAL (test code = 26 mmol/L 23-31 0845056675) AGAP (test code = 2-16 5448798995) BUN (test code = 12 mg/dL 7-23 9050487325) GLUCOSE (test code = 131 mg/dL 70-110 H 8285083674) CREATININE (test code = 0.77 mg/dL 0.6-1.25 9897833715) TOTAL BILI (test code = 0.3 mg/dL 0.1-1.6 0988360555) CALCIUM (test code = 9.6 mg/dL 8.6-10.6 4867766696) T PROTEIN (test code = 7.4 g/dL 6.3-8.2 8788778300) ALBUMIN (test code = 4.6 g/dL 3.5-5 3605693955) ALK PHOS (test code = 91 U/L 34-122 1118206258) ALTv (test code = 9 U/L 5-50 1742-6) AST(SGOT) (test code = 26 U/L 13-40 6217394664) eGFR Calculation mL/min/1.73m2 (Non-) (test code = 3538109746) eGFR Calculation mL/min/1.73m2 () (test code = 6004749347) MARGOT (test code = MARGOT) Association of [...] tests). Lab Interpretation Abnormal (test code = 51766-4) [facility] 07:24:00 Test Item Value Reference Range Interpretation Comments APPEARANCE (test code = Hazy Clear A 8828561838) COLOR (test code = Becca Yellow A 4476338670) PH (test code = 4.8-8.0 2482953559) SP GRAVITY (test code = 1.003-1.030 9090168429) GLU U QUAL (test code = Normal Normal 1712236187) BLOOD (test code = Negative Negative 4093014510) KETONES (test code = Negative Negative 9919537295) PROTEIN (test code = Negative Negative 2887-8) UROBILIN (test code = 2.0 mg/dL Normal A 8130312451) BILIRUBIN (test code = Negative Negative 6092077542) NITRITE (test code = Negative Negative 9402761481) LEUK ZHEN (test code = Negative Negative 0706050583) RBC/HPF (test code = See_Comment H [Autom ated message] 3206395638) The system [employer] generated this result transmit cory reference range : 0 - 3 HPF. The refe rence range was not u sed to interpret th is result as normal/abnormal . WBC/HPF (test code = See_Comment [Autom ated message] 3470502659) The system [employer] generated this result transmit cory reference range : 0 - 5 HPF. The refe rence range was not u sed to interpret th is result as normal/abnormal . BACTERIA (test code = Negative Negative 2058658624) MUCOUS (test code = Marked Negative LPF A 6031857612) SQ EPITH (test code = <1 HPF 2632616323) CA OXALATE (test code = See_Comment H [Au tomated message] 3486089100) The system [employer] generated this result transmit cory reference range : <=1 HPF. The refere nce range was not u sed to interpret th is result as normal/abnormal . HYAL CAST (test code = See_Comment H [Aut omated message] 9697135800) The system [employer] generated this result transmit cory reference range : <=2 LPF. The refere nce range was not u sed to interpret th is result as normal/abnormal . Lab Interpretation (test Abnormal code = 15690-2) [facility], [id number] 07:18:00 Test Item Value Reference Range Interpretation Comments LIPASE (test code = 9763471766) 61 U/L 0-220 Lab Interpretation (test code = Normal 25001-2) [facility] WITH [id number] 07:02:00 Test Item Value Reference Range Interpretation Comments WBC (test code = See_Comment H [Automated 5390-2) message] The system which generated this result [...] RDW-SD (test code = 42.3 fL 38.5-51.6 63033-7) RDW-CV (test code = 13.1 % 12.1-15.4 788-0) PLT (test code = See_Comment H [Automated 777-3) message] The system which generated this result transmit cory reference range : 150 - 328 10*3/ ?L. The reference range was not u sed to interpret th is result as normal/abnormal . MPV (test code = 9.1 fL 9.8-13 L 38899-9) NRBC/100 WBC (test See_Comment [Automat ed code = 1517078626) message] The system which generated this result transmit cory reference range : 0.0 - 10.0 /100 WBCs. The reference range was not used to interpret this result as normal/abnormal . NRBC x10^3 (test code <0.01 See_Comment [Auto mated = 0809255038) message] The system which generated this result transmit cory reference range : 10*3/?L. The reference range was not used to interpret this result as normal/abnormal . GRAN MAT (NEUT) % 77.9 % (test code = 770-8) IMM GRAN % (test code 0.70 % = 3189525030) LYMPH % (test code = 15.1 % 736-9) MONO % (test code = 5.8 % 5905-5) EOS % (test code = 0.1 % 713-8) BASO % (test code = 0.4 % 706-2) GRAN MAT x10^3(ANC) 10.71 10*3/uL 1.99-6.95 H (test code = 8505297326) IMM GRAN x10^3 (test 0.09 10*3/uL 0-0.06 H code = 1109361816) LYMPH x10^3 (test code 2.07 10*3/uL 1.09-3.23 = 731-0) MONO x10^3 (test code 0.79 10*3/uL 0.36-1.02 = 742-7) EOS x10^3 (test code = <0.03 0.06-0.53 L 711-2) BASO x10^3 (test code 0.05 10*3/uL 0.01-0.09 = 704-7) Lab Interpretation Abnormal (test code = 05152-2) [facility] / [facility] - DRUG SCREEN [id number] 04:32:00 Test Item Value Reference Range Interpretation Comments BENZO U (test code = Presumptive Negative A 2664408300) Positive IHSAN U (test code = Negative Negative 9273992985) AMPHET (test code = Negative Negative 7280344738) THC (test code = Presumptive Negative A Confirmatio n of 6405507600) Positive Presumptive Positive THC result requires physician order . METHADONE (test code Negative Negative = 7978685452) Meth U (test code = Negative Negative 5194889444) OPIATES (test code = Negative Negative 1931587111) Cocaine Metabolite Negative Negative (test code = 7982530214) PROPOXY (test code = Negative Negative 4077303916) Tric U (test code = Negative Negative 6613831116) PCP (test code = Negative Negative 1146599061) OXYCOD (test code = Negative Negative 8925038035) MARGOT (test code = Urine Drug Cutoff [...] testing). Lab Interpretation Abnormal (test code = 38646-9) [facility] (39651)2020-02-28 03:52:00 Test Item Value Reference Range Interpretation Comments NA (test code = 139 mmol/L 135-145 0230015194) K (test code = 3.7 mmol/L 3.5-5 5743530564) CL (test code = 104 mmol/L 98-108 5812744817) CO2 TOTAL (test code = 26 mmol/L 23-31 1027373832) AGAP (test code = 2-16 6957054205) BUN (test code = 16 mg/dL 7-23 2825462990) GLUCOSE (test code = 113 mg/dL 70-110 H 2961496433) CREATININE (test code = 0.87 mg/dL 0.6-1.25 1802424981) TOTAL BILI (test code = 0.3 mg/dL 0.1-1.6 8193695178) CALCIUM (test code = 9.7 mg/dL 8.6-10.6 8047662090) T PROTEIN (test code = 7.8 g/dL 6.3-8.2 0092997321) ALBUMIN (test code = 5.0 g/dL 3.5-5 3290975145) ALK PHOS (test code = 80 U/L 34-122 7547681552) ALTv (test code = 11 U/L 5-50 2-6) AST(SGOT) (test code = 23 U/L 13-40 2443616286) eGFR Calculation mL/min/1.73m2 (Non-) (test code = 4792026762) eGFR Calculation mL/min/1.73m2 () (test code = 4306864570) MARGOT (test code = MARGOT) Association of [...] tests). Lab Interpretation Abnormal (test code = 83341-2) [facility]2020-[facility] 03:52:00 Test Item Value Reference Range Interpretation Comments LIPASE (test code = 1133332443) 70 U/L 0-220 Lab Interpretation (test code = Normal 35743-5) [facility]2020-06-04 03:45:00 Test Item Value Reference Range Interpretation Comments APPEARANCE (test code = Hazy Clear A 3391486208) COLOR (test code = Yellow Yellow 1546887976) PH (test code = 4.8-8.0 7073449103) SP GRAVITY (test code = 1.003-1.030 H 3745420017) GLU U QUAL (test code = Normal Normal 3721428375) BLOOD (test code = Negative Negative INTERFERE NCE FROM 7611371828) ASCORBIC ACID M AY CAUSE FALSE NEG ATIVE RESULT KETONES (test code = Negative Negative 6145403918) PROTEIN (test code = Negative Negative 2887-8) UROBILIN (test code = 2.0 mg/dL Normal A 7541183070) BILIRUBIN (test code = Negative Negative 6422767516) NITRITE (test code = Negative Negative 5069538574) LEUK ZHEN (test code = Negative Negative 4491659386) RBC/HPF (test code = See_Comment [Autom ated message] 2694806784) The system [employer] generated this result transmitted ref erence range: 0 - 3 HP F. The reference range was not used to int erpret this result as normal/abnormal . WBC/HPF (test code = See_Comment [Autom ated message] 0112781185) The system [employer] generated this result transmitted ref erence range: 0 - 5 HP F. The reference range was not used to int erpret this result as normal/abnormal . BACTERIA (test code = Negative Negative 5989783832) MUCOUS (test code = Marked Negative LPF A 5081867904) CA OXALATE (test code = See_Comment H [Au tomated message] 0258253245) The system whic h generated this result transmitted ref erence range: <=1 HPF. The reference range was not used to int erpret this result as normal/abnormal . Lab Interpretation Abnormal (test code = 60261-4) [facility] WITH [id number] 03:32:00 Test Item Value Reference Range Interpretation [...] RDW-SD (test code = 42.5 fL 38.5-51.6 71761-5) RDW-CV (test code = 13.0 % 12.1-15.4 788-0) PLT (test code = See_Comment H [Automated 777-3) message] The sy stem which generated this result transmitted reference range : 150 - 328 10*3/ ?L. The reference r lucy was not used to interpret this result as normal/abnormal . MPV (test code = 8.8 fL 9.8-13 L 25911-0) NRBC/100 WBC (test See_Comment [Automat ed code = 6222668812) message] The system which generated this result transmitted reference range : 0.0 - 10.0 /100 WBCs. The refer ence range was not u sed to interpret th is result as normal/abnormal . NRBC x10^3 (test code <0.01 See_Comment [Auto mated = 2624190898) message] The s ystem which generated this result transmitted reference range : 10*3/?L. The reference range was not used to interpret this result as normal/abnormal . GRAN MAT (NEUT) % 44.6 % (test code = 770-8) IMM GRAN % (test code 0.20 % = 3561193267) LYMPH % (test code = 42.8 % 736-9) MONO % (test code = 11.8 % 5905-5) EOS % (test code = 0.1 % 713-8) BASO % (test code = 0.5 % 706-2) GRAN MAT x10^3(ANC) 3.57 10*3/uL 1.99-6.95 (test code = 3694467055) IMM GRAN x10^3 (test <0.03 0-0.06 code = 2604067311) LYMPH x10^3 (test code 3.43 10*3/uL 1.09-3.23 H = 731-0) MONO x10^3 (test code 0.95 10*3/uL 0.36-1.02 = 742-7) EOS x10^3 (test code = <0.03 0.06-0.53 L 711-2) BASO x10^3 (test code 0.04 10*3/uL 0.01-0.09 = 704-7) Lab Interpretation Abnormal (test code = 14804-2) [facility]Pelvis W/O [id number] 14:15:29 Punctate bilateral nonobstructing nephrolithiasis seen again. [...] reviewed this study and agree with the abovereport.[facility] SoutheastUrinalysis2020-05-09 13:59:00 Test Item Value Reference Range Interpretation Comments APPEARANCE (test code = Clear Clear 5594753145) COLOR (test code = Yellow Yellow 5620367130) PH (test code = 4.8-8.0 3835332811) SP GRAVITY (test code = 1.003-1.030 8864313848) GLU U QUAL (test code = Normal Normal 5771948614) BLOOD (test code = 2+ Negative A 0165878513) KETONES (test code = Negative Negative 8335773943) PROTEIN (test code = Negative Negative 2887-8) UROBILIN (test code = Normal Normal 1603633575) BILIRUBIN (test code = Negative Negative 2749226747) NITRITE (test code = Negative Negative 4945970885) LEUK ZHEN (test code = Negative Negative 8679574675) RBC/HPF (test code = See_Comment H [Autom ated message] 8519930498) The system [employer] generated this result transmitted ref erence range: 0 - 3 HP F. The reference range was not used to int erpret this result as normal/abnormal . WBC/HPF (test code = See_Comment [Autom ated message] 7334576803) The system [employer] generated this result transmitted ref erence range: 0 - 5 HP F. The reference range was not used to int erpret this result as normal/abnormal . BACTERIA (test code = Negative Negative 0287496573) MUCOUS (test code = Slight Negative LPF A 0838625809) HYAL CAST (test code = See_Comment H [Aut omated message] 0647669956) The system [employer] generated this result transmitted ref erence range: <=2 LPF. The reference range was not used to int erpret this result as normal/abnormal . Lab Interpretation (test Abnormal code = 05570-1) [facility] Metabolic Panel (NA, K, CL, CO2, GLUCOSE, BUN, CREATININE, CA)2020-02-02 13:33:00 Test Item Value Reference Range Interpretation Comments NA (test code = 143 mmol/L 135-145 9711061150) K (test code = 4.3 mmol/L 3.5-5 2698115659) CL (test code = 106 mmol/L 98-108 2110933833) CO2 TOTAL (test code = 27 mmol/L 23-31 5763439758) AGAP (test code = 2-16 2835728970) BUN (test code = 11 mg/dL 7-23 6127939111) GLUCOSE (test code = 103 mg/dL 70-110 9758544251) CREATININE (test code 0.98 mg/dL 0.6-1.25 = 7842282383) CALCIUM (test code = 10.4 mg/dL 8.6-10.6 7164576277) eGFR Calculation mL/min/1.73m2 (Non-) (test code = 6203326047) eGFR Calculation mL/min/1.73m2 () (test code = 7111805076) MARGOT (test code = MARGOT) Association of [...] or urine or abnormalities in imaging tests). [facility] WITH [id number] 13:14:00 Test Item Value Reference Range Interpretation [...] RDW-SD (test code = 45.9 fL 38.5-51.6 50059-3) RDW-CV (test code = 13.6 % 12.1-15.4 788-0) PLT (test code = See_Comment H [Automated 777-3) message] The sy stem which generated this result transmitted reference range : 150 - 328 10*3/ ?L. The reference r lucy was not used to interpret this result as normal/abnormal . MPV (test code = 8.7 fL 9.8-13 L 21518-1) NRBC/100 WBC (test See_Comment [Automat ed code = 2015052131) message] The system which generated this result transmitted reference range : 0.0 - 10.0 /100 WBCs. The refer ence range was not u sed to interpret th is result as normal/abnormal . NRBC x10^3 (test code <0.01 See_Comment [Auto mated = 3093870404) message] The s ystem which generated this result transmitted reference range : 10*3/?L. The reference range was not used to interpret this result as normal/abnormal . GRAN MAT (NEUT) % 60.1 % (test code = 770-8) IMM GRAN % (test code 0.30 % = 4891418589) LYMPH % (test code = 28.9 % 736-9) MONO % (test code = 9.2 % 5905-5) EOS % (test code = 1.1 % 713-8) BASO % (test code = 0.4 % 706-2) GRAN MAT x10^3(ANC) 4.38 10*3/uL 1.99-6.95 (test code = 1287801442) IMM GRAN x10^3 (test <0.03 0-0.06 code = 1159104116) LYMPH x10^3 (test code 2.11 10*3/uL 1.09-3.23 = 731-0) MONO x10^3 (test code 0.67 10*3/uL 0.36-1.02 = 742-7) EOS x10^3 (test code = 0.08 10*3/uL 0.06-0.53 711-2) BASO x10^3 (test code 0.03 10*3/uL 0.01-0.09 = 704-7) Lab Interpretation Abnormal (test code = 66005-1) [facility] / [facility] - DRUG SCREEN [id number] 16:13:00 Test Item Value Reference Range Interpretation Comments BENZO U (test code = Negative Negative 9050407129) IHSAN U (test code = Negative Negative 6392600161) AMPHET (test code = Negative Negative 4189399909) THC (test code = Presumptive Negative A Confirmatio n of 6616605648) Positive Presumptive Positive THC result requires physician order . METHADONE (test code Negative Negative = 5517383143) Meth U (test code = Negative Negative 6837687142) OPIATES (test code = Presumptive Negative A 1302871429) Positive Cocaine Metabolite Negative Negative (test code = 2832081591) PROPOXY (test code = Negative Negative 1505417030) Tric U (test code = Negative Negative 7540655487) PCP (test code = Negative Negative 4641553055) OXYCOD (test code = Negative Negative 6153188272) MARGOT (test code = Urine Drug Cutoff [...] testing). Lab Interpretation Abnormal (test code = 19793-4) [facility]inalysis2020-04-23 16:12:00 Test Item Value Reference Range Interpretation Comments APPEARANCE (test code = Clear Clear 6511706195) COLOR (test code = Yellow Yellow 8941437221) PH (test code = 4.8-8.0 5142658348) SP GRAVITY (test code = 1.003-1.030 7266770844) GLU U QUAL (test code = Normal Normal 9623913046) BLOOD (test code = Negative Negative 8839040290) KETONES (test code = Negative Negative 7367210798) PROTEIN (test code = Negative Negative 2887-8) UROBILIN (test code = Normal Normal 9656174080) BILIRUBIN (test code = Negative Negative 1738053627) NITRITE (test code = Negative Negative 8440237882) LEUK ZHEN (test code = Negative Negative 9268352928) RBC/HPF (test code = See_Comment [Autom ated message] 6581739633) The system [employer] generated this result transmitted ref erence range: 0 - 3 HP F. The reference range was not used to int erpret this result as normal/abnormal . WBC/HPF (test code = <1 See_Comment [Autom ated message] 0011758677) The system [employer] generated this result transmitted ref erence range: 0 - 5 HP F. The reference range was not used to int erpret this result as normal/abnormal . BACTERIA (test code = Negative Negative 1240039403) MUCOUS (test code = Slight Negative LPF A 1812675820) Lab Interpretation (test Abnormal code = 78392-8) [facility] Metabolic Panel (NA, K, CL, CO2, GLUCOSE, BUN, CREATININE, CA)2020-01-17 16:02:00 Test Item Value Reference Range Interpretation Comments NA (test code = 142 mmol/L 135-145 4783734164) K (test code = 4.4 mmol/L 3.5-5 9651931422) CL (test code = 107 mmol/L 98-108 6225103483) CO2 TOTAL (test code = 32 mmol/L 23-31 H 5727167725) AGAP (test code = 2-16 0960181991) BUN (test code = 13 mg/dL 7-23 5747230902) GLUCOSE (test code = 104 mg/dL 70-110 1142127578) CREATININE (test code = 0.67 mg/dL 0.6-1.25 7586993109) CALCIUM (test code = 9.6 mg/dL 8.6-10.6 0766322516) eGFR Calculation mL/min/1.73m2 (Non-) (test code = 8430799152) eGFR Calculation mL/min/1.73m2 () (test code = 3815363408) MARGOT (test code = MARGOT) Association of [...] tests). Lab Interpretation Abnormal (test code = 07525-3) [facility] (ALB, T.PRO, BILI T, BU/BC, ALT, AST, ALK PHOS)2020-01-17 16:02:00 Test Item Value Reference Range Interpretation Comments TOTAL BILI (test code = 8316566298) 0.4 mg/dL 0.1-1.1 BILI UNCON (test code = 7840340781) 0.5 mg/dL 0.1-1.1 BILI CONJ (test code = 9453031977) 0.0 mg/dL 0-0.3 T PROTEIN (test code = 3850994619) 7.4 g/dL 6.3-8.2 ALBUMIN (test code = 8772887685) 4.6 g/dL 3.5-5 ALK PHOS (test code = 6014462715) 88 U/L 34-122 ALTv (test code = 1742-6) 11 U/L 5-50 AST(SGOT) (test code = 9277615186) 23 U/L 13-40 Lab Interpretation (test code = Normal 68843-3) [facility] Southeast[facility] [id number] 16:02:00 Test Item Value Reference Range Interpretation Comments LIPASE (test code = 8462083592) 46 U/L 0-220 Lab Interpretation (test code = Normal 62593-3) [facility] [place] [facility] WITH [id number] 15:50:00 Test Item Value Reference Range Interpretation Comments WBC (test code = See_Comment H [Automated 9990-2) message] The sy stem which generated this [...] RDW-SD (test code = 43.6 fL 38.5-51.6 72098-0) RDW-CV (test code = 13.3 % 12.1-15.4 788-0) PLT (test code = See_Comment H [Automated 777-3) message] The sy stem which generated this result transmitted reference range : 150 - 328 10*3/ ?L. The reference r lucy was not used to interpret this result as normal/abnormal . MPV (test code = 8.7 fL 9.8-13 L 73682-9) NRBC/100 WBC (test See_Comment [Automat ed code = 6171361738) message] The system which generated this result transmitted reference range : 0.0 - 10.0 /100 WBCs. The refer ence range was not u sed to interpret th is result as normal/abnormal . NRBC x10^3 (test code <0.01 See_Comment [Auto mated = 5883410871) message] The s ystem which generated this result transmitted reference range : 10*3/?L. The reference range was not used to interpret this result as normal/abnormal . GRAN MAT (NEUT) % 77.5 % (test code = 770-8) IMM GRAN % (test code 0.40 % = 0913004641) LYMPH % (test code = 13.3 % 736-9) MONO % (test code = 7.7 % 5905-5) EOS % (test code = 0.7 % 713-8) BASO % (test code = 0.4 % 706-2) GRAN MAT x10^3(ANC) 8.35 10*3/uL 1.99-6.95 H (test code = 2496156856) IMM GRAN x10^3 (test 0.04 10*3/uL 0-0.06 code = 9947197432) LYMPH x10^3 (test code 1.43 10*3/uL 1.09-3.23 = 731-0) MONO x10^3 (test code 0.83 10*3/uL 0.36-1.02 = 742-7) EOS x10^3 (test code = 0.08 10*3/uL 0.06-0.53 711-2) BASO x10^3 (test code 0.04 10*3/uL 0.01-0.09 = 704-7) Lab Interpretation Abnormal (test code = 81042-3) [facility] [id number] 03:33:00 Test Item Value Reference Range Interpretation Comments TROPONIN I (test 0.001 ng/mL See_Comment [Automated code = 4774574112) message] The system which generated this result [...] ? Lab Interpretation Normal (test code = 02741-2) [facility] [id number] 03:25:00 Test Item Value Reference Range Interpretation Comments ALCOHOL (test code = <10 mg/dL 1871625638) MARGOT (test code = Toxic Greater than or MARGOT) equal to 80 mg/dL.NOTE: Whole blood values are approximately 10% to 15% lower than serum and plasma. [facility] Metabolic Panel (NA, K, CL, CO2, GLUCOSE, BUN, CREATININE, CA)2019-05-27 03:22:00 Test Item Value Reference Range Interpretation Comments NA (test code = 138 mmol/L 135-145 8249699343) K (test code = 4.1 mmol/L 3.5-5 9900361709) CL (test code = 101 mmol/L 98-108 3902626757) CO2 TOTAL (test code = 30 mmol/L 23-31 0021355964) AGAP (test code = 2-16 1159759996) BUN (test code = 17 mg/dL 7-23 0779647735) GLUCOSE (test code = 94 mg/dL 70-110 1912184043) CREATININE (test code 0.74 mg/dL 0.6-1.25 = 9394315080) CALCIUM (test code = 9.1 mg/dL 8.6-10.6 9797620246) eGFR Calculation mL/min/1.73m2 (Non-) (test code = 2459836979) eGFR Calculation mL/min/1.73m2 () (test code = 6611767594) AMRGOT (test code = MARGOT) Association of Glomerular [...] or urine or abnormalities in imaging tests). [facility] [place] [facility] (ALB, T.PRO, BILI T, BU/BC, ALT, AST, ALK PHOS)2019-05-27 03:22:00 Test Item Value Reference Range Interpretation Comments TOTAL BILI (test code = 5448516828) 0.2 mg/dL 0.1-1.1 BILI UNCON (test code = 3654519780) 0.1 mg/dL 0.1-1.1 BILI CONJ (test code = 5357224864) 0.0 mg/dL 0-0.3 T PROTEIN (test code = 4446609316) 6.2 g/dL 6.3-8.2 L ALBUMIN (test code = 9698376519) 3.8 g/dL 3.5-5 ALK PHOS (test code = 2831254661) 65 U/L 34-122 ALT(SGPT) (test code = 7936559245) 19 U/L 9-51 AST(SGOT) (test code = 1939552988) 19 U/L 13-40 Lab Interpretation (test code = Abnormal 53345-2) [facility] [place] [facility] SoutheastChes 1 [id number] 03:14:39 No acute intrathoracic abnormality. * * * * * * * * ORIGINAL REPORT * * * * * * * *PROCEDURE: XR CHEST 1 VW CLINICAL INDICATION: syncope COMPARISON: None FINDINGS: The lungs are clear. No pleural effusion or pneumothorax is seen. The heartis normal in size. No acute bony abnormality. Tnmb, Radiant Results Inft User - 05/26/2019 10:16 PM CDT* * * * * * * * ORIGINAL REPORT * * * * * * * *PROCEDURE: XRCHEST 1 VWCLINICAL INDICATION: syncope COMPARISON: NoneFINDINGS:The lungs are clear. No pleural effusion or pneumothorax is seen. The heartis normal in size.No acute bony abnormality.IMPRESSIONNo acute intrathoracic abnormality.[facility] [place] [facility] WITH [id number] 03:03:00 Test Item Value Reference Range Interpretation [...] RDW-SD (test code = 41.0 fL 38.5-51.6 94310-0) RDW-CV (test code = 12.5 % 12.1-15.4 788-0) PLT (test code = See_Comment [Automated 777-3) message] The system which generated this result transmit cory reference range : 150 - 328 10*3/ ?L. The reference range was not u sed to interpret th is result as normal/abnormal . MPV (test code = 8.6 fL 9.8-13 L 38429-3) NRBC/100 WBC (test See_Comment [Automat ed code = 6807525031) message] The system which generated this result transmit cory reference range : 0.0 - 10.0 /100 WBCs. The reference range was not used to interpret this result as normal/abnormal . NRBC x10^3 (test code <0.01 See_Comment [Auto mated = 4749197541) message] The system which generated this result transmit cory reference range : 10*3/?L. The reference range was not used to interpret this result as normal/abnormal . GRAN MAT (NEUT) % 74.8 % (test code = 770-8) IMM GRAN % (test code 0.50 % = 7058919967) LYMPH % (test code = 15.1 % 736-9) MONO % (test code = 8.8 % 5905-5) EOS % (test code = 0.5 % 713-8) BASO % (test code = 0.3 % 706-2) GRAN MAT x10^3(ANC) 12.81 10*3/uL 1.99-6.95 H (test code = 5437274171) IMM GRAN x10^3 (test 0.08 10*3/uL 0-0.06 H code = 1400832278) LYMPH x10^3 (test code 2.59 10*3/uL 1.09-3.23 = 731-0) MONO x10^3 (test code 1.50 10*3/uL 0.36-1.02 H = 742-7) EOS x10^3 (test code = 0.09 10*3/uL 0.06-0.53 711-2) BASO x10^3 (test code 0.05 10*3/uL 0.01-0.09 = 704-7) Lab Interpretation Abnormal (test code = 74513-6) [facility] [place] [facility]COMPREHENSIVE METABOLIC [id number] 07:12:00 Test Item Value Reference Range Interpretation [...] 20-125 N TOTAL (test code = ALKP) [id number] 07:12:00 Test Item Value Reference Range Interpretation Comments LIPASE (test code = LIP) 74 IUnit/L 73-393 N COMPREHENSIVE METABOLIC [id number] 07:07:00 Test Item Value Reference Range Interpretation [...] TOTAL (test IUnit/L 20-125 code = ALKP) [id number] 07:07:00 Test Item Value Reference Range Interpretation Comments LIPASE (test code = LIP) 74 IUnit/L 73-393 N URINALYSIS [id number] 07:03:00 Test Item Value Reference Range Interpretation [...] NONE SEEN A COMMENTS: Clean CatchCBC W/AUTO [id number] 06:59:00 Test Item Value Reference Range Interpretation [...] (test NO code = MDIFF) Chest 1 [id number] 16:41:21 No acute cardiopulmonary abnormality. * * [...] acute osseous abnormality is seen.IMPRESSIONNo acute cardiopulmonary abnormality.[facility] [place] [facility] Abdomen/Pelvis W/O [id number] 16:40:36 A nonobstructing stone in each kidney [...] in each kidney measures 2 mm. No hydronephrosis.[facility] [place] [facility] SoutheastUrinalysis2019-08-10 16:29:00 Test Item Value Reference Range Interpretation Comments APPEARANCE (test code = Clear Clear 5069932026) COLOR (test code = Colorless Yellow A 7524521861) PH (test code = 4.8-8.0 3698447775) SP GRAVITY (test code = 1.003-1.030 6831270852) GLU U QUAL (test code = Normal Normal 7192283948) BLOOD (test code = Negative Negative 5728793628) KETONES (test code = Negative Negative 2986579353) PROTEIN (test code = Negative Negative 2887-8) UROBILIN (test code = Normal Normal 7764379360) BILIRUBIN (test code = Negative Negative 2000388800) NITRITE (test code = Negative Negative 9620261950) LEUK ZHEN (test code = Negative Negative 3307633883) RBC/HPF (test code = <1 See_Comment [Autom ated message] 0369545437) The system [employer] generated this result transmit cory reference range : 0 - 3 HPF. The refe rence range was not u sed to interpret th is result as normal/abnormal . WBC/HPF (test code = <1 See_Comment [Autom ated message] 5559329063) The system [employer] generated this result transmit cory reference range : 0 - 5 HPF. The refe rence range was not u sed to interpret th is result as normal/abnormal . BACTERIA (test code = Negative Negative 5037623133) SQ EPITH (test code = <1 See_Comment [Auto mated message] 8117747132) The system [employer] generated this result transmit cory reference range : <=2 HPF. The refere nce range was not u sed to interpret th is result as normal/abnormal . Lab Interpretation (test Abnormal code = 37633-2) [facility] [place] [facility] (NA, K, CL, CO2, GLUCOSE, BUN, CREATININE, CA)2019-05-05 16:23:00 Test Item Value Reference Range Interpretation Comments NA (test code = 139 mmol/L 135-145 0431253249) K (test code = 4.6 mmol/L 3.5-5 9558498738) CL (test code = 100 mmol/L 98-108 0845197899) CO2 TOTAL (test code = 31 mmol/L 23-31 0586547506) AGAP (test code = 2-16 7811127107) BUN (test code = 15 mg/dL 7-23 7085082601) GLUCOSE (test code = 84 mg/dL 70-110 6787441100) CREATININE (test code 0.78 mg/dL 0.6-1.25 = 1779235993) CALCIUM (test code = 9.6 mg/dL 8.6-10.6 0275798953) eGFR Calculation mL/min/1.73m2 (Non-) (test code = 7143499353) eGFR Calculation mL/min/1.73m2 () (test code = 2880164401) MARGOT (test code = MARGOT) Association of [...] or urine or abnormalities in imaging tests). [facility] [place] [facility] Function Panel (ALB, T.PRO, BILI T, BU/BC, ALT, AST, ALK PHOS)2019-05-05 16:23:00 Test Item Value Reference Range Interpretation Comments TOTAL BILI (test code = 0874195600) 0.3 mg/dL 0.1-1.1 BILI UNCON (test code = 8309392353) 0.3 mg/dL 0.1-1.1 BILI CONJ (test code = 5552234087) 0.0 mg/dL 0-0.3 T PROTEIN (test code = 5832984414) 7.0 g/dL 6.3-8.2 ALBUMIN (test code = 0576548707) 4.2 g/dL 3.5-5 ALK PHOS (test code = 0774055255) 74 U/L 34-122 ALT(SGPT) (test code = 1419122748) 22 U/L 9-51 AST(SGOT) (test code = 8956991464) 20 U/L 13-40 Lab Interpretation (test code = Normal 76485-4) [facility] [place] [facility] SoutheastLipase [id number] 16:23:00 Test Item Value Reference Range Interpretation Comments LIPASE (test code = 0851236558) 40 U/L 0-220 Lab Interpretation (test code = Normal 14397-9) [facility] [place] [facility] WITH [id number] 16:15:00 Test Item Value Reference Range Interpretation Comments WBC (test code = See_Comment [Automated 9169-2) message] The sy stem which generated this result transmitted reference range : 4.20 - 10.70 10*3/?L. The reference range was not used to interpret this result as normal/abnormal . RBC (test code = See_Comment [Automated 493-6) message] The sy stem which generated this [...] RDW-SD (test code = 42.5 fL 38.5-51.6 48905-0) RDW-CV (test code = 12.9 % 12.1-15.4 788-0) PLT (test code = See_Comment [Automated 777-3) message] The sy stem which generated this result transmitted reference range : 150 - 328 10*3/ ?L. The reference r lucy was not used to interpret this result as normal/abnormal . MPV (test code = 8.4 fL 9.8-13 L 80468-5) NRBC/100 WBC (test See_Comment [Automat ed code = 4901645702) message] The system which generated this result transmitted reference range : 0.0 - 10.0 /100 WBCs. The refer ence range was not u sed to interpret th is result as normal/abnormal . NRBC x10^3 (test code <0.01 See_Comment [Auto mated = 0243100091) message] The s ystem which generated this result transmitted reference range : 10*3/?L. The reference range was not used to interpret this result as normal/abnormal . GRAN MAT (NEUT) % 54.3 % (test code = 770-8) IMM GRAN % (test code 0.30 % = 2465306986) LYMPH % (test code = 33.8 % 736-9) MONO % (test code = 9.9 % 5905-5) EOS % (test code = 1.2 % 713-8) BASO % (test code = 0.5 % 706-2) GRAN MAT x10^3(ANC) 4.01 10*3/uL 1.99-6.95 (test code = 8350312480) IMM GRAN x10^3 (test <0.03 0-0.06 code = 6437056093) LYMPH x10^3 (test code 2.50 10*3/uL 1.09-3.23 = 731-0) MONO x10^3 (test code 0.73 10*3/uL 0.36-1.02 = 742-7) EOS x10^3 (test code = 0.09 10*3/uL 0.06-0.53 711-2) BASO x10^3 (test code 0.04 10*3/uL 0.01-0.09 = 704-7) Lab Interpretation Abnormal (test code = 47357-0) [facility] METABOLIC [id number] 20:42:00 Test Item Value Reference Range Interpretation [...] 8.9 mg/dL 8.0-10.5 N CA) CBC W/AUTO [id number] 20:27:00 Test Item Value Reference Range Interpretation [...] = MDIFF) - CT ABD PELVIS W/O [id number] 20:22:00 Name: RO BROTHERS JR [facility] : 1985 Age/S: 33 / M [address] [place] [address] Unit #: [id number] Loc: [place] [address] Phys: Omer Lepe DO Acct: [id number] Dis Date: Status: REG ER PHONE #: [phone] Exam Date: 03/21/20191999 FAX #: [phone] Reason: R flank pain EXAMS: CPT CODE: [id number] CT ABD PELVIS W/O CONT 15277 PROCEDURE: CT ABDOMEN AND PELVIS WITHOUT CONTRAST [...] 1 Signed Report (CONTINUED) Name: RO BROTHERS [facility] : 1985 Age/S: 33 / M [address] [place] [address] Unit #: [id number] Loc: [place] [address] Phys:Omer Lepe Acct: [id number] Dis Date: Status: REG ER PHONE #: [phone] Exam Date: 03/21/20191999 FAX #: [phone] Reason: R flank pain EXAMS: CPT CODE: [id number] CT ABD PELVIS W/O CONT 59813 (Continued) lesions. Vertebral body height are maintained. OTHER: None. IMPRESSION: 1. Stable minimal bilateral nonobstructing nephrolithiasis. Otherwise, negative SL: [place] at 2021 Reported and signed by: Alix Armas M.D. CC: Omer Lepe DO Technologist:RT Libby(R)(CT) CTDI: DLP: Trnscb Date/Time: 03/21/2019 (2021) [email or web address] OrigPrint D/T: S: 03/21/2019 (2024) PAGE 2 Signed Report URINALYSIS [id number] 19:52:00 Test Item Value Reference Range Interpretation [...] = MUCU) TRACE /LPF NONE SEEN URINALYSIS [id number] 09:08:00 Test Item Value Reference Range Interpretation [...] MUCU) 1+ /LPF NONE SEEN CBC W/AUTO [id number] 09:02:00 Test Item Value Reference Range Interpretation [...] (test code NO = MDIFF) COMPREHENSIVE METABOLIC [id number] 08:41:00 Test Item Value Reference Range Interpretation [...] 20-125 N TOTAL (test code = ALKP) [id number] 08:41:00 Test Item Value Reference Range Interpretation Comments LIPASE (test code = LIP) 76 IUnit/L 73-393 N [id number] 08:39:00 Test Item Value Reference Range Interpretation Comments LIPASE (test code = LIP) 76 IUnit/L 73-393 N COMPREHENSIVE METABOLIC [id number] 08:39:00 Test Item Value Reference Range Interpretation [...] code = ALKP) - XR CHEST 1 [id number] 16:27:00 FAX: Racheal Silverio NP [phone] [place]: St: REG Name: RO BROTHERS [facility] : 1985 Age/S: 33/M [address] [place] [address] Unit #: [id number] Loc: [place] [address] Phys: Racheal Silverio NP Acct: [id number] Dis Date: Status: REG ER PHONE #: [phone] Exam Date: 02/03/2019 1617 FAX #: [phone] Reason: Abdominal Pain EXAMS: CPT CODE: [id number] XR CHEST 1 V 25181 SINGLE VIEW RADIOGRAPH CHEST INDICATION: Abdominal Pain. [...] IMPRESSION: 1. No acute cardiopulmonary process. at 9434 Reported and signed by: Sascha Fuentes D.O. CC: Racheal Silverio NP Technologist: Rosalia Bruno, RT(R); Fouzia Mike, RT(R) Trnscrd Date/Time/By: 02/03/2019 (0460) : By: [email or web address] Orig Print D/T: S: 02/03/2019 (8166) PAGE 1 Signed Report- CT ABD PELVIS W/O [id number] 16:04:00 Name: RO BROTHERS [facility] : 1985 Age/S: 33 / M [address] [place] [address] it #: [id number] Loc: [place], [place] [address] Phys: Racheal Silverio NP Acct: [id number] Dis Date: Status: REG ER PHONE #: [phone] Exam Date: 02/03/2019 1537 FAX #: [phone] Reason: L upper abd pain rad to L flank EXAMS: CPT CODE: [id number] CT ABD PELVIS W/O CONT 19298 PROCEDURE: CT ABDOMEN AND PELVIS WITHOUT CONTRAST [...] [facility] : 1985 Age/S: 33 / M [address] [place] [address] Blvd Unit #: [id number] Loc: [place] [address] Phys: Racheal Silverio NP Acct: [id number] Dis Date: Status: REG ER PHONE #: [phone] Exam Date: 02/03/2019 1537 FAX #: [phone] Reason: L upper abd pain rad to L flank EXAMS: CPT CODE: [id number] CT ABD PELVIS W/O CONT 72653 (Continued) 2. Minimal bilateral nonobstructive nephrolithiasis. ____ CT imaging performed at this location utilizes radiation dose optimization techniques which include one or more of the following: -Automated exposure control -Adjustment of the mA and/or kV according to patient size -Use of iterative reconstruction technique SL: ER-H at 1604 Reported and signed by: Boom Jha M.D. CC: Racheal Godinez Technologist:Kimberli Boateng RT(R)(CT) CTDI: DLP: Trnscb Date/Time: 02/03/2019 (1604) [email or web address] Orig Print D/T: S: 02/03/2019 (5317) PAGE 2 Signed ReportURINALYSIS [id number] 15:53:00 Test Item Value Reference Range Interpretation [...] NONE SEEN SQU) COMMENTS: Clean CatchHEPATIC FUNCTION [id number] 15:32:00 Test Item Value Reference Range Interpretation [...] 100 IUnit/L 20-125 N code = ALKP) [id number] 15:32:00 Test Item Value Reference Range Interpretation Comments LIPASE (test code = LIP) 98 IUnit/L 73-393 N CHEMISTRY 8 [id number] 15:25:00 Test Item Value Reference Range Interpretation [...] ML/MIN (test code = GFRBED) CHEMISTRY 8 [id number] 15:25:00 Test Item Value Reference Range Interpretation Comments ISTAT-SODIUM (test 138 MMOL/L 134-147 N code = NAP) ISTAT-POTASSIUM (test 4.1 MMOL/L 3.4-5.0 N code = KP) ISTAT-CHLORIDE (test 102 MMOL/L 100-108 N Perform ed by code = CLP) certified opera tor at [facility] ISTAT CARBON DIOXIDE 25.0 mmol/L 21-33 N (test code = ISTAT-CO2) ISTAT CALCIUM IONIZED 1.11 MG/DL 1.12-1.32 L (test code = ISTAT-AMISH) ISTAT-GLUCOSE (test 104 MG/DL 70-110 N code = GLUP) ISTAT-BUN (test code = 12 MG/DL 7-18 N BUNP) BEDSIDE CREATININE 0.9 MG/DL 0.6-1.3 N (test code = CREATBED) GLOMERULAR FILTRATION 105 ML/MIN RATE POC (test code = GFRBED) CBC W/AUTO [id number] 15:18:00 Test Item Value Reference Range Interpretation [...] Note Provider Source 2019-05-24 06:10:00-00:00 [facility] ([facility]) EMERGENCY PROVIDER REPORT REPORT#:[id number] REPORT STATUS: Signed DATE:05/24/19 TIME: 06 PATIENT: RO BROTHERS JR UNIT #: [id number] ROOM/BED: AGE: 33 SEX: M PCP PHYS: No Primary or Family Ph ysician SERVICE AUTHOR: Franklyn Del Valle DO * ALL edits or amendments must be made on the [employer] document * HPI-Abd Pain M Under 40 [...] , he was seen 2 weeks ago @[facility] and was told he had stones in [...] (Auto) (14.0 - 32.0 %) 10.6 L Atlantic % (Auto) (4.8 - 9.0 %) 6.5 Eos % (Auto) (0.3 - 3.7 %) 0.2 L Baso % (Auto) (0.0 - 2.0 %) 0.5 Neut # (Auto) (2.0 - 7.6 x10 3/uL) 10.76 H Lymph # (Auto) (1.0 - 3.8 x10 3/uL) 1.40 Atlantic # (Auto) (0.1 - 0.8 x10 3/uL) [...] pH (5.0 - 7.0) 6.0 Ur Specific [place] (1.005 - 1.030) 1.029 Urine Protein (NEGATIVE) [...] Del Valle DO on at 0757 RPT #:[id number] END OF REPORT 2019-03-21 19:14:00-00:00 [facility] ([facility]) EMERGENCY PROVIDER REPORT REPORT#:[id number] REPORT STATUS: Signed DATE:03/21/19 TIME: 1913 PATIENT: RO BROTHERS JR UNIT #: [id number] ROOM/BED: AGE: 33 SEX: M PCP PHYS: No Primary or Family Ph ysician SERVICE AUTHOR: Omer Lepe DO * ALL edits or amendments must be made on the [employer]/computer document * Omer Lepe [birth year]191913: HPI- Male [...] bladder. He notes that he was in [place] yesterday and CT showed cluster of kd [...] Lorie Peguero, 03/21/191915 Provider Scribed Statement The PA/ORDER EXPEDITER's history was reviewed. The patient wa s [...] % (Auto) (14.0 - 32.0 %) 31.8 Atlantic % (Auto) (4.8 - 9.0 %) 10.9 H Eos % (Auto) (0.3 - 3.7 %) 0.7 Baso % (Auto) (0.0 - 2.0 %) 0.6 Neut # (Auto) (2.0 - 7.6 x10 3/uL) 5.33 Lymph # (Auto) (1.0 - 3.8 x10 3/uL) 3.06 Atlantic # (Auto) (0.1 - 0.8 x10 3/uL) [...] (5.0 - 7.0) 8.0 H Ur Specific [place] (1.005 - 1.030) 1.004 L Urine Protein [...] Interpret - Radiolog ist Reviewed by ED ORDER EXPEDITER Portions of this section were scribed by [...] he will be getting neither. Reviewed [place] STYLIST APPRENTICE aware and there is only one cont [...] ED. Pt agrees with plan. Reviewed pt's [place] STYLIST APPRENTICE aware and he only had a Rx [...] and in the presence of Racheal Silverio ORDER EXPEDITER. Signed By: True Cherry, 03/21/192116 Provider Scribed Statement I personally performed the s ervices described in this documentation and reviewed the documentation that was dictated to the scrib e(s) in my presence, and it accurately records my words and actions. Alfonso Silverio, 03/21/19 Portions of this section were scribed by Se cecilia Cherry on 03/21/19 at 2132 Electronically Signed by Racheal Silverio ORDER EXPEDITER on 02/25 03/14 at 2309 Electronically Signed by Omer Lepe DO on 03/22 at 0853 RPT #:[id number] END OF REPORT 2019-02-11 21:26:00-00:00 [facility] REPORT#:[id number] REPORT STATUS: Signed DATE:02/11/19 TIME: 2125 PATIENT: RO BROTHERS UNIT #: [id number] ROOM/BED: AGE: 33 SEX: M PCP PHYS: No Primary or Family Ph ysician SERVICE AUTHOR: Ro Roldan MD * ALL edits or amendments must be made on the [employer] document * HPI-Abd Pain M Under 40 [...] Michelle on 02/11/19 at [address] [facility] #:[id number] END OF REPORT 2019-02-05 08:10:00-00:00 [facility] ([facility]) EMERGENCY PROVIDER REPORT REPORT#:[id number] REPORT STATUS: Signed DATE:02/05/19 TIME: 809 PATIENT: RO BORTHERS JR UNIT #: [id number] ROOM/BED: AGE: 33 SEX: M PCP PHYS: No Primary or Family Ph ysician SERVICE AUTHOR: Katie Samayoa * ALL edits or amendments must be made on the [employer]/computer document * HPI-Nausea/Vomit/Diarrhea General Confirmed Patient Yes [...] % (Auto) (14.0 - 32.0 %) 21.0 Atlantic % (Auto) (4.8 - 9.0 %) 7.6 Eos % (Auto) (0.3 - 3.7 %) 0.1 L Baso % (Auto) (0.0 - 2.0 %) 0.8 Neut # (Auto) (2.0 - 7.6 x10 3/uL) 5.18 Lymph # (Auto) (1.0 - 3.8 x10 3/uL) 1.55 Atlantic # (Auto) (0.1 - 0.8 x10 3/uL) [...] pH (5.0 - 7.0) 7.0 Ur Specific [place] (1.005 - 1.030) 1.025 Urine Protein (NEGATIVE) [...] Statement Laboratory studies reviewed and considered in [facility] medical decision-making. Point of Care Testing Pulse Oximetry Pulse Ox % 99 On: Room air Interpretation Interpreted by me, Pulse oximetr y normal Time 0804 Portions of this section wer e scribed by David Manjarrez on 02/05/19 at 0917 Re-Evaluation MDM Free Text MDM Notes Free Text MDM Notes Discussed lab results-counselled to follow up [facility] for further evaluation- given information for [...] Samayoa on 0 02/05/19 at 0950 RPT #:[id number] END OF REPORT 2019-02-05 08:10:00-00:00 [facility] ([facility]) EMERGENCY PROVIDER REPORT REPORT#:[id number] REPORT STATUS: Signed DATE:02/05/19 TIME: 809 PATIENT: RO BROTHERS JR UNIT #: [id number] ROOM/BED: AGE: 33 SEX: M PCP PHYS: No Primary or Family Ph ysician SERVICE AUTHOR: Katie Samayoa * ALL edits or amendments must be made on the [employer]/computer document * Katie Samayoa. 02/05/19 0810: HPI-Nausea/Vomit/Diarrhea [...] % (Auto) (14.0 - 32.0 %) 21.0 [place] % (Auto) (4.8 - 9.0 %) 7.6 Eos % (Auto) (0.3 - 3.7 %) 0.1 L Baso % (Auto) (0.0 - 2.0 %) 0.8 Neut # (Auto) (2.0 - 7.6 x10 3/uL) 5.18 Lymph # (Auto) (1.0 - 3.8 x10 3/uL) 1.55 [place] # (Auto) (0.1 - 0.8 x10 3/uL) [...] pH (5.0 - 7.0) 7.0 Ur Specific [place] (1.005 - 1.030) 1.025 Urine Protein (NEGATIVE) [...] Saw Pt Alone I have reviewed the PA/ORDER EXPEDITER's note and plan of car e. I was available for consultation as needed at al l times during the patient's visit in the emergency department. I agree with the clinical impression , plan and disposition. Electronically Signed by Katie [place] on 0 02/05/19 at 0950 Electronically Signed by Masoud Valladares MD on at 0959 RPT #:[id number] END OF REPORT 2019-02-03 15:10:00-00:00 [facility] EMERGENCY PROVIDER REPORT REPORT#:[id number] REPORT STATUS: Signed DATE:02/03/19 TIME: 1509 PATIENT: RO BROTHERS JR UNIT #: [id number] ROOM/BED: AGE: 33 SEX: M PCP PHYS: No Primary or Family Ph ysician SERVICE AUTHOR: Racheal Silverio NP * ALL edits or amendments must be made on the [employer]/computer document * HPI-Nausea/Vomit/Diarrhea General Confirmed Patient Yes Date/Time Seen by Provider 02/03/19 1448 PCP [facility] Presentation Chief Complaint Vomiting Hx Obtained [...] % (Auto) (14.0 - 32.0 %) 17.0 [place] % (Auto) (4.8 - 9.0 %) 7.7 Eos % (Auto) (0.3 - 3.7 %) 0.1 L Baso % (Auto) (0.0 - 2.0 %) 0.4 Neut # (Auto) (2.0 - 7.6 x10 3/uL) 9.94 H Lymph # (Auto) (1.0 - 3.8 x10 3/uL) 2.26 [place] # (Auto) (0.1 - 0.8 x10 3/uL) [...] pH (5.0 - 7.0) 7.0 Ur Specific [place] (1.005 - 1.030) 1.001 L Urine Protein [...] Leticia Mckeon Electronically Signed by Racheal Silverio ORDER EXPEDITER on 01/24 10/14 at 1716 RPT #:[id number] END OF REPORT 2019-02-03 15:10:00-00:00 [facility] ([facility]) EMERGENCY PROVIDER REPORT REPORT#:[id number] REPORT STATUS: Signed DATE:02/03/19 TIME: 1509 PATIENT: RO BROTHERS JR UNIT #: [id number] ROOM/BED: AGE: 33 SEX: M PCP PHYS: No Primary or Family Ph ysician SERVICE AUTHOR: Racheal Silverio NP * ALL edits or amendments must be made on the [employer]/computer document * Racheal Silverio 02/03/19 1510: HPI-Nausea/Vomit/Diarrhea General Confirmed Patient Yes PCP [facility] Presentation Chief Complaint Vomiting Hx Obtained [...] % (Auto) (14.0 - 32.0 %) 17.0 [place] % (Auto) (4.8 - 9.0 %) 7.7 Eos % (Auto) (0.3 - 3.7 %) 0.1 L Baso % (Auto) (0.0 - 2.0 %) 0.4 Neut # (Auto) (2.0 - 7.6 x10 3/uL) 9.94 H Lymph # (Auto) (1.0 - 3.8 x10 3/uL) 2.26 [place] # (Auto) (0.1 - 0.8 x10 3/uL) [...] pH (5.0 - 7.0) 7.0 Ur Specific [place] (1.005 - 1.030) 1.001 L Urine Protein [...] Report Impression - Status: SIGNED Entered: 02/03/2019 5437 IMPRESSION: 1. No acute CT explanation for [...] Saw Pt Alone I have reviewed the PA/ORDER EXPEDITER's note and plan of libia myles. I was available for consultation as needed at al l times during the patient's visit in the emergency department. I agree with the clinical impression , plan and disposition. Electronically Signed by Racheal Silverio NP on 01/24 10/14 at 1716 Electronically Signed by Denton Menendez MD on at 1053 RPT #:[id number] END OF REPORT
[2023-06-14 11:51] LABS: Specific Gravity 1.005 (1.005-1.030); Urine Bilirubin NEGATIVE (Negative); Urine Blood Negative (Negative); Urine Clarity Clear (Clear); Urine Color Colorless (Yellow); Urine Glucose NEGATIVE (Negative); Urine Protein NEGATIVE (Negative); Urine Urobilinogen Normal (Normal); Urine pH 7.5 (5.0-7.0)
[2023-06-14 11:52] LABS: Absolute Lymphocytes (CBC) 1.3 K/uL (0.7-4.9); Hematocrit 43.7 % (39.6-49.0); Lymphocytes % 14.5 % (15.3-44.8); MPV 6.7 fL (7.6-11.3); Platelets 331 thou/uL (152-406); RBC Red Blood Cell Count 4.81 M/uL (4.33-5.43)
[2023-06-14 11:57] LABS: Protime INR 0.87
[2023-06-14 12:02] LABS: Barbiturates NEGATIVE (NEGATIVE); Benzodiazepines POSITIVE (NEGATIVE); Cocaine NEGATIVE (NEGATIVE); METHAMPHETAM NEGATIVE (NEGATIVE); Methadone NEGATIVE (NEGATIVE); Opiates NEGATIVE (NEGATIVE); Phencyclidine NEGATIVE (NEGATIVE); THC Cannibis POSITIVE (NEGATIVE)
[2023-06-14 12:11] LABS: ALT/SGPT 16 U/L (16-61); AST/SGOT 10 U/L (15-37); Albumin 3.7 g/dL (3.4-5.0); Alkaline Phosphatase 67 U/L (45-117); BUN Blood Urea Nitrogen 9 mg/dL (7-18); Bicarbonate 29 mEq/L (21-32); Bilirubin Direct < 0.1 mg/dL (0-0.2); Bilirubin Indirect, Calculated ND mg/dL (0.2-0.8); Bilirubin Total 0.2 mg/dL (0.2-1.0); Glomerular Filtration Rate 110 ml/min (=/>90); Glucose Level 110 mg/dL (74-106); Potassium 4.2 mEq/L (3.5-5.1); Protein, Total 6.8 g/dL (6.4-8.2); Sodium Level 142 mEq/L (136-145)
--- NOTE | 2023-06-14 13:03 | RAD REPORT ---
EXAM DESCRIPTION: CT - Head C Spine Cap Alyx Gonzales - 06/14/2023 12:36 pm CLINICAL HISTORY: Trauma, head and neck injury. Chest, abdomen and pelvis pain. AMS, reported fall, uncooperative COMPARISON: No comparisons TECHNIQUE: CT head without contrast. CT cervical spine without contrast with coronal and sagittal reformatted images. CT chest, abdomen and pelvis with IV contrast (approximately 100 mL nonionic IV contrast) with roberson l and sagittal reformatted images of the spine. All CT scans are performed using dose optimization technique as appropriate and may include automated exposure control or mA/KV adjustment according to patient size. FINDINGS: CT HEAD WITHOUT CONTRAST: No intracranial hemorrhage, hydrocephalus or extra-axial fluid collection. No areas of brain edema o r midline shift. The paranasal sinuses and mastoids are clear. The calvarium is intact. CT CERVICAL SPINE WITHOUT CONTRAST: No fracture or subluxation. The prevertebral soft tissues are normal in thickness. CT CHEST, ABDOMEN, PELVIS WITH CONTRAST: The lungs are clear.No pneumothorax or pericardial/pleural fluid. No evidence of intra-abdominal visceral injury, free fluid or free air. Moderate constipation. No concerning pelvic findings. No fractures. IMPRESSION: Negative for acute traumatic findings.
--- NOTE | 2023-06-14 13:37 | ER ---
Nurse's Notes [facility] Name: Adan Shah Jr Age: 37 yrs Sex: Male : 1985 Arrival Date: 06/14/2023 Time: 11:12 Bed 16 Private MD: Diagnosis: Altered mental status, unspecified Presentation: 06/14 11:16 Chief complaint: EMS states: "toned out for unresponsive and shaking uncontrollably. mb9 GCS 10 and pt is altered. Pt at home in position shaking, pupils responsive to light. Pts girlfriend on scene states he has a history of drug use. Girlfriend states pt is smoking Delta 8. BGL 98. 20 g to left FA". Coronavirus screen: At this time, the client does not indicate any symptoms associated with coronavirus-19. Ebola Screen: No symptoms or risks identified at this time. Initial Sepsis Screen: Does the patient meet any 2 criteria? No. Patient's initial sepsis screen is negative. Does the patient have a suspected source of infection? No. Patient's initial sepsis screen is negative. Risk Assessment: Do you want to hurt yourself or someone else? Patient reports no desire to harm self or others. Onset of symptoms was June 14, 2023. 11:16 Method Of Arrival: EMS: [facility] mb9 11:16 Acuity: ANAIS 2 mb9 Triage Assessment: 11:41 General: Appears uncomfortable, Behavior is agitated, drowsy. Pain: Denies pain. Neuro: mb9 Level of Consciousness is lethargic, Oriented to person. Cardiovascular: Heart tones S1 S2 present Patient's skin is warm and dry. Respiratory: Airway is patent Respiratory effort is even, unlabored, Respiratory pattern is regular, symmetrical, Breath sounds are clear bilaterally. GI: Abdomen is flat, non-distended, Bowel sounds present X 4 quads. : Urine is clear. Derm: Skin is pink, warm \\T\\ dry. Musculoskeletal: Range of motion: intact in all extremities. Historical: - Allergies: 11:22 Aspirin; mb9 - PMHx: 11:22 Anxiety; Bipolar disorder; Depression; Kidney stones; mb9 - Immunization history:: Adult Immunizations unknown. - Social history:: Smoking status: unknown. - Family history:: not pertinent. - Hospitalizations: : No recent hospitalization is reported. Screenin:42 [facility] ED Fall Risk Assessment (Adult) History of falling in the last 3 months, mb9 including since admission No falls in past 3 months (0 pts) Confusion or Disorientation Yes (5 pts) Intoxicated or Sedated Yes (3 pts) Impaired Gait No (0 pts) Mobility Assist Device Used No (0 pt) Altered Elimination No (0 pt) Score/Fall Risk Level 0 - 2 = Low Risk Oriented to surroundings, Maintained a safe environment, Educated pt \\T\\ family on fall prevention, incl call for assistance when getting out of bed. Abuse screen: Denies threats or abuse. Nutritional screening: No deficits noted. Tuberculosis screening: No symptoms or risk factors identified. Assessment: 11:42 Reassessment: see triage assessment. mb9 Vital Signs: 11:16 BP 120 / 78; Pulse 110; Resp 18; Temp 98.1; Pulse Ox 96% on R/A; Weight 61.23 kg; mb9 Height 5 ft. 7 in. ; 12:14 BP 149 / 74; Pulse 87; Resp 14; Pulse Ox 100% on R/A; me1 13:00 BP 129 / 85; Pulse 86; Resp 14; Pulse Ox 95% on R/A; me1 13:19 BP 129 / 85; Pulse 90; Resp 12; Pulse Ox 95% on R/A; me1 11:16 Body Mass Index 21.14 (61.23 kg, 170.18 cm) mb9 ED Course: 11:16 Patient arrived in ED. mb9 11:17 Juan Last MD is Attending Physician. rn 11:21 Triage completed. mb9 11:22 Arm band placed on. mb9 11:39 EKG done, by ED staff, reviewed by Juan Last MD. em1 11:40 Acetaminophen Sent. mb9 11:40 Basic Metabolic Panel Sent. mb9 11:40 CBC with Diff Sent. mb9 11:40 ETOH Level Sent. mb9 11:40 Hepatic Function Sent. mb9 11:40 PT-INR Sent. mb9 11:40 Ptt, Activated Sent. mb9 11:40 Salicylate Sent. mb9 11:40 Urinalysis w/ reflexes Sent. mb9 11:40 Urine Drug Screen Sent. mb9 11:42 Placed in gown. Bed in low position. Call light in reach. Side rails up X 1. Adult w/ mb9 patient. Client placed on continuous cardiac and pulse oximetry monitoring. NIBP monitoring applied. telemetry monitor on. 11:43 Kim Whitley, RN is Primary Nurse. mb9 12:17 No provider procedures requiring assistance completed. me1 12:38 CT Traumagram (Head C Spine CAP W Con) In Process Unspecified. EDMS 13:45 IV discontinued, intact, bleeding controlled, No redness/swelling at site. Pressure me1 dressing applied. 13:46 Provided Education on: preventing accidental drug poisoning by abstaining from drug me1 use. Verbalized understanding. . Administered Medications: 11:40 Drug: NS 0.9% IV 500 ml IV at bolus once Route: IV; Rate: bolus; Site: right forearm; mb9 13:47 Follow up: IV Status: Completed infusion; IV Intake: 1000ml me1 Medication: 11:42 VIS not applicable for this client. mb9 Intake: 13:47 IV: 1000ml; Total: 1000ml. me1 Outcome: 13:36 Discharge ordered by . rn 13:46 Discharged to home ambulatory, with significant other, me1 13:46 Condition: stable 13:46 Discharge instructions given to patient, Instructed on discharge instructions, follow up and referral plans. Demonstrated understanding of instructions, follow-up care, 13:47 Patient left the ED. me1 Signatures: Dispatcher [employer] EDMS Juan Last MD MD rn Martinez, Eric em1 Kim Whitley, RN RN Myla Baxter RN RN me1 Corrections: (The following items were deleted from the chart) 11:41 11:16 BP 120 / 78; Pulse 110bpm; Resp 18bpm; Pulse Ox 96% RA; mb9 mb9
--- NOTE | 2023-06-14 13:37 | EDPHYS ---
Physician Documentation [facility] Name: Adan Shah Jr Age: 37 yrs Sex: Male : 1985 Arrival Date: 06/14/2023 Time: 11:12 Bed 16 Private MD: ED Physician Juan Last HPI: 06/14 11:30 This 37 yrs old Male presents to ER via EMS with complaints of ams. rn 11:30 The patient presents with decreased responsiveness. Onset: The symptoms/episode rn began/occurred at an unknown time. Possible causes: drug use. Associated signs and symptoms:. Current symptoms: In the emergency department the patient's symptoms are unchanged from the initial presentation. It is unknown whether or not the patient has had similar symptoms in the past. EMS reports picked up patient for altered mental status. Significant other reports marijuana and synthetic use. Possibly altered over the last hour or 2. Family significant other also reported possible fall with head injury and unknown loss of consciousness. Patient not cooperative and cannot give more details. No seizure activity noted per EMS.. Historical: - Allergies: 11:22 Aspirin; mb9 - PMHx: 11:22 Anxiety; Bipolar disorder; Depression; Kidney stones; mb9 - Immunization history:: Adult Immunizations unknown. - Social history:: Smoking status: unknown. - Family history:: not pertinent. - Hospitalizations: : No recent hospitalization is reported. ROS: 11:30 Unable to obtain ROS due to altered mental status, rn Exam: 11:30 Constitutional: Thin male, slight agitation and not cooperative with exam Head/Face: rn Normocephalic, atraumatic. Eyes: Pupils dilated, no nystagmus ENT: Dry mucous membrane, no oral injury Cardiovascular: Tachycardic, regular. Respiratory: No increased work of breathing, no retractions or nasal flaring. Abdomen/GI: Soft, non-tender Skin: Warm, dry, superficial linear burn to dorsum of right hand MS/ Extremity: Pulses equal, no cyanosis. Neuro: Awake, agitated, not cooperative. Moves all 4 extremities. 13:34 ECG was reviewed by the Attending Physician. rn Vital Signs: 11:16 BP 120 / 78; Pulse 110; Resp 18; Temp 98.1; Pulse Ox 96% on R/A; Weight 61.23 kg; mb9 Height 5 ft. 7 in. ; 12:14 BP 149 / 74; Pulse 87; Resp 14; Pulse Ox 100% on R/A; me1 13:00 BP 129 / 85; Pulse 86; Resp 14; Pulse Ox 95% on R/A; me1 13:19 BP 129 / 85; Pulse 90; Resp 12; Pulse Ox 95% on R/A; me1 11:16 Body Mass Index 21.14 (61.23 kg, 170.18 cm) mb9 MDM: 11:17 Patient medically screened. rn 13:33 Differential Diagnosis: electrolyte abnormality, hypoglycemia, overdose, volume rn depletion. Data reviewed: vital signs, nurses notes, lab test result(s), EKG. 13:34 Counseling: I had a detailed discussion with the patient and/or guardian regarding the rn historical points, exam findings, and any diagnostic results supporting the discharge/admit diagnosis, lab results, the need for outpatient follow up, to return to the emergency department if symptoms worsen or persist or if there are any questions or concerns that arise at home. Response to treatment: the patient's symptoms have markedly improved after treatment, and as a result, I will discharge patient. Special discussion: I discussed with the patient/guardian in detail that at this point there is no indication for admission to the hospital. It is understood, however, that if the symptoms persist or worsen the patient needs to return immediately for re-evaluation. ED course: Patient now more alert, admits to smoking synthetic marijuana. Feels much better and requests that IV be pulled out and let him go home. Significant other here and given all results. No findings in trauma studies. Will DC home with return precautions.. 06/14 11:23 Order name: Acetaminophen; Complete Time: 12:06/14 11:23 Order name: Basic Metabolic Panel; Complete Time: 12:06/14 11:23 Order name: CBC with Diff; Complete Time: 12:06/14 11:23 Order name: ETOH Level; Complete Time: 12:06/14 11:23 Order name: Hepatic Function; Complete Time: 12:06/14 11:23 Order name: PT-INR; Complete Time: 12:06/14 11:23 Order name: Ptt, Activated; Complete Time: 12:06/14 11:23 Order name: Salicylate; Complete Time: 12:06/14 11:23 Order name: Urinalysis w/ reflexes; Complete Time: 12: rn 06/14 11:23 Order name: Urine Drug Screen; Complete Time: 12: rn 06/14 11:34 Order name: CK; Complete Time: 12: rn 06/14 11:30 Order name: CT Traumagram (Head C Spine CAP W Con); Complete Time: 13:05 rn 06/14 11:23 Order name: EKG; Complete Time: 11: rn 06/14 11:23 Order name: EKG - Nurse/Tech; Complete Time: 11:39 rn 06/14 11:23 Order name: IV Saline Lock; Complete Time: 11:40 rn 06/14 11:23 Order name: Labs collected and sent; Complete Time: :40 rn EC:34 Rate is 110 beats/min. Rhythm is regular. QRS [place] is Normal. MO interval is normal. rn QRS interval is normal. QT interval is normal. No Q waves. T waves are Normal. No ST changes noted. Clinical impression: Sinus tachycardia. Interpreted by me. Reviewed by me. Administered Medications: 11:40 Drug: NS 0.9% IV 500 ml IV at bolus once Route: IV; Rate: bolus; Site: right forearm; mb9 13:47 Follow up: IV Status: Completed infusion; IV Intake: 1000ml me1 Disposition Summary: 06/14/23 13:36 Discharge Ordered Notes: Location: Home rn Problem: new rn Symptoms: have improved rn Condition: Stable rn Diagnosis - Altered mental status, unspecified rn Followup: rn - With: Private Physician - When: As needed - Reason: Recheck today's complaints, Re-evaluation by your physician Discharge Instructions: - Discharge Summary Sheet rn - Accidental Drug Poisoning, Adult rn Forms: - Medication Reconciliation Form rn - Thank You Letter rn - Antibiotic manager of international - Prescription Opioid Use rn - Patient Portal Instructions rn - Leadership Thank You Letter rn Signatures: Dispatcher [employer] Juan Preciado MD MD rn Breneman, Kim Mcneal, RN RN mb9 Myla Berry RN nc1
[2023-06-14 15:31] VITALS: TEMP 98.1
[2023-06-14 15:34] VITALS: BP 129/85; O2SAT 95
--- NOTE | 2023-06-15 14:35 | EKG ---
Test Date: 2023-06-14 Test Time: 11:36:57 Addiction Specialist: ARNEL MEASUREMENT RESULTS: Intervals: Rate: 110 HI: 144 QRSD: 90 QT: 340 QTc: 460 [place]: P: 74 HI: 144 QRS: 89 T: 79 INTERPRETIVE STATEMENTS: Sinus tachycardia Otherwise normal ECG Compared to ECG 07/06/2022 22:33:28 Sinus rhythm no longer present Electronically Signed On 06-15-23 14:31:43 CDT by Denver Campoverde
== END 2023-06-14 13:47 | disposition home or self-care (01) ==
LOC: ER 11:12
DX: R41.82 Altered mental status, unspecified (principal); Z88.6 Allergy status to analgesic agent
CPT/HCPCS: 36415; 70450; 71260; 72125; 74177; 80048; 80076; 80143; 80179; 80307; 81003; 82077; 82550; 85025; 85610; 85730; 93005; Q9967